=== PATIENT | male | born 1970 | race Caucasian/White ===

== ENCOUNTER 2018-04-26 18:43 | Emergency (ER) | payer MEDICARE ==
[2018-04-26 18:43] VITALS: BMI 23.0
[2018-04-26 18:49] VITALS: BP 142/92; PULSE 68; RESP 18; TEMP 98.4; O2SAT 100
[2018-04-26] MEDS ORDERED: Tdap Vaccine 0.5 ml Vial (10-64 yrs) IM ONE ×2 (19:10→19:13)
--- NOTE | 2018-04-26 20:03 | ED PDOC ---
HPI: Skin/Bite Injury Time Seen by Provider: 04/26/18 18:46 Chief Complaint (Nursing): Abnormal Skin Integrity Chief Complaint (Provider): Laceration History Per: Patient History/Exam Limitations: no limitations Onset/Duration Of Symptoms: Mins (PT) Current Symptoms Are (Timing): Still Present Location Of Injury: Right: Leg Quality Of Symptoms: Painful Additional Complaint(s): 47 year old male presents to ED with complaints of injury to the right lower extremity sustained [employer]. Patient states he was taking out the garbage when he was cut by a piece of glass. Notes pain to the area. Patient is unsure of when he received his last tetanus booster. PCP: None Past Medical History Reviewed: Historical Data, Nursing Documentation, Vital Signs Vital Signs: Last Vital Signs Temp 98.4 F 04/26/18 18:47 Pulse 68 04/26/18 18:47 Resp 18 04/26/18 18:47 BP 142/92 H 04/26/18 18:47 Pulse Ox 100 04/26/18 20:07 - Medical History PMH: Anxiety, Asthma, CVA, Depression, Diabetes, Deep Vein Thrombosis, HTN, Hypercholesterolemia, Pulmonary Embolism (from previous history), Sleep Apnea, TIA - Surgical History Surgical History: CABG, Cholecystectomy, Coronary Stent (2008) - Family History Family History: States: Unknown Family Hx - Living Arrangements Living Arrangements: With Family - Immunization History Hx Tetanus Toxoid Vaccination: Yes Hx Influenza Vaccination: Yes Hx Pneumococcal Vaccination: Yes - Home Medications Home Medications: Ambulatory Orders Medication Instructions Recorded Warfarin [Coumadin] 10 mg PO DAILY 07/19/15 Mupirocin 1 appl TP BID #22 g 10/08/15 - Allergies Allergies/Adverse Reactions: Allergies Allergy/AdvReac Type Severity Reaction Status Date / Time Penicillins Allergy RASH Verified 04/26/18 18:46 Review of Systems ROS Statement: Except As Marked, All Systems Reviewed And Found Negative Musculoskeletal: Positive for: Leg Pain (laceration and pain to right lower extremity) Physical Exam - Reviewed Nursing Documentation Reviewed: Yes Vital Signs Reviewed: Yes - Physical Exam Appears: Positive for: Non-toxic, No Acute Distress Skin: Positive for: Normal Color, Warm, Dry Respiratory: Negative for: Respiratory Distress Extremity: Positive for: Normal ROM, Other (RIGHT CALF: 2 parallel, superficial lacerations each 6cm in length. No active bleeding.). Negative for: Deformity Neurologic/Psych: Positive for: Alert, Oriented. Negative for: Motor/Sensory Deficits - ECG O2 Sat by Pulse Oximetry: 100 (RA) Pulse Ox Interpretation: Normal Medical Decision Making Medical Decision Makin Initial impression: laceration Initial plan: * Tetanus 0.5mL IM * Wound repair See procedure note Scribe Attestation: Documented by Mckenzie Hernandez, acting as a scribe for Jacklyn Goel PA-C Provider Scribe Attestation: All medical record entries made by the Scribe were at my direction and personally dictated by me. I have reviewed the chart and agree that the record accurately reflects my personal performance of the history, physical exam, medical decision making, and the department course for this patient. I have also personally directed, reviewed, and agree with the discharge instructions and disposition. Disposition - Clinical Impression Clinical Impression: Tetanus toxoid vaccination administered at current visit, Leg laceration - Patient ED Disposition Is Patient to be Admitted: No - Disposition Disposition: Routine/Home Disposition Time: 20:12 Condition: STABLE Instructions: Laceration Repair With Glue (DC) Forms: [employer] ([place] Citizen) Procedures - Time-Out Type of Procedure: Wound Repair Site of Procedure: Right lower extremity Correct Patient (with visual ID + MR# on ID Band): Yes Correct Procedure: Yes Correct Site Marked: Yes X-Ray Marked: NA Medication Reconciliation / Bloodwork / Allergies Checked: Yes PA/Tech: Jacklyn Goel - Laceration/Wound Repair Right lower extremity Wound Length (cm): 6 (x2) Wound's Depth, Shape: superficial Wound Explored: clean Irrigated w/ Saline (ccs): 250 Betadine Prep?: No Wound Repaired With: Steri-strips, Skin adhesive Wound Complexity: Simple Sterile Dressing Applied?: Yes Progress: Patient tolerated procedure well.
== END 2018-04-26 20:20 | disposition home or self-care (01) ==
LOC: H.ER 18:43
DX: S81.811A Laceration without foreign body, right lower leg, initial encounter (principal); W25.XXXA Contact with sharp glass, initial encounter; Y92.89 Other specified places as the place of occurrence of the external cause; E11.9 Type 2 diabetes mellitus without complications; Z79.01 Long term (current) use of anticoagulants; Z86.711 Personal history of pulmonary embolism; Z88.0 Allergy status to penicillin; Z95.1 Presence of aortocoronary bypass graft

== ENCOUNTER 2018-05-14 20:04 | Inpatient (IN) | payer MEDICARE ==
[2018-05-14] MEDS ORDERED: Naloxone 0.4 mg/ml Inj (Adult) ONE (20:06)
[2018-05-14 20:10] VITALS: BMI 10.8
[2018-05-14] MEDS ORDERED: Sodium Chloride 0.9% 1,000 ML IV STA ×2 (20:13→20:49)
[2018-05-14] MEDS ORDERED: Succinylcholine 200 mg/10 ml Inj IV ONE ×2 (20:27→21:25)
[2018-05-14] MEDS ORDERED: Etomidate 20 mg/10ml Inj IV ONE ×2 (20:27→21:23)
[2018-05-14 20:42] LABS: ACETAMINOPHEN < 10.0 ug/ml (10.0-30.0); SALICYLATE < 1.0 mg/dl
[2018-05-14 20:44] LABS: ALB/GLOB RATIO 1.5 (1.0-2.1); ALBUMIN 3.9 g/dL (3.5-5.0); ALT/SGPT 26 U/L (21-72); AST/SGOT 30 U/L (17-59); BASO % 0.2 % (0.0-2.0); BLOOD UREA NITROGEN 16 mg/dl (9-20); CALCIUM 8.5 mg/dL (8.4-10.2); EOS % 0.6 % (0.0-4.0); GFR NON-AFRICAN AMERICAN > 60; HEMOGLOBIN 10.9 g/dL (12.0-18.0); LYMPH % 45.4 % (20.0-40.0); MEAN CELL VOLUME 78.6 fl (80.0-94.0); MEAN CORPUSCULAR HEMOGLOBIN 24.4 pg (27.0-31.0); MEAN PLATELET VOLUME 10.7 fl (7.2-11.7); MONO # 0.4 K/uL (0.0-0.8); MONO % 6.6 % (0.0-10.0); NEUT # 3.2 K/uL (1.8-7.0); NEUT % 47.2 % (50.0-75.0); RBC 4.47 Mil/uL (4.40-5.90); RED CELL DISTRIBUTION WIDTH 16.7 % (11.5-14.5); WHITE BLOOD COUNT 6.7 K/uL (4.8-10.8)
[2018-05-14] MEDS ORDERED: Clindamycin 150 mg/mL Inj IV STA (20:53)
[2018-05-14 21:00] LABS: INR 1.1 (0.9-1.2); PARTIAL THROMBOPLASTIN TIME 22.8 Seconds (25.6-37.1); PROTHROMBIN TIME 12.4 Seconds (9.8-13.1)
[2018-05-14] MEDS ORDERED: Clindamycin 600mg/50ml NS 600 MG/50 ML BAG IVPB SCH (21:00)
--- NOTE | 2018-05-14 21:02 | ED PDOC ---
HPI: Psych/Substance Abuse Time Seen by Provider: 05/14/18 20:12 Chief Complaint (Nursing): Altered Mental Status Chief Complaint (Provider): substance abuse History Per: EMS History/Exam Limitations: clinical condition Onset/Duration Of Symptoms: Hrs (today) Current Symptoms Are (Timing): Still Present Involuntary Hold By: None Additional Complaint(s): Joe Shah is a 47 year old male, with a past medical history of depression, who was brought to the emergency department via EMS after patient reported he was suicidal and intended to OD on all his pills. History per EMS, who noted he had multiple empty bottles of Trazodone, Ambien, Seroquel and Clonidine. Limited history due to patients clinical condition. PMD: None provided. Past Medical History Reviewed: Historical Data, Nursing Documentation, Vital Signs Vital Signs: Last Vital Signs Temp Pulse 125 H 05/14/18 20:08 Resp 16 05/14/18 20:08 BP Pulse Ox 80 L 05/14/18 20:08 - Medical History PMH: Anxiety, Asthma, CVA, Depression, Diabetes, Deep Vein Thrombosis, HTN, Hypercholesterolemia, Pulmonary Embolism (from previous history), Sleep Apnea, TIA - Surgical History Surgical History: CABG, Cholecystectomy, Coronary Stent (2008) - Family History Family History: States: Unknown Family Hx - Immunization History Hx Tetanus Toxoid Vaccination: Yes Hx Influenza Vaccination: Yes Hx Pneumococcal Vaccination: Yes - Home Medications Home Medications: Ambulatory Orders Medication Instructions Recorded Warfarin [Coumadin] 10 mg PO DAILY 07/19/15 Mupirocin 1 appl TP BID #22 g 10/08/15 - Allergies Allergies/Adverse Reactions: Allergies Allergy/AdvReac Type Severity Reaction Status Date / Time Penicillins Allergy RASH Verified 05/14/18 20:08 Review of Systems Review Of Systems: ROS cannot be obtained secondary to pt's inabilty to answer questions. Physical Exam - Reviewed Nursing Documentation Reviewed: Yes Vital Signs Reviewed: Yes - Physical Exam Head Exam: Positive for: ATRAUMATIC, NORMAL INSPECTION, NORMOCEPHALIC Skin: Positive for: Normal Color Eye Exam: Positive for: PERRL (4mm b/l and reactive pupils) Cardiovascular/Chest: Positive for: Tachycardia Respiratory: Positive for: Other (o2 sat high 80s, low 90s w/ active ambu bagging) Extremity: Negative for: Deformity, Swelling Neurologic/Psych: Negative for: Alert (doesn't withdraw from pain) - Laboratory Results Result Diagrams: 05/15/18 05:30 05/15/18 05:30 - ECG O2 Sat by Pulse Oximetry: 80 (RA) Pulse Ox Interpretation: Abnormal - Critical Care Total Time (In Min): 30 Documented Critical Care: Time excludes all time spent performint seperately billable procedures Medical Decision Making Medical Decision Making: Time: 20:12 Initial Impression: respiratory failure in setting of known overdose Initial Plan: --Type and screen --ABG --Head w/o contrast [CT] --EKG --Acetaminophen --Alcohol serum --CMP --Drug screen, urine --Lact Acid, Plasma --Magnesium --Phosphorus --Salicylate --Troponin I --Urine dipstick --Poison Control --CBC w/ differential --PTT --PT --Chest portable [RAD] --Cleocin 600 mg IV --Sodium Chloride 1,000 ml IV 1,000 mls/jr --1:1 Observation 20:45 -Provider attempted to intubate patient for airway maintenance but remained unsuccessful, Anesthesiologist Dr Ho subsequently intubated patient. Ventilator settings ordered by provider Labs reviewed show no clinically sig abnormalities with exception of respiratory acidosis as indicated on ABG; RR and FIO2 adjusted Case d/w Dr Uriarte for medicine receptionist clerk admission and Dr Dunne (hospitalist covering ICU) ----- Scribe Attestation: Documented by John Garibay, acting as a scribe for Radames Ramirez MD. Provider Scribe Attestation: All medical record entries made by the Scribe were at my direction and personally dictated by me. I have reviewed the chart and agree that the record accurately reflects my personal performance of the history, physical exam, medical decision making, and the department course for this patient. I have also personally directed, reviewed, and agree with the discharge instructions and disposition. Disposition - Clinical Impression Clinical Impression: Overdose - Disposition Disposition Time: 22:00 Condition: CRITICAL
[2018-05-14 21:36] LABS: ABG ALLEN TEST YES; ARTERIAL BLOOD GAS HCO3 23.4 mmol/L (21-28); ARTERIAL BLOOD GAS O2 SAT 100.2 % (95-98); ARTERIAL BLOOD GAS PCO2 62 mm/Hg (35-45); ARTERIAL BLOOD GAS PH 7.24 (7.35-7.45); ARTERIAL BLOOD GAS PO2 274 mm/Hg (80-100); ARTERIAL BLOOD GAS TCO2 28.5 mmol/L (22-28)
--- NOTE | 2018-05-14 21:58 | CP.PCM.CON ---
History of Present Illness - History of Present Illness History of Present Illness: Attending: Dr Kalani WISED: Unknown Reason for Consult: Critical Care Management Chief Complaint: Altered Mental Status The patient was seen and examined in the ED HPI: The hx was obtained from discussion with the ED Physician and after review of the medical records. He is a 47 years old male with hx of Depression , DM, Asthma and Sleep apnea, who was brought to the ED via EMS after he reported being suicidal and intended to OD on his Pills, then found to be unresponsive at home. He had about him empty bottles of Seroquel, Ambien, Trazodone and Clonidine. He was unresponsive in the Ed and because of his Pulmonary hx he was electively intubated for airway protection in the ED. PMH: Anxiety and Depression; Asthma, DM II; DVT and PE; HTN, HLD; Sleep Apnea, TIA; panic attacks PSH: CABG, Cholecystectomy, Coronary Stent (2008); IVC Filter 2008; Gastric Bipass 2013 SH: Former Smoker; No illegal drug use; No Alcohol; FH: States: Unknown Family Hx Allergies: PCN Medication: Reviewed Review of Systems - Review of Systems Systems not reviewed;Unavailable: Intubated Review of Systems: Review of system is limited because the patient is Sedated from his overdose and he is intubated. Past Patient History - Infectious Disease Hx of Infectious Diseases: None - Past Medical History & Family History Past Medical History?: Yes - Past Social History Smoking Status: Former Smoker Chewing Tobacco Use: No Cigar Use: No Alcohol: None Drugs: Denies - CARDIAC Hx Hypercholesterolemia: Yes Hx Hypertension: Yes - PULMONARY Hx Asthma: Yes Hx Pulmonary Embolism: Yes (from previous history) Hx Sleep Apnea: Yes - NEUROLOGICAL Hx Transient Ischemic Attacks (TIA): Yes - HEENT Hx HEENT Problems: No - ENDOCRINE/METABOLIC Hx Endocrine Disorders: Yes Hx Diabetes Mellitus Type 1: Yes (prior to gastric bypass) - HEMATOLOGICAL/ONCOLOGICAL Hx Blood Disorders: No - INTEGUMENTARY Hx Dermatological Problems: No - MUSCULOSKELETAL/RHEUMATOLOGICAL Hx Falls: No - GASTROINTESTINAL Hx Gastrointestinal Disorders: Yes Hx Nausea: Yes Hx Vomiting: Yes - GENITOURINARY/GYNECOLOGICAL Hx Genitourinary Disorders: No - PSYCHIATRIC Hx Anxiety: Yes Hx Depression: Yes Hx Panic Symptoms: Yes - SURGICAL HISTORY Hx Cholecystectomy: Yes Hx Coronary Artery Bypass Graft: Yes Hx Coronary Stent: Yes (2008) Other/Comment: Gastric Bipass. IVC filter - ANESTHESIA Hx Anesthesia: Yes Hx Anesthesia Reactions: No Hx Malignant Hyperthermia: No Meds Allergies/Adverse Reactions: Allergies Allergy/AdvReac Type Severity Reaction Status Date / Time Penicillins Allergy RASH Verified 05/14/18 20:08 - Medications Medications: Current Medications Clindamycin Phosphate (Cleocin In Normal Saline) 600 mg in 50 mls @ 100 mls/hr IVPB ONCE DANNY Physical Exam - Constitutional Additional comments: Intubated/ - Head Exam Head Exam: ATRAUMATIC, NORMAL INSPECTION, NORMOCEPHALIC - Eye Exam Eye Exam: Normal appearance Pupil Exam: PERRL - ENT Exam ENT Exam: Mucous Membranes Moist, Normal Exam, Normal External Ear Exam - Neck Exam Neck exam: Positive for: Normal Inspection. Negative for: Lymphadenopathy - Respiratory Exam Respiratory Exam: Clear to Auscultation Bilateral. absent: Rales, Rhonchi, Wheezes - Cardiovascular Exam Cardiovascular Exam: REGULAR RHYTHM, RRR, +S1, +S2 - GI/Abdominal Exam GI & Abdominal Exam: Normal Bowel Sounds, Soft. absent: Mass, Organomegaly - Rectal Exam Rectal Exam: Deferred - Extremities Exam Extremities exam: Positive for: normal inspection. Negative for: joint swelling , pedal edema - Back Exam Back exam: NORMAL INSPECTION - Neurological Exam Additional comments: Sedated, Intubated, no facial droop, generalized Decrease in tone, DTR conserved - Psychiatric Exam Additional comments: Intubated on mechanical ventilator - Skin Skin Exam: Dry, Intact, Normal Color, Warm Results - Vital Signs Recent Vital Signs: Last Vital Signs Temp 98.7 F 05/14/18 21:53 Pulse 106 H 05/14/18 21:53 Resp 20 05/14/18 21:53 BP 116/58 L 05/14/18 21:53 Pulse Ox 98 05/14/18 21:53 - Labs Result Diagrams: 05/14/18 20:25 05/14/18 20:25 Labs: Laboratory Results - last 24 hr 05/14/18 05/14/18 05/14/18 20:25 20:25 20:25 WBC 6.7 RBC 4.47 Hgb 10.9 L Hct 35.1 MCV 78.6 L MCH 24.4 L MCHC 31.0 L RDW 16.7 H Plt Count 240 MPV 10.7 Neut % (Auto) 47.2 L Lymph % (Auto) 45.4 H Imperial % (Auto) 6.6 Eos % (Auto) 0.6 Baso % (Auto) 0.2 Neut # (Auto) 3.2 Lymph # (Auto) 3.0 Imperial # (Auto) 0.4 Eos # (Auto) 0.0 Baso # (Auto) 0.0 PT INR APTT pCO2 pO2 HCO3 ABG pH ABG Total CO2 ABG O2 Saturation ABG Base Excess Eagle Test ABG Potassium A-a O2 Difference Glucose Lactate Vent Mode Mechanical Rate FiO2 Tidal Volume Sodium 140 Potassium 3.7 Chloride 102 Carbon Dioxide 25 Anion Gap 17 BUN 16 Creatinine 1.0 Est GFR ( Amer) > 60 Est GFR (Non-Af Amer) > 60 Random Glucose 259 H Lactic Acid Calcium 8.5 Phosphorus 5.5 H Magnesium 2.0 Total Bilirubin 1.4 H AST 30 ALT 26 Alkaline Phosphatase 50 Troponin I < 0.0120 Total Protein 6.5 Albumin 3.9 Globulin 2.6 Albumin/Globulin Ratio 1.5 Arterial Blood Potassium Salicylates < 1.0 Acetaminophen < 10.0 L Alcohol, Quantitative < 10 Blood Type Antibody Screen BBK History Checked 05/14/18 05/14/18 05/14/18 20:25 20:25 20:25 WBC RBC Hgb Hct MCV MCH MCHC RDW Plt Count MPV Neut % (Auto) Lymph % (Auto) Imperial % (Auto) Eos % (Auto) Baso % (Auto) Neut # (Auto) Lymph # (Auto) Imperial # (Auto) Eos # (Auto) Baso # (Auto) PT 12.4 INR 1.1 APTT 22.8 L pCO2 pO2 HCO3 ABG pH ABG Total CO2 ABG O2 Saturation ABG Base Excess Eagle Test ABG Potassium A-a O2 Difference Glucose Lactate Vent Mode Mechanical Rate FiO2 Tidal Volume Sodium Potassium Chloride Carbon Dioxide Anion Gap BUN Creatinine Est GFR ( Amer) Est GFR (Non-Af Amer) Random Glucose Lactic Acid 3.3 H Calcium Phosphorus Magnesium Total Bilirubin AST ALT Alkaline Phosphatase Troponin I Total Protein Albumin Globulin Albumin/Globulin Ratio Arterial Blood Potassium Salicylates Acetaminophen Alcohol, Quantitative Blood Type A POSITIVE Antibody Screen Negative BBK History Checked Patient has bt 05/14/18 21:31 WBC RBC Hgb Hct MCV MCH MCHC RDW Plt Count MPV Neut % (Auto) Lymph % (Auto) Imperial % (Auto) Eos % (Auto) Baso % (Auto) Neut # (Auto) Lymph # (Auto) Imperial # (Auto) Eos # (Auto) Baso # (Auto) PT INR APTT pCO2 62 H pO2 274 H HCO3 23.4 ABG pH 7.24 L ABG Total CO2 28.5 H ABG O2 Saturation 100.2 H ABG Base Excess -2.1 L Eagle Test Yes ABG Potassium 3.9 A-a O2 Difference 362.0 Glucose 240 H Lactate 1.7 Vent Mode A/c Mechanical Rate 16 FiO2 100.0 Tidal Volume 700 Sodium 138.0 Potassium Chloride 107.0 Carbon Dioxide Anion Gap BUN Creatinine Est GFR ( Amer) Est GFR (Non-Af Amer) Random Glucose Lactic Acid Calcium Phosphorus Magnesium Total Bilirubin AST ALT Alkaline Phosphatase Troponin I Total Protein Albumin Globulin Albumin/Globulin Ratio Arterial Blood Potassium 3.9 Salicylates Acetaminophen Alcohol, Quantitative Blood Type Antibody Screen BBK History Checked - Imaging and Cardiology Chest x-ray Status: Image reviewed by me Additional comment: Left basal infiltrate ET at [place] Assessment & Plan - Assessment and Plan (Free Text) Assessment: #. Overdose on medications #. Depression #. Hypercapnic Respiratory Failure #. Aspiration Pneumonia #. DM II with Hyperglycemia Plan: 47 years old male with hx of Depression, DM, Asthma and Sleep apnea, who was brought to the ED via EMS after he was found to be unresponsive at home. He had about him empty bottles of Seroquel, Ambien, Trazodone and Clonidine. He was unresponsive in the Ed and was electively intubated for airway protection. #. Altered mental Status, Overdose on the medications, Seroquel, Ambien, Clonidine, Trazodone - Admit to ICU - Cardiac monitoring - seizure Precaution - Neuro checks - IV Fluids #. Depression - Psychiatric Consult #. Hypercapnic Respiratory Failure -Mechanical ventilation with settings AC 20; TV 500; FiO2 of 70% - Follow ABG #. Aspiration Pneumonia - Consult Dr Wheeler Pulmonary - Patient on Mechanical ventilator to protect Airway - Clindamycin #. DM II with Hyperglycemia - Regular Insulin sliding scale according to accucheck - HbA1c #. Stress ulcer Prophylaxis with Pantoprazole #. DVT Prophylaxis with SCD #. Code Status: Full - Date & Time Date: 05/14/18 Time: 21:58
[2018-05-14 22:00] LABS: URINE BACTERIA RARE (<OCC); URINE BILIRUBIN NEGATIVE (NEGATIVE); URINE BLOOD NEGATIVE (NEGATIVE); URINE CLARITY SLIGHTY-CLOUDY (Clear); URINE COLOR YELLOW (YELLOW); URINE GLUCOSE (UA) NEG (Normal); URINE LEUKOCYTE ESTERASE NEG Leu/uL (Negative); URINE PROTEIN 30 mg/dL (NEGATIVE)
[2018-05-14 22:03] LABS: BENZODIAZEPINES, UR NEGATIVE (NEGATIVE)
[2018-05-14 22:20] LABS: BARBITURATES, UR NEGATIVE (NEGATIVE); OPIATES, UR NEGATIVE (NEGATIVE); PHENCYCLIDINE, UR NEGATIVE (NEGATIVE)
--- NOTE | 2018-05-14 22:33 | PCM.ANES ---
Anesthesia Emergent Intubation - Diagnosis Working Diagnosis:: Drug Overdose - Consult Reason for Consult:: Respiratory failure - Intubation Attempts Previous Number of Intubation Attempts:: 3 (3 unsucessful attepts, aspiration noted by ER physician) By:: ER physicain - Pre-Intubation Vital Signs Blood Pressure: 59/29 Heart Rate: 114 Respiratory Rate: 12 (Mask ventilated by RT) O2 Sat: 75 FIO2: 100 Oxygen Delivery Method: Ambu-Bag Level Of Consciousness: Comatose/Unresponsive - Airway Management Oropharyngeal Area Suctioned: Yes PreOxygenation: 100 (ventilated by mask upon arrival) - Method of Intubation Intubation Method: Oral ETT ETT Size: 7.5 Lipline@: 23 Easy: Yes (Vomitus seen between cords and within trachea) Atramatic: Yes - Intubation Devices Reva Blade Size Used: 3 Kiran Forcepts Used: No Monument Scope Used: No Fiber Optic Scope: No - Placement Confirmation Breath Sounds Present & Equal Bilaterally: Yes Gurgling Sounds Not Audible at Epigastrum: Yes Positive EtCO2: Yes Portable CXR: Yes (Ordered by ER) Recommendations: Ventilator, Chest X Ray, ABG - Post-Intubation Vital Signs Blood Pressure: 84/42 Heart Rate: 119 Respiratory Rate: 12 O2 Sat: 94 FIO2: 100
[2018-05-14] MEDS: Sodium Chloride 0.9% 1,000 ML IV SCH (23:23)
[2018-05-15 05:25] LABS: ABG ALLEN TEST YES; ARTERIAL BLOOD GAS HCO3 24.5 mmol/L (21-28); ARTERIAL BLOOD GAS HEMOGLOBIN 10.4 g/dL (11.7-17.4); ARTERIAL BLOOD GAS O2 CAPACITY 14.6 mL/dL (16-24); ARTERIAL BLOOD GAS PCO2 43 mm/Hg (35-45); ARTERIAL BLOOD GAS PH 7.37 (7.35-7.45); ARTERIAL BLOOD GAS PO2 86 mm/Hg (80-100); ARTERIAL BLOOD GAS TCO2 26.2 mmol/L (22-28)
[2018-05-15] MEDS: Insulin Regular 100 units/ml SC SCH ×4 (05:30→22:00)
[2018-05-15] MEDS: Sodium Chloride 0.9% 1,000 ML IV SCH ×2 (06:25→19:00)
[2018-05-15 06:36] LABS: BASO % 0.1 % (0.0-2.0); HEMOGLOBIN 10.6 g/dL (12.0-18.0); LYMPH # 0.3 K/uL (1.0-4.3); LYMPH % 3.4 % (20.0-40.0); MEAN CELL VOLUME 76.1 fl (80.0-94.0); MEAN CORPUSCULAR HEMOGLOBIN 24.6 pg (27.0-31.0); MEAN CORPUSCULAR HGB CONC 32.3 g/dL (33.0-37.0); MEAN PLATELET VOLUME 9.1 fl (7.2-11.7); MONO # 0.3 K/uL (0.0-0.8); MONO % 3.5 % (0.0-10.0); PLATELET COUNT 190 K/uL (130-400); RBC 4.33 Mil/uL (4.40-5.90); RED CELL DISTRIBUTION WIDTH 16.7 % (11.5-14.5); WHITE BLOOD COUNT 9.7 K/uL (4.8-10.8)
[2018-05-15 06:43] LABS: ALB/GLOB RATIO 1.3 (1.0-2.1); ALBUMIN 3.4 g/dL (3.5-5.0); ALT/SGPT 29 U/L (21-72); AST/SGOT 47 U/L (17-59); BLOOD UREA NITROGEN 17 mg/dl (9-20); CALCIUM 7.9 mg/dL (8.4-10.2); GFR NON-AFRICAN AMERICAN > 60
[2018-05-15 06:50] LABS: IRON 80 ug/dL (49-181)
[2018-05-15 06:59] LABS: % IRON SATURATION 19 % (20-55); TOTAL IRON BINDING CAPACITY 429 ug/dL (250-450)
--- NOTE | 2018-05-15 08:16 | CP.CCUPN ---
CCU Subjective - Physician Review Events Since Last Encounter (Free Text): Patient on ventilator on PRVC TV 500, RR 20, FIO2 70%, no pressors, no response to verbal stimuli, events reviewed CCU Objective - Vital Signs / Intake & Output Vital Signs (Last 4 hours): Vital Signs Temp Pulse Resp BP Pulse Ox 05/15/18 08:00 101.5 F H 125 H 29 H 135/75 99 05/15/18 06:57 80 L 05/15/18 06:00 121 H 30 H 139/79 95 Intake and Output (Last 8hrs): Intake & Output 05/14/18 05/15/18 05/15/18 22:59 06:59 14:59 Intake Total 1050 Output Total 800 Balance 250 Weight 75 lb 191 lb Intake: IV 1050 Output: Urine 800 Urethral (Sy) 800 - Physical Exam Head: Positive for: Atraumatic, Normocephalic Pupils: Positive for: PERRL Conjunctiva: Positive for: Normal Mouth: Positive for: Moist Mucous Membranes Nose (External): Positive for: Atraumatic Neck: Positive for: Normal Range of Motion Respiratory/Chest: Positive for: Clear to Auscultation Cardiovascular: Positive for: Regular Rate and Rhythm, Normal S1, S2 Abdomen: Positive for: Normal Bowel Sounds Upper Extremity: Positive for: Normal Inspection Lower Extremity: Positive for: Normal Inspection Neurological: Positive for: Other (on ventilator, no response to verbal stimuli) - Medications Active Medications: Active Medications Generic Name Dose Route Start Last Admin Trade Name Freq PRN Reason Stop Dose Admin Enoxaparin Sodium 40 mg 05/15/18 09:00 Lovenox SC DAILY DANNY Protocol Clindamycin Phosphate 600 mg in 50 mls @ 100 mls/hr 05/14/18 21:00 Cleocin In Normal Saline IVPB ONCE DANNY Clindamycin Phosphate 600 mg/ 54 mls @ 54 mls/hr 05/15/18 09:00 Sodium Chloride IVPB Q8 DANNY Protocol Sodium Chloride 1,000 mls @ 150 mls/hr 05/14/18 22:45 05/15/18 06:25 Sodium Chloride 0.9% IV 05/15/18 12:04 150 mls/hr .[id number] DANNY Administration Insulin Human Regular 0 units 05/15/18 04:00 05/15/18 05:30 Humulin R SC Not Given Q6 DANNY Protocol Pantoprazole Sodium 40 mg 05/15/18 09:00 Protonix Inj IVP DAILY DANNY - Patient Studies Lab Studies: Lab Studies 05/15/18 05/15/18 05/15/18 Range/Units 05:55 05:30 05:30 WBC (4.8-10.8) K/uL RBC (4.40-5.90) Mil/uL Hgb (12.0-18.0) g/dL Hct (35.0-51.0) % MCV (80.0-94.0) fl MCH (27.0-31.0) pg MCHC (33.0-37.0) g/dL RDW (11.5-14.5) % Plt Count (130-400) K/uL MPV (7.2-11.7) fl Neut % (Auto) (50.0-75.0) % Lymph % (Auto) (20.0-40.0) % Robeson % (Auto) (0.0-10.0) % Eos % (Auto) (0.0-4.0) % Baso % (Auto) (0.0-2.0) % Neut # (Auto) (1.8-7.0) K/uL Lymph # (Auto) (1.0-4.3) K/uL Robeson # (Auto) (0.0-0.8) K/uL Eos # (Auto) (0.0-0.7) K/uL Baso # (Auto) (0.0-0.2) K/uL PT (9.8-13.1) Seconds INR (0.9-1.2) APTT (25.6-37.1) Seconds pCO2 (35-45) mm/Hg pO2 (80-100) mm/Hg HCO3 (21-28) mmol/L ABG pH (7.35-7.45) ABG Total CO2 (22-28) mmol/L ABG O2 Saturation (95-98) % ABG O2 Content (15-23) ML/dL ABG Base Excess (-2.0-3.0) mmol/L ABG Hemoglobin (11.7-17.4) g/dL ABG Carboxyhemoglobin (0.5-1.5) % POC ABG HHb (Measured) (0.0-5.0) % ABG Methemoglobin (0.0-3.0) % ABG O2 Capacity (16-24) mL/dL Eagle Test ABG Potassium (3.6-5.2) mmol/L A-a O2 Difference mm/Hg Hgb O2 Saturation (95.0-98.0) % Glucose (75-110) mg/dL Lactate (0.7-2.1) mmol/L Vent Mode Mechanical Rate FiO2 % Tidal Volume Sodium 141 (132-148) mmol/l Potassium 4.4 (3.6-5.0) MMOL/L Chloride 105 (98-107) mmol/L Carbon Dioxide 26 (22-30) mmol/L Anion Gap 14 (10-20) BUN 17 (9-20) mg/dl Creatinine 0.9 (0.8-1.5) mg/dl Est GFR ( Amer) > 60 Est GFR (Non-Af Amer) > 60 POC Glucose (mg/dL) 166 H (65-110) mg/dL Random Glucose 157 H (75-110) mg/dL Lactic Acid (0.7-2.1) MMOL/L Calcium 7.9 L (8.4-10.2) mg/dL Phosphorus (2.5-4.5) mg/dl Magnesium (1.6-2.3) MG/DL Iron 80 (49-181) ug/dL TIBC 429 (250-450) ug/dL % Saturation 19 L (20-55) % Total Bilirubin 2.4 H (0.2-1.3) mg/dl AST 47 (17-59) U/L ALT 29 (21-72) U/L Alkaline Phosphatase 51 (38-126) U/L Troponin I (0.00-0.120) ng/mL Total Protein 5.9 L (6.3-8.2) G/DL Albumin 3.4 L (3.5-5.0) g/dL Globulin 2.6 (2.2-3.9) gm/dL Albumin/Globulin Ratio 1.3 (1.0-2.1) Arterial Blood Potassium (3.6-5.2) mmol/L Urine Color (YELLOW) Urine Clarity (Clear) Urine pH (5.0-8.0) Ur Specific [place] (1.003-1.030) Urine Protein (NEGATIVE) mg/dL Urine Glucose (UA) (Normal) mg/dL Urine Ketones (NEGATIVE) mg/dL Urine Blood (NEGATIVE) Urine Nitrate (NEGATIVE) Urine Bilirubin (NEGATIVE) Urine Urobilinogen (0.2-1.0) mg/dL Ur Leukocyte Esterase (Negative) Akbar/uL Urine RBC (Auto) (0-3) /hpf Urine Microscopic WBC (0-5) /hpf Urine Bacteria (<OCC) Salicylates mg/dl Urine Opiates Screen (NEGATIVE) Urine Methadone Screen (NEGATIVE) Acetaminophen (10.0-30.0) ug/ml Ur Barbiturates Screen (NEGATIVE) Ur Phencyclidine Scrn (NEGATIVE) Ur Amphetamines Screen (NEGATIVE) U Benzodiazepines Scrn (NEGATIVE) U Oth Cocaine Metabols (NEGATIVE) U Cannabinoids Screen (NEGATIVE) Alcohol, Quantitative (0-10) mg/dl Blood Type Antibody Screen BBK History Checked 05/15/18 05/15/18 05/14/18 Range/Units 05:30 05:20 21:42 WBC 9.7 (4.8-10.8) K/uL RBC 4.33 L (4.40-5.90) Mil/uL Hgb 10.6 L (12.0-18.0) g/dL Hct 33.0 L (35.0-51.0) % MCV 76.1 L D (80.0-94.0) fl MCH 24.6 L (27.0-31.0) pg MCHC 32.3 L (33.0-37.0) g/dL RDW 16.7 H (11.5-14.5) % Plt Count 190 (130-400) K/uL MPV 9.1 (7.2-11.7) fl Neut % (Auto) 93.0 H (50.0-75.0) % Lymph % (Auto) 3.4 L (20.0-40.0) % Robeson % (Auto) 3.5 (0.0-10.0) % Eos % (Auto) 0.0 (0.0-4.0) % Baso % (Auto) 0.1 (0.0-2.0) % Neut # (Auto) 9.0 H (1.8-7.0) K/uL Lymph # (Auto) 0.3 L (1.0-4.3) K/uL Robeson # (Auto) 0.3 (0.0-0.8) K/uL Eos # (Auto) 0.0 (0.0-0.7) K/uL Baso # (Auto) 0.0 (0.0-0.2) K/uL PT (9.8-13.1) Seconds INR (0.9-1.2) APTT (25.6-37.1) Seconds pCO2 43 (35-45) mm/Hg pO2 86 (80-100) mm/Hg HCO3 24.5 (21-28) mmol/L ABG pH 7.37 (7.35-7.45) ABG Total CO2 26.2 (22-28) mmol/L ABG O2 Saturation 96.0 (95-98) % ABG O2 Content 14.0 L (15-23) ML/dL ABG Base Excess -0.5 (-2.0-3.0) mmol/L ABG Hemoglobin 10.4 L (11.7-17.4) g/dL ABG Carboxyhemoglobin 0 L (0.5-1.5) % POC ABG HHb (Measured) 4.0 (0.0-5.0) % ABG Methemoglobin 0.6 (0.0-3.0) % ABG O2 Capacity 14.6 L (16-24) mL/dL Eagle Test Yes ABG Potassium (3.6-5.2) mmol/L A-a O2 Difference 359.0 mm/Hg Hgb O2 Saturation 95.3 (95.0-98.0) % Glucose (75-110) mg/dL Lactate (0.7-2.1) mmol/L Vent Mode A/c Mechanical Rate 20 FiO2 70.0 % Tidal Volume 500 Sodium (132-148) mmol/l Potassium (3.6-5.0) MMOL/L Chloride (98-107) mmol/L Carbon Dioxide (22-30) mmol/L Anion Gap (10-20) BUN (9-20) mg/dl Creatinine (0.8-1.5) mg/dl Est GFR ( Amer) Est GFR (Non-Af Amer) POC Glucose (mg/dL) (65-110) mg/dL Random Glucose (75-110) mg/dL Lactic Acid (0.7-2.1) MMOL/L Calcium (8.4-10.2) mg/dL Phosphorus (2.5-4.5) mg/dl Magnesium (1.6-2.3) MG/DL Iron (49-181) ug/dL TIBC (250-450) ug/dL % Saturation (20-55) % Total Bilirubin (0.2-1.3) mg/dl AST (17-59) U/L ALT (21-72) U/L Alkaline Phosphatase (38-126) U/L Troponin I (0.00-0.120) ng/mL Total Protein (6.3-8.2) G/DL Albumin (3.5-5.0) g/dL Globulin (2.2-3.9) gm/dL Albumin/Globulin Ratio (1.0-2.1) Arterial Blood Potassium (3.6-5.2) mmol/L Urine Color Yellow (YELLOW) Urine Clarity Slighty-cloudy (Clear) Urine pH 5.0 (5.0-8.0) Ur Specific [place] 1.028 (1.003-1.030) Urine Protein 30 (NEGATIVE) mg/dL Urine Glucose (UA) Neg (Normal) mg/dL Urine Ketones Negative (NEGATIVE) mg/dL Urine Blood Negative (NEGATIVE) Urine Nitrate Negative (NEGATIVE) Urine Bilirubin Negative (NEGATIVE) Urine Urobilinogen 2.0 (0.2-1.0) mg/dL Ur Leukocyte Esterase Neg (Negative) Akbar/uL Urine RBC (Auto) 3 (0-3) /hpf Urine Microscopic WBC 1 (0-5) /hpf Urine Bacteria Rare (<OCC) Salicylates mg/dl Urine Opiates Screen (NEGATIVE) Urine Methadone Screen (NEGATIVE) Acetaminophen (10.0-30.0) ug/ml Ur Barbiturates Screen (NEGATIVE) Ur Phencyclidine Scrn (NEGATIVE) Ur Amphetamines Screen (NEGATIVE) U Benzodiazepines Scrn (NEGATIVE) U Oth Cocaine Metabols (NEGATIVE) U Cannabinoids Screen (NEGATIVE) Alcohol, Quantitative (0-10) mg/dl Blood Type Antibody Screen BBK History Checked 05/14/18 05/14/18 05/14/18 Range/Units 21:42 21:31 20:25 WBC (4.8-10.8) K/uL RBC (4.40-5.90) Mil/uL Hgb (12.0-18.0) g/dL Hct (35.0-51.0) % MCV (80.0-94.0) fl MCH (27.0-31.0) pg MCHC (33.0-37.0) g/dL RDW (11.5-14.5) % Plt Count (130-400) K/uL MPV (7.2-11.7) fl Neut % (Auto) (50.0-75.0) % Lymph % (Auto) (20.0-40.0) % Robeson % (Auto) (0.0-10.0) % Eos % (Auto) (0.0-4.0) % Baso % (Auto) (0.0-2.0) % Neut # (Auto) (1.8-7.0) K/uL Lymph # (Auto) (1.0-4.3) K/uL Robeson # (Auto) (0.0-0.8) K/uL Eos # (Auto) (0.0-0.7) K/uL Baso # (Auto) (0.0-0.2) K/uL PT (9.8-13.1) Seconds INR (0.9-1.2) APTT (25.6-37.1) Seconds pCO2 62 H (35-45) mm/Hg pO2 274 H (80-100) mm/Hg HCO3 23.4 (21-28) mmol/L ABG pH 7.24 L (7.35-7.45) ABG Total CO2 28.5 H (22-28) mmol/L ABG O2 Saturation 100.2 H (95-98) % ABG O2 Content (15-23) ML/dL ABG Base Excess -2.1 L (-2.0-3.0) mmol/L ABG Hemoglobin (11.7-17.4) g/dL ABG Carboxyhemoglobin (0.5-1.5) % POC ABG HHb (Measured) (0.0-5.0) % ABG Methemoglobin (0.0-3.0) % ABG O2 Capacity (16-24) mL/dL Eagle Test Yes ABG Potassium 3.9 (3.6-5.2) mmol/L A-a O2 Difference 362.0 mm/Hg Hgb O2 Saturation (95.0-98.0) % Glucose 240 H (75-110) mg/dL Lactate 1.7 (0.7-2.1) mmol/L Vent Mode A/c Mechanical Rate 16 FiO2 100.0 % Tidal Volume 700 Sodium 138.0 (132-148) mmol/l Potassium (3.6-5.0) MMOL/L Chloride 107.0 (98-107) mmol/L Carbon Dioxide (22-30) mmol/L Anion Gap (10-20) BUN (9-20) mg/dl Creatinine (0.8-1.5) mg/dl Est GFR ( Amer) Est GFR (Non-Af Amer) POC Glucose (mg/dL) (65-110) mg/dL Random Glucose (75-110) mg/dL Lactic Acid (0.7-2.1) MMOL/L Calcium (8.4-10.2) mg/dL Phosphorus (2.5-4.5) mg/dl Magnesium (1.6-2.3) MG/DL Iron (49-181) ug/dL TIBC (250-450) ug/dL % Saturation (20-55) % Total Bilirubin (0.2-1.3) mg/dl AST (17-59) U/L ALT (21-72) U/L Alkaline Phosphatase (38-126) U/L Troponin I (0.00-0.120) ng/mL Total Protein (6.3-8.2) G/DL Albumin (3.5-5.0) g/dL Globulin (2.2-3.9) gm/dL Albumin/Globulin Ratio (1.0-2.1) Arterial Blood Potassium 3.9 (3.6-5.2) mmol/L Urine Color (YELLOW) Urine Clarity (Clear) Urine pH (5.0-8.0) Ur Specific [place] (1.003-1.030) Urine Protein (NEGATIVE) mg/dL Urine Glucose (UA) (Normal) mg/dL Urine Ketones (NEGATIVE) mg/dL Urine Blood (NEGATIVE) Urine Nitrate (NEGATIVE) Urine Bilirubin (NEGATIVE) Urine Urobilinogen (0.2-1.0) mg/dL Ur Leukocyte Esterase (Negative) Akbar/uL Urine RBC (Auto) (0-3) /hpf Urine Microscopic WBC (0-5) /hpf Urine Bacteria (<OCC) Salicylates mg/dl Urine Opiates Screen Negative (NEGATIVE) Urine Methadone Screen Negative (NEGATIVE) Acetaminophen (10.0-30.0) ug/ml Ur Barbiturates Screen Negative (NEGATIVE) Ur Phencyclidine Scrn Negative (NEGATIVE) Ur Amphetamines Screen Negative (NEGATIVE) U Benzodiazepines Scrn Negative (NEGATIVE) U Oth Cocaine Metabols Negative (NEGATIVE) U Cannabinoids Screen Negative (NEGATIVE) Alcohol, Quantitative (0-10) mg/dl Blood Type A POSITIVE Antibody Screen Negative BBK History Checked Patient has bt 05/14/18 05/14/18 05/14/18 Range/Units 20:25 20:25 20:25 WBC 6.7 (4.8-10.8) K/uL RBC 4.47 (4.40-5.90) Mil/uL Hgb 10.9 L (12.0-18.0) g/dL Hct 35.1 (35.0-51.0) % MCV 78.6 L (80.0-94.0) fl MCH 24.4 L (27.0-31.0) pg MCHC 31.0 L (33.0-37.0) g/dL RDW 16.7 H (11.5-14.5) % Plt Count 240 (130-400) K/uL MPV 10.7 (7.2-11.7) fl Neut % (Auto) 47.2 L (50.0-75.0) % Lymph % (Auto) 45.4 H (20.0-40.0) % Robeson % (Auto) 6.6 (0.0-10.0) % Eos % (Auto) 0.6 (0.0-4.0) % Baso % (Auto) 0.2 (0.0-2.0) % Neut # (Auto) 3.2 (1.8-7.0) K/uL Lymph # (Auto) 3.0 (1.0-4.3) K/uL Robeson # (Auto) 0.4 (0.0-0.8) K/uL Eos # (Auto) 0.0 (0.0-0.7) K/uL Baso # (Auto) 0.0 (0.0-0.2) K/uL PT 12.4 (9.8-13.1) Seconds INR 1.1 (0.9-1.2) APTT 22.8 L (25.6-37.1) Seconds pCO2 (35-45) mm/Hg pO2 (80-100) mm/Hg HCO3 (21-28) mmol/L ABG pH (7.35-7.45) ABG Total CO2 (22-28) mmol/L ABG O2 Saturation (95-98) % ABG O2 Content (15-23) ML/dL ABG Base Excess (-2.0-3.0) mmol/L ABG Hemoglobin (11.7-17.4) g/dL ABG Carboxyhemoglobin (0.5-1.5) % POC ABG HHb (Measured) (0.0-5.0) % ABG Methemoglobin (0.0-3.0) % ABG O2 Capacity (16-24) mL/dL Eagle Test ABG Potassium (3.6-5.2) mmol/L A-a O2 Difference mm/Hg Hgb O2 Saturation (95.0-98.0) % Glucose (75-110) mg/dL Lactate (0.7-2.1) mmol/L Vent Mode Mechanical Rate FiO2 % Tidal Volume Sodium (132-148) mmol/l Potassium (3.6-5.0) MMOL/L Chloride (98-107) mmol/L Carbon Dioxide (22-30) mmol/L Anion Gap (10-20) BUN (9-20) mg/dl Creatinine (0.8-1.5) mg/dl Est GFR ( Amer) Est GFR (Non-Af Amer) POC Glucose (mg/dL) (65-110) mg/dL Random Glucose (75-110) mg/dL Lactic Acid 3.3 H (0.7-2.1) MMOL/L Calcium (8.4-10.2) mg/dL Phosphorus (2.5-4.5) mg/dl Magnesium (1.6-2.3) MG/DL Iron (49-181) ug/dL TIBC (250-450) ug/dL % Saturation (20-55) % Total Bilirubin (0.2-1.3) mg/dl AST (17-59) U/L ALT (21-72) U/L Alkaline Phosphatase (38-126) U/L Troponin I (0.00-0.120) ng/mL Total Protein (6.3-8.2) G/DL Albumin (3.5-5.0) g/dL Globulin (2.2-3.9) gm/dL Albumin/Globulin Ratio (1.0-2.1) Arterial Blood Potassium (3.6-5.2) mmol/L Urine Color (YELLOW) Urine Clarity (Clear) Urine pH (5.0-8.0) Ur Specific [place] (1.003-1.030) Urine Protein (NEGATIVE) mg/dL Urine Glucose (UA) (Normal) mg/dL Urine Ketones (NEGATIVE) mg/dL Urine Blood (NEGATIVE) Urine Nitrate (NEGATIVE) Urine Bilirubin (NEGATIVE) Urine Urobilinogen (0.2-1.0) mg/dL Ur Leukocyte Esterase (Negative) Akbar/uL Urine RBC (Auto) (0-3) /hpf Urine Microscopic WBC (0-5) /hpf Urine Bacteria (<OCC) Salicylates mg/dl Urine Opiates Screen (NEGATIVE) Urine Methadone Screen (NEGATIVE) Acetaminophen (10.0-30.0) ug/ml Ur Barbiturates Screen (NEGATIVE) Ur Phencyclidine Scrn (NEGATIVE) Ur Amphetamines Screen (NEGATIVE) U Benzodiazepines Scrn (NEGATIVE) U Oth Cocaine Metabols (NEGATIVE) U Cannabinoids Screen (NEGATIVE) Alcohol, Quantitative (0-10) mg/dl Blood Type Antibody Screen BBK History Checked 05/14/18 05/14/18 Range/Units 20:25 20:25 WBC (4.8-10.8) K/uL RBC (4.40-5.90) Mil/uL Hgb (12.0-18.0) g/dL Hct (35.0-51.0) % MCV (80.0-94.0) fl MCH (27.0-31.0) pg MCHC (33.0-37.0) g/dL RDW (11.5-14.5) % Plt Count (130-400) K/uL MPV (7.2-11.7) fl Neut % (Auto) (50.0-75.0) % Lymph % (Auto) (20.0-40.0) % Robeson % (Auto) (0.0-10.0) % Eos % (Auto) (0.0-4.0) % Baso % (Auto) (0.0-2.0) % Neut # (Auto) (1.8-7.0) K/uL Lymph # (Auto) (1.0-4.3) K/uL [place] # (Auto) (0.0-0.8) K/uL Eos # (Auto) (0.0-0.7) K/uL Baso # (Auto) (0.0-0.2) K/uL PT (9.8-13.1) Seconds INR (0.9-1.2) APTT (25.6-37.1) Seconds pCO2 (35-45) mm/Hg pO2 (80-100) mm/Hg HCO3 (21-28) mmol/L ABG pH (7.35-7.45) ABG Total CO2 (22-28) mmol/L ABG O2 Saturation (95-98) % ABG O2 Content (15-23) ML/dL ABG Base Excess (-2.0-3.0) mmol/L ABG Hemoglobin (11.7-17.4) g/dL ABG Carboxyhemoglobin (0.5-1.5) % POC ABG HHb (Measured) (0.0-5.0) % ABG Methemoglobin (0.0-3.0) % ABG O2 Capacity (16-24) mL/dL Eagle Test ABG Potassium (3.6-5.2) mmol/L A-a O2 Difference mm/Hg Hgb O2 Saturation (95.0-98.0) % Glucose (75-110) mg/dL Lactate (0.7-2.1) mmol/L Vent Mode Mechanical Rate FiO2 % Tidal Volume Sodium 140 (132-148) mmol/l Potassium 3.7 (3.6-5.0) MMOL/L Chloride 102 (98-107) mmol/L Carbon Dioxide 25 (22-30) mmol/L Anion Gap 17 (10-20) BUN 16 (9-20) mg/dl Creatinine 1.0 (0.8-1.5) mg/dl Est GFR ( Amer) > 60 Est GFR (Non-Af Amer) > 60 POC Glucose (mg/dL) (65-110) mg/dL Random Glucose 259 H (75-110) mg/dL Lactic Acid (0.7-2.1) MMOL/L Calcium 8.5 (8.4-10.2) mg/dL Phosphorus 5.5 H (2.5-4.5) mg/dl Magnesium 2.0 (1.6-2.3) MG/DL Iron (49-181) ug/dL TIBC (250-450) ug/dL % Saturation (20-55) % Total Bilirubin 1.4 H (0.2-1.3) mg/dl AST 30 (17-59) U/L ALT 26 (21-72) U/L Alkaline Phosphatase 50 (38-126) U/L Troponin I < 0.0120 (0.00-0.120) ng/mL Total Protein 6.5 (6.3-8.2) G/DL Albumin 3.9 (3.5-5.0) g/dL Globulin 2.6 (2.2-3.9) gm/dL Albumin/Globulin Ratio 1.5 (1.0-2.1) Arterial Blood Potassium (3.6-5.2) mmol/L Urine Color (YELLOW) Urine Clarity (Clear) Urine pH (5.0-8.0) Ur Specific [place] (1.003-1.030) Urine Protein (NEGATIVE) mg/dL Urine Glucose (UA) (Normal) mg/dL Urine Ketones (NEGATIVE) mg/dL Urine Blood (NEGATIVE) Urine Nitrate (NEGATIVE) Urine Bilirubin (NEGATIVE) Urine Urobilinogen (0.2-1.0) mg/dL Ur Leukocyte Esterase (Negative) Akbar/uL Urine RBC (Auto) (0-3) /hpf Urine Microscopic WBC (0-5) /hpf Urine Bacteria (<OCC) Salicylates < 1.0 mg/dl Urine Opiates Screen (NEGATIVE) Urine Methadone Screen (NEGATIVE) Acetaminophen < 10.0 L (10.0-30.0) ug/ml Ur Barbiturates Screen (NEGATIVE) Ur Phencyclidine Scrn (NEGATIVE) Ur Amphetamines Screen (NEGATIVE) U Benzodiazepines Scrn (NEGATIVE) U Oth Cocaine Metabols (NEGATIVE) U Cannabinoids Screen (NEGATIVE) Alcohol, Quantitative < 10 (0-10) mg/dl Blood Type Antibody Screen BBK History Checked Laboratory Results - last 24 hr 05/14/18 05/14/18 05/14/18 20:25 20:25 20:25 WBC 6.7 RBC 4.47 Hgb 10.9 L Hct 35.1 MCV 78.6 L MCH 24.4 L MCHC 31.0 L RDW 16.7 H Plt Count 240 MPV 10.7 Neut % (Auto) 47.2 L Lymph % (Auto) 45.4 H Robeson % (Auto) 6.6 Eos % (Auto) 0.6 Baso % (Auto) 0.2 Neut # (Auto) 3.2 Lymph # (Auto) 3.0 Robeson # (Auto) 0.4 Eos # (Auto) 0.0 Baso # (Auto) 0.0 PT INR APTT pCO2 pO2 HCO3 ABG pH ABG Total CO2 ABG O2 Saturation ABG O2 Content ABG Base Excess ABG Hemoglobin ABG Carboxyhemoglobin POC ABG HHb (Measured) ABG Methemoglobin ABG O2 Capacity Eagle Test ABG Potassium A-a O2 Difference Hgb O2 Saturation Glucose Lactate Vent Mode Mechanical Rate FiO2 Tidal Volume Sodium 140 Potassium 3.7 Chloride 102 Carbon Dioxide 25 Anion Gap 17 BUN 16 Creatinine 1.0 Est GFR ( Amer) > 60 Est GFR (Non-Af Amer) > 60 POC Glucose (mg/dL) Random Glucose 259 H Lactic Acid Calcium 8.5 Phosphorus 5.5 H Magnesium 2.0 Iron TIBC % Saturation Total Bilirubin 1.4 H AST 30 ALT 26 Alkaline Phosphatase 50 Troponin I < 0.0120 Total Protein 6.5 Albumin 3.9 Globulin 2.6 Albumin/Globulin Ratio 1.5 Arterial Blood Potassium Urine Color Urine Clarity Urine pH Ur Specific [place] Urine Protein Urine Glucose (UA) Urine Ketones Urine Blood Urine Nitrate Urine Bilirubin Urine Urobilinogen Ur Leukocyte Esterase Urine RBC (Auto) Urine Microscopic WBC Urine Bacteria Salicylates < 1.0 Urine Opiates Screen Urine Methadone Screen Acetaminophen < 10.0 L Ur Barbiturates Screen Ur Phencyclidine Scrn Ur Amphetamines Screen U Benzodiazepines Scrn U Oth Cocaine Metabols U Cannabinoids Screen Alcohol, Quantitative < 10 Blood Type Antibody Screen BBK History Checked 05/14/18 05/14/18 05/14/18 20:25 20:25 20:25 WBC RBC Hgb Hct MCV MCH MCHC RDW Plt Count MPV Neut % (Auto) Lymph % (Auto) [place] % (Auto) Eos % (Auto) Baso % (Auto) Neut # (Auto) Lymph # (Auto) [place] # (Auto) Eos # (Auto) Baso # (Auto) PT 12.4 INR 1.1 APTT 22.8 L pCO2 pO2 HCO3 ABG pH ABG Total CO2 ABG O2 Saturation ABG O2 Content ABG Base Excess ABG Hemoglobin ABG Carboxyhemoglobin POC ABG HHb (Measured) ABG Methemoglobin ABG O2 Capacity [place] Test ABG Potassium A-a O2 Difference Hgb O2 Saturation Glucose Lactate Vent Mode Mechanical Rate FiO2 Tidal Volume Sodium Potassium Chloride Carbon Dioxide Anion Gap BUN Creatinine Est GFR ( Amer) Est GFR (Non-Af Amer) POC Glucose (mg/dL) Random Glucose Lactic Acid 3.3 H Calcium Phosphorus Magnesium Iron TIBC % Saturation Total Bilirubin AST ALT Alkaline Phosphatase Troponin I Total Protein Albumin Globulin Albumin/Globulin Ratio Arterial Blood Potassium Urine Color Urine Clarity Urine pH Ur Specific [place] Urine Protein Urine Glucose (UA) Urine Ketones Urine Blood Urine Nitrate Urine Bilirubin Urine Urobilinogen Ur Leukocyte Esterase Urine RBC (Auto) Urine Microscopic WBC Urine Bacteria Salicylates Urine Opiates Screen Urine Methadone Screen Acetaminophen Ur Barbiturates Screen Ur Phencyclidine Scrn Ur Amphetamines Screen U Benzodiazepines Scrn U Oth Cocaine Metabols U Cannabinoids Screen Alcohol, Quantitative Blood Type A POSITIVE Antibody Screen Negative BBK History Checked Patient has bt 05/14/18 05/14/18 05/14/18 21:31 21:42 21:42 WBC RBC Hgb Hct MCV MCH MCHC RDW Plt Count MPV Neut % (Auto) Lymph % (Auto) [place] % (Auto) Eos % (Auto) Baso % (Auto) Neut # (Auto) Lymph # (Auto) [place] # (Auto) Eos # (Auto) Baso # (Auto) PT INR APTT pCO2 62 H pO2 274 H HCO3 23.4 ABG pH 7.24 L ABG Total CO2 28.5 H ABG O2 Saturation 100.2 H ABG O2 Content ABG Base Excess -2.1 L ABG Hemoglobin ABG Carboxyhemoglobin POC ABG HHb (Measured) ABG Methemoglobin ABG O2 Capacity [place] Test Yes ABG Potassium 3.9 A-a O2 Difference 362.0 Hgb O2 Saturation Glucose 240 H Lactate 1.7 Vent Mode A/c Mechanical Rate 16 FiO2 100.0 Tidal Volume 700 Sodium 138.0 Potassium Chloride 107.0 Carbon Dioxide Anion Gap BUN Creatinine Est GFR ( Amer) Est GFR (Non-Af Amer) POC Glucose (mg/dL) Random Glucose Lactic Acid Calcium Phosphorus Magnesium Iron TIBC % Saturation Total Bilirubin AST ALT Alkaline Phosphatase Troponin I Total Protein Albumin Globulin Albumin/Globulin Ratio Arterial Blood Potassium 3.9 Urine Color Yellow Urine Clarity Slighty-cloudy Urine pH 5.0 Ur Specific [place] 1.028 Urine Protein 30 Urine Glucose (UA) Neg Urine Ketones Negative Urine Blood Negative Urine Nitrate Negative Urine Bilirubin Negative Urine Urobilinogen 2.0 Ur Leukocyte Esterase Neg Urine RBC (Auto) 3 Urine Microscopic WBC 1 Urine Bacteria Rare Salicylates Urine Opiates Screen Negative Urine Methadone Screen Negative Acetaminophen Ur Barbiturates Screen Negative Ur Phencyclidine Scrn Negative Ur Amphetamines Screen Negative U Benzodiazepines Scrn Negative U Oth Cocaine Metabols Negative U Cannabinoids Screen Negative Alcohol, Quantitative Blood Type Antibody Screen BBK History Checked 05/15/18 05/15/18 05/15/18 05:20 05:30 05:30 WBC 9.7 RBC 4.33 L Hgb 10.6 L Hct 33.0 L MCV 76.1 L D MCH 24.6 L MCHC 32.3 L RDW 16.7 H Plt Count 190 MPV 9.1 Neut % (Auto) 93.0 H Lymph % (Auto) 3.4 L [place] % (Auto) 3.5 Eos % (Auto) 0.0 Baso % (Auto) 0.1 Neut # (Auto) 9.0 H Lymph # (Auto) 0.3 L [place] # (Auto) 0.3 Eos # (Auto) 0.0 Baso # (Auto) 0.0 PT INR APTT pCO2 43 pO2 86 HCO3 24.5 ABG pH 7.37 ABG Total CO2 26.2 ABG O2 Saturation 96.0 ABG O2 Content 14.0 L ABG Base Excess -0.5 ABG Hemoglobin 10.4 L ABG Carboxyhemoglobin 0 L POC ABG HHb (Measured) 4.0 ABG Methemoglobin 0.6 ABG O2 Capacity 14.6 L [place] Test Yes ABG Potassium A-a O2 Difference 359.0 Hgb O2 Saturation 95.3 Glucose Lactate Vent Mode A/c Mechanical Rate 20 FiO2 70.0 Tidal Volume 500 Sodium 141 Potassium 4.4 Chloride 105 Carbon Dioxide 26 Anion Gap 14 BUN 17 Creatinine 0.9 Est GFR ( Amer) > 60 Est GFR (Non-Af Amer) > 60 POC Glucose (mg/dL) Random Glucose 157 H Lactic Acid Calcium 7.9 L Phosphorus Magnesium Iron TIBC % Saturation Total Bilirubin 2.4 H AST 47 ALT 29 Alkaline Phosphatase 51 Troponin I Total Protein 5.9 L Albumin 3.4 L Globulin 2.6 Albumin/Globulin Ratio 1.3 Arterial Blood Potassium Urine Color Urine Clarity Urine pH Ur Specific [place] Urine Protein Urine Glucose (UA) Urine Ketones Urine Blood Urine Nitrate Urine Bilirubin Urine Urobilinogen Ur Leukocyte Esterase Urine RBC (Auto) Urine Microscopic WBC Urine Bacteria Salicylates Urine Opiates Screen Urine Methadone Screen Acetaminophen Ur Barbiturates Screen Ur Phencyclidine Scrn Ur Amphetamines Screen U Benzodiazepines Scrn U Oth Cocaine Metabols U Cannabinoids Screen Alcohol, Quantitative Blood Type Antibody Screen BBK History Checked 05/15/18 05/15/18 05:30 05:55 WBC RBC Hgb Hct MCV MCH MCHC RDW Plt Count MPV Neut % (Auto) Lymph % (Auto) [place] % (Auto) Eos % (Auto) Baso % (Auto) Neut # (Auto) Lymph # (Auto) [place] # (Auto) Eos # (Auto) Baso # (Auto) PT INR APTT pCO2 pO2 HCO3 ABG pH ABG Total CO2 ABG O2 Saturation ABG O2 Content ABG Base Excess ABG Hemoglobin ABG Carboxyhemoglobin POC ABG HHb (Measured) ABG Methemoglobin ABG O2 Capacity [place] Test ABG Potassium A-a O2 Difference Hgb O2 Saturation Glucose Lactate Vent Mode Mechanical Rate FiO2 Tidal Volume Sodium Potassium Chloride Carbon Dioxide Anion Gap BUN Creatinine Est GFR ( Amer) Est GFR (Non-Af Amer) POC Glucose (mg/dL) 166 H Random Glucose Lactic Acid Calcium Phosphorus Magnesium Iron 80 TIBC 429 % Saturation 19 L Total Bilirubin AST ALT Alkaline Phosphatase Troponin I Total Protein Albumin Globulin Albumin/Globulin Ratio Arterial Blood Potassium Urine Color Urine Clarity Urine pH Ur Specific [place] Urine Protein Urine Glucose (UA) Urine Ketones Urine Blood Urine Nitrate Urine Bilirubin Urine Urobilinogen Ur Leukocyte Esterase Urine RBC (Auto) Urine Microscopic WBC Urine Bacteria Salicylates Urine Opiates Screen Urine Methadone Screen Acetaminophen Ur Barbiturates Screen Ur Phencyclidine Scrn Ur Amphetamines Screen U Benzodiazepines Scrn U Oth Cocaine Metabols U Cannabinoids Screen Alcohol, Quantitative Blood Type Antibody Screen BBK History Checked EKG/Cardiology Studies: Cardiology / EKG Studies 05/14/18 20:10 ELECTROCARDIOGRAM Stat Comment: Mode Of Transportation: Reason For Exam: ams Fingerstick Blood Sugar Results: 166 Critical Care Progress Note - Nutrition Nutrition: Nutrition Category Date Time Status NPO Diet [DIET] Diets 05/14/18 Dinner Active Assessment/Plan - Assessment and Plan (Free Text) Assessment: A/P Respiratory failure, drug overdose, DM, h/o asthma, h/o depression, ?aspiration - Ventilatory support - Pulmonary toilets - Weaning as tolerated - Continue meds - Psychiatry follow up Critical care 35 min
[2018-05-15] MEDS: Enoxaparin 40 mg Syringe SC SCH (08:21)
--- NOTE | 2018-05-15 08:24 | CP.PCM.CON ---
History of Present Illness - History of Present Illness History of Present Illness: Psychiatry consult Patient unable to participate in psychiatric evaluation due to acute intubation and sedation. Please call for evaluation when patient is alert and oriented. Past Patient History - Infectious Disease Hx of Infectious Diseases: None - Past Medical History & Family History Past Medical History?: Yes - Past Social History Smoking Status: Former Smoker Chewing Tobacco Use: No Cigar Use: No Alcohol: None Drugs: Denies - CARDIAC Hx Hypercholesterolemia: Yes Hx Hypertension: Yes - PULMONARY Hx Asthma: Yes Hx Pulmonary Embolism: Yes (from previous history) Hx Sleep Apnea: Yes - NEUROLOGICAL Hx Transient Ischemic Attacks (TIA): Yes - HEENT Hx HEENT Problems: No - ENDOCRINE/METABOLIC Hx Endocrine Disorders: Yes Hx Diabetes Mellitus Type 1: Yes (prior to gastric bypass) - HEMATOLOGICAL/ONCOLOGICAL Hx Blood Disorders: No - INTEGUMENTARY Hx Dermatological Problems: No - MUSCULOSKELETAL/RHEUMATOLOGICAL Hx Falls: No - GASTROINTESTINAL Hx Gastrointestinal Disorders: Yes Hx Nausea: Yes Hx Vomiting: Yes - GENITOURINARY/GYNECOLOGICAL Hx Genitourinary Disorders: No - PSYCHIATRIC Hx Anxiety: Yes Hx Depression: Yes - SURGICAL HISTORY Hx Cholecystectomy: Yes Hx Coronary Artery Bypass Graft: Yes Hx Coronary Stent: Yes (2008) - ANESTHESIA Hx Anesthesia: Yes Hx Anesthesia Reactions: No Hx Malignant Hyperthermia: No Meds Allergies/Adverse Reactions: Allergies Allergy/AdvReac Type Severity Reaction Status Date / Time Penicillins Allergy RASH Verified 05/14/18 20:08 - Medications Medications: Current Medications Enoxaparin Sodium (Lovenox) 40 mg SC DAILY DANNY PRN Reason: Protocol Last Admin: 05/15/18 08:21 Dose: 40 mg Clindamycin Phosphate (Cleocin In Normal Saline) 600 mg in 50 mls @ 100 mls/hr IVPB ONCE [facility] Clindamycin Phosphate 600 mg/ (Sodium Chloride) 54 mls @ 54 mls/hr IVPB Q8 DANNY PRN Reason: Protocol Last Admin: 05/15/18 08:22 Dose: 54 mls/hr Sodium Chloride (Sodium Chloride 0.9%) 1,000 mls @ 150 mls/hr IV .Q6H40M [facility] Stop: 05/15/18 12:04 Last Admin: 05/15/18 06:25 Dose: 150 mls/hr Insulin Human Regular (Humulin R) 0 units SC Q6 DANNY PRN Reason: Protocol Last Admin: 05/15/18 05:30 Dose: Not Given Pantoprazole Sodium (Protonix Inj) 40 mg IVP DAILY DANNY Last Admin: 05/15/18 08:20 Dose: 40 mg Results - Vital Signs Recent Vital Signs: Last Vital Signs Temp 101.5 F H 05/15/18 08:00 Pulse 125 H 05/15/18 08:00 Resp 29 H 05/15/18 08:00 BP 135/75 05/15/18 08:00 Pulse Ox 99 05/15/18 08:00 - Labs Result Diagrams: 05/15/18 05:30 05/15/18 05:30 Labs: Laboratory Results - last 24 hr 05/14/18 05/14/18 05/14/18 20:25 20:25 20:25 WBC 6.7 RBC 4.47 Hgb 10.9 L Hct 35.1 MCV 78.6 L MCH 24.4 L MCHC 31.0 L RDW 16.7 H Plt Count 240 MPV 10.7 Neut % (Auto) 47.2 L Lymph % (Auto) 45.4 H Blair % (Auto) 6.6 Eos % (Auto) 0.6 Baso % (Auto) 0.2 Neut # (Auto) 3.2 Lymph # (Auto) 3.0 Blair # (Auto) 0.4 Eos # (Auto) 0.0 Baso # (Auto) 0.0 PT INR APTT pCO2 pO2 HCO3 ABG pH ABG Total CO2 ABG O2 Saturation ABG O2 Content ABG Base Excess ABG Hemoglobin ABG Carboxyhemoglobin POC ABG HHb (Measured) ABG Methemoglobin ABG O2 Capacity [place] Test ABG Potassium A-a O2 Difference Hgb O2 Saturation Glucose Lactate Vent Mode Mechanical Rate FiO2 Tidal Volume Sodium 140 Potassium 3.7 Chloride 102 Carbon Dioxide 25 Anion Gap 17 BUN 16 Creatinine 1.0 Est GFR ( Amer) > 60 Est GFR (Non-Af Amer) > 60 POC Glucose (mg/dL) Random Glucose 259 H Lactic Acid Calcium 8.5 Phosphorus 5.5 H Magnesium 2.0 Iron TIBC % Saturation Total Bilirubin 1.4 H AST 30 ALT 26 Alkaline Phosphatase 50 Troponin I < 0.0120 Total Protein 6.5 Albumin 3.9 Globulin 2.6 Albumin/Globulin Ratio 1.5 Arterial Blood Potassium Urine Color Urine Clarity Urine pH Ur Specific [place] Urine Protein Urine Glucose (UA) Urine Ketones Urine Blood Urine Nitrate Urine Bilirubin Urine Urobilinogen Ur Leukocyte Esterase Urine RBC (Auto) Urine Microscopic WBC Urine Bacteria Salicylates < 1.0 Urine Opiates Screen Urine Methadone Screen Acetaminophen < 10.0 L Ur Barbiturates Screen Ur Phencyclidine Scrn Ur Amphetamines Screen U Benzodiazepines Scrn U Oth Cocaine Metabols U Cannabinoids Screen Alcohol, Quantitative < 10 Blood Type Antibody Screen BBK History Checked 05/14/18 05/14/18 05/14/18 20:25 20:25 20:25 WBC RBC Hgb Hct MCV MCH MCHC RDW Plt Count MPV Neut % (Auto) Lymph % (Auto) Blair % (Auto) Eos % (Auto) Baso % (Auto) Neut # (Auto) Lymph # (Auto) Blair # (Auto) Eos # (Auto) Baso # (Auto) PT 12.4 INR 1.1 APTT 22.8 L pCO2 pO2 HCO3 ABG pH ABG Total CO2 ABG O2 Saturation ABG O2 Content ABG Base Excess ABG Hemoglobin ABG Carboxyhemoglobin POC ABG HHb (Measured) ABG Methemoglobin ABG O2 Capacity [place] Test ABG Potassium A-a O2 Difference Hgb O2 Saturation Glucose Lactate Vent Mode Mechanical Rate FiO2 Tidal Volume Sodium Potassium Chloride Carbon Dioxide Anion Gap BUN Creatinine Est GFR ( Amer) Est GFR (Non-Af Amer) POC Glucose (mg/dL) Random Glucose Lactic Acid 3.3 H Calcium Phosphorus Magnesium Iron TIBC % Saturation Total Bilirubin AST ALT Alkaline Phosphatase Troponin I Total Protein Albumin Globulin Albumin/Globulin Ratio Arterial Blood Potassium Urine Color Urine Clarity Urine pH Ur Specific [place] Urine Protein Urine Glucose (UA) Urine Ketones Urine Blood Urine Nitrate Urine Bilirubin Urine Urobilinogen Ur Leukocyte Esterase Urine RBC (Auto) Urine Microscopic WBC Urine Bacteria Salicylates Urine Opiates Screen Urine Methadone Screen Acetaminophen Ur Barbiturates Screen Ur Phencyclidine Scrn Ur Amphetamines Screen U Benzodiazepines Scrn U Oth Cocaine Metabols U Cannabinoids Screen Alcohol, Quantitative Blood Type A POSITIVE Antibody Screen Negative BBK History Checked Patient has bt 05/14/18 05/14/18 05/14/18 21:31 21:42 21:42 WBC RBC Hgb Hct MCV MCH MCHC RDW Plt Count MPV Neut % (Auto) Lymph % (Auto) [place] % (Auto) Eos % (Auto) Baso % (Auto) Neut # (Auto) Lymph # (Auto) [place] # (Auto) Eos # (Auto) Baso # (Auto) PT INR APTT pCO2 62 H pO2 274 H HCO3 23.4 ABG pH 7.24 L ABG Total CO2 28.5 H ABG O2 Saturation 100.2 H ABG O2 Content ABG Base Excess -2.1 L ABG Hemoglobin ABG Carboxyhemoglobin POC ABG HHb (Measured) ABG Methemoglobin ABG O2 Capacity [place] Test Yes ABG Potassium 3.9 A-a O2 Difference 362.0 Hgb O2 Saturation Glucose 240 H Lactate 1.7 Vent Mode A/c Mechanical Rate 16 FiO2 100.0 Tidal Volume 700 Sodium 138.0 Potassium Chloride 107.0 Carbon Dioxide Anion Gap BUN Creatinine Est GFR ( Amer) Est GFR (Non-Af Amer) POC Glucose (mg/dL) Random Glucose Lactic Acid Calcium Phosphorus Magnesium Iron TIBC % Saturation Total Bilirubin AST ALT Alkaline Phosphatase Troponin I Total Protein Albumin Globulin Albumin/Globulin Ratio Arterial Blood Potassium 3.9 Urine Color Yellow Urine Clarity Slighty-cloudy Urine pH 5.0 Ur Specific [place] 1.028 Urine Protein 30 Urine Glucose (UA) Neg Urine Ketones Negative Urine Blood Negative Urine Nitrate Negative Urine Bilirubin Negative Urine Urobilinogen 2.0 Ur Leukocyte Esterase Neg Urine RBC (Auto) 3 Urine Microscopic WBC 1 Urine Bacteria Rare Salicylates Urine Opiates Screen Negative Urine Methadone Screen Negative Acetaminophen Ur Barbiturates Screen Negative Ur Phencyclidine Scrn Negative Ur Amphetamines Screen Negative U Benzodiazepines Scrn Negative U Oth Cocaine Metabols Negative U Cannabinoids Screen Negative Alcohol, Quantitative Blood Type Antibody Screen BBK History Checked 05/15/18 05/15/18 05/15/18 05:20 05:30 05:30 WBC 9.7 RBC 4.33 L Hgb 10.6 L Hct 33.0 L MCV 76.1 L D MCH 24.6 L MCHC 32.3 L RDW 16.7 H Plt Count 190 MPV 9.1 Neut % (Auto) 93.0 H Lymph % (Auto) 3.4 L [place] % (Auto) 3.5 Eos % (Auto) 0.0 Baso % (Auto) 0.1 Neut # (Auto) 9.0 H Lymph # (Auto) 0.3 L [place] # (Auto) 0.3 Eos # (Auto) 0.0 Baso # (Auto) 0.0 PT INR APTT pCO2 43 pO2 86 HCO3 24.5 ABG pH 7.37 ABG Total CO2 26.2 ABG O2 Saturation 96.0 ABG O2 Content 14.0 L ABG Base Excess -0.5 ABG Hemoglobin 10.4 L ABG Carboxyhemoglobin 0 L POC ABG HHb (Measured) 4.0 ABG Methemoglobin 0.6 ABG O2 Capacity 14.6 L [place] Test Yes ABG Potassium A-a O2 Difference 359.0 Hgb O2 Saturation 95.3 Glucose Lactate Vent Mode A/c Mechanical Rate 20 FiO2 70.0 Tidal Volume 500 Sodium 141 Potassium 4.4 Chloride 105 Carbon Dioxide 26 Anion Gap 14 BUN 17 Creatinine 0.9 Est GFR ( Amer) > 60 Est GFR (Non-Af Amer) > 60 POC Glucose (mg/dL) Random Glucose 157 H Lactic Acid Calcium 7.9 L Phosphorus Magnesium Iron TIBC % Saturation Total Bilirubin 2.4 H AST 47 ALT 29 Alkaline Phosphatase 51 Troponin I Total Protein 5.9 L Albumin 3.4 L Globulin 2.6 Albumin/Globulin Ratio 1.3 Arterial Blood Potassium Urine Color Urine Clarity Urine pH Ur Specific [place] Urine Protein Urine Glucose (UA) Urine Ketones Urine Blood Urine Nitrate Urine Bilirubin Urine Urobilinogen Ur Leukocyte Esterase Urine RBC (Auto) Urine Microscopic WBC Urine Bacteria Salicylates Urine Opiates Screen Urine Methadone Screen Acetaminophen Ur Barbiturates Screen Ur Phencyclidine Scrn Ur Amphetamines Screen U Benzodiazepines Scrn U Oth Cocaine Metabols U Cannabinoids Screen Alcohol, Quantitative Blood Type Antibody Screen BBK History Checked 05/15/18 05/15/18 05:30 05:55 WBC RBC Hgb Hct MCV MCH MCHC RDW Plt Count MPV Neut % (Auto) Lymph % (Auto) [place] % (Auto) Eos % (Auto) Baso % (Auto) Neut # (Auto) Lymph # (Auto) [place] # (Auto) Eos # (Auto) Baso # (Auto) PT INR APTT pCO2 pO2 HCO3 ABG pH ABG Total CO2 ABG O2 Saturation ABG O2 Content ABG Base Excess ABG Hemoglobin ABG Carboxyhemoglobin POC ABG HHb (Measured) ABG Methemoglobin ABG O2 Capacity [place] Test ABG Potassium A-a O2 Difference Hgb O2 Saturation Glucose Lactate Vent Mode Mechanical Rate FiO2 Tidal Volume Sodium Potassium Chloride Carbon Dioxide Anion Gap BUN Creatinine Est GFR ( Amer) Est GFR (Non-Af Amer) POC Glucose (mg/dL) 166 H Random Glucose Lactic Acid Calcium Phosphorus Magnesium Iron 80 TIBC 429 % Saturation 19 L Total Bilirubin AST ALT Alkaline Phosphatase Troponin I Total Protein Albumin Globulin Albumin/Globulin Ratio Arterial Blood Potassium Urine Color Urine Clarity Urine pH Ur Specific [place] Urine Protein Urine Glucose (UA) Urine Ketones Urine Blood Urine Nitrate Urine Bilirubin Urine Urobilinogen Ur Leukocyte Esterase Urine RBC (Auto) Urine Microscopic WBC Urine Bacteria Salicylates Urine Opiates Screen Urine Methadone Screen Acetaminophen Ur Barbiturates Screen Ur Phencyclidine Scrn Ur Amphetamines Screen U Benzodiazepines Scrn U Oth Cocaine Metabols U Cannabinoids Screen Alcohol, Quantitative Blood Type Antibody Screen BBK History Checked
--- NOTE | 2018-05-15 09:17 | CT ---
Date of service: 05/14/2018 PROCEDURE: CT HEAD WITHOUT CONTRAST. HISTORY: ams COMPARISON: None available. TECHNIQUE: Axial computed tomography images were obtained through the head/brain without intravenous contrast. Radiation dose: Total exam DLP = 1237.86 MGy-cm. This CT exam was performed using one or more of the following dose reduction techniques: Automated exposure control, adjustment of the mA and/or kV according to patient size, and/or use of iterative reconstruction technique. FINDINGS: HEMORRHAGE: No intracranial hemorrhage. BRAIN: No mass effect or edema. No atrophy or chronic microvascular ischemic changes. VENTRICLES: Unremarkable. No hydrocephalus. CALVARIUM: Unremarkable. PARANASAL SINUSES: Small amount of fluid seen within the sphenoid sinus. There is also of fluid in the posterior nasopharynx. MASTOID AIR CELLS: There is opacification of 1 or 2 left inferior mastoid air cells. . OTHER FINDINGS: Tiny radiopaque density seen within the right supraorbital/ frontal scalp IMPRESSION: No acute intracranial hemorrhage.
[2018-05-15 09:22] LABS: ANISOCYTOSIS SLIGHT; BANDS 5 % (0-2); LYMPHOCYTE 5 % (20-50); MICROCYTOSIS SLIGHT; MONOCYTE 3 % (0-10); NEUTROPHIL 87 % (42-75); PLATELET ESTIMATE NORMAL (NORMAL); POIKILOCYTOSIS SLIGHT; TOTAL CELLS COUNTED 100
[2018-05-15 09:23] LABS: HYPOCHROMIC SLIGHT; LARGE PLATELETS PRESENT; OVALOCYTES MODERATE
--- NOTE | 2018-05-15 09:27 | RAD ---
Date of service: 05/14/2018 HISTORY: ams COMPARISON: No prior study available for comparison. FINDINGS: In situ ETT, the tip of which lies approximately 5.5 cm above lexus. LUNGS: Elevation right hemidiaphragm with vague patchy opacity in the right base possibly representing atelectasis and/or infiltrate PLEURA: No significant pleural effusion identified, no pneumothorax apparent. CARDIOVASCULAR: Normal. OSSEOUS STRUCTURES: No significant abnormalities. VISUALIZED UPPER ABDOMEN: Normal. OTHER FINDINGS: None. IMPRESSION: Elevation right hemidiaphragm with vague patchy opacity in the right base possibly representing atelectasis and/or infiltrate
--- NOTE | 2018-05-15 09:50 | RAD ---
Date of service: 05/15/2018 PROCEDURE: CHEST RADIOGRAPH, 1 VIEW HISTORY: intubated COMPARISON: Comparison chest 05/14/2018. FINDINGS: In situ ETT, tip of which lies approximately 9.1 cm above lexus. LUNGS: Interval slight improvement of previously noted patchy atelectasis and/or infiltrate right lung base PLEURA: No pneumothorax or pleural fluid seen. CARDIOVASCULAR: Normal. OSSEOUS STRUCTURES: No significant abnormalities. VISUALIZED UPPER ABDOMEN: Normal. OTHER FINDINGS: None. IMPRESSION: ETT as above Interval slight improvement of previously noted patchy atelectasis and/or infiltrate right lung base
[2018-05-15] MEDS ORDERED: Propofol 10 mg/ml 1,000 MG/100 ML VIAL ONE (11:29)
--- NOTE | 2018-05-15 14:08 | CP.PCM.PN ---
Objective - Vital Signs/Intake and Output Vital Signs (last 24 hours): Temp Pulse Resp BP Pulse Ox 100.9 F H 114 H 27 H 152/80 H 95 05/15/18 12:00 05/15/18 12:00 05/15/18 12:00 05/15/18 12:00 05/15/18 12:00 Intake and Output: 05/15/18 05/15/18 06:59 18:59 Intake Total 1050 55 Output Total 800 Balance 250 55 - Medications Medications: Current Medications Enoxaparin Sodium (Lovenox) 40 mg SC DAILY DANNY PRN Reason: Protocol Last Admin: 05/15/18 08:21 Dose: 40 mg Clindamycin Phosphate (Cleocin In Normal Saline) 600 mg in 50 mls @ 100 mls/hr IVPB ONCE DANNY Clindamycin Phosphate 600 mg/ (Sodium Chloride) 54 mls @ 54 mls/hr IVPB Q8 DANNY PRN Reason: Protocol Last Admin: 05/15/18 08:22 Dose: 54 mls/hr Propofol (Diprivan) 1,000 mg in 100 mls @ 2.599 mls/hr IV .Q24H DANNY; 5 MCG/KG/ MIN PRN Reason: Protocol Stop: 05/16/18 13:17 Levofloxacin/Dextrose (Levaquin 750mg) 750 mg in 150 mls @ 100 mls/hr IVPB DAILY DANNY PRN Reason: Protocol Vancomycin HCl 1 gm/ Sodium (Chloride) 250 mls @ 166.667 mls/hr IVPB Q12 DANNY PRN Reason: Protocol Insulin Human Regular (Humulin R) 0 units SC Q6 DANNY PRN Reason: Protocol Last Admin: 05/15/18 11:56 Dose: Not Given Pantoprazole Sodium (Protonix Inj) 40 mg IVP DAILY [facility] Last Admin: 05/15/18 08:20 Dose: 40 mg - Labs Labs: 05/15/18 05:30 05/15/18 05:30 PT 12.4 Seconds (9.8-13.1) 05/14/18 20:25 INR 1.1 (0.9-1.2) 05/14/18 20:25 APTT 22.8 Seconds (25.6-37.1) L 05/14/18 20:25
[2018-05-15] MEDS: Propofol 10 mg/ml 1,000 MG/100 ML VIAL IV SCH ×2 (14:33→20:44)
[2018-05-15] MEDS: levoFLOXacin 750 mg in D5W 750 MG/150 ML BAG IVPB SCH (15:14)
--- NOTE | 2018-05-15 16:01 | CP.PCM.HP ---
History of Present Illness - History of Present Illness History of Present Illness: CC: AMS History of Present Illness: Hx was obtained from daughter and review of the medical records. A 47 years old male with hx of Depression, DMII, VTE, Asthma and Sleep apnea who was brought to the ED via EMS after he reported being suicidal and intended to OD on his Pills, then found to be unresponsive at home. He had empty bottles of Seroquel, Ambien, Trazodone and Clonidine around the patient. He was unresponsive in the Ed and ABG showed Acute Respiratory Acidosis, and Intubated. Present on Admission - Present on Admission Any Indicators Present on Admission: No Review of Systems - Review of Systems All systems: reviewed and no additional remarkable complaints except Past Patient History - Infectious Disease Hx of Infectious Diseases: None - Past Medical History & Family History Past Medical History?: Yes - Past Social History Smoking Status: Former Smoker Chewing Tobacco Use: No Cigar Use: No Alcohol: Social Drugs: Denies - CARDIAC Hx Hypercholesterolemia: Yes Hx Hypertension: Yes - PULMONARY Hx Asthma: Yes Hx Pulmonary Embolism: Yes (from previous history) Hx Sleep Apnea: Yes - NEUROLOGICAL Hx Transient Ischemic Attacks (TIA): Yes - HEENT Hx HEENT Problems: No - ENDOCRINE/METABOLIC Hx Endocrine Disorders: Yes Hx Diabetes Mellitus Type 1: Yes (prior to gastric bypass) - HEMATOLOGICAL/ONCOLOGICAL Hx Blood Disorders: No - INTEGUMENTARY Hx Dermatological Problems: No - MUSCULOSKELETAL/RHEUMATOLOGICAL Hx Falls: No - GASTROINTESTINAL Hx Gastrointestinal Disorders: Yes Hx Nausea: Yes Hx Vomiting: Yes - GENITOURINARY/GYNECOLOGICAL Hx Genitourinary Disorders: No - PSYCHIATRIC Hx Anxiety: Yes Hx Depression: Yes - SURGICAL HISTORY Hx Cholecystectomy: Yes Hx Coronary Artery Bypass Graft: Yes Hx Coronary Stent: Yes (2008) - ANESTHESIA Hx Anesthesia: Yes Hx Anesthesia Reactions: No Hx Malignant Hyperthermia: No Meds Allergies/Adverse Reactions: Allergies Allergy/AdvReac Type Severity Reaction Status Date / Time Penicillins Allergy RASH Verified 05/14/18 20:08 Physical Exam - Constitutional Appears: Toxic, In Acute Distress Additional comments: Intubated and sedated - Head Exam Head Exam: ATRAUMATIC, NORMAL INSPECTION, NORMOCEPHALIC - Eye Exam Eye Exam: Normal appearance, PERRL Pupil Exam: PERRL - ENT Exam ENT Exam: Mucous Membranes Moist, Normal Exam - Neck Exam Neck exam: Positive for: Normal Inspection - Respiratory Exam Respiratory Exam: Accessory Muscle Use, Decreased Breath Sounds, Rales - Cardiovascular Exam Cardiovascular Exam: Tachycardia, REGULAR RHYTHM, +S1, +S2 - GI/Abdominal Exam GI & Abdominal Exam: Normal Bowel Sounds, Soft. absent: Tenderness - Extremities Exam Extremities exam: Positive for: normal capillary refill, normal inspection - Neurological Exam Neurological exam: Altered, Reflexes Normal - Psychiatric Exam Psychiatric exam: Depressed, Flat Affect Additional comments: Suicide attempt - Skin Skin Exam: Dry, Intact, Normal Color, Warm Results - Vital Signs Recent Vital Signs: Last Vital Signs Temp 100.9 F H 05/15/18 12:00 Pulse 114 H 05/15/18 15:00 Resp 28 H 05/15/18 15:00 BP 143/86 05/15/18 15:00 Pulse Ox 92 L 05/15/18 15:00 - Labs Result Diagrams: 05/17/18 04:20 05/17/18 04:20 Labs: Laboratory Results - last 24 hr 05/14/18 05/14/18 05/14/18 20:25 20:25 20:25 WBC 6.7 RBC 4.47 Hgb 10.9 L Hct 35.1 MCV 78.6 L MCH 24.4 L MCHC 31.0 L RDW 16.7 H Plt Count 240 MPV 10.7 Neut % (Auto) 47.2 L Lymph % (Auto) 45.4 H [place] % (Auto) 6.6 Eos % (Auto) 0.6 Baso % (Auto) 0.2 Neut # (Auto) 3.2 Lymph # (Auto) 3.0 [place] # (Auto) 0.4 Eos # (Auto) 0.0 Baso # (Auto) 0.0 Neutrophils % (Manual) Band Neutrophils % Lymphocytes % (Manual) Monocytes % (Manual) Platelet Estimate Large Platelets Hypochromasia (manual) Poikilocytosis (manual Anisocytosis (manual) Microcytosis (manual) Ovalocytes PT INR APTT pCO2 pO2 HCO3 ABG pH ABG Total CO2 ABG O2 Saturation ABG O2 Content ABG Base Excess ABG Hemoglobin ABG Carboxyhemoglobin POC ABG HHb (Measured) ABG Methemoglobin ABG O2 Capacity [place] Test ABG Potassium A-a O2 Difference Hgb O2 Saturation Glucose Lactate Vent Mode Mechanical Rate FiO2 Tidal Volume Sodium 140 Potassium 3.7 Chloride 102 Carbon Dioxide 25 Anion Gap 17 BUN 16 Creatinine 1.0 Est GFR ( Amer) > 60 Est GFR (Non-Af Amer) > 60 POC Glucose (mg/dL) Random Glucose 259 H Lactic Acid Calcium 8.5 Phosphorus 5.5 H Magnesium 2.0 Iron TIBC % Saturation Total Bilirubin 1.4 H AST 30 ALT 26 Alkaline Phosphatase 50 Troponin I < 0.0120 Total Protein 6.5 Albumin 3.9 Globulin 2.6 Albumin/Globulin Ratio 1.5 Arterial Blood Potassium Urine Color Urine Clarity Urine pH Ur Specific [place] Urine Protein Urine Glucose (UA) Urine Ketones Urine Blood Urine Nitrate Urine Bilirubin Urine Urobilinogen Ur Leukocyte Esterase Urine RBC (Auto) Urine Microscopic WBC Urine Bacteria Salicylates < 1.0 Urine Opiates Screen Urine Methadone Screen Acetaminophen < 10.0 L Ur Barbiturates Screen Ur Phencyclidine Scrn Ur Amphetamines Screen U Benzodiazepines Scrn U Oth Cocaine Metabols U Cannabinoids Screen Alcohol, Quantitative < 10 Blood Type Antibody Screen BBK History Checked 05/14/18 05/14/18 05/14/18 20:25 20:25 20:25 WBC RBC Hgb Hct MCV MCH MCHC RDW Plt Count MPV Neut % (Auto) Lymph % (Auto) [place] % (Auto) Eos % (Auto) Baso % (Auto) Neut # (Auto) Lymph # (Auto) [place] # (Auto) Eos # (Auto) Baso # (Auto) Neutrophils % (Manual) Band Neutrophils % Lymphocytes % (Manual) Monocytes % (Manual) Platelet Estimate Large Platelets Hypochromasia (manual) Poikilocytosis (manual Anisocytosis (manual) Microcytosis (manual) Ovalocytes PT 12.4 INR 1.1 APTT 22.8 L pCO2 pO2 HCO3 ABG pH ABG Total CO2 ABG O2 Saturation ABG O2 Content ABG Base Excess ABG Hemoglobin ABG Carboxyhemoglobin POC ABG HHb (Measured) ABG Methemoglobin ABG O2 Capacity [place] Test ABG Potassium A-a O2 Difference Hgb O2 Saturation Glucose Lactate Vent Mode Mechanical Rate FiO2 Tidal Volume Sodium Potassium Chloride Carbon Dioxide Anion Gap BUN Creatinine Est GFR ( Amer) Est GFR (Non-Af Amer) POC Glucose (mg/dL) Random Glucose Lactic Acid 3.3 H Calcium Phosphorus Magnesium Iron TIBC % Saturation Total Bilirubin AST ALT Alkaline Phosphatase Troponin I Total Protein Albumin Globulin Albumin/Globulin Ratio Arterial Blood Potassium Urine Color Urine Clarity Urine pH Ur Specific [place] Urine Protein Urine Glucose (UA) Urine Ketones Urine Blood Urine Nitrate Urine Bilirubin Urine Urobilinogen Ur Leukocyte Esterase Urine RBC (Auto) Urine Microscopic WBC Urine Bacteria Salicylates Urine Opiates Screen Urine Methadone Screen Acetaminophen Ur Barbiturates Screen Ur Phencyclidine Scrn Ur Amphetamines Screen U Benzodiazepines Scrn U Oth Cocaine Metabols U Cannabinoids Screen Alcohol, Quantitative Blood Type A POSITIVE Antibody Screen Negative BBK History Checked Patient has bt 05/14/18 05/14/18 05/14/18 21:31 21:42 21:42 WBC RBC Hgb Hct MCV MCH MCHC RDW Plt Count MPV Neut % (Auto) Lymph % (Auto) [place] % (Auto) Eos % (Auto) Baso % (Auto) Neut # (Auto) Lymph # (Auto) [place] # (Auto) Eos # (Auto) Baso # (Auto) Neutrophils % (Manual) Band Neutrophils % Lymphocytes % (Manual) Monocytes % (Manual) Platelet Estimate Large Platelets Hypochromasia (manual) Poikilocytosis (manual Anisocytosis (manual) Microcytosis (manual) Ovalocytes PT INR APTT pCO2 62 H pO2 274 H HCO3 23.4 ABG pH 7.24 L ABG Total CO2 28.5 H ABG O2 Saturation 100.2 H ABG O2 Content ABG Base Excess -2.1 L ABG Hemoglobin ABG Carboxyhemoglobin POC ABG HHb (Measured) ABG Methemoglobin ABG O2 Capacity [place] Test Yes ABG Potassium 3.9 A-a O2 Difference 362.0 Hgb O2 Saturation Glucose 240 H Lactate 1.7 Vent Mode A/c Mechanical Rate 16 FiO2 100.0 Tidal Volume 700 Sodium 138.0 Potassium Chloride 107.0 Carbon Dioxide Anion Gap BUN Creatinine Est GFR ( Amer) Est GFR (Non-Af Amer) POC Glucose (mg/dL) Random Glucose Lactic Acid Calcium Phosphorus Magnesium Iron TIBC % Saturation Total Bilirubin AST ALT Alkaline Phosphatase Troponin I Total Protein Albumin Globulin Albumin/Globulin Ratio Arterial Blood Potassium 3.9 Urine Color Yellow Urine Clarity Slighty-cloudy Urine pH 5.0 Ur Specific [place] 1.028 Urine Protein 30 Urine Glucose (UA) Neg Urine Ketones Negative Urine Blood Negative Urine Nitrate Negative Urine Bilirubin Negative Urine Urobilinogen 2.0 Ur Leukocyte Esterase Neg Urine RBC (Auto) 3 Urine Microscopic WBC 1 Urine Bacteria Rare Salicylates Urine Opiates Screen Negative Urine Methadone Screen Negative Acetaminophen Ur Barbiturates Screen Negative Ur Phencyclidine Scrn Negative Ur Amphetamines Screen Negative U Benzodiazepines Scrn Negative U Oth Cocaine Metabols Negative U Cannabinoids Screen Negative Alcohol, Quantitative Blood Type Antibody Screen BBK History Checked 05/15/18 05/15/18 05/15/18 05:20 05:30 05:30 WBC 9.7 RBC 4.33 L Hgb 10.6 L Hct 33.0 L MCV 76.1 L D MCH 24.6 L MCHC 32.3 L RDW 16.7 H Plt Count 190 MPV 9.1 Neut % (Auto) 93.0 H Lymph % (Auto) 3.4 L [place] % (Auto) 3.5 Eos % (Auto) 0.0 Baso % (Auto) 0.1 Neut # (Auto) 9.0 H Lymph # (Auto) 0.3 L [place] # (Auto) 0.3 Eos # (Auto) 0.0 Baso # (Auto) 0.0 Neutrophils % (Manual) 87 H Band Neutrophils % 5 H Lymphocytes % (Manual) 5 L Monocytes % (Manual) 3 Platelet Estimate Normal Large Platelets Present Hypochromasia (manual) Slight Poikilocytosis (manual Slight Anisocytosis (manual) Slight Microcytosis (manual) Slight Ovalocytes Moderate PT INR APTT pCO2 43 pO2 86 HCO3 24.5 ABG pH 7.37 ABG Total CO2 26.2 ABG O2 Saturation 96.0 ABG O2 Content 14.0 L ABG Base Excess -0.5 ABG Hemoglobin 10.4 L ABG Carboxyhemoglobin 0 L POC ABG HHb (Measured) 4.0 ABG Methemoglobin 0.6 ABG O2 Capacity 14.6 L [place] Test Yes ABG Potassium A-a O2 Difference 359.0 Hgb O2 Saturation 95.3 Glucose Lactate Vent Mode A/c Mechanical Rate 20 FiO2 70.0 Tidal Volume 500 Sodium 141 Potassium 4.4 Chloride 105 Carbon Dioxide 26 Anion Gap 14 BUN 17 Creatinine 0.9 Est GFR ( Amer) > 60 Est GFR (Non-Af Amer) > 60 POC Glucose (mg/dL) Random Glucose 157 H Lactic Acid Calcium 7.9 L Phosphorus Magnesium Iron TIBC % Saturation Total Bilirubin 2.4 H AST 47 ALT 29 Alkaline Phosphatase 51 Troponin I Total Protein 5.9 L Albumin 3.4 L Globulin 2.6 Albumin/Globulin Ratio 1.3 Arterial Blood Potassium Urine Color Urine Clarity Urine pH Ur Specific [place] Urine Protein Urine Glucose (UA) Urine Ketones Urine Blood Urine Nitrate Urine Bilirubin Urine Urobilinogen Ur Leukocyte Esterase Urine RBC (Auto) Urine Microscopic WBC Urine Bacteria Salicylates Urine Opiates Screen Urine Methadone Screen Acetaminophen Ur Barbiturates Screen Ur Phencyclidine Scrn Ur Amphetamines Screen U Benzodiazepines Scrn U Oth Cocaine Metabols U Cannabinoids Screen Alcohol, Quantitative Blood Type Antibody Screen BBK History Checked 05/15/18 05/15/18 05/15/18 05:30 05:55 11:36 WBC RBC Hgb Hct MCV MCH MCHC RDW Plt Count MPV Neut % (Auto) Lymph % (Auto) [place] % (Auto) Eos % (Auto) Baso % (Auto) Neut # (Auto) Lymph # (Auto) [place] # (Auto) Eos # (Auto) Baso # (Auto) Neutrophils % (Manual) Band Neutrophils % Lymphocytes % (Manual) Monocytes % (Manual) Platelet Estimate Large Platelets Hypochromasia (manual) Poikilocytosis (manual Anisocytosis (manual) Microcytosis (manual) Ovalocytes PT INR APTT pCO2 pO2 HCO3 ABG pH ABG Total CO2 ABG O2 Saturation ABG O2 Content ABG Base Excess ABG Hemoglobin ABG Carboxyhemoglobin POC ABG HHb (Measured) ABG Methemoglobin ABG O2 Capacity [place] Test ABG Potassium A-a O2 Difference Hgb O2 Saturation Glucose Lactate Vent Mode Mechanical Rate FiO2 Tidal Volume Sodium Potassium Chloride Carbon Dioxide Anion Gap BUN Creatinine Est GFR ( Amer) Est GFR (Non-Af Amer) POC Glucose (mg/dL) 166 H 166 H Random Glucose Lactic Acid Calcium Phosphorus Magnesium Iron 80 TIBC 429 % Saturation 19 L Total Bilirubin AST ALT Alkaline Phosphatase Troponin I Total Protein Albumin Globulin Albumin/Globulin Ratio Arterial Blood Potassium Urine Color Urine Clarity Urine pH Ur Specific [place] Urine Protein Urine Glucose (UA) Urine Ketones Urine Blood Urine Nitrate Urine Bilirubin Urine Urobilinogen Ur Leukocyte Esterase Urine RBC (Auto) Urine Microscopic WBC Urine Bacteria Salicylates Urine Opiates Screen Urine Methadone Screen Acetaminophen Ur Barbiturates Screen Ur Phencyclidine Scrn Ur Amphetamines Screen U Benzodiazepines Scrn U Oth Cocaine Metabols U Cannabinoids Screen Alcohol, Quantitative Blood Type Antibody Screen BBK History Checked - EKG Data EKG shows normal: Sinus rhythm Rate: Tachycardia (121/min) - EKG Data EKG comments: ST Depression in Inferolateral Leads wth Possible Ischemia - Imaging and Cardiology Chest x-ray Status: Report reviewed by me Additional comment: HISTORY: ams COMPARISON: No prior study available for comparison. FINDINGS: In situ ETT, the tip of which lies approximately 5.5 cm above lexus. LUNGS: Elevation right hemidiaphragm with vague patchy opacity in the right base possibly representing atelectasis and/or infiltrate PLEURA: No significant pleural effusion identified, no pneumothorax apparent. CARDIOVASCULAR: Normal. OSSEOUS STRUCTURES: No significant abnormalities. VISUALIZED UPPER ABDOMEN: Normal. OTHER FINDINGS: None. IMPRESSION: Elevation right hemidiaphragm with vague patchy opacity in the right base possibly representing atelectasis and/or infiltrate CT scan - head Status: Report reviewed by me Additional comment: CT HEAD WITHOUT CONTRAST. HISTORY: ams COMPARISON: None available. TECHNIQUE: Axial computed tomography images were obtained through the head/brain without intravenous contrast. Radiation dose: Total exam DLP = 1237.86 MGy-cm. This CT exam was performed using one or more of the following dose reduction techniques: Automated exposure control, adjustment of the mA and/or kV according to patient size, and/or use of iterative reconstruction technique. FINDINGS: HEMORRHAGE: No intracranial hemorrhage. BRAIN: No mass effect or edema. No atrophy or chronic microvascular ischemic changes. VENTRICLES: Unremarkable. No hydrocephalus. CALVARIUM: Unremarkable. PARANASAL SINUSES: Small amount of fluid seen within the sphenoid sinus. There is also of fluid in the posterior nasopharynx. MASTOID AIR CELLS: There is opacification of 1 or 2 left inferior mastoid air cells. . OTHER FINDINGS: Tiny radiopaque density seen within the right supraorbital/ frontal scalp IMPRESSION: No acute intracranial hemorrhage. Assessment & Plan (1) Acute respiratory failure with hypercapnia Assessment and Plan: S/P Intubation Respiratory Acidosis Aspiration Pneumonia NPO MV FIO2 70% IVF IV ABX ID, and Pulmonary Consult Sedated CXR daily ABG DAily Morning Labs Status: Acute (2) Altered mental status Assessment and Plan: Multiple Drug Overdose Poison Control onboard Supportive Care Status: Acute (3) Suicide attempt by drug ingestion Assessment and Plan: Major Depression Supportive Care Psych Consult Status: Acute Priority: High (4) DVT prophylaxis Assessment and Plan: Lovenox 40mg SQ Daily Status: Inactive Priority: High
[2018-05-16] MEDS: Acetaminophen 650mg/20.3ml solution UD PO PRN ×2 (00:10→17:20)
[2018-05-16] MEDS: Propofol 10 mg/ml 1,000 MG/100 ML VIAL IV SCH ×4 (04:19→22:00)
[2018-05-16] MEDS: Sodium Chloride 0.9% 1,000 ML IV SCH ×2 (04:21→16:29)
[2018-05-16] MEDS: Insulin Regular 100 units/ml SC SCH ×4 (04:24→22:00)
[2018-05-16 06:04] LABS: BASO # 0.1 K/uL (0.0-0.2); HEMOGLOBIN 10.9 g/dL (12.0-18.0); LYMPH # 0.4 K/uL (1.0-4.3); LYMPH % 2.4 % (20.0-40.0); MEAN CELL VOLUME 75.4 fl (80.0-94.0); MEAN CORPUSCULAR HEMOGLOBIN 24.4 pg (27.0-31.0); MEAN CORPUSCULAR HGB CONC 32.4 g/dL (33.0-37.0); MEAN PLATELET VOLUME 9.6 fl (7.2-11.7); MONO # 0.6 K/uL (0.0-0.8); MONO % 4.2 % (0.0-10.0); NEUT # 13.6 K/uL (1.8-7.0); NEUT % 92.4 % (50.0-75.0); NRBC % 0.1 % (0.0-0.0); PLATELET COUNT 209 K/uL (130-400); RBC 4.46 Mil/uL (4.40-5.90); RED CELL DISTRIBUTION WIDTH 16.2 % (11.5-14.5); WHITE BLOOD COUNT 14.7 K/uL (4.8-10.8)
[2018-05-16 06:14] LABS: ALB/GLOB RATIO 1.2 (1.0-2.1); ALBUMIN 3.4 g/dL (3.5-5.0); ALT/SGPT 26 U/L (21-72); AST/SGOT 38 U/L (17-59); BLOOD UREA NITROGEN 16 mg/dl (9-20); CALCIUM 8.6 mg/dL (8.4-10.2); GFR NON-AFRICAN AMERICAN > 60
[2018-05-16 06:27] LABS: ABG ALLEN TEST YES; ARTERIAL BLOOD GAS HCO3 25.7 mmol/L (21-28); ARTERIAL BLOOD GAS O2 CAPACITY 15.3 mL/dL (16-24); ARTERIAL BLOOD GAS O2 CONTENT 14.3 ML/dL (15-23); ARTERIAL BLOOD GAS O2 SAT 93.4 % (95-98); ARTERIAL BLOOD GAS PCO2 58 mm/Hg (35-45); ARTERIAL BLOOD GAS PO2 69 mm/Hg (80-100); ARTERIAL BLOOD GAS TCO2 30.3 mmol/L (22-28)
--- NOTE | 2018-05-16 07:32 | CP.CCUPN ---
CCU Subjective - Physician Review Events Since Last Encounter (Free Text): Patient on ventilator on PRVC TV 500, RR 20, FIO2 80%, no pressors, no response to verbal stimuli, events reviewed CCU Objective - Vital Signs / Intake & Output Vital Signs (Last 4 hours): Vital Signs Temp Pulse Resp BP Pulse Ox 05/16/18 06:00 122 H 25 H 157/78 H 94 L 05/16/18 05:00 119 H 30 H 157/84 H 94 L 05/16/18 04:00 99.5 F 120 H 27 H 162/79 H 94 L Intake and Output (Last 8hrs): Intake & Output 05/15/18 05/16/18 05/16/18 22:59 06:59 14:59 Intake Total 1510 1422 Output Total 650 600 Balance 860 822 Intake: IV 1310 1102 Intake, Piggyback 200 300 Oral 20 Output: Urine 650 600 Urethral (Sy) 650 600 Other: # Bowel Movements 0 - Physical Exam Head: Positive for: Atraumatic, Normocephalic Pupils: Positive for: PERRL Conjunctiva: Positive for: Normal Mouth: Positive for: Moist Mucous Membranes Nose (External): Positive for: Atraumatic Neck: Positive for: Normal Range of Motion Respiratory/Chest: Positive for: Clear to Auscultation Cardiovascular: Positive for: Regular Rate and Rhythm, Normal S1, S2 Abdomen: Positive for: Normal Bowel Sounds Upper Extremity: Positive for: Normal Inspection Lower Extremity: Positive for: Normal Inspection Neurological: Positive for: Other (on ventilator, no response to verbal stimuli) - Medications Active Medications: Active Medications Generic Name Dose Route Start Last Admin Trade Name Xander PRN Reason Stop Dose Admin Acetaminophen 650 mg 05/15/18 23:39 05/16/18 00:10 Tylenol 650mg/20.3ml Solution Ud PO 650 mg Q6 PRN Administration Temperature Enoxaparin Sodium 40 mg 05/15/18 09:00 05/15/18 08:21 Lovenox SC 40 mg DAILY DANNY Administration Protocol Clindamycin Phosphate 600 mg in 50 mls @ 100 mls/hr 05/14/18 21:00 Cleocin In Normal Saline IVPB ONCE DANNY Clindamycin Phosphate 600 mg/ 54 mls @ 54 mls/hr 05/15/18 09:00 05/16/18 00: 16 Sodium Chloride IVPB 54 mls/hr Q8 DANNY Administration Protocol Propofol 1,000 mg in 100 mls @ 2.599 mls/hr 05/15/18 13:30 05/16/18 05:00 Diprivan IV 05/16/18 13:17 20 mcg/kg/min .Q24H DANNY 10.396 mls/hr Protocol Titration 5 MCG/KG/MIN Levofloxacin/Dextrose 750 mg in 150 mls @ 100 mls/hr 05/15/18 13:45 05/15/18 15:14 Levaquin 750mg IVPB 100 mls/hr DAILY DANNY Administration Protocol Vancomycin HCl 1 gm/ Sodium 250 mls @ 166.667 mls/hr 05/15/18 21:00 05/15/18 20:51 Chloride IVPB 166.667 mls/hr Q12 DANNY Administration Protocol Sodium Chloride 1,000 mls @ 100 mls/hr 05/15/18 18:15 05/16/18 04:21 Sodium Chloride 0.9% IV 05/16/18 18:13 100 mls/hr .Q10H DANNY Administration Insulin Human Regular 0 units 05/15/18 04:00 05/16/18 04:24 Humulin R SC Not Given Q6 DANNY Protocol Pantoprazole Sodium 40 mg 05/15/18 09:00 05/15/18 08:20 Protonix Inj IVP 40 mg DAILY DANNY Administration - Patient Studies Lab Studies: Lab Studies 05/16/18 05/16/18 05/16/18 Range/Units 05:51 05:30 05:30 WBC 14.7 H D (4.8-10.8) K/uL RBC 4.46 (4.40-5.90) Mil/uL Hgb 10.9 L (12.0-18.0) g/dL Hct 33.7 L (35.0-51.0) % MCV 75.4 L (80.0-94.0) fl MCH 24.4 L (27.0-31.0) pg MCHC 32.4 L (33.0-37.0) g/dL RDW 16.2 H (11.5-14.5) % Plt Count 209 (130-400) K/uL MPV 9.6 (7.2-11.7) fl Neut % (Auto) 92.4 H (50.0-75.0) % Lymph % (Auto) 2.4 L (20.0-40.0) % [place] % (Auto) 4.2 (0.0-10.0) % Eos % (Auto) 0.0 (0.0-4.0) % Baso % (Auto) 1.0 (0.0-2.0) % Neut # (Auto) 13.6 H (1.8-7.0) K/uL Lymph # (Auto) 0.4 L (1.0-4.3) K/uL [place] # (Auto) 0.6 (0.0-0.8) K/uL Eos # (Auto) 0.0 (0.0-0.7) K/uL Baso # (Auto) 0.1 (0.0-0.2) K/uL Neutrophils % (Manual) (42-75) % Band Neutrophils % (0-2) % Lymphocytes % (Manual) (20-50) % Monocytes % (Manual) (0-10) % Platelet Estimate (NORMAL) Large Platelets Hypochromasia (manual) Poikilocytosis (manual Anisocytosis (manual) Microcytosis (manual) Ovalocytes pCO2 58 H (35-45) mm/Hg pO2 69 L (80-100) mm/Hg HCO3 25.7 (21-28) mmol/L ABG pH 7.30 L (7.35-7.45) ABG Total CO2 30.3 H (22-28) mmol/L ABG O2 Saturation 93.4 L (95-98) % ABG O2 Content 14.3 L (15-23) ML/dL ABG Base Excess 1.1 (-2.0-3.0) mmol/L ABG Hemoglobin 11.0 L (11.7-17.4) g/dL ABG Carboxyhemoglobin 0.2 L (0.5-1.5) % POC ABG HHb (Measured) 6.5 H (0.0-5.0) % ABG Methemoglobin 1.0 (0.0-3.0) % ABG O2 Capacity 15.3 L (16-24) mL/dL [place] Test Yes A-a O2 Difference 358.0 mm/Hg Hgb O2 Saturation 92.3 L (95.0-98.0) % Vent Mode A/c Mechanical Rate 20 FiO2 70.0 % Tidal Volume 500 Sodium 144 (132-148) mmol/l Potassium 4.1 (3.6-5.0) MMOL/L Chloride 108 H (98-107) mmol/L Carbon Dioxide 27 (22-30) mmol/L Anion Gap 13 (10-20) BUN 16 (9-20) mg/dl Creatinine 0.9 (0.8-1.5) mg/dl Est GFR ( Amer) > 60 Est GFR (Non-Af Amer) > 60 POC Glucose (mg/dL) (65-110) mg/dL Random Glucose 134 H (75-110) mg/dL Calcium 8.6 (8.4-10.2) mg/dL Total Bilirubin 1.9 H (0.2-1.3) mg/dl AST 38 (17-59) U/L ALT 26 (21-72) U/L Alkaline Phosphatase 51 (38-126) U/L Total Protein 6.4 (6.3-8.2) G/DL Albumin 3.4 L (3.5-5.0) g/dL Globulin 2.9 (2.2-3.9) gm/dL Albumin/Globulin Ratio 1.2 (1.0-2.1) Procalcitonin (0.19-0.49) NG/ML 05/16/18 05/15/18 05/15/18 Range/Units 04:24 21:31 16:50 WBC (4.8-10.8) K/uL RBC (4.40-5.90) Mil/uL Hgb (12.0-18.0) g/dL Hct (35.0-51.0) % MCV (80.0-94.0) fl MCH (27.0-31.0) pg MCHC (33.0-37.0) g/dL RDW (11.5-14.5) % Plt Count (130-400) K/uL MPV (7.2-11.7) fl Neut % (Auto) (50.0-75.0) % Lymph % (Auto) (20.0-40.0) % [place] % (Auto) (0.0-10.0) % Eos % (Auto) (0.0-4.0) % Baso % (Auto) (0.0-2.0) % Neut # (Auto) (1.8-7.0) K/uL Lymph # (Auto) (1.0-4.3) K/uL [place] # (Auto) (0.0-0.8) K/uL Eos # (Auto) (0.0-0.7) K/uL Baso # (Auto) (0.0-0.2) K/uL Neutrophils % (Manual) (42-75) % Band Neutrophils % (0-2) % Lymphocytes % (Manual) (20-50) % Monocytes % (Manual) (0-10) % Platelet Estimate (NORMAL) Large Platelets Hypochromasia (manual) Poikilocytosis (manual Anisocytosis (manual) Microcytosis (manual) Ovalocytes pCO2 (35-45) mm/Hg pO2 (80-100) mm/Hg HCO3 (21-28) mmol/L ABG pH (7.35-7.45) ABG Total CO2 (22-28) mmol/L ABG O2 Saturation (95-98) % ABG O2 Content (15-23) ML/dL ABG Base Excess (-2.0-3.0) mmol/L ABG Hemoglobin (11.7-17.4) g/dL ABG Carboxyhemoglobin (0.5-1.5) % POC ABG HHb (Measured) (0.0-5.0) % ABG Methemoglobin (0.0-3.0) % ABG O2 Capacity (16-24) mL/dL [place] Test A-a O2 Difference mm/Hg Hgb O2 Saturation (95.0-98.0) % Vent Mode Mechanical Rate FiO2 % Tidal Volume Sodium (132-148) mmol/l Potassium (3.6-5.0) MMOL/L Chloride (98-107) mmol/L Carbon Dioxide (22-30) mmol/L Anion Gap (10-20) BUN (9-20) mg/dl Creatinine (0.8-1.5) mg/dl Est GFR ( Amer) Est GFR (Non-Af Amer) POC Glucose (mg/dL) 129 H 110 143 H (65-110) mg/dL Random Glucose (75-110) mg/dL Calcium (8.4-10.2) mg/dL Total Bilirubin (0.2-1.3) mg/dl AST (17-59) U/L ALT (21-72) U/L Alkaline Phosphatase (38-126) U/L Total Protein (6.3-8.2) G/DL Albumin (3.5-5.0) g/dL Globulin (2.2-3.9) gm/dL Albumin/Globulin Ratio (1.0-2.1) Procalcitonin (0.19-0.49) NG/ML 05/15/18 05/15/18 05/15/18 Range/Units 11:36 05:30 05:30 WBC (4.8-10.8) K/uL RBC (4.40-5.90) Mil/uL Hgb (12.0-18.0) g/dL Hct (35.0-51.0) % MCV (80.0-94.0) fl MCH (27.0-31.0) pg MCHC (33.0-37.0) g/dL RDW (11.5-14.5) % Plt Count (130-400) K/uL MPV (7.2-11.7) fl Neut % (Auto) (50.0-75.0) % Lymph % (Auto) (20.0-40.0) % [place] % (Auto) (0.0-10.0) % Eos % (Auto) (0.0-4.0) % Baso % (Auto) (0.0-2.0) % Neut # (Auto) (1.8-7.0) K/uL Lymph # (Auto) (1.0-4.3) K/uL [place] # (Auto) (0.0-0.8) K/uL Eos # (Auto) (0.0-0.7) K/uL Baso # (Auto) (0.0-0.2) K/uL Neutrophils % (Manual) 87 H (42-75) % Band Neutrophils % 5 H (0-2) % Lymphocytes % (Manual) 5 L (20-50) % Monocytes % (Manual) 3 (0-10) % Platelet Estimate Normal (NORMAL) Large Platelets Present Hypochromasia (manual) Slight Poikilocytosis (manual Slight Anisocytosis (manual) Slight Microcytosis (manual) Slight Ovalocytes Moderate pCO2 (35-45) mm/Hg pO2 (80-100) mm/Hg HCO3 (21-28) mmol/L ABG pH (7.35-7.45) ABG Total CO2 (22-28) mmol/L ABG O2 Saturation (95-98) % ABG O2 Content (15-23) ML/dL ABG Base Excess (-2.0-3.0) mmol/L ABG Hemoglobin (11.7-17.4) g/dL ABG Carboxyhemoglobin (0.5-1.5) % POC ABG HHb (Measured) (0.0-5.0) % ABG Methemoglobin (0.0-3.0) % ABG O2 Capacity (16-24) mL/dL [place] Test A-a O2 Difference mm/Hg Hgb O2 Saturation (95.0-98.0) % Vent Mode Mechanical Rate FiO2 % Tidal Volume Sodium (132-148) mmol/l Potassium (3.6-5.0) MMOL/L Chloride (98-107) mmol/L Carbon Dioxide (22-30) mmol/L Anion Gap (10-20) BUN (9-20) mg/dl Creatinine (0.8-1.5) mg/dl Est GFR ( Amer) Est GFR (Non-Af Amer) POC Glucose (mg/dL) 166 H (65-110) mg/dL Random Glucose (75-110) mg/dL Calcium (8.4-10.2) mg/dL Total Bilirubin (0.2-1.3) mg/dl AST (17-59) U/L ALT (21-72) U/L Alkaline Phosphatase (38-126) U/L Total Protein (6.3-8.2) G/DL Albumin (3.5-5.0) g/dL Globulin (2.2-3.9) gm/dL Albumin/Globulin Ratio (1.0-2.1) Procalcitonin 0.39 (0.19-0.49) NG/ML Laboratory Results - last 24 hr 05/15/18 05/15/18 05/15/18 05:30 05:30 11:36 WBC RBC Hgb Hct MCV MCH MCHC RDW Plt Count MPV Neut % (Auto) Lymph % (Auto) [place] % (Auto) Eos % (Auto) Baso % (Auto) Neut # (Auto) Lymph # (Auto) [place] # (Auto) Eos # (Auto) Baso # (Auto) Neutrophils % (Manual) 87 H Band Neutrophils % 5 H Lymphocytes % (Manual) 5 L Monocytes % (Manual) 3 Platelet Estimate Normal Large Platelets Present Hypochromasia (manual) Slight Poikilocytosis (manual Slight Anisocytosis (manual) Slight Microcytosis (manual) Slight Ovalocytes Moderate pCO2 pO2 HCO3 ABG pH ABG Total CO2 ABG O2 Saturation ABG O2 Content ABG Base Excess ABG Hemoglobin ABG Carboxyhemoglobin POC ABG HHb (Measured) ABG Methemoglobin ABG O2 Capacity [place] Test A-a O2 Difference Hgb O2 Saturation Vent Mode Mechanical Rate FiO2 Tidal Volume Sodium Potassium Chloride Carbon Dioxide Anion Gap BUN Creatinine Est GFR ( Amer) Est GFR (Non-Af Amer) POC Glucose (mg/dL) 166 H Random Glucose Calcium Total Bilirubin AST ALT Alkaline Phosphatase Total Protein Albumin Globulin Albumin/Globulin Ratio Procalcitonin 0.39 05/15/18 05/15/18 05/16/18 16:50 21:31 04:24 WBC RBC Hgb Hct MCV MCH MCHC RDW Plt Count MPV Neut % (Auto) Lymph % (Auto) [place] % (Auto) Eos % (Auto) Baso % (Auto) Neut # (Auto) Lymph # (Auto) [place] # (Auto) Eos # (Auto) Baso # (Auto) Neutrophils % (Manual) Band Neutrophils % Lymphocytes % (Manual) Monocytes % (Manual) Platelet Estimate Large Platelets Hypochromasia (manual) Poikilocytosis (manual Anisocytosis (manual) Microcytosis (manual) Ovalocytes pCO2 pO2 HCO3 ABG pH ABG Total CO2 ABG O2 Saturation ABG O2 Content ABG Base Excess ABG Hemoglobin ABG Carboxyhemoglobin POC ABG HHb (Measured) ABG Methemoglobin ABG O2 Capacity [place] Test A-a O2 Difference Hgb O2 Saturation Vent Mode Mechanical Rate FiO2 Tidal Volume Sodium Potassium Chloride Carbon Dioxide Anion Gap BUN Creatinine Est GFR ( Amer) Est GFR (Non-Af Amer) POC Glucose (mg/dL) 143 H 110 129 H Random Glucose Calcium Total Bilirubin AST ALT Alkaline Phosphatase Total Protein Albumin Globulin Albumin/Globulin Ratio Procalcitonin 05/16/18 05/16/18 05/16/18 05:30 05:30 05:51 WBC 14.7 H D RBC 4.46 Hgb 10.9 L Hct 33.7 L MCV 75.4 L MCH 24.4 L MCHC 32.4 L RDW 16.2 H Plt Count 209 MPV 9.6 Neut % (Auto) 92.4 H Lymph % (Auto) 2.4 L [place] % (Auto) 4.2 Eos % (Auto) 0.0 Baso % (Auto) 1.0 Neut # (Auto) 13.6 H Lymph # (Auto) 0.4 L [place] # (Auto) 0.6 Eos # (Auto) 0.0 Baso # (Auto) 0.1 Neutrophils % (Manual) Band Neutrophils % Lymphocytes % (Manual) Monocytes % (Manual) Platelet Estimate Large Platelets Hypochromasia (manual) Poikilocytosis (manual Anisocytosis (manual) Microcytosis (manual) Ovalocytes pCO2 58 H pO2 69 L HCO3 25.7 ABG pH 7.30 L ABG Total CO2 30.3 H ABG O2 Saturation 93.4 L ABG O2 Content 14.3 L ABG Base Excess 1.1 ABG Hemoglobin 11.0 L ABG Carboxyhemoglobin 0.2 L POC ABG HHb (Measured) 6.5 H ABG Methemoglobin 1.0 ABG O2 Capacity 15.3 L [place] Test Yes A-a O2 Difference 358.0 Hgb O2 Saturation 92.3 L Vent Mode A/c Mechanical Rate 20 FiO2 70.0 Tidal Volume 500 Sodium 144 Potassium 4.1 Chloride 108 H Carbon Dioxide 27 Anion Gap 13 BUN 16 Creatinine 0.9 Est GFR ( Amer) > 60 Est GFR (Non-Af Amer) > 60 POC Glucose (mg/dL) Random Glucose 134 H Calcium 8.6 Total Bilirubin 1.9 H AST 38 ALT 26 Alkaline Phosphatase 51 Total Protein 6.4 Albumin 3.4 L Globulin 2.9 Albumin/Globulin Ratio 1.2 Procalcitonin Fingerstick Blood Sugar Results: 129 Critical Care Progress Note - Nutrition Nutrition: Nutrition Category Date Time Status NPO Diet [DIET] Diets 05/14/18 Dinner Active Assessment/Plan - Assessment and Plan (Free Text) Assessment: A/P Respiratory failure, drug overdose, DM, h/o asthma, h/o depression, ?aspiration - Ventilatory support - Pulmonary toilets - Weaning as tolerated - Continue meds - Psychiatry follow up Critical care 35 min
[2018-05-16 08:02] LABS: BANDS 4 % (0-2); LYMPHOCYTE 1 % (20-50); MONOCYTE 1 % (0-10); NEUTROPHIL 94 % (42-75); TOTAL CELLS COUNTED 100
[2018-05-16 08:03] LABS: ANISOCYTOSIS SLIGHT; POIKILOCYTOSIS SLIGHT
[2018-05-16 08:04] LABS: HYPOCHROMIC SLIGHT; TEARDROP CELLS SLIGHT; TOXIC GRANULATION PRESENT
[2018-05-16 08:05] LABS: OVALOCYTES MODERATE; PLATELET ESTIMATE NORMAL (NORMAL)
[2018-05-16] MEDS: Enoxaparin 40 mg Syringe SC SCH (08:09)
[2018-05-16] MEDS: levoFLOXacin 750 mg in D5W 750 MG/150 ML BAG IVPB SCH (09:07)
--- NOTE | 2018-05-16 10:36 | CP.PCM.CON ---
History of Present Illness - History of Present Illness History of Present Illness: Consult on 05/15/18. 47 years old male, CC suicidal DO, respiratory failure. Patient was suicidal and intended to OD on all his pills, EMS noted that he has multiple empty bottles of Trazodone, Ambien, Seroquel, Clonidine In the ER patient was unresponsive and He was intubated for airway protection, initial attempt of intubation in the ER failed, Anesthesiologist was called and patient was intubated in the ER Past medical history: Depression, asthma, CVA, Diabetes( prior to Gastric by- pass ) , DVT, HTN, HCL, P/E, Sleep Apnea, TIA Past surgical history, CABG, Cholecystectomy, coronary stent 2008 , laparoscopic lysis of peritoneal adhesions and laparoscopic gastroenterostomy( Gastric Bypass) 2015, Review of Systems - Review of Systems Systems not reviewed;Unavailable: Acuity of Condition Past Patient History - Infectious Disease Hx of Infectious Diseases: None - Past Medical History & Family History Past Medical History?: Yes - Past Social History Smoking Status: Former Smoker Chewing Tobacco Use: No Cigar Use: No Alcohol: None Drugs: Denies - CARDIAC Hx Hypercholesterolemia: Yes Hx Hypertension: Yes - PULMONARY Hx Asthma: Yes Hx Pulmonary Embolism: Yes (from previous history) Hx Sleep Apnea: Yes - NEUROLOGICAL Hx Transient Ischemic Attacks (TIA): Yes - HEENT Hx HEENT Problems: No - ENDOCRINE/METABOLIC Hx Endocrine Disorders: Yes Hx Diabetes Mellitus Type 1: Yes (prior to gastric bypass) - HEMATOLOGICAL/ONCOLOGICAL Hx Blood Disorders: No - INTEGUMENTARY Hx Dermatological Problems: No - MUSCULOSKELETAL/RHEUMATOLOGICAL Hx Falls: No - GASTROINTESTINAL Hx Gastrointestinal Disorders: Yes Hx Nausea: Yes Hx Vomiting: Yes - GENITOURINARY/GYNECOLOGICAL Hx Genitourinary Disorders: No - PSYCHIATRIC Hx Anxiety: Yes Hx Depression: Yes - SURGICAL HISTORY Hx Cholecystectomy: Yes Hx Coronary Artery Bypass Graft: Yes Hx Coronary Stent: Yes (2008) - ANESTHESIA Hx Anesthesia: Yes Hx Anesthesia Reactions: No Hx Malignant Hyperthermia: No Meds Allergies/Adverse Reactions: Allergies Allergy/AdvReac Type Severity Reaction Status Date / Time Penicillins Allergy RASH Verified 05/14/18 20:08 - Medications Medications: Current Medications Acetaminophen (Tylenol 650mg/20.3ml Solution Ud) 650 mg PO Q6 PRN PRN Reason: Temperature Last Admin: 05/16/18 00:10 Dose: 650 mg Enoxaparin Sodium (Lovenox) 40 mg SC DAILY [facility] PRN Reason: Protocol Last Admin: 05/16/18 08:09 Dose: 40 mg Clindamycin Phosphate (Cleocin In Normal Saline) 600 mg in 50 mls @ 100 mls/hr IVPB ONCE DANNY Clindamycin Phosphate 600 mg/ (Sodium Chloride) 54 mls @ 54 mls/hr IVPB Q8 DANNY PRN Reason: Protocol Last Admin: 05/16/18 08:10 Dose: 54 mls/hr Propofol (Diprivan) 1,000 mg in 100 mls @ 2.599 mls/hr IV .Q24H DANNY; 5 MCG/KG/ MIN PRN Reason: Protocol Stop: 05/16/18 13:17 Last Titration: 05/16/18 05:00 Dose: 20 mcg/kg/min, 10.396 mls/hr Levofloxacin/Dextrose (Levaquin 750mg) 750 mg in 150 mls @ 100 mls/hr IVPB DAILY DANNY PRN Reason: Protocol Last Admin: 05/16/18 09:07 Dose: 100 mls/hr Vancomycin HCl 1 gm/ Sodium (Chloride) 250 mls @ 166.667 mls/hr IVPB Q12 DANNY PRN Reason: Protocol Last Admin: 05/15/18 20:51 Dose: 166.667 mls/hr Sodium Chloride (Sodium Chloride 0.9%) 1,000 mls @ 100 mls/hr IV .Q10H DANNY Stop: 05/16/18 18:13 Last Admin: 05/16/18 04:21 Dose: 100 mls/hr Insulin Human Regular (Humulin R) 0 units SC Q6 DANNY PRN Reason: Protocol Last Admin: 05/16/18 04:24 Dose: Not Given Pantoprazole Sodium (Protonix Inj) 40 mg IVP DAILY [facility] Last Admin: 05/16/18 08:08 Dose: 40 mg Physical Exam - Head Exam Head Exam: NORMAL INSPECTION - Eye Exam Eye Exam: PERRL - ENT Exam Additional comments: intubated - Neck Exam Neck exam: Positive for: Normal Inspection - Respiratory Exam Respiratory Exam: Clear to Auscultation Bilateral - Cardiovascular Exam Cardiovascular Exam: REGULAR RHYTHM - Extremities Exam Extremities exam: Positive for: normal inspection - Neurological Exam Additional comments: intubated, sedated, no response to tactil stimuli - Skin Skin Exam: Warm Results - Vital Signs Recent Vital Signs: Last Vital Signs Temp 99.9 F H 05/16/18 08:00 Pulse 119 H 05/16/18 10:00 Resp 26 H 05/16/18 10:00 BP 149/85 05/16/18 10:00 Pulse Ox 98 05/16/18 10:00 - Labs Result Diagrams: 05/24/18 05:26 05/24/18 05:26 Labs: Laboratory Results - last 24 hr 05/15/18 05/15/18 05/15/18 05:30 11:36 16:50 WBC RBC Hgb Hct MCV MCH MCHC RDW Plt Count MPV Neut % (Auto) Lymph % (Auto) [place] % (Auto) Eos % (Auto) Baso % (Auto) Neut # (Auto) Lymph # (Auto) [place] # (Auto) Eos # (Auto) Baso # (Auto) Neutrophils % (Manual) Band Neutrophils % Lymphocytes % (Manual) Monocytes % (Manual) Toxic Granulation Platelet Estimate Hypochromasia (manual) Poikilocytosis (manual Anisocytosis (manual) Tear Drop Cells Ovalocytes pCO2 pO2 HCO3 ABG pH ABG Total CO2 ABG O2 Saturation ABG O2 Content ABG Base Excess ABG Hemoglobin ABG Carboxyhemoglobin POC ABG HHb (Measured) ABG Methemoglobin ABG O2 Capacity [place] Test A-a O2 Difference Hgb O2 Saturation Vent Mode Mechanical Rate FiO2 Tidal Volume Sodium Potassium Chloride Carbon Dioxide Anion Gap BUN Creatinine Est GFR ( Amer) Est GFR (Non-Af Amer) POC Glucose (mg/dL) 166 H 143 H Random Glucose Calcium Total Bilirubin AST ALT Alkaline Phosphatase Total Protein Albumin Globulin Albumin/Globulin Ratio Procalcitonin 0.39 05/15/18 05/16/18 05/16/18 21:31 04:24 05:30 WBC 14.7 H D RBC 4.46 Hgb 10.9 L Hct 33.7 L MCV 75.4 L MCH 24.4 L MCHC 32.4 L RDW 16.2 H Plt Count 209 MPV 9.6 Neut % (Auto) 92.4 H Lymph % (Auto) 2.4 L [place] % (Auto) 4.2 Eos % (Auto) 0.0 Baso % (Auto) 1.0 Neut # (Auto) 13.6 H Lymph # (Auto) 0.4 L [place] # (Auto) 0.6 Eos # (Auto) 0.0 Baso # (Auto) 0.1 Neutrophils % (Manual) 94 H Band Neutrophils % 4 H Lymphocytes % (Manual) 1 L Monocytes % (Manual) 1 Toxic Granulation Present Platelet Estimate Normal Hypochromasia (manual) Slight Poikilocytosis (manual Slight Anisocytosis (manual) Slight Tear Drop Cells Slight Ovalocytes Moderate pCO2 pO2 HCO3 ABG pH ABG Total CO2 ABG O2 Saturation ABG O2 Content ABG Base Excess ABG Hemoglobin ABG Carboxyhemoglobin POC ABG HHb (Measured) ABG Methemoglobin ABG O2 Capacity [place] Test A-a O2 Difference Hgb O2 Saturation Vent Mode Mechanical Rate FiO2 Tidal Volume Sodium Potassium Chloride Carbon Dioxide Anion Gap BUN Creatinine Est GFR ( Amer) Est GFR (Non-Af Amer) POC Glucose (mg/dL) 110 129 H Random Glucose Calcium Total Bilirubin AST ALT Alkaline Phosphatase Total Protein Albumin Globulin Albumin/Globulin Ratio Procalcitonin 05/16/18 05/16/18 05/16/18 05:30 05:51 10:10 WBC RBC Hgb Hct MCV MCH MCHC RDW Plt Count MPV Neut % (Auto) Lymph % (Auto) [place] % (Auto) Eos % (Auto) Baso % (Auto) Neut # (Auto) Lymph # (Auto) [place] # (Auto) Eos # (Auto) Baso # (Auto) Neutrophils % (Manual) Band Neutrophils % Lymphocytes % (Manual) Monocytes % (Manual) Toxic Granulation Platelet Estimate Hypochromasia (manual) Poikilocytosis (manual Anisocytosis (manual) Tear Drop Cells Ovalocytes pCO2 58 H pO2 69 L HCO3 25.7 ABG pH 7.30 L ABG Total CO2 30.3 H ABG O2 Saturation 93.4 L ABG O2 Content 14.3 L ABG Base Excess 1.1 ABG Hemoglobin 11.0 L ABG Carboxyhemoglobin 0.2 L POC ABG HHb (Measured) 6.5 H ABG Methemoglobin 1.0 ABG O2 Capacity 15.3 L [place] Test Yes A-a O2 Difference 358.0 Hgb O2 Saturation 92.3 L Vent Mode A/c Mechanical Rate 20 FiO2 70.0 Tidal Volume 500 Sodium 144 Potassium 4.1 Chloride 108 H Carbon Dioxide 27 Anion Gap 13 BUN 16 Creatinine 0.9 Est GFR ( Amer) > 60 Est GFR (Non-Af Amer) > 60 POC Glucose (mg/dL) 130 H Random Glucose 134 H Calcium 8.6 Total Bilirubin 1.9 H AST 38 ALT 26 Alkaline Phosphatase 51 Total Protein 6.4 Albumin 3.4 L Globulin 2.9 Albumin/Globulin Ratio 1.2 Procalcitonin Assessment & Plan (1) Overdose Status: Acute (2) Respiratory failure Status: Acute (3) Aspiration pneumonia Status: Acute (4) Hx of deep venous thrombosis Status: Chronic (5) Hx pulmonary embolism Status: Acute (6) History of obstructive sleep apnea Status: Acute (7) Diabetes Status: Chronic - Assessment and Plan (Free Text) Plan: Patient on Ventilator, Propofol, treated with Clindamycin IV for aspiration , Lovenox, add Levaquin IV, Vanco IV, attempt of weaning, follow-up CXR and trach asp CS Critical Care time: 45 min. - Date & Time Date: 05/15/18 Time: 15:00
--- NOTE | 2018-05-16 13:25 | RAD ---
Date of service: 05/16/2018 HISTORY: protocol COMPARISON: No prior. FINDINGS: ETT tip lies approximately 6.8 cm above lexus distal aspect of the NGT and tip poorly seen due to underpenetration. The distal aspect of the NGT can be traced to the at least the lower mediastinum and possibly extending to the right at the level of the EG junction. . Repeat radiographs on of the chest centered at the ra diaphragmatic level could be performed to exactly located tip of the NGT. LUNGS: Interval development of dense opacification right lung base with obscuration of the right hemidiaphragm. Findings likely represent a combination of atelectasis and effusion increased from prior study PLEURA: As above. No pneumothorax apparent. CARDIOVASCULAR: Normal. OSSEOUS STRUCTURES: No significant abnormalities. VISUALIZED UPPER ABDOMEN: Normal. OTHER FINDINGS: None. IMPRESSION: ETT tip lies approximately 6.8 cm above lexus distal aspect of the NGT and tip poorly seen due to underpenetration. The distal aspect of the NGT can be traced to the at least the lower mediastinum and possibly extending to the right at the level of the EG junction. . Repeat radiographs on of the chest centered at the ar diaphragmatic level could be performed to exactly located tip of the NGT. Interval development of dense opacification right lung base with obscuration of the right hemidiaphragm. Findings likely represent a combination of atelectasis and effusion increased from prior study
--- NOTE | 2018-05-16 14:52 | CP.PCM.PN ---
Subjective - Date & Time of Evaluation Date of Evaluation: 05/16/18 Time of Evaluation: 14:25 - Subjective Subjective: Seen and examined at the bed side. Continue to be intubated and sedated. Aspiration PNA worsened and FIO2 increased to 80%. Objective - Vital Signs/Intake and Output Vital Signs (last 24 hours): Temp Pulse Resp BP Pulse Ox 100 F H 130 H 30 H 145/81 100 05/16/18 12:00 05/16/18 14:00 05/16/18 14:00 05/16/18 14:00 05/16/18 14:00 Intake and Output: 05/16/18 05/16/18 06:59 18:59 Intake Total 1529 462 Output Total 600 Balance 929 462 - Medications Medications: Current Medications Acetaminophen (Tylenol 650mg/20.3ml Solution Ud) 650 mg PO Q6 PRN PRN Reason: Temperature Last Admin: 05/16/18 00:10 Dose: 650 mg Enoxaparin Sodium (Lovenox) 40 mg SC DAILY DANNY PRN Reason: Protocol Last Admin: 05/16/18 08:09 Dose: 40 mg Clindamycin Phosphate (Cleocin In Normal Saline) 600 mg in 50 mls @ 100 mls/hr IVPB ONCE DANNY Clindamycin Phosphate 600 mg/ (Sodium Chloride) 54 mls @ 54 mls/hr IVPB Q8 DANNY PRN Reason: Protocol Last Admin: 05/16/18 08:10 Dose: 54 mls/hr Levofloxacin/Dextrose (Levaquin 750mg) 750 mg in 150 mls @ 100 mls/hr IVPB DAILY DANNY PRN Reason: Protocol Last Admin: 05/16/18 09:07 Dose: 100 mls/hr Vancomycin HCl 1 gm/ Sodium (Chloride) 250 mls @ 166.667 mls/hr IVPB Q12 DANNY PRN Reason: Protocol Last Admin: 05/16/18 10:45 Dose: 166.667 mls/hr Sodium Chloride (Sodium Chloride 0.9%) 1,000 mls @ 100 mls/hr IV .Q10H DANNY Stop: 05/16/18 18:13 Last Admin: 05/16/18 04:21 Dose: 100 mls/hr Propofol (Diprivan) 1,000 mg in 100 mls @ 2.599 mls/hr IV .Q24H DANNY; 5 MCG/KG/ MIN PRN Reason: Protocol Stop: 05/17/18 14:26 Insulin Human Regular (Humulin R) 0 units SC Q6 DANYN PRN Reason: Protocol Last Admin: 05/16/18 10:44 Dose: Not Given Pantoprazole Sodium (Protonix Inj) 40 mg IVP DAILY [facility] Last Admin: 05/16/18 08:08 Dose: 40 mg - Labs Labs: 05/16/18 05:30 05/16/18 05:30 PT 12.4 Seconds (9.8-13.1) 05/14/18 20:25 INR 1.1 (0.9-1.2) 05/14/18 20:25 APTT 22.8 Seconds (25.6-37.1) L 05/14/18 20:25 - Constitutional Appears: In Acute Distress - Head Exam Head Exam: ATRAUMATIC, NORMAL INSPECTION, NORMOCEPHALIC - Eye Exam Eye Exam: PERRL Pupil Exam: PERRL - ENT Exam ENT Exam: Mucous Membranes Moist, Normal Exam - Neck Exam Neck Exam: Full ROM, Normal Inspection. absent: Lymphadenopathy - Respiratory Exam Respiratory Exam: Accessory Muscle Use, Decreased Breath Sounds, Rales, NORMAL BREATHING PATTERN - Cardiovascular Exam Cardiovascular Exam: Tachycardia, REGULAR RHYTHM, +S1, +S2. absent: Murmur - GI/Abdominal Exam GI & Abdominal Exam: Soft, Normal Bowel Sounds - Exam Bimanual exam: NORMAL BIMANUAL EXAM - Extremities Exam Extremities Exam: Full ROM, Normal Capillary Refill, Normal Inspection. absent : Joint Swelling, Pedal Edema - Back Exam Back Exam: NORMAL INSPECTION - Neurological Exam Neurological Exam: Reflexes Normal - Psychiatric Exam Psychiatric exam: Normal Affect, Normal Mood - Skin Skin Exam: Dry, Intact, Normal Color, Warm Assessment and Plan (1) Acute respiratory failure with hypercapnia Assessment & Plan: S/P Intubation Respiratory Acidosis Aspiration Pneumonia NPO MV FIO2 70% IVF IV ABX ID, and Pulmonary Consult Sedated CXR daily ABG DAily Morning Labs Status: Acute (2) Altered mental status Assessment and Plan: Multiple Drug Overdose Poison Control onboard Supportive Care Status: Acute (3) Suicide attempt by drug ingestion Assessment and Plan: Major Depression Supportive Care Psych Consult Status: Acute Priority: High (4) DVT prophylaxis Assessment and Plan: Lovenox 40mg SQ Daily Status: Inactive Priority: High Status: Acute
[2018-05-16] MEDS ORDERED: Levalbuterol 1.25 MG/3 ML Inhal Soln UD INH ONE (21:11)
--- NOTE | 2018-05-16 22:04 | PCM.ANES ---
Anesthesia Emergent Intubation - Diagnosis Working Diagnosis:: respiratory failure - Consult Reason for Consult:: leaking ETT - Intubation Attempts Previous Number of Intubation Attempts:: 0 - Pre-Intubation Vital Signs Blood Pressure: 149/65 Heart Rate: 140 Respiratory Rate: 33 O2 Sat: 94 FIO2: 80 Oxygen Delivery Method: Mechanical Ventilator Level Of Consciousness: Sedated Intubation Meds Given: Propofol - Airway Management Oropharyngeal Area Suctioned: Yes Inhalation: No Rapid Sequence: No Cricoid Pressure: Yes Possible Aspiration: No - Method of Intubation Intubation Method: Oral ETT ETT Size: 8 Lipline@: 23 Easy: Yes (anterior) Atramatic: Yes - Intubation Devices Vieyra Blade Size Used: 4 Kiran Forcepts Used: No [place] Scope Used: No Fiber Optic Scope: No - Placement Confirmation Breath Sounds Present & Equal Bilaterally: Yes Gurgling Sounds Not Audible at Epigastrum: Yes Positive EtCO2: Yes Recommendations: Ventilator, Chest X Ray, ABG - Post-Intubation Vital Signs Blood Pressure: 144/80 Heart Rate: 125 Respiratory Rate: 33 O2 Sat: 99 FIO2: 80
[2018-05-16] MEDS ORDERED: Propofol 10 mg/ml Inj (20 ML) IV ONE (22:35)
[2018-05-17 05:17] LABS: ABG ALLEN TEST YES; ARTERIAL BLOOD GAS HEMOGLOBIN 10.3 g/dL (11.7-17.4); ARTERIAL BLOOD GAS O2 CAPACITY 14.5 mL/dL (16-24); ARTERIAL BLOOD GAS O2 SAT 96.6 % (95-98); ARTERIAL BLOOD GAS PCO2 50 mm/Hg (35-45); ARTERIAL BLOOD GAS PO2 104 mm/Hg (80-100); ARTERIAL BLOOD GAS TCO2 32.5 mmol/L (22-28)
[2018-05-17] MEDS ORDERED: Propofol 10 mg/ml 1,000 MG/100 ML VIAL IV SCH (05:45)
[2018-05-17] MEDS: Insulin Regular 100 units/ml SC SCH ×2 (06:00→12:27)
[2018-05-17 06:29] LABS: BASO % 0.1 % (0.0-2.0); HEMOGLOBIN 10.2 g/dL (12.0-18.0); LYMPH # 0.4 K/uL (1.0-4.3); LYMPH % 4.6 % (20.0-40.0); MEAN CELL VOLUME 75.8 fl (80.0-94.0); MEAN CORPUSCULAR HEMOGLOBIN 25.2 pg (27.0-31.0); MEAN CORPUSCULAR HGB CONC 33.2 g/dL (33.0-37.0); MEAN PLATELET VOLUME 9.9 fl (7.2-11.7); MONO # 0.4 K/uL (0.0-0.8); NEUT # 8.2 K/uL (1.8-7.0); NEUT % 91.3 % (50.0-75.0); PLATELET COUNT 195 K/uL (130-400); RBC 4.07 Mil/uL (4.40-5.90); RED CELL DISTRIBUTION WIDTH 16.8 % (11.5-14.5)
[2018-05-17 06:58] LABS: ALB/GLOB RATIO 1.1 (1.0-2.1); ALBUMIN 3.2 g/dL (3.5-5.0); ALT/SGPT 39 U/L (21-72); AST/SGOT 45 U/L (17-59); BLOOD UREA NITROGEN 22 mg/dl (9-20); CALCIUM 8.9 mg/dL (8.4-10.2); GFR NON-AFRICAN AMERICAN > 60
[2018-05-17] MEDS: Enoxaparin 40 mg Syringe SC SCH (08:14)
[2018-05-17] MEDS: levoFLOXacin 750 mg in D5W 750 MG/150 ML BAG IVPB SCH (08:15)
--- NOTE | 2018-05-17 08:20 | RAD ---
Date of service: 05/17/2018 HISTORY: intubation COMPARISON: 05/16/2018. FINDINGS: The endotracheal tube terminates 5.5 cm proximal to the lexus. The nasogastric tube terminates in the stomach. LUNGS: There is a persistent opacity in the right lower lobe. The left lung is clear. PLEURA: No significant pleural effusion identified, no pneumothorax apparent. CARDIOVASCULAR: The cardiomediastinal silhouette is stable. OSSEOUS STRUCTURES: Within normal limits for the patient's age. VISUALIZED UPPER ABDOMEN: Normal. OTHER FINDINGS: None. IMPRESSION: No significant interval change in right lower lobe airspace disease. Stable position of support tubes.
--- NOTE | 2018-05-17 08:21 | RAD ---
Date of service: 05/16/2018 HISTORY: Post intubation re intubation COMPARISON: 05/16/2018 FINDINGS: Endotracheal tube is high in position and terminates at the level of the clavicles. The nasogastric tube terminates in the stomach. LUNGS: There is no change in low lung volume on the right and right lower lobe airspace disease. The left lung is well inflated and clear. PLEURA: Small right pleural effusion, no pneumothorax apparent. CARDIOVASCULAR: Normal. OSSEOUS STRUCTURES: No significant abnormalities. VISUALIZED UPPER ABDOMEN: Normal. OTHER FINDINGS: There is chronic elevation of the right hemidiaphragm. IMPRESSION: No change in right lower lobe airspace disease and right pleural effusion. Endotracheal tube is high in position and terminates at the level of the lexus. Further advancement is recommended.
--- NOTE | 2018-05-17 08:22 | RAD ---
Date of service: 05/16/2018 HISTORY: tube adjustment COMPARISON: 05/16/2018. FINDINGS: Endotracheal tube terminates 6.5 cm proximal to the lexus. The nasogastric tube terminates in the stomach. LUNGS: There is interval worsening atelectasis/ pneumonia in the right lower lobe. The left lung is clear. PLEURA: Question of small right pleural effusion, no pneumothorax apparent. CARDIOVASCULAR: Normal. OSSEOUS STRUCTURES: No significant abnormalities. VISUALIZED UPPER ABDOMEN: Normal. OTHER FINDINGS: None. IMPRESSION: Worsening right lower lobe atelectasis/ pneumonia and suspect small right pleural effusion. Endotracheal tube terminates 6.5 cm proximal to the lexus.
--- NOTE | 2018-05-17 08:52 | CP.PCM.PN ---
Subjective - Date & Time of Evaluation Date of Evaluation: 05/16/18 Time of Evaluation: 10:20 - Subjective Subjective: NOTE FOR 05-16-16 F/U Respiratory failure Intubated , sedated, thick pulmonary secretions aspirated by nurses Objective - Vital Signs/Intake and Output Vital Signs (last 24 hours): Temp Pulse Resp BP Pulse Ox 99.4 F 104 H 28 H 138/85 99 05/17/18 08:00 05/17/18 08:00 05/17/18 08:00 05/17/18 08:00 05/17/18 08:00 Intake and Output: 05/17/18 05/17/18 06:59 18:59 Intake Total 759 Output Total 650 Balance 109 - Medications Medications: Current Medications Acetaminophen (Tylenol 650mg/20.3ml Solution Ud) 650 mg PO Q4 PRN PRN Reason: Temperature Enoxaparin Sodium (Lovenox) 40 mg SC DAILY DANNY PRN Reason: Protocol Last Admin: 05/17/18 08:14 Dose: 40 mg Clindamycin Phosphate (Cleocin In Normal Saline) 600 mg in 50 mls @ 100 mls/hr IVPB ONCE DANNY Clindamycin Phosphate 600 mg/ (Sodium Chloride) 54 mls @ 54 mls/hr IVPB Q8 DANNY PRN Reason: Protocol Last Admin: 05/17/18 08:14 Dose: 54 mls/hr Levofloxacin/Dextrose (Levaquin 750mg) 750 mg in 150 mls @ 100 mls/hr IVPB DAILY DANNY PRN Reason: Protocol Last Admin: 05/17/18 08:15 Dose: 100 mls/hr Vancomycin HCl 1 gm/ Sodium (Chloride) 250 mls @ 166.667 mls/hr IVPB Q12 DANNY PRN Reason: Protocol Last Admin: 05/17/18 08:16 Dose: 166.667 mls/hr Propofol (Diprivan) 1,000 mg in 100 mls @ 2.599 mls/hr IV .Q24H DANNY; 5 MCG/KG/ MIN PRN Reason: Protocol Stop: 05/17/18 14:26 Last Titration: 05/17/18 05:45 Dose: Infused Propofol (Diprivan) 1,000 mg in 100 mls @ 25.991 mls/hr IV .Q3H51M DANNY; 50 MCG/ KG/MIN PRN Reason: Protocol Stop: 05/18/18 05:31 Last Admin: 05/17/18 05:45 Dose: 50 mcg/kg/min, 25.991 mls/hr Insulin Human Regular (Humulin R) 0 units SC Q6 DANNY PRN Reason: Protocol Last Admin: 05/17/18 06:00 Dose: Not Given Pantoprazole Sodium (Protonix Inj) 40 mg IVP DAILY [facility] Last Admin: 05/17/18 08:14 Dose: 40 mg - Labs Labs: 05/17/18 04:20 05/17/18 04:20 PT 12.4 Seconds (9.8-13.1) 05/14/18 20:25 INR 1.1 (0.9-1.2) 05/14/18 20:25 APTT 22.8 Seconds (25.6-37.1) L 05/14/18 20:25 - Constitutional Appears: No Acute Distress - Head Exam Head Exam: NORMAL INSPECTION - Eye Exam Eye Exam: PERRL - ENT Exam Additional comments: intubated - Neck Exam Neck Exam: Normal Inspection - Respiratory Exam Respiratory Exam: Decreased Breath Sounds (at bases), Rhonchi (at bases) - Cardiovascular Exam Cardiovascular Exam: REGULAR RHYTHM - GI/Abdominal Exam GI & Abdominal Exam: Soft, Normal Bowel Sounds - Extremities Exam Extremities Exam: Normal Inspection - Back Exam Back Exam: NORMAL INSPECTION - Neurological Exam Additional comments: intubated , sedated , n response to tactil stimuli - Skin Skin Exam: Warm Assessment and Plan (1) Overdose Status: Acute (2) Respiratory failure Status: Acute (3) Aspiration pneumonia Status: Acute (4) Hx of deep venous thrombosis Status: Chronic (5) Hx pulmonary embolism Status: Acute (6) History of obstructive sleep apnea Assessment & Plan: continue ventilatoey support, Levaquin , Clinda, Vanco, f/u Trach Asp C-S Status: Acute (7) Diabetes Status: Chronic - Assessment and Plan (Free Text) Plan: continue ventilatory support , Clinda, Levaquin, Vanco , f/u Trach Asp C-S Critical Care Time: 30 min.
[2018-05-17] MEDS ORDERED: Pneumococcal 23-Valent Vaccine IM ONE ×2 (10:07→22:15)
--- NOTE | 2018-05-17 10:25 | CARD ---
APPROVED REPORT Date of service: 05/15/2018 EKG Measurement Heart [id number] <Conclusion> Sinus tachycardia Septal infarct, age undetermined Abnormal ECG
[2018-05-17 11:15] LABS: BANDS 5 % (0-2); LYMPHOCYTE 4 % (20-50); MONOCYTE 2 % (0-10); NEUTROPHIL 89 % (42-75); PLATELET ESTIMATE NORMAL (NORMAL); TOTAL CELLS COUNTED 100
[2018-05-17 11:16] LABS: ANISOCYTOSIS SLIGHT; HYPOCHROMIC SLIGHT; OVALOCYTES SLIGHT; SCHISTOCYTES SLIGHT; TEARDROP CELLS SLIGHT
[2018-05-17 11:17] LABS: LARGE PLATELETS PRESENT
[2018-05-17] MEDS ORDERED: Dexmedetomidine Hydrochloride 400 MCG in Sodium Chloride 0.9% 96 ML IV ONE ×3 (12:47→15:21)
[2018-05-17] MEDS: Midazolam 2 MG/2 ML VIAL IV PRN (13:00)
--- NOTE | 2018-05-17 13:06 | CARD ---
APPROVED REPORT Date of service: 05/14/2018 EKG Measurement Heart [id number] ME 128P-2 [id number] <Conclusion> Sinus tachycardia ST depression in inferolateral leads suggestive of ischemia Abnormal ECG
[2018-05-17] MEDS ORDERED: methylPREDNISolone 80 MG in Sodium Chloride 0.9% 50 ML IVPB ONE (13:42)
[2018-05-17] MEDS: Albuterol-Ipratrop 3 mg / 0.5 (3 ml) UD INH SCH ×3 (13:57→19:25)
[2018-05-17] MEDS ORDERED: Midazolam 2 MG/2 ML VIAL ONE (13:59)
[2018-05-17] MEDS ORDERED: MethylPREDNISolone 40 mg Vial IVP ONE (14:00)
[2018-05-17] MEDS ORDERED: Midazolam 2 MG/2 ML VIAL IV ONE (14:04)
--- NOTE | 2018-05-17 14:22 | CP.CCUPN ---
CCU Subjective - Physician Review Events Since Last Encounter (Free Text): 05/17/18 14:26 stopping sedation, becomes severely agitated. CCU Objective - Vital Signs / Intake & Output Vital Signs (Last 4 hours): Vital Signs Temp Pulse Resp BP Pulse Ox 05/17/18 12:00 99.9 F H 101 H 25 H 139/93 H 100 05/17/18 11:00 102 H 21 137/91 H 100 Intake and Output (Last 8hrs): Intake & Output 05/16/18 05/17/18 05/17/18 22:59 06:59 14:59 Intake Total 1433 326 400 Output Total 700 650 Balance 733 -324 400 Intake: IV 1100 304 0 Intake, Piggyback 333 22 400 Output: Urine 700 650 Urethral (Deutsch) 700 650 Other: # Bowel Movements 0 - Physical Exam Physical Exam Limitations: Positive for: Altered Mental Status Head: Positive for: Atraumatic, Normocephalic Pupils: Positive for: PERRL Conjunctiva: Positive for: Normal Mouth: Positive for: Moist Mucous Membranes Nose (External): Positive for: Atraumatic Neck: Positive for: Normal Range of Motion Respiratory/Chest: Positive for: Clear to Auscultation Cardiovascular: Positive for: Regular Rate and Rhythm, Normal S1, S2 Abdomen: Positive for: Normal Bowel Sounds Upper Extremity: Positive for: Normal Inspection Lower Extremity: Positive for: Normal Inspection Neurological: Positive for: Other (on ventilator, no response to verbal stimuli) - Medications Active Medications: Active Medications Generic Name Dose Route Start Last Admin Trade Name Freq PRN Reason Stop Dose Admin Acetaminophen 650 mg 05/16/18 20:17 Tylenol 650mg/20.3ml Solution Ud PO Q4 PRN Temperature Albuterol/Ipratropium 3 ml 05/17/18 13:45 05/17/18 13:57 Duoneb 3 Mg/0.5 Mg (3 Ml) Ud INH 3 ml RQ4 DANNY Administration Enoxaparin Sodium 40 mg 05/15/18 09:00 05/17/18 08:14 Lovenox SC 40 mg DAILY DANNY Administration Protocol Clindamycin Phosphate 600 mg in 50 mls @ 100 mls/hr 05/14/18 21:00 Cleocin In Normal Saline IVPB ONCE DANNY Levofloxacin/Dextrose 750 mg in 150 mls @ 100 mls/hr 05/15/18 13:45 05/17/18 08:15 Levaquin 750mg IVPB 100 mls/hr DAILY DANNY Administration Protocol Vancomycin HCl 1 gm/ Sodium 250 mls @ 166.667 mls/hr 05/15/18 21:00 05/17/18 08:16 Chloride IVPB 166.667 mls/hr Q12 DANNY Administration Protocol Propofol 1,000 mg in 100 mls @ 2.599 mls/hr 05/16/18 14:30 05/17/18 05:45 Diprivan IV 05/17/18 14:26 Infused .Q24H DANNY Titration Protocol 5 MCG/KG/MIN Propofol 1,000 mg in 100 mls @ 25.991 mls/hr 05/17/18 05:45 05/17/18 11:45 Diprivan IV 05/18/18 05:31 0 mcg/kg/min .Q3H51M DANNY 0 mls/hr Protocol Titration 50 MCG/KG/MIN Clindamycin Phosphate 600 mg in 50 mls @ 50 mls/hr 05/17/18 17:00 Cleocin In Normal Saline IVPB Q8 DANNY Protocol Midazolam HCl 50 mg/ Sodium 100 mls @ 4 mls/hr 05/17/18 14:06 Chloride IV 05/18/18 14:05 .Q24H ONE Protocol 2 MG/HR Insulin Human Regular 0 units 05/15/18 04:00 05/17/18 12:27 Humulin R SC Not Given Q6 DANNY Protocol Methylprednisolone 40 mg 05/17/18 14:00 Solu-Medrol IVP Q6H DANNY Midazolam HCl 2 mg 05/17/18 12:50 05/17/18 13:00 Versed Inj IV 2 mg Q6H PRN Administration Agitation Midazolam HCl 4 mg 05/17/18 14:04 Versed Inj IV 05/17/18 14:05 ONCE ONE Pantoprazole Sodium 40 mg 05/15/18 09:00 05/17/18 08:14 Protonix Inj IVP 40 mg DAILY DANNY Administration - Patient Studies Lab Studies: Microbiology Studies 05/14/18 10:00 MRSA Culture (Admit) - Final Naris MRSA NOT DETECTED Lab Studies 05/17/18 05/17/18 05/17/18 Range/Units 11:37 06:16 05:12 WBC (4.8-10.8) K/uL RBC (4.40-5.90) Mil/uL Hgb (12.0-18.0) g/dL Hct (35.0-51.0) % MCV (80.0-94.0) fl MCH (27.0-31.0) pg MCHC (33.0-37.0) g/dL RDW (11.5-14.5) % Plt Count (130-400) K/uL MPV (7.2-11.7) fl Neut % (Auto) (50.0-75.0) % Lymph % (Auto) (20.0-40.0) % [place] % (Auto) (0.0-10.0) % Eos % (Auto) (0.0-4.0) % Baso % (Auto) (0.0-2.0) % Neut # (Auto) (1.8-7.0) K/uL Lymph # (Auto) (1.0-4.3) K/uL [place] # (Auto) (0.0-0.8) K/uL Eos # (Auto) (0.0-0.7) K/uL Baso # (Auto) (0.0-0.2) K/uL Neutrophils % (Manual) (42-75) % Band Neutrophils % (0-2) % Lymphocytes % (Manual) (20-50) % Monocytes % (Manual) (0-10) % Platelet Estimate (NORMAL) Large Platelets Hypochromasia (manual) Anisocytosis (manual) Tear Drop Cells Ovalocytes Schistocytes pCO2 50 H (35-45) mm/Hg pO2 104 H (80-100) mm/Hg HCO3 29.0 H (21-28) mmol/L ABG pH 7.40 (7.35-7.45) ABG Total CO2 32.5 H (22-28) mmol/L ABG O2 Saturation 96.6 (95-98) % ABG O2 Content 14.0 L (15-23) ML/dL ABG Base Excess 5.3 H (-2.0-3.0) mmol/L ABG Hemoglobin 10.3 L (11.7-17.4) g/dL ABG Carboxyhemoglobin 0 L (0.5-1.5) % POC ABG HHb (Measured) 3.4 (0.0-5.0) % ABG Methemoglobin 1.2 (0.0-3.0) % ABG O2 Capacity 14.5 L (16-24) mL/dL Eagle Test Yes A-a O2 Difference 404.0 mm/Hg Hgb O2 Saturation 95.4 (95.0-98.0) % Vent Mode A/c Mechanical Rate 20 FiO2 80.0 % Tidal Volume 500 Sodium (132-148) mmol/l Potassium (3.6-5.0) MMOL/L Chloride (98-107) mmol/L Carbon Dioxide (22-30) mmol/L Anion Gap (10-20) BUN (9-20) mg/dl Creatinine (0.8-1.5) mg/dl Est GFR ( Amer) Est GFR (Non-Af Amer) POC Glucose (mg/dL) 96 113 H (65-110) mg/dL Random Glucose (75-110) mg/dL Calcium (8.4-10.2) mg/dL Total Bilirubin (0.2-1.3) mg/dl AST (17-59) U/L ALT (21-72) U/L Alkaline Phosphatase (38-126) U/L Total Protein (6.3-8.2) G/DL Albumin (3.5-5.0) g/dL Globulin (2.2-3.9) gm/dL Albumin/Globulin Ratio (1.0-2.1) 05/17/18 05/17/18 05/16/18 Range/Units 04:20 04:20 22:51 WBC 9.0 (4.8-10.8) K/uL RBC 4.07 L (4.40-5.90) Mil/uL Hgb 10.2 L (12.0-18.0) g/dL Hct 30.8 L (35.0-51.0) % MCV 75.8 L (80.0-94.0) fl MCH 25.2 L (27.0-31.0) pg MCHC 33.2 (33.0-37.0) g/dL RDW 16.8 H (11.5-14.5) % Plt Count 195 (130-400) K/uL MPV 9.9 (7.2-11.7) fl Neut % (Auto) 91.3 H (50.0-75.0) % Lymph % (Auto) 4.6 L (20.0-40.0) % [place] % (Auto) 4.0 (0.0-10.0) % Eos % (Auto) 0.0 (0.0-4.0) % Baso % (Auto) 0.1 (0.0-2.0) % Neut # (Auto) 8.2 H (1.8-7.0) K/uL Lymph # (Auto) 0.4 L (1.0-4.3) K/uL [place] # (Auto) 0.4 (0.0-0.8) K/uL Eos # (Auto) 0.0 (0.0-0.7) K/uL Baso # (Auto) 0.0 (0.0-0.2) K/uL Neutrophils % (Manual) 89 H (42-75) % Band Neutrophils % 5 H (0-2) % Lymphocytes % (Manual) 4 L (20-50) % Monocytes % (Manual) 2 (0-10) % Platelet Estimate Normal (NORMAL) Large Platelets Present Hypochromasia (manual) Slight Anisocytosis (manual) Slight Tear Drop Cells Slight Ovalocytes Slight Schistocytes Slight pCO2 (35-45) mm/Hg pO2 (80-100) mm/Hg HCO3 (21-28) mmol/L ABG pH (7.35-7.45) ABG Total CO2 (22-28) mmol/L ABG O2 Saturation (95-98) % ABG O2 Content (15-23) ML/dL ABG Base Excess (-2.0-3.0) mmol/L ABG Hemoglobin (11.7-17.4) g/dL ABG Carboxyhemoglobin (0.5-1.5) % POC ABG HHb (Measured) (0.0-5.0) % ABG Methemoglobin (0.0-3.0) % ABG O2 Capacity (16-24) mL/dL Eagle Test A-a O2 Difference mm/Hg Hgb O2 Saturation (95.0-98.0) % Vent Mode Mechanical Rate FiO2 % Tidal Volume Sodium 147 (132-148) mmol/l Potassium 4.2 (3.6-5.0) MMOL/L Chloride 110 H (98-107) mmol/L Carbon Dioxide 28 (22-30) mmol/L Anion Gap 13 (10-20) BUN 22 H (9-20) mg/dl Creatinine 1.0 (0.8-1.5) mg/dl Est GFR ( Amer) > 60 Est GFR (Non-Af Amer) > 60 POC Glucose (mg/dL) 172 H (65-110) mg/dL Random Glucose 119 H (75-110) mg/dL Calcium 8.9 (8.4-10.2) mg/dL Total Bilirubin 1.4 H (0.2-1.3) mg/dl AST 45 (17-59) U/L ALT 39 (21-72) U/L Alkaline Phosphatase 51 (38-126) U/L Total Protein 5.9 L (6.3-8.2) G/DL Albumin 3.2 L (3.5-5.0) g/dL Globulin 2.8 (2.2-3.9) gm/dL Albumin/Globulin Ratio 1.1 (1.0-2.1) // Range/Units 16:24 WBC (4.8-10.8) K/uL RBC (4.40-5.90) Mil/uL Hgb (12.0-18.0) g/dL Hct (35.0-51.0) % MCV (80.0-94.0) fl MCH (27.0-31.0) pg MCHC (33.0-37.0) g/dL RDW (11.5-14.5) % Plt Count (130-400) K/uL MPV (7.2-11.7) fl Neut % (Auto) (50.0-75.0) % Lymph % (Auto) (20.0-40.0) % [place] % (Auto) (0.0-10.0) % Eos % (Auto) (0.0-4.0) % Baso % (Auto) (0.0-2.0) % Neut # (Auto) (1.8-7.0) K/uL Lymph # (Auto) (1.0-4.3) K/uL [place] # (Auto) (0.0-0.8) K/uL Eos # (Auto) (0.0-0.7) K/uL Baso # (Auto) (0.0-0.2) K/uL Neutrophils % (Manual) (42-75) % Band Neutrophils % (0-2) % Lymphocytes % (Manual) (20-50) % Monocytes % (Manual) (0-10) % Platelet Estimate (NORMAL) Large Platelets Hypochromasia (manual) Anisocytosis (manual) Tear Drop Cells Ovalocytes Schistocytes pCO2 (35-45) mm/Hg pO2 (80-100) mm/Hg HCO3 (21-28) mmol/L ABG pH (7.35-7.45) ABG Total CO2 (22-28) mmol/L ABG O2 Saturation (95-98) % ABG O2 Content (15-23) ML/dL ABG Base Excess (-2.0-3.0) mmol/L ABG Hemoglobin (11.7-17.4) g/dL ABG Carboxyhemoglobin (0.5-1.5) % POC ABG HHb (Measured) (0.0-5.0) % ABG Methemoglobin (0.0-3.0) % ABG O2 Capacity (16-24) mL/dL Eagle Test A-a O2 Difference mm/Hg Hgb O2 Saturation (95.0-98.0) % Vent Mode Mechanical Rate FiO2 % Tidal Volume Sodium (132-148) mmol/l Potassium (3.6-5.0) MMOL/L Chloride (98-107) mmol/L Carbon Dioxide (22-30) mmol/L Anion Gap (10-20) BUN (9-20) mg/dl Creatinine (0.8-1.5) mg/dl Est GFR ( Amer) Est GFR (Non-Af Amer) POC Glucose (mg/dL) 133 H (65-110) mg/dL Random Glucose (75-110) mg/dL Calcium (8.4-10.2) mg/dL Total Bilirubin (0.2-1.3) mg/dl AST (17-59) U/L ALT (21-72) U/L Alkaline Phosphatase (38-126) U/L Total Protein (6.3-8.2) G/DL Albumin (3.5-5.0) g/dL Globulin (2.2-3.9) gm/dL Albumin/Globulin Ratio (1.0-2.1) Laboratory Results - last 24 hr 05/16/18 05/16/18 05/17/18 16:24 22:51 04:20 WBC 9.0 RBC 4.07 L Hgb 10.2 L Hct 30.8 L MCV 75.8 L MCH 25.2 L MCHC 33.2 RDW 16.8 H Plt Count 195 MPV 9.9 Neut % (Auto) 91.3 H Lymph % (Auto) 4.6 L [place] % (Auto) 4.0 Eos % (Auto) 0.0 Baso % (Auto) 0.1 Neut # (Auto) 8.2 H Lymph # (Auto) 0.4 L [place] # (Auto) 0.4 Eos # (Auto) 0.0 Baso # (Auto) 0.0 Neutrophils % (Manual) 89 H Band Neutrophils % 5 H Lymphocytes % (Manual) 4 L Monocytes % (Manual) 2 Platelet Estimate Normal Large Platelets Present Hypochromasia (manual) Slight Anisocytosis (manual) Slight Tear Drop Cells Slight Ovalocytes Slight Schistocytes Slight pCO2 pO2 HCO3 ABG pH ABG Total CO2 ABG O2 Saturation ABG O2 Content ABG Base Excess ABG Hemoglobin ABG Carboxyhemoglobin POC ABG HHb (Measured) ABG Methemoglobin ABG O2 Capacity [place] Test A-a O2 Difference Hgb O2 Saturation Vent Mode Mechanical Rate FiO2 Tidal Volume Sodium Potassium Chloride Carbon Dioxide Anion Gap BUN Creatinine Est GFR ( Amer) Est GFR (Non-Af Amer) POC Glucose (mg/dL) 133 H 172 H Random Glucose Calcium Total Bilirubin AST ALT Alkaline Phosphatase Total Protein Albumin Globulin Albumin/Globulin Ratio 05/17/18 05/17/18 05/17/18 04:20 05:12 06:16 WBC RBC Hgb Hct MCV MCH MCHC RDW Plt Count MPV Neut % (Auto) Lymph % (Auto) [place] % (Auto) Eos % (Auto) Baso % (Auto) Neut # (Auto) Lymph # (Auto) [place] # (Auto) Eos # (Auto) Baso # (Auto) Neutrophils % (Manual) Band Neutrophils % Lymphocytes % (Manual) Monocytes % (Manual) Platelet Estimate Large Platelets Hypochromasia (manual) Anisocytosis (manual) Tear Drop Cells Ovalocytes Schistocytes pCO2 50 H pO2 104 H HCO3 29.0 H ABG pH 7.40 ABG Total CO2 32.5 H ABG O2 Saturation 96.6 ABG O2 Content 14.0 L ABG Base Excess 5.3 H ABG Hemoglobin 10.3 L ABG Carboxyhemoglobin 0 L POC ABG HHb (Measured) 3.4 ABG Methemoglobin 1.2 ABG O2 Capacity 14.5 L Eagle Test Yes A-a O2 Difference 404.0 Hgb O2 Saturation 95.4 Vent Mode A/c Mechanical Rate 20 FiO2 80.0 Tidal Volume 500 Sodium 147 Potassium 4.2 Chloride 110 H Carbon Dioxide 28 Anion Gap 13 BUN 22 H Creatinine 1.0 Est GFR ( Amer) > 60 Est GFR (Non-Af Amer) > 60 POC Glucose (mg/dL) 113 H Random Glucose 119 H Calcium 8.9 Total Bilirubin 1.4 H AST 45 ALT 39 Alkaline Phosphatase 51 Total Protein 5.9 L Albumin 3.2 L Globulin 2.8 Albumin/Globulin Ratio 1.1 05/17/18 11:37 WBC RBC Hgb Hct MCV MCH MCHC RDW Plt Count MPV Neut % (Auto) Lymph % (Auto) [place] % (Auto) Eos % (Auto) Baso % (Auto) Neut # (Auto) Lymph # (Auto) [place] # (Auto) Eos # (Auto) Baso # (Auto) Neutrophils % (Manual) Band Neutrophils % Lymphocytes % (Manual) Monocytes % (Manual) Platelet Estimate Large Platelets Hypochromasia (manual) Anisocytosis (manual) Tear Drop Cells Ovalocytes Schistocytes pCO2 pO2 HCO3 ABG pH ABG Total CO2 ABG O2 Saturation ABG O2 Content ABG Base Excess ABG Hemoglobin ABG Carboxyhemoglobin POC ABG HHb (Measured) ABG Methemoglobin ABG O2 Capacity [place] Test A-a O2 Difference Hgb O2 Saturation Vent Mode Mechanical Rate FiO2 Tidal Volume Sodium Potassium Chloride Carbon Dioxide Anion Gap BUN Creatinine Est GFR ( Amer) Est GFR (Non-Af Amer) POC Glucose (mg/dL) 96 Random Glucose Calcium Total Bilirubin AST ALT Alkaline Phosphatase Total Protein Albumin Globulin Albumin/Globulin Ratio Fingerstick Blood Sugar Results: 96 Review of Systems - Review of Systems Systems not reviewed;Unavailable: Intubated Critical Care Progress Note - Ventilator Checklist Head of Bed 30 Degrees: Yes Daily Sedation Vacation: Yes Daily Assessment of Readiness to Wean: Yes Daily Spontaneous Breathing Trial: Yes PUD Prophalyxis: Yes DVT Prophylaxis: Yes - Nutrition Nutrition: Nutrition Category Date Time Status NPO Diet [DIET] Diets 05/14/18 Dinner Active Assessment/Plan (1) Aspiration pneumonia Assessment and plan: 47yo M. PMHx Depression, Anxiety, DM type 2, HTN, HLD, TIA, Asthma, JODY, CABG, CAD with stent (2008), DVT and PE s/p IVC Filter (2008), Gastric Bypass (2013), cholecystectomy. p/w suicide attempt via overdose of Seroquel/Ambien/Trazodone/ Clonidine. Neuro: stopped propofol, but became severely agitated. Precedex maxed out, barely working. High dose Versed pushes, barely working. Started versed drip, will try to titrate off quickly. Pulm: acute respiratory failure with hypoxia, titrating FiO2 down. pneumonia improved. Duonebs q4h. CV: hemodynamically stable Hem: no acute issues Renal: urine output wnl Endo: DM type 2, short acting insulin sliding scale for coverage GI: started tube feeds, Glucerna@20, goal TBD. ID: suspected aspiration pneumonia, appears to be resolving. Patient received 3 days of Clindamycin, Levaquin, and Vancomycin. If leucocytosis and CXR stable, can consider stopping all abx tomorrow. DVT proph - lovenox GI proph - protonix deutsch for strict I/O's during acute illness Code status - full code Critical Care Time spent 35 minutes Multi-disciplinary rounds were performed with house staff, nursing, speech therapy, respiratory therapy, pharmacy and nutrition with integrated input from the primary team/attending and other consulting services. The documented time is cumulative and includes review of patient data/exams/labs/chart review and examination of the patient on rounds and throughout the day; time is exclusive of any procedures or teaching time. Current Visit: Yes Status: Acute
--- NOTE | 2018-05-17 15:35 | CP.PCM.PN ---
Subjective - Date & Time of Evaluation Date of Evaluation: 05/17/18 Time of Evaluation: 10:20 - Subjective Subjective: F/U Respiratory failure. Patient agitated, intubated, on Precedex and Versed drip high dosis Objective - Vital Signs/Intake and Output Vital Signs (last 24 hours): Temp Pulse Resp BP Pulse Ox 99.9 F H 101 H 25 H 139/93 H 100 05/17/18 12:00 05/17/18 12:00 05/17/18 12:00 05/17/18 12:00 05/17/18 12:00 Intake and Output: 05/17/18 05/17/18 06:59 18:59 Intake Total 759 400 Output Total 650 Balance 109 400 - Medications Medications: Current Medications Acetaminophen (Tylenol 650mg/20.3ml Solution Ud) 650 mg PO Q4 PRN PRN Reason: Temperature Albuterol/Ipratropium (Duoneb 3 Mg/0.5 Mg (3 Ml) Ud) 3 ml INH RQ4 DANNY Last Admin: 05/17/18 15:18 Dose: 3 ml Enoxaparin Sodium (Lovenox) 40 mg SC DAILY DANNY PRN Reason: Protocol Last Admin: 05/17/18 08:14 Dose: 40 mg Clindamycin Phosphate (Cleocin In Normal Saline) 600 mg in 50 mls @ 100 mls/hr IVPB ONCE DANNY Levofloxacin/Dextrose (Levaquin 750mg) 750 mg in 150 mls @ 100 mls/hr IVPB DAILY DANNY PRN Reason: Protocol Last Admin: 05/17/18 08:15 Dose: 100 mls/hr Vancomycin HCl 1 gm/ Sodium (Chloride) 250 mls @ 166.667 mls/hr IVPB Q12 DANNY PRN Reason: Protocol Last Admin: 05/17/18 08:16 Dose: 166.667 mls/hr Propofol (Diprivan) 1,000 mg in 100 mls @ 25.991 mls/hr IV .Q3H51M DANNY; 50 MCG/ KG/MIN PRN Reason: Protocol Stop: 05/18/18 05:31 Last Titration: 05/17/18 11:45 Dose: 0 mcg/kg/min, 0 mls/hr Clindamycin Phosphate (Cleocin In Normal Saline) 600 mg in 50 mls @ 50 mls/hr IVPB Q8 DANNY PRN Reason: Protocol Midazolam HCl 50 mg/ Sodium (Chloride) 100 mls @ 4 mls/hr IV .Q24H ONE; 2 MG/HR PRN Reason: Protocol Stop: 05/18/18 14:05 Last Admin: 05/17/18 14:40 Dose: 4 mls/hr Insulin Human Lispro (Humalog) 0 units SC Q6H DANNY PRN Reason: Protocol Methylprednisolone (Solu-Medrol) 40 mg IVP Q6H [facility] Midazolam HCl (Versed Inj) 2 mg IV Q6H PRN PRN Reason: Agitation Last Admin: 05/17/18 13:00 Dose: 2 mg Pantoprazole Sodium (Protonix Inj) 40 mg IVP DAILY [facility] Last Admin: 05/17/18 08:14 Dose: 40 mg - Labs Labs: 05/17/18 04:20 05/17/18 04:20 PT 12.4 Seconds (9.8-13.1) 05/14/18 20:25 INR 1.1 (0.9-1.2) 05/14/18 20:25 APTT 22.8 Seconds (25.6-37.1) L 05/14/18 20:25 - Constitutional Appears: No Acute Distress - Head Exam Head Exam: NORMAL INSPECTION - Eye Exam Eye Exam: PERRL - ENT Exam Additional comments: Intubated. - Neck Exam Neck Exam: Normal Inspection - Respiratory Exam Respiratory Exam: Decreased Breath Sounds (at bases) - Cardiovascular Exam Cardiovascular Exam: REGULAR RHYTHM - GI/Abdominal Exam GI & Abdominal Exam: Soft, Normal Bowel Sounds - Extremities Exam Extremities Exam: Normal Inspection - Back Exam Back Exam: NORMAL INSPECTION - Neurological Exam Additional comments: Intubated, sedated, minimal response to tactil stimuli - Psychiatric Exam Psychiatric exam: Agitated - Skin Skin Exam: Warm Assessment and Plan (1) Overdose Status: Acute (2) Respiratory failure Status: Acute (3) Aspiration pneumonia Status: Acute (4) Hx of deep venous thrombosis Status: Chronic (5) Hx pulmonary embolism Status: Acute (6) History of obstructive sleep apnea Status: Acute (7) Diabetes Status: Chronic (8) Asthma exacerbation Status: Acute - Assessment and Plan (Free Text) Plan: SoluMedrol, DuoNeb, continue Levaquin, SoluMedrol, Vanco, Midazolam Critical Care Time: 35 min.
[2018-05-17] MEDS ORDERED: Sodium Chloride 3% for Inhalation 4 ML VIAL.NEB IH PRN (15:48)
[2018-05-17] MEDS ORDERED: methylPREDNISolone 40 MG in Sodium Chloride 0.9% 50 ML IVPB SCH (16:00)
[2018-05-17] MEDS: Clindamycin 600mg/50ml NS 600 MG/50 ML BAG IVPB SCH (16:39)
[2018-05-17] MEDS: MethylPREDNISolone 40 mg Vial IVP SCH ×2 (16:40→21:26)
[2018-05-17] MEDS: Acetaminophen 650mg/20.3ml solution UD PO PRN ×2 (17:00→23:06)
[2018-05-17] MEDS: Insulin Lispro (humaLOG) 100 Units/ml Inj SC SCH ×2 (17:03→21:37)
[2018-05-17] MEDS: Dexmedetomidine Hydrochloride 400 MCG in Sodium Chloride 0.9% 96 ML IV SCH (20:54)
--- NOTE | 2018-05-17 22:42 | CP.PCM.PN ---
Subjective - Date & Time of Evaluation Date of Evaluation: 05/17/18 Time of Evaluation: 11:00 - Subjective Subjective: Seen and examined at the bed side. FIO2 continue to be 80% on MV. Patient agitated and fighting the vent. Objective - Vital Signs/Intake and Output Vital Signs (last 24 hours): Temp Pulse Resp BP Pulse Ox 102.5 F H 84 30 H 165/98 H 99 05/17/18 17:00 05/17/18 19:00 05/17/18 19:00 05/17/18 19:00 05/17/18 19:00 Intake and Output: 05/17/18 05/18/18 18:59 06:59 Intake Total 1240 Output Total 950 Balance 290 - Medications Medications: Current Medications Acetaminophen (Tylenol 650mg/20.3ml Solution Ud) 650 mg PO Q4 PRN PRN Reason: Temperature Last Admin: 05/17/18 17:00 Dose: 650 mg Albuterol/Ipratropium (Duoneb 3 Mg/0.5 Mg (3 Ml) Ud) 3 ml INH RQ4 DANNY Last Admin: 05/17/18 19:25 Dose: 3 ml Enoxaparin Sodium (Lovenox) 40 mg SC DAILY DANNY PRN Reason: Protocol Last Admin: 05/17/18 08:14 Dose: 40 mg Levofloxacin/Dextrose (Levaquin 750mg) 750 mg in 150 mls @ 100 mls/hr IVPB DAILY DANNY PRN Reason: Protocol Last Admin: 05/17/18 08:15 Dose: 100 mls/hr Vancomycin HCl 1 gm/ Sodium (Chloride) 250 mls @ 166.667 mls/hr IVPB Q12 DANNY PRN Reason: Protocol Last Admin: 05/17/18 21:26 Dose: 166.667 mls/hr Propofol (Diprivan) 1,000 mg in 100 mls @ 25.991 mls/hr IV .Q3H51M DANNY; 50 MCG/ KG/MIN PRN Reason: Protocol Stop: 05/18/18 05:31 Last Titration: 05/17/18 11:45 Dose: 0 mcg/kg/min, 0 mls/hr Clindamycin Phosphate (Cleocin In Normal Saline) 600 mg in 50 mls @ 50 mls/hr IVPB Q8 DANNY PRN Reason: Protocol Last Admin: 05/17/18 16:39 Dose: 50 mls/hr Midazolam HCl 50 mg/ Sodium (Chloride) 100 mls @ 4 mls/hr IV .Q24H ONE; 2 MG/HR PRN Reason: Protocol Stop: 05/18/18 14:05 Last Admin: 05/17/18 14:40 Dose: 4 mls/hr Dexmedetomidine HCl 400 mcg/ (Sodium Chloride) 100 mls @ 30.32 mls/hr IV .Q3H18M DANNY; 1.4 MCG/KG/HR PRN Reason: Protocol Last Admin: 05/17/18 20:54 Dose: 1.4 mcg/kg/hr, 30.32 mls/hr Insulin Human Lispro (Humalog) 0 units SC Q6H DANNY PRN Reason: Protocol Last Admin: 05/17/18 21:37 Dose: Not Given Methylprednisolone (Solu-Medrol) 40 mg IVP Q6H DANNY Last Admin: 05/17/18 21:26 Dose: 40 mg Midazolam HCl (Versed Inj) 2 mg IV Q6H PRN PRN Reason: Agitation Last Admin: 05/17/18 13:00 Dose: 2 mg Pantoprazole Sodium (Protonix Inj) 40 mg IVP DAILY [facility] Last Admin: 05/17/18 08:14 Dose: 40 mg - Labs Labs: 05/17/18 04:20 05/17/18 04:20 PT 12.4 Seconds (9.8-13.1) 05/14/18 20:25 INR 1.1 (0.9-1.2) 05/14/18 20:25 APTT 22.8 Seconds (25.6-37.1) L 05/14/18 20:25 Assessment and Plan (1) Acute respiratory failure with hypercapnia Assessment & Plan: S/P Intubation Respiratory Acidosis Aspiration Pneumonia NPO MV FIO2 80% IVF IV ABX ID, and Pulmonary Consulted Sedated CXR daily ABG Daily Morning Labs Status: Acute (2) Altered mental status Assessment and Plan: Multiple Drug Overdose Poison Control onboard Supportive Care Status: Acute (3) Suicide attempt by drug ingestion Assessment and Plan: Major Depression Supportive Care Psych Consult Status: Acute Priority: High (4) DVT prophylaxis Assessment and Plan: Lovenox 40mg SQ Daily Status: Inactive Priority: High Status: Acute
[2018-05-18] MEDS: Albuterol-Ipratrop 3 mg / 0.5 (3 ml) UD INH SCH ×6 (00:14→19:08)
[2018-05-18] MEDS: Dexmedetomidine Hydrochloride 400 MCG in Sodium Chloride 0.9% 96 ML IV SCH ×4 (00:24→22:07)
[2018-05-18] MEDS: Midazolam 5 MG/ML 50 MG in Sodium Chloride 0.9% 90 ML IV ONE ×4 (00:47→22:08)
[2018-05-18] MEDS: MethylPREDNISolone 40 mg Vial IVP SCH ×4 (01:30→20:22)
[2018-05-18] MEDS: Clindamycin 600mg/50ml NS 600 MG/50 ML BAG IVPB SCH ×3 (01:30→17:17)
[2018-05-18] MEDS: Insulin Lispro (humaLOG) 100 Units/ml Inj SC SCH ×3 (04:30→17:18)
[2018-05-18 05:03] LABS: ABG ALLEN TEST YES; ARTERIAL BLOOD GAS HCO3 29.8 mmol/L (21-28); ARTERIAL BLOOD GAS HEMOGLOBIN 10.7 g/dL (11.7-17.4); ARTERIAL BLOOD GAS O2 CAPACITY 15.1 mL/dL (16-24); ARTERIAL BLOOD GAS O2 CONTENT 14.7 ML/dL (15-23); ARTERIAL BLOOD GAS O2 SAT 97.1 % (95-98); ARTERIAL BLOOD GAS PCO2 52 mm/Hg (35-45); ARTERIAL BLOOD GAS PO2 96 mm/Hg (80-100); ARTERIAL BLOOD GAS TCO2 33.8 mmol/L (22-28)
[2018-05-18 06:13] LABS: BASO % 0.7 % (0.0-2.0); HEMOGLOBIN 10.9 g/dL (12.0-18.0); LYMPH # 0.5 K/uL (1.0-4.3); LYMPH % 7.4 % (20.0-40.0); MEAN CELL VOLUME 76.5 fl (80.0-94.0); MEAN CORPUSCULAR HEMOGLOBIN 24.3 pg (27.0-31.0); MEAN CORPUSCULAR HGB CONC 31.7 g/dL (33.0-37.0); MEAN PLATELET VOLUME 9.8 fl (7.2-11.7); MONO # 0.2 K/uL (0.0-0.8); MONO % 2.7 % (0.0-10.0); NEUT # 5.7 K/uL (1.8-7.0); NEUT % 89.2 % (50.0-75.0); RBC 4.48 Mil/uL (4.40-5.90); WHITE BLOOD COUNT 6.4 K/uL (4.8-10.8)
[2018-05-18 06:39] LABS: ALB/GLOB RATIO 1.1 (1.0-2.1); ALBUMIN 3.3 g/dL (3.5-5.0); ALT/SGPT 57 U/L (21-72); AST/SGOT 47 U/L (17-59); BLOOD UREA NITROGEN 27 mg/dl (9-20); CALCIUM 9.1 mg/dL (8.4-10.2); GFR NON-AFRICAN AMERICAN > 60
[2018-05-18] MEDS: Acetaminophen 650mg/20.3ml solution UD PO PRN ×3 (08:54→17:19)
[2018-05-18] MEDS: Enoxaparin 40 mg Syringe SC SCH (09:56)
[2018-05-18] MEDS: levoFLOXacin 750 mg in D5W 750 MG/150 ML BAG IVPB SCH (09:58)
--- NOTE | 2018-05-18 11:35 | RAD ---
Date of service: 05/18/2018 HISTORY: intubation COMPARISON: May 17, 2018. FINDINGS: LUNGS: Modest interval improvement in perihilar infiltrates. PLEURA: No significant pleural effusion identified, no pneumothorax apparent. CARDIOVASCULAR: No radiographic findings to suggest acute or significant cardiovascular disease. OSSEOUS STRUCTURES: No significant abnormalities. VISUALIZED UPPER ABDOMEN: Normal. OTHER FINDINGS: Stable position of endotracheal tube and nasogastric tube. IMPRESSION: Improving pulmonary infiltrates. Stable position of support apparatus.
--- NOTE | 2018-05-18 13:21 | RAD ---
Date of service: 05/18/2018 PROCEDURE: CHEST RADIOGRAPH, 1 VIEW HISTORY: ETT repositioned COMPARISON: 05/18/2018 at 4:44 a.m. FINDINGS: LUNGS: Right infrahilar opacity diminished compared to earlier examination. No other abnormal opacity appreciated elsewhere. Please note that the examination is limited due to failure to include the left costophrenic angle. PLEURA: No pneumothorax or pleural fluid seen. CARDIOVASCULAR: Normal heart size. The ET tube positioned approximately 6 cm above the tracheal lexus. NG tube does not appear to traverse the left hemidiaphragm. This should be repositioned or replaced. OSSEOUS STRUCTURES: No significant abnormalities. VISUALIZED UPPER ABDOMEN: Normal. OTHER FINDINGS: None. IMPRESSION: NG tube does not traverse the left hemidiaphragm. ET tube appropriately positioned. Decrease right infrahilar opacity.
[2018-05-18] MEDS ORDERED: Sodium Chloride 0.45% 1,000 ML IV SCH (13:45)
--- NOTE | 2018-05-18 15:03 | CP.PCM.PN ---
Subjective - Date & Time of Evaluation Date of Evaluation: 05/18/18 Time of Evaluation: 10:30 - Subjective Subjective: F/U Respiratory Failure Pt agitated early, on Precedex and Versed high doses. Objective - Vital Signs/Intake and Output Vital Signs (last 24 hours): Temp Pulse Resp BP Pulse Ox 102.9 F H 99 H 38 H 161/97 H 100 05/18/18 12:29 05/18/18 12:00 05/18/18 12:00 05/18/18 12:00 05/18/18 12:00 Intake and Output: 05/18/18 05/18/18 06:59 18:59 Intake Total 300 550 Output Total 700 Balance -400 550 - Medications Medications: Current Medications Acetaminophen (Tylenol 650mg/20.3ml Solution Ud) 650 mg PO Q4 PRN PRN Reason: Temperature Last Admin: 05/18/18 12:29 Dose: 650 mg Albuterol/Ipratropium (Duoneb 3 Mg/0.5 Mg (3 Ml) Ud) 3 ml INH RQ4 DANNY Last Admin: 05/18/18 12:05 Dose: 3 ml Levofloxacin/Dextrose (Levaquin 750mg) 750 mg in 150 mls @ 100 mls/hr IVPB DAILY DANNY PRN Reason: Protocol Last Admin: 05/18/18 09:58 Dose: 100 mls/hr Vancomycin HCl 1 gm/ Sodium (Chloride) 250 mls @ 166.667 mls/hr IVPB Q12 DANNY PRN Reason: Protocol Last Admin: 05/18/18 09:58 Dose: 166.667 mls/hr Clindamycin Phosphate (Cleocin In Normal Saline) 600 mg in 50 mls @ 50 mls/hr IVPB Q8 DANNY PRN Reason: Protocol Last Admin: 05/18/18 09:57 Dose: 50 mls/hr Dexmedetomidine HCl 400 mcg/ (Sodium Chloride) 100 mls @ 30.32 mls/hr IV .Q3H18M DANNY; 1.4 MCG/KG/HR PRN Reason: Protocol Last Titration: 05/18/18 08:59 Dose: 1.4 mcg/kg/hr, 30.32 mls/hr Midazolam HCl 50 mg/ Sodium (Chloride) 100 mls @ 4 mls/hr IV .Q24H ONE; 2 MG/HR PRN Reason: Protocol Stop: 05/19/18 00:49 Last Titration: 05/18/18 11:00 Dose: 10 mg/hr, 20 mls/hr Sodium Chloride (Sodium Chloride 0.45%) 1,000 mls @ 40 mls/hr IV .Q24H [facility] Stop: 05/19/18 13:43 Insulin Human Lispro (Humalog) 0 units SC Q6H DANNY PRN Reason: Protocol Last Admin: 05/18/18 12:39 Dose: 3 units Methylprednisolone (Solu-Medrol) 40 mg IVP Q6H [facility] Last Admin: 05/18/18 09:57 Dose: 40 mg Midazolam HCl (Versed Inj) 2 mg IV Q6H PRN PRN Reason: Agitation Last Admin: 05/17/18 13:00 Dose: 2 mg Pantoprazole Sodium (Protonix Inj) 40 mg IVP DAILY [facility] Last Admin: 05/18/18 09:56 Dose: 40 mg - Labs Labs: 05/18/18 04:20 05/18/18 04:20 PT 12.4 Seconds (9.8-13.1) 05/14/18 20:25 INR 1.1 (0.9-1.2) 05/14/18 20:25 APTT 22.8 Seconds (25.6-37.1) L 05/14/18 20:25 - Constitutional Appears: No Acute Distress - Head Exam Head Exam: NORMAL INSPECTION - Eye Exam Eye Exam: PERRL - ENT Exam Additional comments: Intubated - Neck Exam Neck Exam: Normal Inspection - Respiratory Exam Respiratory Exam: Decreased Breath Sounds (at bases), Rhonchi (at bases) - Cardiovascular Exam Cardiovascular Exam: REGULAR RHYTHM - GI/Abdominal Exam GI & Abdominal Exam: Soft, Normal Bowel Sounds - Extremities Exam Extremities Exam: Normal Inspection - Back Exam Back Exam: NORMAL INSPECTION - Neurological Exam Additional comments: Intubated. No response to verbal stimuli - Skin Skin Exam: Warm Assessment and Plan (1) Overdose Status: Acute (2) Respiratory failure Status: Acute (3) Aspiration pneumonia Status: Acute (4) Hx of deep venous thrombosis Status: Chronic (5) Hx pulmonary embolism Status: Acute (6) History of obstructive sleep apnea Status: Acute (7) Diabetes Status: Chronic (8) Asthma exacerbation Status: Acute - Assessment and Plan (Free Text) Plan: Continue Ventilatory support, continue Vanco, Levaquin, Solu-Medrol. Rustam. Critical Care Time: 32 min.
--- NOTE | 2018-05-18 16:48 | CP.PCM.PN ---
Subjective - Date & Time of Evaluation Date of Evaluation: 05/18/18 Time of Evaluation: 09:00 - Subjective Subjective: Seen and examined at the bed side. Continue ti be intubated and sedated. FIO2 80 %. No fever or chills. Objective - Vital Signs/Intake and Output Vital Signs (last 24 hours): Temp Pulse Resp BP Pulse Ox 103.1 F H 114 H 22 156/81 H 99 05/18/18 16:00 05/18/18 16:00 05/18/18 16:00 05/18/18 16:00 05/18/18 16:00 Intake and Output: 05/18/18 05/18/18 06:59 18:59 Intake Total 300 750 Output Total 700 Balance -400 750 - Medications Medications: Current Medications Acetaminophen (Tylenol 650mg/20.3ml Solution Ud) 650 mg PO Q4 PRN PRN Reason: Temperature Last Admin: 05/18/18 12:29 Dose: 650 mg Albuterol/Ipratropium (Duoneb 3 Mg/0.5 Mg (3 Ml) Ud) 3 ml INH RQ4 DANNY Last Admin: 05/18/18 15:22 Dose: 3 ml Levofloxacin/Dextrose (Levaquin 750mg) 750 mg in 150 mls @ 100 mls/hr IVPB DAILY DANNY PRN Reason: Protocol Last Admin: 05/18/18 09:58 Dose: 100 mls/hr Vancomycin HCl 1 gm/ Sodium (Chloride) 250 mls @ 166.667 mls/hr IVPB Q12 DANNY PRN Reason: Protocol Last Admin: 05/18/18 09:58 Dose: 166.667 mls/hr Clindamycin Phosphate (Cleocin In Normal Saline) 600 mg in 50 mls @ 50 mls/hr IVPB Q8 DANNY PRN Reason: Protocol Last Admin: 05/18/18 09:57 Dose: 50 mls/hr Dexmedetomidine HCl 400 mcg/ (Sodium Chloride) 100 mls @ 30.32 mls/hr IV .Q3H18M DANNY; 1.4 MCG/KG/HR PRN Reason: Protocol Last Admin: 05/18/18 15:20 Dose: 1.4 mcg/kg/hr, 30.32 mls/hr Midazolam HCl 50 mg/ Sodium (Chloride) 100 mls @ 4 mls/hr IV .Q24H ONE; 2 MG/HR PRN Reason: Protocol Stop: 05/19/18 00:49 Last Admin: 05/18/18 16:31 Dose: 10 mg/hr, 20 mls/hr Sodium Chloride (Sodium Chloride 0.45%) 1,000 mls @ 40 mls/hr IV .Q24H [facility] Stop: 05/19/18 13:43 Last Admin: 05/18/18 13:50 Dose: 40 mls/hr Insulin Human Lispro (Humalog) 0 units SC Q6H DANNY PRN Reason: Protocol Last Admin: 05/18/18 12:39 Dose: 3 units Methylprednisolone (Solu-Medrol) 40 mg IVP Q6H [facility] Last Admin: 05/18/18 15:25 Dose: 40 mg Midazolam HCl (Versed Inj) 2 mg IV Q6H PRN PRN Reason: Agitation Last Admin: 05/17/18 13:00 Dose: 2 mg Pantoprazole Sodium (Protonix Inj) 40 mg IVP DAILY [facility] Last Admin: 05/18/18 09:56 Dose: 40 mg - Labs Labs: 05/18/18 04:20 05/18/18 04:20 PT 12.4 Seconds (9.8-13.1) 05/14/18 20:25 INR 1.1 (0.9-1.2) 05/14/18 20:25 APTT 22.8 Seconds (25.6-37.1) L 05/14/18 20:25 - Constitutional Appears: Other (Intubated and Sedated) - Head Exam Head Exam: ATRAUMATIC, NORMAL INSPECTION, NORMOCEPHALIC - Eye Exam Eye Exam: PERRL Additional comments: ET tube placed. - ENT Exam ENT Exam: Mucous Membranes Moist, Normal Exam - Neck Exam Neck Exam: Full ROM, Normal Inspection. absent: Lymphadenopathy - Respiratory Exam Respiratory Exam: Clear to Ausculation Bilateral, NORMAL BREATHING PATTERN - Cardiovascular Exam Cardiovascular Exam: REGULAR RHYTHM, +S1, +S2. absent: Murmur - GI/Abdominal Exam GI & Abdominal Exam: Soft, Normal Bowel Sounds. absent: Tenderness - Exam Speculum exam: NORMAL SPECULUM EXAM Bimanual exam: NORMAL BIMANUAL EXAM - Extremities Exam Extremities Exam: Full ROM, Normal Capillary Refill, Normal Inspection. absent : Joint Swelling, Pedal Edema - Psychiatric Exam Psychiatric exam: Normal Affect, Normal Mood - Skin Skin Exam: Dry, Intact, Normal Color, Warm Assessment and Plan (1) Acute respiratory failure with hypercapnia Assessment & Plan: S/P Intubation Respiratory Acidosis Aspiration Pneumonia NPO MV FIO2 60% IVF IV ABX ID, and Pulmonary Consult Sedated CXR daily ABG DAily Morning Labs Status: Acute (2) Altered mental status Assessment and Plan: Multiple Drug Overdose Poison Control onboard Supportive Care Status: Acute (3) Suicide attempt by drug ingestion Assessment and Plan: Major Depression Supportive Care Psych Consult Status: Acute Priority: High (4) Microcytic Anemia (5) DVT prophylaxis Assessment and Plan: Lovenox 40mg SQ Daily Status: Inactive Priority: High Status: Acute
[2018-05-19] MEDS: Albuterol-Ipratrop 3 mg / 0.5 (3 ml) UD INH SCH ×7 (00:10→23:25)
[2018-05-19] MEDS: Insulin Lispro (humaLOG) 100 Units/ml Inj SC SCH ×4 (00:55→17:23)
[2018-05-19] MEDS: Clindamycin 600mg/50ml NS 600 MG/50 ML BAG IVPB SCH ×3 (00:56→16:37)
[2018-05-19] MEDS: MethylPREDNISolone 40 mg Vial IVP SCH ×3 (01:03→14:01)
[2018-05-19] MEDS: Dexmedetomidine Hydrochloride 400 MCG in Sodium Chloride 0.9% 96 ML IV SCH ×7 (02:13→22:34)
[2018-05-19 03:49] LABS: ABG ALLEN TEST YES; ARTERIAL BLOOD GAS HCO3 30.3 mmol/L (21-28); ARTERIAL BLOOD GAS HEMOGLOBIN 10.6 g/dL (11.7-17.4); ARTERIAL BLOOD GAS O2 CAPACITY 14.8 mL/dL (16-24); ARTERIAL BLOOD GAS O2 CONTENT 14.3 ML/dL (15-23); ARTERIAL BLOOD GAS O2 SAT 96.3 % (95-98); ARTERIAL BLOOD GAS PCO2 43 mm/Hg (35-45); ARTERIAL BLOOD GAS PH 7.47 (7.35-7.45); ARTERIAL BLOOD GAS PO2 85 mm/Hg (80-100); ARTERIAL BLOOD GAS TCO2 32.6 mmol/L (22-28)
--- NOTE | 2018-05-19 05:33 | PN ---
DATE: 05/18/2018 CRITICAL CARE PROGRESS NOTE LOCATION: The patient in ICU bed 432. TIME SPENT: 45 minutes. SUBJECTIVE: The patient is seen and evaluated at the bedside. Past medical, surgical, social and family history reviewed. No allergies noted. A 47-year-old male with history significant for diabetes mellitus type 2, depression, asthma and sleep apnea, admitted in hypercapnic hypoxic respiratory failure, status post overdose on Seroquel, Ambien, triamcinolone and clonidine. The patient was found unresponsive in the ED and intubated. Overnight remains intubated on mechanical ventilation, AC rate 15, tidal volume of 500, FiO2 of 60%, saturation 98%, peak airway pressure 30, mean airway pressure 16, end-tidal CO2 of 31, exhaled tidal volume of 560, minute ventilation 12.6 L, sedated on Precedex and Versed drip. Remains agitated, at times requires extra dose of Ativan. PHYSICAL EXAMINATION: VITAL SIGNS: Temperature 102.9, heart rate 99, respiratory rate 32, blood pressure 161/97. HEAD, EYE, EAR, NOSE AND THROAT: Pupils 2 to 3 mm, bilateral reactive to light, midline. Trachea central. Endotracheal tube in place. No secretion noted. HEART: Rhythm regular. S1 and S2 normal. No audible murmur. ABDOMEN: Bowel sounds are present and soft. NG tube in place. Position confirmed by the presence of air by pushing the NG tube with syringe. EXTREMITIES: No clubbing, cyanosis. No stigmata of IV drug abuse. NEUROLOGIC: Sedated on Precedex and Versed drip. CURRENT MEDICATIONS: Clindamycin 600 mg IV every 8 hours, levofloxacin 750 mg IV daily, vancomycin 1 gm IV every 12 hours, Protonix 40 IV daily, midazolam drip, Solu-Medrol 40 mg IV every 6 hours, insulin lispro based on Accu -Chek. LABORATORY DATA: WBC 6.4, hemoglobin 10.9, hematocrit 34.3, platelet count of 226, neutrophils 89.2, lymphocytes 7.4, monocytes 2.7. PT 12.4, INR 1.1, PTT 22.8. ABG; pH 7.40, pCO2 of 52, pO2 of 96, oxygen saturation 97.1 on AC 15, 500, 60%, PEEP of 7. SMA-7: Sodium 151, potassium 4.5, chloride 112, CO2 of 30, blood urea nitrogen 27, creatinine 1, random glucose 119 and calcium 9.1, total bilirubin 1.1. AST 47, ALT 57, albumin 3.3. Urine analysis negative. Toxicology screen negative. Microbiology, nasal smear MRSA negative. Chest x-ray; endotracheal tube in place, confirmed with radiologist. Modest interval improvement in perihilar infiltrate, more on the right than the left. IMPRESSION AND PLAN: 1. Neurologic: Status post multiple drug overdose, admitted with hypercapnic hypoxic respiratory failure. Appreciate followup by poison control and psychiatric consult. Monitor for respiratory depression. Currently remains intubated, sedated on Versed drip and Precedex. 2. Pulmonary: Hypercapnic hypoxic respiratory failure. Continue ventilatory support until the patient is more arousable and can maintain airway. 3. Cardiac: Tachycardia and hypertension at times. Adjust Versed and Precedex as needed for comfort ventilatory support. 4. Infectious Disease: Febrile. Chest x-ray shows possible aspiration pneumonia, on vancomycin, levofloxacin and clindamycin. Blood cultures, no growth reported so far. 5. Renal: No acute issues noted except hypernatremia. We will add half normal saline at 40 mL per hour. 6. Endocrine: Maintain her blood sugar less than 180. History for diabetes mellitus type 2, on Accu-Chek with regular insulin coverage. Continue deep vein thrombosis and gastrointestinal prophylaxis. Keep her head off bed 30 degrees up. Sy catheter for adequate intake and output measurement. Serge Levin MD MTDD
[2018-05-19 05:49] LABS: HEMOGLOBIN 10.6 g/dL (12.0-18.0); MEAN CELL VOLUME 76.3 fl (80.0-94.0); MEAN CORPUSCULAR HEMOGLOBIN 24.3 pg (27.0-31.0); MEAN CORPUSCULAR HGB CONC 31.8 g/dL (33.0-37.0); RBC 4.38 Mil/uL (4.40-5.90); RED CELL DISTRIBUTION WIDTH 17.3 % (11.5-14.5); WHITE BLOOD COUNT 7.2 K/uL (4.8-10.8)
[2018-05-19] MEDS: Midazolam 2 MG/2 ML VIAL IV PRN (05:53)
[2018-05-19 05:58] LABS: BLOOD UREA NITROGEN 32 mg/dl (9-20); CALCIUM 8.7 mg/dL (8.4-10.2); GFR NON-AFRICAN AMERICAN > 60
[2018-05-19] MEDS ORDERED: Midazolam 50 MG in Sodium Chloride 0.9% 50 ML IV ONE (06:14)
[2018-05-19] MEDS: levoFLOXacin 750 mg in D5W 750 MG/150 ML BAG IVPB SCH (08:40)
[2018-05-19] MEDS ORDERED: Fentanyl Citrate 2,500 MCG in Dextrose 5% In Water 200 ML IV SCH (10:30)
--- NOTE | 2018-05-19 12:06 | RAD ---
Date of service: 05/19/2018 HISTORY: ETT placement COMPARISON: May 18, 2018. FINDINGS: LUNGS: No active pulmonary disease. PLEURA: No significant pleural effusion identified, no pneumothorax apparent. CARDIOVASCULAR: No radiographic findings to suggest acute or significant cardiovascular disease. OSSEOUS STRUCTURES: No significant abnormalities. VISUALIZED UPPER ABDOMEN: Normal. OTHER FINDINGS: Stable position of endotracheal tube and nasogastric tube IMPRESSION: . No significant interval change compared to the prior examination(s).
[2018-05-19] MEDS ORDERED: Chlorhexidine Gluconate 1 APPL/PKT TP ONE (12:09)
--- NOTE | 2018-05-19 13:12 | PCM.PROC ---
Procedures Attestation:: I certify that I have explained the specified Operation(s) or Procedure(s), risks, benefits and reasonable alternatives to the Patient and/or other person responsible. The opportunity was given to ask questions and all questions answered - Extubation Clinical Parameters: Hemodynamically Stable, Intact Cough/Gag Reflex, Spontaneous Respirations, Acceptable Vent Settings (FIO2<50%, PEEP<8, PaO2>75, pH>7.25) Weaning Criteria Met: Yes General Weaning Approaches: Pressure Support Ventilation (PSV) Weaning Patient Condition: Patient has been successfully extubated and assessed Oxygen Therapy: O2 via Venti Mask (50%) Patient Tolerated Procedure: Well Additional Comments: Agitation noted post extubation as well, Precedex infusion maintained for anxiolysis ( no respiratory depressant effects). Since patient was not keeping VM on face, additional Oxygen delivered via nasal cannula for now. He is too agitated to tolerate BiPAP mask.
--- NOTE | 2018-05-19 13:50 | CP.CCUPN ---
<Gerson Jara - Last Filed: 05/19/18 17:26> CCU Subjective - Physician Review Subjective (Free Text): 05/19/18 13:46 ICU Progress Note 47 y/o M evaluated and examined by bedside. Pt is non-reponsive, became agitated after extubation. Pt still spiking on fevers. CCU Objective - Vital Signs / Intake & Output Vital Signs (Last 4 hours): Vital Signs Temp Pulse Resp BP Pulse Ox 05/19/18 12:49 100.2 F H 87 33 H 151/85 H 92 L 05/19/18 12:00 102 F H 103 H 46 H 138/94 H 90 L 05/19/18 11:00 121 H 38 H 142/89 98 05/19/18 10:00 116 H 28 H 140/90 100 Intake and Output (Last 8hrs): Intake & Output 05/18/18 05/19/18 05/19/18 22:59 06:59 14:59 Intake Total 2690 730 1125 Output Total 1000 1100 Balance 1690 -370 1125 Weight 89.811 kg Intake: IV 1100 600 280 Intake, Piggyback 250 500 Tube Feeding 1040 130 130 Free Water Flush 300 215 Output: Urine 1000 1100 Urethral (Sy) 1000 1100 Other: # Bowel Movements 0 - Physical Exam Physical Exam Limitations: Positive for: Altered Mental Status Head: Positive for: Atraumatic, Normocephalic Pupils: Positive for: PERRL Conjunctiva: Positive for: Normal Mouth: Positive for: Moist Mucous Membranes Nose (External): Positive for: Atraumatic Neck: Positive for: Normal Range of Motion Respiratory/Chest: Positive for: Clear to Auscultation Cardiovascular: Positive for: Regular Rate and Rhythm, Normal S1, S2 Abdomen: Positive for: Normal Bowel Sounds Upper Extremity: Positive for: Normal Inspection Lower Extremity: Positive for: Normal Inspection Neurological: Positive for: Other (no response to verbal stimuli) - Medications Active Medications: Active Medications Generic Name Dose Route Start Last Admin Trade Name Freq PRN Reason Stop Dose Admin Acetaminophen 650 mg 05/16/18 20:17 05/18/18 17:19 Tylenol 650mg/20.3ml Solution Ud PO 650 mg Q4 PRN Administration Temperature Albuterol/Ipratropium 3 ml 05/17/18 13:45 05/19/18 11:39 Duoneb 3 Mg/0.5 Mg (3 Ml) Ud INH 3 ml RQ4 DANNY Administration Haloperidol Lactate 5 mg 05/19/18 11:36 05/19/18 11:57 Haldol IVP 5 mg Q6 PRN Administration Agitation Levofloxacin/Dextrose 750 mg in 150 mls @ 100 mls/hr 05/15/18 13:45 05/19/18 08:40 Levaquin 750mg IVPB 100 mls/hr DAILY DANNY Administration Protocol Vancomycin HCl 1 gm/ Sodium 250 mls @ 166.667 mls/hr 05/15/18 21:00 05/19/18 09:20 Chloride IVPB 166.667 mls/hr Q12 DANNY Administration Protocol Clindamycin Phosphate 600 mg in 50 mls @ 50 mls/hr 05/17/18 17:00 05/19/18 08 :02 Cleocin In Normal Saline IVPB 50 mls/hr Q8 DANNY Administration Protocol Dexmedetomidine HCl 400 mcg/ 100 mls @ 30.32 mls/hr 05/17/18 20:39 05/19/18 13:23 Sodium Chloride IV 1.4 mcg/kg/hr .Q3H18M DANNY 30.32 mls/hr Protocol Administration 1.4 MCG/KG/HR Fentanyl Citrate 2,500 mcg/ 250 mls @ 17.96 mls/hr 05/19/18 10:30 05/19/18 10 :45 Dextrose IV 2 mcg/kg/hr .[id number] DANNY 17.96 mls/hr Protocol Administration 2 MCG/KG/HR Insulin Human Lispro 0 units 05/18/18 18:00 05/19/18 12:04 Humalog SC 2 units 0000,0600,1200,1800 DANNY Administration Protocol Methylprednisolone 40 mg 05/17/18 14:00 05/19/18 07:51 Solu-Medrol IVP 40 mg Q6H DANNY Administration Midazolam HCl 2 mg 05/17/18 12:50 05/19/18 05:53 Versed Inj IV 2 mg Q6H PRN Administration Agitation Morphine Sulfate 4 mg 05/19/18 10:16 Morphine IVP Q4 PRN Agitation Pantoprazole Sodium 40 mg 05/15/18 09:00 05/19/18 08:03 Protonix Inj IVP 40 mg DAILY DANNY Administration - Patient Studies Lab Studies: Microbiology Studies 05/17/18 16:59 Urine Culture - Final Urine,Sy No Growth (<1,000 CFU/ML) 05/17/18 16:08 Blood Culture - Preliminary Blood-Venous NO GROWTH AFTER 24 HOURS 05/17/18 15:58 Blood Culture - Preliminary Blood-Venous NO GROWTH AFTER 24 HOURS Lab Studies 05/19/18 05/19/18 05/19/18 Range/Units 05:00 05:00 03:41 WBC 7.2 (4.8-10.8) K/uL RBC 4.38 L (4.40-5.90) Mil/uL Hgb 10.6 L (12.0-18.0) g/dL Hct 33.4 L (35.0-51.0) % MCV 76.3 L (80.0-94.0) fl MCH 24.3 L (27.0-31.0) pg MCHC 31.8 L (33.0-37.0) g/dL RDW 17.3 H (11.5-14.5) % Plt Count 189 (130-400) K/uL pCO2 43 (35-45) mm/Hg pO2 85 (80-100) mm/Hg HCO3 30.3 H (21-28) mmol/L ABG pH 7.47 H (7.35-7.45) ABG Total CO2 32.6 H (22-28) mmol/L ABG O2 Saturation 96.3 (95-98) % ABG O2 Content 14.3 L (15-23) ML/dL ABG Base Excess 6.9 H (-2.0-3.0) mmol/L ABG Hemoglobin 10.6 L (11.7-17.4) g/dL ABG Carboxyhemoglobin 0 L (0.5-1.5) % POC ABG HHb (Measured) 3.7 (0.0-5.0) % ABG Methemoglobin 0.8 (0.0-3.0) % ABG O2 Capacity 14.8 L (16-24) mL/dL Eagle Test Yes A-a O2 Difference 289.0 mm/Hg Hgb O2 Saturation 95.5 (95.0-98.0) % Vent Mode Prvc ac Mechanical Rate 15 FiO2 60.0 % Tidal Volume 550 PEEP 5 Sodium 152 H (132-148) mmol/l Potassium 3.9 (3.6-5.0) MMOL/L Chloride 113 H (98-107) mmol/L Carbon Dioxide 30 (22-30) mmol/L Anion Gap 13 (10-20) BUN 32 H (9-20) mg/dl Creatinine 0.9 (0.8-1.5) mg/dl Est GFR ( Amer) > 60 Est GFR (Non-Af Amer) > 60 POC Glucose (mg/dL) (65-110) mg/dL Random Glucose 289 H (75-110) mg/dL Lactic Acid (0.7-2.1) MMOL/L Calcium 8.7 (8.4-10.2) mg/dL Total Creatine Kinase (55-170) U/L Procalcitonin (0.19-0.49) NG/ML 05/18/18 05/18/18 05/18/18 Range/Units 16:49 16:49 16:49 WBC (4.8-10.8) K/uL RBC (4.40-5.90) Mil/uL Hgb (12.0-18.0) g/dL Hct (35.0-51.0) % MCV (80.0-94.0) fl MCH (27.0-31.0) pg MCHC (33.0-37.0) g/dL RDW (11.5-14.5) % Plt Count (130-400) K/uL pCO2 (35-45) mm/Hg pO2 (80-100) mm/Hg HCO3 (21-28) mmol/L ABG pH (7.35-7.45) ABG Total CO2 (22-28) mmol/L ABG O2 Saturation (95-98) % ABG O2 Content (15-23) ML/dL ABG Base Excess (-2.0-3.0) mmol/L ABG Hemoglobin (11.7-17.4) g/dL ABG Carboxyhemoglobin (0.5-1.5) % POC ABG HHb (Measured) (0.0-5.0) % ABG Methemoglobin (0.0-3.0) % ABG O2 Capacity (16-24) mL/dL Eagle Test A-a O2 Difference mm/Hg Hgb O2 Saturation (95.0-98.0) % Vent Mode Mechanical Rate FiO2 % Tidal Volume PEEP Sodium (132-148) mmol/l Potassium (3.6-5.0) MMOL/L Chloride (98-107) mmol/L Carbon Dioxide (22-30) mmol/L Anion Gap (10-20) BUN (9-20) mg/dl Creatinine (0.8-1.5) mg/dl Est GFR ( Amer) Est GFR (Non-Af Amer) POC Glucose (mg/dL) (65-110) mg/dL Random Glucose (75-110) mg/dL Lactic Acid 1.2 (0.7-2.1) MMOL/L Calcium (8.4-10.2) mg/dL Total Creatine Kinase 308 H (55-170) U/L Procalcitonin 0.71 H (0.19-0.49) NG/ML 05/18/18 Range/Units 16:46 WBC (4.8-10.8) K/uL RBC (4.40-5.90) Mil/uL Hgb (12.0-18.0) g/dL Hct (35.0-51.0) % MCV (80.0-94.0) fl MCH (27.0-31.0) pg MCHC (33.0-37.0) g/dL RDW (11.5-14.5) % Plt Count (130-400) K/uL pCO2 (35-45) mm/Hg pO2 (80-100) mm/Hg HCO3 (21-28) mmol/L ABG pH (7.35-7.45) ABG Total CO2 (22-28) mmol/L ABG O2 Saturation (95-98) % ABG O2 Content (15-23) ML/dL ABG Base Excess (-2.0-3.0) mmol/L ABG Hemoglobin (11.7-17.4) g/dL ABG Carboxyhemoglobin (0.5-1.5) % POC ABG HHb (Measured) (0.0-5.0) % ABG Methemoglobin (0.0-3.0) % ABG O2 Capacity (16-24) mL/dL Eagle Test A-a O2 Difference mm/Hg Hgb O2 Saturation (95.0-98.0) % Vent Mode Mechanical Rate FiO2 % Tidal Volume PEEP Sodium (132-148) mmol/l Potassium (3.6-5.0) MMOL/L Chloride (98-107) mmol/L Carbon Dioxide (22-30) mmol/L Anion Gap (10-20) BUN (9-20) mg/dl Creatinine (0.8-1.5) mg/dl Est GFR ( Amer) Est GFR (Non-Af Amer) POC Glucose (mg/dL) 189 H (65-110) mg/dL Random Glucose (75-110) mg/dL Lactic Acid (0.7-2.1) MMOL/L Calcium (8.4-10.2) mg/dL Total Creatine Kinase (55-170) U/L Procalcitonin (0.19-0.49) NG/ML Laboratory Results - last 24 hr 05/18/18 05/18/18 05/18/18 16:46 16:49 16:49 WBC RBC Hgb Hct MCV MCH MCHC RDW Plt Count pCO2 pO2 HCO3 ABG pH ABG Total CO2 ABG O2 Saturation ABG O2 Content ABG Base Excess ABG Hemoglobin ABG Carboxyhemoglobin POC ABG HHb (Measured) ABG Methemoglobin ABG O2 Capacity Eagle Test A-a O2 Difference Hgb O2 Saturation Vent Mode Mechanical Rate FiO2 Tidal Volume PEEP Sodium Potassium Chloride Carbon Dioxide Anion Gap BUN Creatinine Est GFR ( Amer) Est GFR (Non-Af Amer) POC Glucose (mg/dL) 189 H Random Glucose Lactic Acid Calcium Total Creatine Kinase 308 H Procalcitonin 0.71 H 05/18/18 05/19/18 05/19/18 16:49 03:41 05:00 WBC 7.2 RBC 4.38 L Hgb 10.6 L Hct 33.4 L MCV 76.3 L MCH 24.3 L MCHC 31.8 L RDW 17.3 H Plt Count 189 pCO2 43 pO2 85 HCO3 30.3 H ABG pH 7.47 H ABG Total CO2 32.6 H ABG O2 Saturation 96.3 ABG O2 Content 14.3 L ABG Base Excess 6.9 H ABG Hemoglobin 10.6 L ABG Carboxyhemoglobin 0 L POC ABG HHb (Measured) 3.7 ABG Methemoglobin 0.8 ABG O2 Capacity 14.8 L Eagle Test Yes A-a O2 Difference 289.0 Hgb O2 Saturation 95.5 Vent Mode Prvc ac Mechanical Rate 15 FiO2 60.0 Tidal Volume 550 PEEP 5 Sodium Potassium Chloride Carbon Dioxide Anion Gap BUN Creatinine Est GFR ( Amer) Est GFR (Non-Af Amer) POC Glucose (mg/dL) Random Glucose Lactic Acid 1.2 Calcium Total Creatine Kinase Procalcitonin 05/19/18 05:00 WBC RBC Hgb Hct MCV MCH MCHC RDW Plt Count pCO2 pO2 HCO3 ABG pH ABG Total CO2 ABG O2 Saturation ABG O2 Content ABG Base Excess ABG Hemoglobin ABG Carboxyhemoglobin POC ABG HHb (Measured) ABG Methemoglobin ABG O2 Capacity Eagle Test A-a O2 Difference Hgb O2 Saturation Vent Mode Mechanical Rate FiO2 Tidal Volume PEEP Sodium 152 H Potassium 3.9 Chloride 113 H Carbon Dioxide 30 Anion Gap 13 BUN 32 H Creatinine 0.9 Est GFR ( Amer) > 60 Est GFR (Non-Af Amer) > 60 POC Glucose (mg/dL) Random Glucose 289 H Lactic Acid Calcium 8.7 Total Creatine Kinase Procalcitonin Fingerstick Blood Sugar Results: 179 Review of Systems - Review of Systems Systems not reviewed;Unavailable: Altered Mental Status Assessment/Plan - Assessment and Plan (Free Text) Assessment: 47 y/o M with a PMHx Depression, Anxiety, DM type 2, HTN, HLD, TIA, Asthma, JODY , CABG, CAD with stent (2008), DVT and PE s/p IVC Filter (2008), Gastric Bypass (2013), admitted due to suicidal attempt via overdose of Seroquel/Ambien/ Trazodone/Clonidine. Plan: >Neuroleptic Malignant Syndrome/Hyperthermia -Pt still spiking in fevers. Trazodone and Seroquel as possible causative agents. -Control temperature by Cool blanket device and fan. -Will order CK and LDH -Neurology consult, Dr Gonzales. -As discussed with Dr Gonzales, possible drug fever. Will discontinue Antibiotics. -Will try to avoid NMS aggravation by controlling Haldol use. >Agitated State/Altered Mental Status -Non-responsive and does NOT follow commands. Agitated and difficult to arouse if awake. -IV morphine started for pain control as possible cause. No improvement. -Haldol 10mg in total were administered for agitation control. -Haldol 5mg Q6H -On Fentanyl and Precedex >Fever -Neuroleptic Malignant Syndrome vs Infection vs Medication adverse effect -Pt still spiking in high temperatures, Tmax 102 F today. -Procalcitonin unremarkable. WBC normal today. -Blood Cx preliminary negative. UCx w/ no growth. -F/u cultures final results. -On acetaminophen. >Acute Respiratory Failure vs Aspiration Pneumonia -Due to medication overdose. Hx of JODY -Pt extubated, tolerated well, became agitated, saturating in high 80's with O2 flow by nasal canula. -Trial of discontinuing Levofloxacin, Vancomycin and Clindamycin due to possiblility of drug fever. >Hypernatremia/Hyperchloremia -Due to IV fluid overload -IV D5W-0.225NS at 125ml/hr >DVT Prophylaxis -SCD's - Date & Time Date: 05/19/18 Time: 13:00 <Joaquin Jose - Last Filed: 05/19/18 18:14> CCU Subjective - Physician Review Subjective (Free Text): Attestation: Patient seen and examined at the bedside with Resident Dr. Jerome Jara; and I agree with his outline of plans and management documented below as discussed on AM rounds reflecting my review of all applicable clinical data, and participation in the care of the patient throughout the day in ICU; today, May 19, 2018. Recent events and interim attempts at sedation noted. He continues to be wildly agitated and not following commands. SPO2 acceptable at 98% on fiO2 reduction to 50%. Brief trial on CPAP SP 5/5 tolerated fairly well despite agitation even on triple medications include max Precedex, Versed drip at 10 mg/hr and Fentanyl drip at 2 mcg/kg/hr. Decision made to extubate patient given possibility that ETT may be the major stressor at this point in time. He has been on MV support over the last 6 days since admission for suicidal ingestion of psycho-active meds including Trazadone, Ambien, Seroquel and Clonidine. Given his fever spikes to max of 103.1F yesterday, and recent Delirium, possible Serotonin syndrome or Malignant Neuroleptic Syndrome may be evident. He does not display any muscle rigidity and continuously tries to sit up in bed , moving his head to-and-fro and swinging all extremities. He is on the hypertensive side, but does not show any autonomic dysfx. When all sedatives where placed on hold for the usual sedation holiday, his activity and agitation level was essentially unchanged and he did not respond to any verbal commands, nor blink eyes to confrontation. CPK levels were slightly elevated yesterday, none obtained today, but will obtain a level now. Will maintain cooling, and IVF hydration to prevent any further major increases in CPK levels. Will discontinue IV steroids, hypoxemia can be due to NMS. No elevated peak airway pressures nor any bronchospasm observed when he was on MV support nor post extubation. Given the events fitting more NMS than Serotonin Syndrome, will maintain supportive care. He is already extubated and best SPo2 observed so far is 94% with stable HR and BP. He does not follow any verbal commands yet, and Haldol 5mg x2 IV given to achieve more control over his psychomotor agitation. Will hold on Dantrolene for now unless he displays any rigidity. Will obtain Neurology consultation for further assistance. Discussed with PMD.
[2018-05-19] MEDS: Dextrose 5%/0.2% NS 500 ML IV SCH ×2 (14:51→20:00)
--- NOTE | 2018-05-19 16:12 | CP.PCM.CON ---
History of Present Illness - History of Present Illness History of Present Illness: Neurology Consultation Note: Mr. Shah is a 47-year-old man with a past medical history of of Depression, DM, Asthma and Sleep apnea, who was brought to the ED via EMS after he reported being suicidal and intended to OD on his Pills, then found to be unresponsive at home. He had about him empty bottles of Seroquel, Ambien, Trazodone and Clonidine. He required intubation for airway protection and was transferred to the ICU. He has had several episodes of fever, autonomic instability, continues to have altered mental status despite extubation, and was diagnosed with neuroleptic malignant syndrome. Neurology was consulted to assist with the management and care. Review of Systems - Review of Systems All systems: reviewed and no additional remarkable complaints except Past Patient History - Infectious Disease Hx of Infectious Diseases: None - Past Medical History & Family History Past Medical History?: Yes - Past Social History Smoking Status: Former Smoker Chewing Tobacco Use: No Cigar Use: No Alcohol: Social Drugs: Denies - CARDIAC Hx Hypercholesterolemia: Yes Hx Hypertension: Yes - PULMONARY Hx Asthma: Yes Hx Pulmonary Embolism: Yes (from previous history) Hx Sleep Apnea: Yes - NEUROLOGICAL Hx Transient Ischemic Attacks (TIA): Yes - HEENT Hx HEENT Problems: No - ENDOCRINE/METABOLIC Hx Endocrine Disorders: Yes Hx Diabetes Mellitus Type 1: Yes (prior to gastric bypass) - HEMATOLOGICAL/ONCOLOGICAL Hx Blood Disorders: No - INTEGUMENTARY Hx Dermatological Problems: No - MUSCULOSKELETAL/RHEUMATOLOGICAL Hx Falls: No - GASTROINTESTINAL Hx Gastrointestinal Disorders: Yes Hx Nausea: Yes Hx Vomiting: Yes - GENITOURINARY/GYNECOLOGICAL Hx Genitourinary Disorders: No - PSYCHIATRIC Hx Anxiety: Yes Hx Depression: Yes - SURGICAL HISTORY Hx Cholecystectomy: Yes Hx Coronary Artery Bypass Graft: Yes Hx Coronary Stent: Yes (2008) - ANESTHESIA Hx Anesthesia: Yes Hx Anesthesia Reactions: No Hx Malignant Hyperthermia: No Meds Allergies/Adverse Reactions: Allergies Allergy/AdvReac Type Severity Reaction Status Date / Time Penicillins Allergy RASH Verified 05/14/18 20:08 - Medications Medications: Current Medications Acetaminophen (Tylenol 650mg/20.3ml Solution Ud) 650 mg PO Q4 PRN PRN Reason: Temperature Last Admin: 05/18/18 17:19 Dose: 650 mg Albuterol/Ipratropium (Duoneb 3 Mg/0.5 Mg (3 Ml) Ud) 3 ml INH RQ4 DANNY Last Admin: 05/19/18 15:26 Dose: 3 ml Haloperidol Lactate (Haldol) 5 mg IVP Q6 PRN PRN Reason: Agitation Last Admin: 05/19/18 15:31 Dose: 5 mg Levofloxacin/Dextrose (Levaquin 750mg) 750 mg in 150 mls @ 100 mls/hr IVPB DAILY DANNY PRN Reason: Protocol Last Admin: 05/19/18 08:40 Dose: 100 mls/hr Vancomycin HCl 1 gm/ Sodium (Chloride) 250 mls @ 166.667 mls/hr IVPB Q12 DANNY PRN Reason: Protocol Last Admin: 05/19/18 09:20 Dose: 166.667 mls/hr Clindamycin Phosphate (Cleocin In Normal Saline) 600 mg in 50 mls @ 50 mls/hr IVPB Q8 DANNY PRN Reason: Protocol Last Admin: 05/19/18 08:02 Dose: 50 mls/hr Dexmedetomidine HCl 400 mcg/ (Sodium Chloride) 100 mls @ 30.32 mls/hr IV .Q3H18M DANNY; 1.4 MCG/KG/HR PRN Reason: Protocol Last Admin: 05/19/18 13:23 Dose: 1.4 mcg/kg/hr, 30.32 mls/hr Dextrose/Sodium Chloride (Dextrose 5%/0.2% Ns 500 Ml) 500 mls @ 125 mls/hr IV .Q4H [facility] Stop: 05/20/18 14:37 Last Admin: 05/19/18 14:51 Dose: 125 mls/hr Insulin Human Lispro (Humalog) 0 units SC 0000,0600,1200,1800 DANNY PRN Reason: Protocol Last Admin: 05/19/18 12:04 Dose: 2 units Midazolam HCl (Versed Inj) 2 mg IV Q6H PRN PRN Reason: Agitation Last Admin: 05/19/18 05:53 Dose: 2 mg Morphine Sulfate (Morphine) 4 mg IVP Q4 PRN PRN Reason: Agitation Last Admin: 05/19/18 14:56 Dose: 4 mg Pantoprazole Sodium (Protonix Inj) 40 mg IVP DAILY [facility] Last Admin: 05/19/18 08:03 Dose: 40 mg Physical Exam - Constitutional Appears: Toxic, Agitated, Confused - Neurological Exam Neurological exam: Altered, CN II-XII Intact Additional comments: Moves all extremities, does not follow commands, reflexes are normal, plantar responses are downgoing. Limbs move freely without rigidity or bradykinesia. Results - Vital Signs Recent Vital Signs: Last Vital Signs Temp 99.5 F 05/19/18 14:00 Pulse 70 05/19/18 15:00 Resp 22 05/19/18 15:00 BP 177/101 H 05/19/18 15:00 Pulse Ox 95 05/19/18 15:00 - Labs Result Diagrams: 05/19/18 05:00 05/19/18 05:00 Labs: Laboratory Results - last 24 hr 05/18/18 05/18/18 05/18/18 16:46 16:49 16:49 WBC RBC Hgb Hct MCV MCH MCHC RDW Plt Count pCO2 pO2 HCO3 ABG pH ABG Total CO2 ABG O2 Saturation ABG O2 Content ABG Base Excess ABG Hemoglobin ABG Carboxyhemoglobin POC ABG HHb (Measured) ABG Methemoglobin ABG O2 Capacity Eagle Test A-a O2 Difference Hgb O2 Saturation Vent Mode Mechanical Rate FiO2 Tidal Volume PEEP Sodium Potassium Chloride Carbon Dioxide Anion Gap BUN Creatinine Est GFR ( Amer) Est GFR (Non-Af Amer) POC Glucose (mg/dL) 189 H Random Glucose Lactic Acid Calcium Total Creatine Kinase 308 H Procalcitonin 0.71 H 05/18/18 05/19/18 05/19/18 16:49 03:41 05:00 WBC 7.2 RBC 4.38 L Hgb 10.6 L Hct 33.4 L MCV 76.3 L MCH 24.3 L MCHC 31.8 L RDW 17.3 H Plt Count 189 pCO2 43 pO2 85 HCO3 30.3 H ABG pH 7.47 H ABG Total CO2 32.6 H ABG O2 Saturation 96.3 ABG O2 Content 14.3 L ABG Base Excess 6.9 H ABG Hemoglobin 10.6 L ABG Carboxyhemoglobin 0 L POC ABG HHb (Measured) 3.7 ABG Methemoglobin 0.8 ABG O2 Capacity 14.8 L Eagle Test Yes A-a O2 Difference 289.0 Hgb O2 Saturation 95.5 Vent Mode Prvc ac Mechanical Rate 15 FiO2 60.0 Tidal Volume 550 PEEP 5 Sodium Potassium Chloride Carbon Dioxide Anion Gap BUN Creatinine Est GFR ( Amer) Est GFR (Non-Af Amer) POC Glucose (mg/dL) Random Glucose Lactic Acid 1.2 Calcium Total Creatine Kinase Procalcitonin 05/19/18 05:00 WBC RBC Hgb Hct MCV MCH MCHC RDW Plt Count pCO2 pO2 HCO3 ABG pH ABG Total CO2 ABG O2 Saturation ABG O2 Content ABG Base Excess ABG Hemoglobin ABG Carboxyhemoglobin POC ABG HHb (Measured) ABG Methemoglobin ABG O2 Capacity Eagle Test A-a O2 Difference Hgb O2 Saturation Vent Mode Mechanical Rate FiO2 Tidal Volume PEEP Sodium 152 H Potassium 3.9 Chloride 113 H Carbon Dioxide 30 Anion Gap 13 BUN 32 H Creatinine 0.9 Est GFR ( Amer) > 60 Est GFR (Non-Af Amer) > 60 POC Glucose (mg/dL) Random Glucose 289 H Lactic Acid Calcium 8.7 Total Creatine Kinase Procalcitonin Assessment & Plan (1) Neuroleptic malignant syndrome Assessment and Plan: Start amantadine 100 mg Q12 hours. Check CK levels. May increase Precedex for agitation. MRI Brain without contrast when stable hemodynamically. Thank you. Status: Acute Priority: High
--- NOTE | 2018-05-19 18:33 | CP.PCM.PN ---
Subjective - Date & Time of Evaluation Date of Evaluation: 05/19/18 Time of Evaluation: 12:30 - Subjective Subjective: F/U Respiratory Failure. Extubated today. Objective - Vital Signs/Intake and Output Vital Signs (last 24 hours): Temp Pulse Resp BP Pulse Ox 100.5 F H 75 38 H 179/104 H 97 05/19/18 16:00 05/19/18 18:00 05/19/18 18:00 05/19/18 18:00 05/19/18 18:00 Intake and Output: 05/19/18 05/19/18 06:59 18:59 Intake Total 1560 1465 Output Total 1100 1600 Balance 460 -135 - Medications Medications: Current Medications Acetaminophen (Tylenol 650mg/20.3ml Solution Ud) 650 mg PO Q4 PRN PRN Reason: Temperature Last Admin: 05/18/18 17:19 Dose: 650 mg Albuterol/Ipratropium (Duoneb 3 Mg/0.5 Mg (3 Ml) Ud) 3 ml INH RQ4 DANNY Last Admin: 05/19/18 15:26 Dose: 3 ml Haloperidol Lactate (Haldol) 5 mg IVP Q6 PRN PRN Reason: Agitation Last Admin: 05/19/18 15:31 Dose: 5 mg Dexmedetomidine HCl 400 mcg/ (Sodium Chloride) 100 mls @ 30.32 mls/hr IV .Q3H18M DANNY; 1.4 MCG/KG/HR PRN Reason: Protocol Last Admin: 05/19/18 17:07 Dose: 2 mcg/kg/hr, 43.31 mls/hr Dextrose/Sodium Chloride (Dextrose 5%/0.2% Ns 500 Ml) 500 mls @ 125 mls/hr IV .Q4H DANNY Stop: 05/20/18 14:37 Last Admin: 05/19/18 14:51 Dose: 125 mls/hr Insulin Human Lispro (Humalog) 0 units SC 0000,0600,1200,1800 DANNY PRN Reason: Protocol Last Admin: 05/19/18 17:23 Dose: 2 units Midazolam HCl (Versed Inj) 2 mg IV Q6H PRN PRN Reason: Agitation Last Admin: 05/19/18 05:53 Dose: 2 mg Morphine Sulfate (Morphine) 4 mg IVP Q4 PRN PRN Reason: Agitation Last Admin: 05/19/18 14:56 Dose: 4 mg Pantoprazole Sodium (Protonix Inj) 40 mg IVP DAILY DANNY Last Admin: 05/19/18 08:03 Dose: 40 mg - Labs Labs: 05/19/18 05:00 05/19/18 05:00 PT 12.4 Seconds (9.8-13.1) 05/14/18 20:25 INR 1.1 (0.9-1.2) 05/14/18 20:25 APTT 22.8 Seconds (25.6-37.1) L 05/14/18 20:25 - Constitutional Appears: No Acute Distress - Head Exam Head Exam: NORMAL INSPECTION - Eye Exam Eye Exam: PERRL - ENT Exam Additional comments: Extubated, on Venti-Mask - Neck Exam Neck Exam: Normal Inspection - Respiratory Exam Respiratory Exam: Decreased Breath Sounds (at bases) - Cardiovascular Exam Cardiovascular Exam: REGULAR RHYTHM - GI/Abdominal Exam GI & Abdominal Exam: Soft, Normal Bowel Sounds - Extremities Exam Extremities Exam: Normal Inspection - Back Exam Back Exam: NORMAL INSPECTION - Neurological Exam Additional comments: no response to verbal stimuli. - Skin Skin Exam: Warm Assessment and Plan (1) Overdose Status: Acute (2) Respiratory failure Status: Acute (3) Aspiration pneumonia Status: Acute (4) Hx of deep venous thrombosis Status: Chronic (5) Hx pulmonary embolism Status: Acute (6) History of obstructive sleep apnea Status: Acute (7) Diabetes Status: Chronic (8) Asthma exacerbation Status: Acute - Assessment and Plan (Free Text) Plan: Plans to extubate, SoluMedrol , Clinda, Levaquin , Vanco , on Precedex, Versed drip Critical Care Time: 30 min.
[2018-05-20] MEDS: Dexmedetomidine Hydrochloride 400 MCG in Sodium Chloride 0.9% 96 ML IV SCH ×4 (00:59→08:13)
[2018-05-20] MEDS: Dextrose 5%/0.2% NS 500 ML IV SCH ×3 (01:00→09:03)
[2018-05-20] MEDS: Insulin Lispro (humaLOG) 100 Units/ml Inj SC SCH ×5 (01:00→23:18)
[2018-05-20] MEDS: Albuterol-Ipratrop 3 mg / 0.5 (3 ml) UD INH SCH ×5 (05:00→19:21)
[2018-05-20 05:38] LABS: BASO % 0.2 % (0.0-2.0); HEMOGLOBIN 10.9 g/dL (12.0-18.0); LYMPH # 0.8 K/uL (1.0-4.3); LYMPH % 7.3 % (20.0-40.0); MEAN CELL VOLUME 75.8 fl (80.0-94.0); MEAN CORPUSCULAR HEMOGLOBIN 24.1 pg (27.0-31.0); MEAN CORPUSCULAR HGB CONC 31.8 g/dL (33.0-37.0); MEAN PLATELET VOLUME 9.5 fl (7.2-11.7); MONO % 8.8 % (0.0-10.0); NEUT # 9.6 K/uL (1.8-7.0); NEUT % 83.7 % (50.0-75.0); NRBC % 0.1 % (0.0-0.0); PLATELET COUNT 191 K/uL (130-400); RBC 4.52 Mil/uL (4.40-5.90); RED CELL DISTRIBUTION WIDTH 16.6 % (11.5-14.5); WHITE BLOOD COUNT 11.5 K/uL (4.8-10.8)
[2018-05-20 06:05] LABS: ALB/GLOB RATIO 1.2 (1.0-2.1); ALBUMIN 3.2 g/dL (3.5-5.0); ALT/SGPT 56 U/L (21-72); AST/SGOT 52 U/L (17-59); BLOOD UREA NITROGEN 21 mg/dl (9-20); CALCIUM 8.5 mg/dL (8.4-10.2); GFR NON-AFRICAN AMERICAN > 60
[2018-05-20 10:02] LABS: BANDS 2 % (0-2); LYMPHOCYTE 9 % (20-50); MONOCYTE 9 % (0-10); NEUTROPHIL 79 % (42-75); REACTIVE LYMPHOCYTES 1 % (0-0); TOTAL CELLS COUNTED 100
[2018-05-20 10:03] LABS: ANISOCYTOSIS SLIGHT; PLATELET ESTIMATE NORMAL (NORMAL)
[2018-05-20 10:04] LABS: HYPOCHROMIC SLIGHT; OVALOCYTES SLIGHT; TOXIC GRANULATION PRESENT
--- NOTE | 2018-05-20 10:10 | CP.PCM.PN ---
Subjective - Date & Time of Evaluation Date of Evaluation: 05/20/18 Time of Evaluation: 10:08 - Subjective Subjective: Mr. Yarbrough seen and examined at the bedside in ICU. He is awake, alert, able to state his name, place, but not time and other person. He is able to recognize his significant other. He is on nasal cannula with nasal trumpet for oxygen supplement. He denies any headache, states of mild blurry vision. He is able to follow simple commands. He remains on bilateral wrist restraints and on 1:1 for patient safety. There was no untoward events overnight. Objective - Vital Signs/Intake and Output Vital Signs (last 24 hours): Temp Pulse Resp BP Pulse Ox 97.5 F L 57 L 31 H 146/97 H 94 L 05/20/18 08:00 05/20/18 09:00 05/20/18 09:00 05/20/18 09:00 05/20/18 09:00 Intake and Output: 05/20/18 05/20/18 06:59 18:59 Intake Total 1875 30 Output Total 3300 Balance -1425 30 - Medications Medications: Current Medications Acetaminophen (Tylenol 650mg/20.3ml Solution Ud) 650 mg PO Q4 PRN PRN Reason: Temperature Last Admin: 05/18/18 17:19 Dose: 650 mg Albuterol/Ipratropium (Duoneb 3 Mg/0.5 Mg (3 Ml) Ud) 3 ml INH RQ4 DANNY Last Admin: 05/20/18 07:27 Dose: 3 ml Amantadine HCl (Amantadine 100 Mg Cap) 100 mg PO BID DANNY Last Admin: 05/20/18 09:04 Dose: 100 mg Dexmedetomidine HCl 400 mcg/ (Sodium Chloride) 100 mls @ 30.32 mls/hr IV .Q3H18M DANNY; 1.4 MCG/KG/HR PRN Reason: Protocol Last Titration: 05/20/18 09:08 Dose: 1 mcg/kg/hr, 21.65 mls/hr Dextrose/Sodium Chloride (Dextrose 5%/0.2% Ns 500 Ml) 500 mls @ 125 mls/hr IV .Q4H DANNY Stop: 05/20/18 14:37 Last Admin: 05/20/18 09:03 Dose: 125 mls/hr Insulin Human Lispro (Humalog) 0 units SC 0000,0600,1200,1800 DANNY PRN Reason: Protocol Last Admin: 05/20/18 06:25 Dose: 3 units Midazolam HCl (Versed Inj) 2 mg IV Q6H PRN PRN Reason: Agitation Last Admin: 05/19/18 05:53 Dose: 2 mg Morphine Sulfate (Morphine) 4 mg IVP Q4 PRN PRN Reason: Agitation Last Admin: 05/20/18 02:00 Dose: 4 mg Pantoprazole Sodium (Protonix Inj) 40 mg IVP DAILY [facility] Last Admin: 05/20/18 08:12 Dose: 40 mg - Labs Labs: 05/20/18 04:40 05/20/18 04:40 PT 12.4 Seconds (9.8-13.1) 05/14/18 20:25 INR 1.1 (0.9-1.2) 05/14/18 20:25 APTT 22.8 Seconds (25.6-37.1) L 05/14/18 20:25 - Constitutional Appears: No Acute Distress - Head Exam Head Exam: NORMAL INSPECTION - Neurological Exam Neurological Exam: Alert, Awake Neuro motor strength exam: Left Upper Extremity: 4, Right Upper Extremity: 4, Left Lower Extremity: 4, Right Lower Extremity: 4 Additional comments: awake, alert with periods of confusion. He is able to follow simple commands, sensation is intact. Assessment and Plan (1) Neuroleptic malignant syndrome Assessment & Plan: Case discussed with Dr. Gonzales, continue all current medical regimen. Recommend MRI of the brain without contrast, normothermia, blood pressure control, and treat any electrolyte abnormalities. Status: Acute
--- NOTE | 2018-05-20 11:03 | CP.CCUPN ---
<Gerson Jara - Last Filed: 05/21/18 07:46> CCU Subjective - Physician Review Subjective (Free Text): 05/20/18 07:27 ICU Progress Note 47 y/o M evaluated and examined by bedside. Pt was able to verbalized only short monosyllable answers, unable to speak in complete sentences. Last fever episode yesterday around 4 pm, 100.5 F. Pt currently understands and follows simple commands. Overnight, pt was agitated and restless, needed a dose of Haldol, Morphine and Ativan. 05/20/18 16:20 Pt became unresponsive, bradycardic, tachycardic and hypotensive. Pt had a code blue, was intubated, a central IV line was placed on R internal jugular vein and an arterial line on R femoral artery. CCU Objective - Vital Signs / Intake & Output Vital Signs (Last 4 hours): Vital Signs Temp Pulse Resp BP Pulse Ox 05/20/18 10:00 93 H 29 H 151/87 H 96 05/20/18 09:00 57 L 31 H 146/97 H 94 L 05/20/18 08:00 97.5 F L 66 20 156/93 H 95 05/20/18 07:00 57 L 20 157/97 H 99 Intake and Output (Last 8hrs): Intake & Output 05/19/18 05/20/18 05/20/18 22:59 06:59 14:59 Intake Total 500 1675 400 Output Total 1600 3300 Balance -1100 -1625 400 Weight 90.718 kg Intake: IV 450 1675 280 Intake, Piggyback 50 Oral 120 Output: Urine 1600 3300 Urethral (Sy) 1600 3300 - Physical Exam Head: Positive for: Atraumatic, Normocephalic Pupils: Positive for: PERRL Conjunctiva: Positive for: Normal Mouth: Positive for: Moist Mucous Membranes Nose (External): Positive for: Atraumatic Neck: Positive for: Normal Range of Motion Respiratory/Chest: Positive for: Clear to Auscultation Cardiovascular: Positive for: Regular Rate and Rhythm, Normal S1, S2 Abdomen: Positive for: Normal Bowel Sounds Upper Extremity: Positive for: Normal Inspection Lower Extremity: Positive for: Normal Inspection Neurological: Positive for: Other (no response to verbal stimuli) - Medications Active Medications: Active Medications Generic Name Dose Route Start Last Admin Trade Name Freq PRN Reason Stop Dose Admin Acetaminophen 650 mg 05/16/18 20:17 05/18/18 17:19 Tylenol 650mg/20.3ml Solution Ud PO 650 mg Q4 PRN Administration Temperature Albuterol/Ipratropium 3 ml 05/17/18 13:45 05/20/18 07:27 Duoneb 3 Mg/0.5 Mg (3 Ml) Ud INH 3 ml RQ4 DANNY Administration Amantadine HCl 100 mg 05/20/18 09:00 05/20/18 09:04 Amantadine 100 Mg Cap PO 100 mg BID DANNY Administration Dexmedetomidine HCl 400 mcg/ 100 mls @ 30.32 mls/hr 05/17/18 20:39 05/20/18 10:42 Sodium Chloride IV 0.5 mcg/kg/hr .Q3H18M DANNY 10.82 mls/hr Protocol Titration 1.4 MCG/KG/HR Dextrose/Sodium Chloride 500 mls @ 125 mls/hr 05/19/18 14:45 05/20/18 09:03 Dextrose 5%/0.2% Ns 500 Ml IV 05/20/18 14:37 125 mls/hr .Q4H DANNY Administration Insulin Human Lispro 0 units 05/18/18 18:00 05/20/18 06:25 Humalog SC 3 units 0000,0600,1200,1800 DANNY Administration Protocol Midazolam HCl 2 mg 05/17/18 12:50 05/19/18 05:53 Versed Inj IV 2 mg Q6H PRN Administration Agitation Morphine Sulfate 4 mg 05/19/18 10:16 05/20/18 02:00 Morphine IVP 4 mg Q4 PRN Administration Agitation Pantoprazole Sodium 40 mg 05/15/18 09:00 05/20/18 08:12 Protonix Inj IVP 40 mg DAILY DANNY Administration - Patient Studies Lab Studies: Microbiology Studies 05/18/18 16:49 Blood Culture - Preliminary Blood-Venous NO GROWTH AFTER 24 HOURS 05/17/18 16:08 Blood Culture - Preliminary Blood-Venous NO GROWTH AFTER 48 HOURS 05/17/18 15:58 Blood Culture - Preliminary Blood-Venous NO GROWTH AFTER 48 HOURS 05/19/18 07:58 Gram Stain - Final Trachasp 05/17/18 16:59 Urine Culture - Final Urine,Sy No Growth (<1,000 CFU/ML) Lab Studies 05/20/18 05/20/18 05/19/18 Range/Units 04:40 04:40 05:57 WBC 11.5 H D (4.8-10.8) K/uL RBC 4.52 (4.40-5.90) Mil/uL Hgb 10.9 L (12.0-18.0) g/dL Hct 34.3 L (35.0-51.0) % MCV 75.8 L (80.0-94.0) fl MCH 24.1 L (27.0-31.0) pg MCHC 31.8 L (33.0-37.0) g/dL RDW 16.6 H (11.5-14.5) % Plt Count 191 (130-400) K/uL MPV 9.5 (7.2-11.7) fl Neut % (Auto) 83.7 H (50.0-75.0) % Lymph % (Auto) 7.3 L (20.0-40.0) % Upton % (Auto) 8.8 (0.0-10.0) % Eos % (Auto) 0.0 (0.0-4.0) % Baso % (Auto) 0.2 (0.0-2.0) % Neut # (Auto) 9.6 H (1.8-7.0) K/uL Lymph # (Auto) 0.8 L (1.0-4.3) K/uL Upton # (Auto) 1.0 H (0.0-0.8) K/uL Eos # (Auto) 0.0 (0.0-0.7) K/uL Baso # (Auto) 0.0 (0.0-0.2) K/uL Neutrophils % (Manual) 79 H (42-75) % Band Neutrophils % 2 (0-2) % Lymphocytes % (Manual) 9 L (20-50) % Reactive Lymphs % 1 H (0-0) % Monocytes % (Manual) 9 (0-10) % Toxic Granulation Present Platelet Estimate Normal (NORMAL) Hypochromasia (manual) Slight Anisocytosis (manual) Slight Ovalocytes Slight Sodium 142 (132-148) mmol/l Potassium 3.9 (3.6-5.0) MMOL/L Chloride 102 (98-107) mmol/L Carbon Dioxide 33 H (22-30) mmol/L Anion Gap 11 (10-20) BUN 21 H (9-20) mg/dl Creatinine 0.7 L (0.8-1.5) mg/dl Est GFR ( Amer) > 60 Est GFR (Non-Af Amer) > 60 POC Glucose (mg/dL) 269 H (65-110) mg/dL Random Glucose 200 H (75-110) mg/dL Calcium 8.5 (8.4-10.2) mg/dL Total Bilirubin 0.6 (0.2-1.3) mg/dl AST 52 (17-59) U/L ALT 56 (21-72) U/L Alkaline Phosphatase 43 (38-126) U/L Lactate Dehydrogenase 897 H (313-618) U/L Total Creatine Kinase 1163 H (55-170) U/L Total Protein 5.9 L (6.3-8.2) G/DL Albumin 3.2 L (3.5-5.0) g/dL Globulin 2.7 (2.2-3.9) gm/dL Albumin/Globulin Ratio 1.2 (1.0-2.1) // Range/Units 23:28 WBC (4.8-10.8) K/uL RBC (4.40-5.90) Mil/uL Hgb (12.0-18.0) g/dL Hct (35.0-51.0) % MCV (80.0-94.0) fl MCH (27.0-31.0) pg MCHC (33.0-37.0) g/dL RDW (11.5-14.5) % Plt Count (130-400) K/uL MPV (7.2-11.7) fl Neut % (Auto) (50.0-75.0) % Lymph % (Auto) (20.0-40.0) % Upton % (Auto) (0.0-10.0) % Eos % (Auto) (0.0-4.0) % Baso % (Auto) (0.0-2.0) % Neut # (Auto) (1.8-7.0) K/uL Lymph # (Auto) (1.0-4.3) K/uL Upton # (Auto) (0.0-0.8) K/uL Eos # (Auto) (0.0-0.7) K/uL Baso # (Auto) (0.0-0.2) K/uL Neutrophils % (Manual) (42-75) % Band Neutrophils % (0-2) % Lymphocytes % (Manual) (20-50) % Reactive Lymphs % (0-0) % Monocytes % (Manual) (0-10) % Toxic Granulation Platelet Estimate (NORMAL) Hypochromasia (manual) Anisocytosis (manual) Ovalocytes Sodium (132-148) mmol/l Potassium (3.6-5.0) MMOL/L Chloride (98-107) mmol/L Carbon Dioxide (22-30) mmol/L Anion Gap (10-20) BUN (9-20) mg/dl Creatinine (0.8-1.5) mg/dl Est GFR ( Amer) Est GFR (Non-Af Amer) POC Glucose (mg/dL) 222 H (65-110) mg/dL Random Glucose (75-110) mg/dL Calcium (8.4-10.2) mg/dL Total Bilirubin (0.2-1.3) mg/dl AST (17-59) U/L ALT (21-72) U/L Alkaline Phosphatase (38-126) U/L Lactate Dehydrogenase (313-618) U/L Total Creatine Kinase (55-170) U/L Total Protein (6.3-8.2) G/DL Albumin (3.5-5.0) g/dL Globulin (2.2-3.9) gm/dL Albumin/Globulin Ratio (1.0-2.1) Laboratory Results - last 24 hr 05/18/18 05/19/18 05/20/18 23:28 05:57 04:40 WBC 11.5 H D RBC 4.52 Hgb 10.9 L Hct 34.3 L MCV 75.8 L MCH 24.1 L MCHC 31.8 L RDW 16.6 H Plt Count 191 MPV 9.5 Neut % (Auto) 83.7 H Lymph % (Auto) 7.3 L Upton % (Auto) 8.8 Eos % (Auto) 0.0 Baso % (Auto) 0.2 Neut # (Auto) 9.6 H Lymph # (Auto) 0.8 L Upton # (Auto) 1.0 H Eos # (Auto) 0.0 Baso # (Auto) 0.0 Neutrophils % (Manual) 79 H Band Neutrophils % 2 Lymphocytes % (Manual) 9 L Reactive Lymphs % 1 H Monocytes % (Manual) 9 Toxic Granulation Present Platelet Estimate Normal Hypochromasia (manual) Slight Anisocytosis (manual) Slight Ovalocytes Slight Sodium Potassium Chloride Carbon Dioxide Anion Gap BUN Creatinine Est GFR ( Amer) Est GFR (Non-Af Amer) POC Glucose (mg/dL) 222 H 269 H Random Glucose Calcium Total Bilirubin AST ALT Alkaline Phosphatase Lactate Dehydrogenase Total Creatine Kinase Total Protein Albumin Globulin Albumin/Globulin Ratio 05/20/18 04:40 WBC RBC Hgb Hct MCV MCH MCHC RDW Plt Count MPV Neut % (Auto) Lymph % (Auto) Upton % (Auto) Eos % (Auto) Baso % (Auto) Neut # (Auto) Lymph # (Auto) Upton # (Auto) Eos # (Auto) Baso # (Auto) Neutrophils % (Manual) Band Neutrophils % Lymphocytes % (Manual) Reactive Lymphs % Monocytes % (Manual) Toxic Granulation Platelet Estimate Hypochromasia (manual) Anisocytosis (manual) Ovalocytes Sodium 142 Potassium 3.9 Chloride 102 Carbon Dioxide 33 H Anion Gap 11 BUN 21 H Creatinine 0.7 L Est GFR ( Amer) > 60 Est GFR (Non-Af Amer) > 60 POC Glucose (mg/dL) Random Glucose 200 H Calcium 8.5 Total Bilirubin 0.6 AST 52 ALT 56 Alkaline Phosphatase 43 Lactate Dehydrogenase 897 H Total Creatine Kinase 1163 H Total Protein 5.9 L Albumin 3.2 L Globulin 2.7 Albumin/Globulin Ratio 1.2 Fingerstick Blood Sugar Results: 200 Assessment/Plan - Assessment and Plan (Free Text) Assessment: 47 y/o M with a PMHx Depression, Anxiety, DM type 2, HTN, HLD, TIA, Asthma, JODY , CABG, CAD with stent (2008), DVT and PE s/p IVC Filter (2008), Gastric Bypass (2013), admitted due to suicidal attempt via overdose of Seroquel/Ambien/ Trazodone/Clonidine. Plan: >Neuroleptic Malignant Syndrome/Hyperthermia -Trazodone and Seroquel as possible causative agents. -No fever overnight. -Control temperature by Cool blanket device and fan. -CK 1,163-high; LDH 897-high. -Neurology consult, Dr Gonzales. -Antibiotics re-initiated after CXR showed RLL opacification. -On Amantidine. >Acute Respiratory Failure/Atelectasis/Aspiration Pneumonia -Multiple medications overdose. -Intubated again this afternoon. -CXR preliminarily showed RLL opacification. -Will initiate Levofloxacin, Vancomycin and Clindamycin >Altered Mental Status -Pt seemed to be better, became tachycardic, hypotensive and unresponsive. -F/U CBC, CMP, coagulation profile, procalcitonin, prolactin >Hypotension -On Norepinephrine drip -BP monitor. >Fever -Neuroleptic Malignant Syndrome vs Infection vs Medication adverse effect -Afebrile overnight -Procalcitonin unremarkable. WBC normal today. -Blood Cx preliminary negative. UCx w/ no growth. -F/u cultures final results. -On acetaminophen. >Hypernatremia/Hyperchloremia -Resolved. -WNL today. -Due to IV fluid overload >DVT Prophylaxis -SCD's - Date & Time Date: 05/20/18 Time: 16:00 <Joaquin Jose - Last Filed: 05/21/18 07:51> CCU Subjective - Physician Review Subjective (Free Text): Attestation: Patient seen and examined at the bedside with Resident Dr. Jerome aJra; and I agree with his outline of plans and management documented below as discussed on AM rounds reflecting my review of all applicable clinical data, and participation in the care of the patient throughout the day in ICU; today, May 20, 2018. Time spent with this patient did not overlap with any other provider's medical or critical care time. Additionally the code selected for the services rendered in this note includes the time spent: talking to the patients family, associated physicians and reviewing hospital data/results not listed here which extended to a total of 70 minutes. Information today provided by family shows Rxs obtained from [facility] [phone]: review of recent meds include: ---Quetiapine 400mg x2 at [facility] ---Clonazepam 0.5mg BID and 1 mg QHS (but Urine Tox on admission was negative for BZDPs) ---Trazedone 150mg QHS ---Mirtazapine 30 mg QD ---Escitalopram 10 mg QD ---Lamotrigine 200mg QHS ---Sertraline 25mg QAM ---Zolpidem 10mg QHS ---Ranitidine 150mg QHS ---Prazosin 2mg QHS ---Ibuprofen 800mg prn TID Now exhibiting myoclonic activity involving face and neck, will start Clonazepam on scheduled dosing and use Ativan IV prn for breakthrough. Major problems now: 1. Hypercapneic Resp Failure-Acute with Aspiration Pna 2. Multi-substance SSRI/Antipsychotic/Alpha-2 Antag OD in a Suicide Attempt 3. Neuroleptic Malignant Syndrome with fevers, autonomic instability, Seizures/ Myoclonus 4. PSVT with A Fib-RVR 5. Acute Kidney Injury / ATN 2 Hypotension, r/o Rhabdomyolysis
[2018-05-20 13:58] LABS: ABG ALLEN TEST YES; ARTERIAL BLOOD GAS O2 SAT 97.8 % (95-98); ARTERIAL BLOOD GAS PCO2 > 150 mm/Hg (35-45); ARTERIAL BLOOD GAS PH 6.82 (7.35-7.45); ARTERIAL BLOOD GAS PO2 246 mm/Hg (80-100)
--- NOTE | 2018-05-20 14:14 | CP.PCM.PN ---
Subjective - Date & Time of Evaluation Date of Evaluation: 05/20/18 Time of Evaluation: 10:00 - Subjective Subjective: F/U Respiratory Failure. on O2 NC, eyes open, moves head to verbal stimuli,able to talk earlier as per Family at bedside Objective - Vital Signs/Intake and Output Vital Signs (last 24 hours): Temp Pulse Resp BP Pulse Ox 97.5 F L 92 H 36 H 162/96 H 94 L 05/20/18 08:00 05/20/18 11:00 05/20/18 11:00 05/20/18 11:00 05/20/18 11:00 Intake and Output: 05/20/18 05/20/18 06:59 18:59 Intake Total 1875 400 Output Total 3300 Balance -1425 400 - Medications Medications: Current Medications Acetaminophen (Tylenol 650mg/20.3ml Solution Ud) 650 mg PO Q4 PRN PRN Reason: Temperature Last Admin: 05/18/18 17:19 Dose: 650 mg Albuterol/Ipratropium (Duoneb 3 Mg/0.5 Mg (3 Ml) Ud) 3 ml INH RQ4 DANNY Last Admin: 05/20/18 11:18 Dose: 3 ml Amantadine HCl (Amantadine 100 Mg Cap) 100 mg PO BID DANNY Last Admin: 05/20/18 09:04 Dose: 100 mg Dexmedetomidine HCl 400 mcg/ (Sodium Chloride) 100 mls @ 30.32 mls/hr IV .Q3H18M DANNY; 1.4 MCG/KG/HR PRN Reason: Protocol Last Titration: 05/20/18 11:49 Dose: 1 mcg/kg/hr, 21.65 mls/hr Dextrose/Sodium Chloride (Dextrose 5%/0.2% Ns 500 Ml) 500 mls @ 125 mls/hr IV .Q4H DANNY Stop: 05/20/18 14:37 Last Admin: 05/20/18 09:03 Dose: 125 mls/hr Insulin Human Lispro (Humalog) 0 units SC 0000,0600,1200,1800 DANNY PRN Reason: Protocol Last Admin: 05/20/18 11:24 Dose: 2 units Morphine Sulfate (Morphine) 4 mg IVP Q4 PRN PRN Reason: Agitation Last Admin: 05/20/18 11:45 Dose: 4 mg Pantoprazole Sodium (Protonix Inj) 40 mg IVP DAILY DANNY Last Admin: 05/20/18 08:12 Dose: 40 mg - Labs Labs: 05/20/18 04:40 05/20/18 04:40 PT 12.4 Seconds (9.8-13.1) 05/14/18 20:25 INR 1.1 (0.9-1.2) 05/14/18 20:25 APTT 22.8 Seconds (25.6-37.1) L 05/14/18 20:25 - Constitutional Appears: No Acute Distress - Head Exam Head Exam: NORMAL INSPECTION - Eye Exam Eye Exam: PERRL - ENT Exam Additional comments: On Venti-Mask - Neck Exam Neck Exam: Normal Inspection - Respiratory Exam Respiratory Exam: Decreased Breath Sounds (at bases) - Cardiovascular Exam Cardiovascular Exam: REGULAR RHYTHM - GI/Abdominal Exam GI & Abdominal Exam: Soft, Normal Bowel Sounds - Extremities Exam Extremities Exam: Normal Inspection - Back Exam Back Exam: NORMAL INSPECTION - Neurological Exam Neurological Exam: Awake Additional comments: minimal movement all extremities, does not follows commands. - Skin Skin Exam: Warm Assessment and Plan (1) Overdose Status: Acute (2) Respiratory failure Status: Acute (3) Aspiration pneumonia Status: Acute (4) Hx of deep venous thrombosis Status: Chronic (5) Hx pulmonary embolism Status: Acute (6) History of obstructive sleep apnea Status: Acute (7) Diabetes Status: Chronic (8) Asthma exacerbation Status: Acute (9) Neuroleptic malignant syndrome Assessment & Plan: s/p Status: Acute - Assessment and Plan (Free Text) Plan: s/p Neuroleptic malignant syndrome, on Precedex, Versed drip, extubated, continue DuoNeb,Vanco,Levaquin CXR negative Critical Care Time: 33 min.
--- NOTE | 2018-05-20 15:03 | RAD ---
Date of service: 05/20/2018 HISTORY: IJ line COMPARISON: 05/19/2018 FINDINGS: LUNGS: No active pulmonary disease. PLEURA: Small to moderate right pleural effusion. New since prior. No left pleural effusion. Questionable fluid capping right lung apex. No pneumothorax. CARDIOVASCULAR: Normal heart size. New right internal jugular central venous catheter. ET tube and NG tube unchanged. OSSEOUS STRUCTURES: No significant abnormalities. VISUALIZED UPPER ABDOMEN: Normal. OTHER FINDINGS: None. IMPRESSION: New right IJ central venous catheter. New right pleural effusion. No pneumothorax. ETT and NG tube unchanged.
[2018-05-20 15:42] LABS: ABG ALLEN TEST YES; ARTERIAL BLOOD GAS HCO3 25.4 mmol/L (21-28); ARTERIAL BLOOD GAS O2 SAT 89.8 % (95-98); ARTERIAL BLOOD GAS PCO2 71 mm/Hg (35-45); ARTERIAL BLOOD GAS PH 7.24 (7.35-7.45); ARTERIAL BLOOD GAS PO2 62 mm/Hg (80-100); ARTERIAL BLOOD GAS TCO2 32.6 mmol/L (22-28)
[2018-05-20] MEDS ORDERED: Sodium Chloride 3% for Inhalation 4 ML VIAL.NEB IH PRN (15:48)
[2018-05-20] MEDS: Clindamycin 600mg/50ml D5W 600 MG/50 ML VIAL IVPB SCH ×2 (16:07→23:48)
[2018-05-20 16:24] LABS: ALB/GLOB RATIO 1.1 (1.0-2.1); ALBUMIN 2.8 g/dL (3.5-5.0); ALT/SGPT 96 U/L (21-72); AST/SGOT 131 U/L (17-59); BLOOD UREA NITROGEN 23 mg/dl (9-20); CALCIUM 7.3 mg/dL (8.4-10.2); GFR NON-AFRICAN AMERICAN > 60
[2018-05-20 16:25] LABS: INR 1.4 (0.9-1.2); PARTIAL THROMBOPLASTIN TIME 23.2 Seconds (25.6-37.1); PROTHROMBIN TIME 15.8 Seconds (9.8-13.1)
[2018-05-20 16:42] LABS: BASO % 0.2 % (0.0-2.0); HEMOGLOBIN 10.7 g/dL (12.0-18.0); LYMPH # 0.4 K/uL (1.0-4.3); LYMPH % 1.9 % (20.0-40.0); MEAN CORPUSCULAR HEMOGLOBIN 24.1 pg (27.0-31.0); MEAN CORPUSCULAR HGB CONC 31.7 g/dL (33.0-37.0); MEAN PLATELET VOLUME 9.3 fl (7.2-11.7); MONO # 0.7 K/uL (0.0-0.8); MONO % 3.4 % (0.0-10.0); NEUT # 19.3 K/uL (1.8-7.0); NEUT % 94.5 % (50.0-75.0); NRBC % 0.1 % (0.0-0.0); RBC 4.44 Mil/uL (4.40-5.90); RED CELL DISTRIBUTION WIDTH 16.7 % (11.5-14.5); WHITE BLOOD COUNT 20.4 K/uL (4.8-10.8)
--- NOTE | 2018-05-20 17:20 | CP.CCUPN ---
CCU Subjective - Physician Review Subjective (Free Text): Code BLUE Note: Oral INTUBATION: Central Venous Access Line Placement: Arterial Line Placement: Synchronized Cardioversion: Code called for progressive bradycardia and hypoxemia, associated with irregular and shallow breathing pattern. Overall responsiveness dissimilar form AM exam, with eyes open, staring without response to confrontation, pain, nor verbal commands. CPR and ACLS started immediately, high quality chest compressions ensured. Precedex stopped prior to Code. Initial doses of Atropine , Epinephrine given followed by timed interval repeat doses. Rhythm reverted back to a junctional rhythm at 60/min with palpable carotid and femoral pulses. Multiple vasoactive meds were started in addition to Levophed, including Dopamine for its assistive effects on HR and BP. Two fluid challenges with 1000ml Saline given as well. Post resuscitation, remains comatose on vent but eye spontaneously open , yet non-interactive, there is no gaze preference, no any observable external seizure activity. He is breathing 25 on AC 22, TV 550, 100% oxygen. MV rate increased from 12 to 22 after post-code ABG revealed severe hypercarbia. Post intubation CXR revealed lobar collapse of RML and R, ETT tip placement acceptable above lexus and no PTX seen, with satisfactory placement of tip of TLC in distal SVC. HR returned back to 60/min, further acceleration in HR noted and recurrent tachyarrhythmia noted now with onset of SVT and HRs up to 180-190 in an irregularly irregular rhythm appearing as A Fib with RVR. BP unchanged at 62 systolic with barely palpable femoral pulses. An Arterial line was subsequently placed for more accurate BP monitoring via the R femoral artery. After re- confirmation of severe HR acceleration and low BP, decision made to perform sync Cardioversion: 50 J delivered with good response, rhythm changed to sinus tachy at 130/min, and BP increasing to 115 systolic. Events and Post- resuscitation findings relayed and discussed with patients mother, daughter and 2 brothers at the bedside.
--- NOTE | 2018-05-20 17:22 | PCM.PROC ---
Procedures Attestation:: I certify that I have explained the specified Operation(s) or Procedure(s), risks, benefits and reasonable alternatives to the Patient and/or other person responsible. The opportunity was given to ask questions and all questions answered - Arterial Line Right Femoral Aseptic technique was employed throughout the procedure: Hand Hygiene done prior to procedure, Full sterile barriers (mask, hair cover, sterile gown, sterile gloves), Chloraprep Antiseptic: 2 minute prep for Femoral Time Out Performed: Yes Pt. placed on Pulse Ox Monitor: Yes Central Line Prep: Chlorhexidine-Alcohol Combination Ultrasound Used for Placement: No Gauge (Size): 20 gauge (6 inch angiocath) Technique Used: Guide Wire Technique Secured by: Suture Post procedure dressing: Clear vapor permeable, Chlorhexidine disc (Biopatch) Patient Tolerated Procedure: no complications Immediate Complications: none (Procedure performed under emergent conditions in ICU post-Code Blue resuscitation.)
--- NOTE | 2018-05-20 17:24 | PCM.PROC ---
Procedures Attestation:: I certify that I have explained the specified Operation(s) or Procedure(s), risks, benefits and reasonable alternatives to the Patient and/or other person responsible. The opportunity was given to ask questions and all questions answered - Central Line Placement Right Internal Jugular Triple Lumen Catheter Aseptic technique was employed throughout the procedure: Hand Hygiene done prior to procedure, Full sterile barriers (mask, hair cover, sterile gown, sterile gloves), Full body sterile drape, Chloraprep Antiseptic: 2 minute prep for Femoral CVP Time Out Performed: Yes Pt. Placed on Pulse Ox Monitor: Yes Central Line Prep: Chlorhexidine-Alcohol Combination Ultrasound Used for Placement: No Central Line Lumen Inserted: triple Central Line Length: 16 cm Post Procedure: Sutured in Place, Good Blood Return, All Ports Aspirated, Flushed, Capped, Sterile Dressing Applied Secured by: Suture Post procedure dressing: Clear vapor permeable, Chlorhexidine disc (Biopatch) Post Procedure X-Ray: Yes Patient Tolerated Procedure: Well (Procedure performed under emergent conditions in ICU, during Code Blue resuscitation.)
--- NOTE | 2018-05-20 17:26 | PCM.PROC ---
Procedures Attestation:: I certify that I have explained the specified Operation(s) or Procedure(s), risks, benefits and reasonable alternatives to the Patient and/or other person responsible. The opportunity was given to ask questions and all questions answered - Intubation Time Out Performed: Yes Sedative: None Laryngoscope: Paolo (MAC 3) ET Tube Size: 8.0 ET Tube Uncuffed: No ET Tube Secured at Depth: 25 cm ET Tube Secured Locarion: Lips ET Tube Placement Confirmation: Visualized Passing Through Cords, No Breath Sounds Over Epigastrum, Confirmation w/Capnometry Patient Tolerated Procedure: Well Procedure Immediate Complications: None Additional comments: Procedure performed under emergent conditions in ICU, as part of Code Blue resuscitation.
[2018-05-20] MEDS: Lactated Ringer's 1,000 ML IV SCH (19:50)
[2018-05-20 21:11] LABS: PROLACTIN 31.2 ng/mL (3.7-17.9)
[2018-05-20] MEDS ORDERED: Metoprolol 1 mg/ml Inj IVP ONE ×2 (23:36→23:46)
[2018-05-21] MEDS ORDERED: Labetalol 300 MG in Dextrose 5% In Water 240 ML IV ONE ×2 (03:35→12:39)
[2018-05-21] MEDS: Albuterol-Ipratrop 3 mg / 0.5 (3 ml) UD INH SCH ×6 (05:00→19:36)
[2018-05-21 05:26] LABS: ABG ALLEN TEST YES; ARTERIAL BLOOD GAS HCO3 31.2 mmol/L (21-28); ARTERIAL BLOOD GAS O2 SAT 97.5 % (95-98); ARTERIAL BLOOD GAS PCO2 45 mm/Hg (35-45); ARTERIAL BLOOD GAS PH 7.47 (7.35-7.45); ARTERIAL BLOOD GAS PO2 200 mm/Hg (80-100); ARTERIAL BLOOD GAS TCO2 34.2 mmol/L (22-28)
[2018-05-21 05:40] LABS: BASO % 0.1 % (0.0-2.0); HEMOGLOBIN 11.1 g/dL (12.0-18.0); LYMPH # 0.5 K/uL (1.0-4.3); LYMPH % 3.7 % (20.0-40.0); MEAN CELL VOLUME 74.8 fl (80.0-94.0); MEAN CORPUSCULAR HEMOGLOBIN 24.4 pg (27.0-31.0); MEAN CORPUSCULAR HGB CONC 32.6 g/dL (33.0-37.0); MEAN PLATELET VOLUME 9.4 fl (7.2-11.7); MONO # 0.5 K/uL (0.0-0.8); MONO % 3.5 % (0.0-10.0); NEUT # 12.8 K/uL (1.8-7.0); NEUT % 92.7 % (50.0-75.0); NRBC % 0.1 % (0.0-0.0); RBC 4.55 Mil/uL (4.40-5.90); RED CELL DISTRIBUTION WIDTH 16.3 % (11.5-14.5); WHITE BLOOD COUNT 13.8 K/uL (4.8-10.8)
[2018-05-21 05:50] LABS: ALB/GLOB RATIO 1.2 (1.0-2.1); ALBUMIN 3.1 g/dL (3.5-5.0); ALT/SGPT 85 U/L (21-72); AST/SGOT 83 U/L (17-59); BLOOD UREA NITROGEN 35 mg/dl (9-20); CALCIUM 7.8 mg/dL (8.4-10.2); GFR NON-AFRICAN AMERICAN 59
[2018-05-21] MEDS: Insulin Lispro (humaLOG) 100 Units/ml Inj SC SCH ×4 (06:36→23:02)
--- NOTE | 2018-05-21 07:37 | CP.PCM.PN ---
Subjective - Date & Time of Evaluation Date of Evaluation: 05/19/18 Time of Evaluation: 17:00 - Subjective Subjective: seen and examined at the bed side. SS/P extubation today. Not following command , & became agitated after extubation. Pt continue to spike on fevers. Objective - Vital Signs/Intake and Output Vital Signs (last 24 hours): Temp Pulse Resp BP Pulse Ox 100.3 F H 69 22 142/82 100 05/21/18 04:00 05/21/18 06:00 05/21/18 06:00 05/21/18 06:00 05/21/18 06:00 Intake and Output: 05/21/18 05/21/18 06:59 18:59 Intake Total 1420 Output Total 900 Balance 520 - Medications Medications: Current Medications Acetaminophen (Tylenol 650mg/20.3ml Solution Ud) 650 mg PO Q4 PRN PRN Reason: Temperature Last Admin: 05/18/18 17:19 Dose: 650 mg Albuterol/Ipratropium (Duoneb 3 Mg/0.5 Mg (3 Ml) Ud) 3 ml INH RQ4 DANNY Last Admin: 05/21/18 05:00 Dose: 3 ml Amantadine HCl (Amantadine 100 Mg Cap) 100 mg PO BID DANNY Last Admin: 05/20/18 17:00 Dose: 100 mg Clonazepam (Klonopin) 1 mg GT Q4H DANNY Last Admin: 05/21/18 06:36 Dose: 1 mg Clindamycin Phosphate (Cleocin) 600 mg in 50 mls @ 50 mls/hr IVPB Q8H DANNY PRN Reason: Protocol Last Admin: 05/20/18 23:48 Dose: 50 mls/hr Vancomycin HCl 1 gm/ Sodium (Chloride) 250 mls @ 166.667 mls/hr IVPB Q12H DANNY PRN Reason: Protocol Last Admin: 05/21/18 03:47 Dose: 166.667 mls/hr Levofloxacin/Dextrose (Levaquin 750mg) 750 mg in 150 mls @ 100 mls/hr IVPB DAILY DANNY Lactated Ringer's (Lactated Ringer's) 1,000 mls @ 125 mls/hr IV .Q8H DANNY Last Admin: 05/20/18 19:50 Dose: 125 mls/hr Labetalol HCl 300 mg/ Dextrose 300 mls @ 60 mls/hr IV .Q5H ONE; 1 MG/MIN PRN Reason: Protocol Stop: 05/21/18 08:34 Last Admin: 05/21/18 03:59 Dose: 1 mg/min, 60 mls/hr Insulin Human Lispro (Humalog) 0 units SC 0000,0600,1200,1800 DANNY PRN Reason: Protocol Last Admin: 05/21/18 06:36 Dose: Not Given Lorazepam (Ativan) 2 mg IVP Q3H PRN PRN Reason: Agitation Last Admin: 05/21/18 01:36 Dose: 2 mg Morphine Sulfate (Morphine) 4 mg IVP Q4 PRN PRN Reason: Agitation Last Admin: 05/20/18 22:26 Dose: 4 mg - Labs Labs: 05/21/18 05:00 05/21/18 05:00 PT 15.8 Seconds (9.8-13.1) H 05/20/18 16:00 INR 1.4 (0.9-1.2) H 05/20/18 16:00 APTT 23.2 Seconds (25.6-37.1) L 05/20/18 16:00 - Constitutional Appears: Toxic, In Acute Distress, Agitated - Respiratory Exam Respiratory Exam: Clear to Ausculation Bilateral - Cardiovascular Exam Cardiovascular Exam: +S1, +S2 - GI/Abdominal Exam GI & Abdominal Exam: Normal Bowel Sounds - Neurological Exam Neurological Exam: Altered Additional comments: Moves all Extremities - Psychiatric Exam Psychiatric exam: Agitated - Skin Skin Exam: Dry, Intact Assessment and Plan (1) Acute respiratory failure with hypercapnia Assessment & Plan: S/P Extubation Respiratory Acidosis Aspiration Pneumonia Vs Neuroleptic/Serotonine Syndrome Vs Drug Fever Fever NPO IVF D/c ABX ID, and Pulmonary Consult ABG Daily Morning Labs Status: Acute (2) Altered mental status, Assessment and Plan: Multiple Drug Overdose Neuroleptic Syndrome/Serotonine Syndrome Supportive Care Status: Acute (3) Suicide attempt by drug ingestion Assessment and Plan: Major Depression Supportive Care Psych Consult Status: Acute Priority: High (4) Microcytic Anemia (5) Hypernatremia/Hyperchloremia D5 0.225 @125cc/hr (d) DVT prophylaxis Assessment and Plan: Lovenox 40mg SQ Daily Status: Inactive Priority: High Status: Chronic - Assessment and Plan (Free Text) Assessment: A 47 y/o M with a PMHx Depression, Anxiety, DM type 2, HTN, HLD, TIA, Asthma, JODY, CABG, CAD with stent (2008), DVT and PE s/p IVC Filter (2008), Gastric Bypass (2013), admitted due to suicidal attempt via overdose of Seroquel/Ambien/ Trazodone/Clonidine, and after D/w the Banking Services Officer, the Mental Status not improving and continue to spike fever despite IV antibiotics and Supportive care , and Highly likely Reason Includes Neuroleptic Syndrome or Serotonin Syndrome. Plan: As Detailed above
--- NOTE | 2018-05-21 07:39 | CP.PCM.PN ---
Subjective - Date & Time of Evaluation Date of Evaluation: 05/20/18 Time of Evaluation: 13:00 - Subjective Subjective: Seen and examined at the bed side. Patient had Cardiac arrest after Bradycardia , and successful resuscitated. Post-code work up showed Hypercapnic Respiratory Failure with Severe Respiratory & Metabolic Acidosis. Patient is intubated and GCS 3T. Objective - Vital Signs/Intake and Output Vital Signs (last 24 hours): Temp Pulse Resp BP Pulse Ox 100.3 F H 69 22 142/82 100 05/21/18 04:00 05/21/18 06:00 05/21/18 06:00 05/21/18 06:00 05/21/18 06:00 Intake and Output: 05/21/18 05/21/18 06:59 18:59 Intake Total 1420 Output Total 900 Balance 520 - Medications Medications: Current Medications Acetaminophen (Tylenol 650mg/20.3ml Solution Ud) 650 mg PO Q4 PRN PRN Reason: Temperature Last Admin: 05/18/18 17:19 Dose: 650 mg Albuterol/Ipratropium (Duoneb 3 Mg/0.5 Mg (3 Ml) Ud) 3 ml INH RQ4 DANNY Last Admin: 05/21/18 05:00 Dose: 3 ml Amantadine HCl (Amantadine 100 Mg Cap) 100 mg PO BID DANNY Last Admin: 05/20/18 17:00 Dose: 100 mg Clonazepam (Klonopin) 1 mg GT Q4H DANNY Last Admin: 05/21/18 06:36 Dose: 1 mg Clindamycin Phosphate (Cleocin) 600 mg in 50 mls @ 50 mls/hr IVPB Q8H DANNY PRN Reason: Protocol Last Admin: 05/20/18 23:48 Dose: 50 mls/hr Vancomycin HCl 1 gm/ Sodium (Chloride) 250 mls @ 166.667 mls/hr IVPB Q12H DANNY PRN Reason: Protocol Last Admin: 05/21/18 03:47 Dose: 166.667 mls/hr Levofloxacin/Dextrose (Levaquin 750mg) 750 mg in 150 mls @ 100 mls/hr IVPB DAILY DANNY Lactated Ringer's (Lactated Ringer's) 1,000 mls @ 125 mls/hr IV .Q8H DANNY Last Admin: 05/20/18 19:50 Dose: 125 mls/hr Labetalol HCl 300 mg/ Dextrose 300 mls @ 60 mls/hr IV .Q5H ONE; 1 MG/MIN PRN Reason: Protocol Stop: 05/21/18 08:34 Last Admin: 05/21/18 03:59 Dose: 1 mg/min, 60 mls/hr Insulin Human Lispro (Humalog) 0 units SC 0000,0600,1200,1800 DANNY PRN Reason: Protocol Last Admin: 05/21/18 06:36 Dose: Not Given Lorazepam (Ativan) 2 mg IVP Q3H PRN PRN Reason: Agitation Last Admin: 05/21/18 01:36 Dose: 2 mg Morphine Sulfate (Morphine) 4 mg IVP Q4 PRN PRN Reason: Agitation Last Admin: 05/20/18 22:26 Dose: 4 mg - Labs Labs: 05/21/18 05:00 05/21/18 05:00 PT 15.8 Seconds (9.8-13.1) H 05/20/18 16:00 INR 1.4 (0.9-1.2) H 05/20/18 16:00 APTT 23.2 Seconds (25.6-37.1) L 05/20/18 16:00 Assessment and Plan (1) Acute respiratory failure with hypercapnia Assessment & Plan: S/P Reintubated Mixed Respiratory and Metabolic acidosis with Lactate Level >10 Aspiration Pneumonia Vs Neuroleptic/Serotonine Syndrome Vs Drug Fever Fever IVF ABG Daily Morning Labs Status: Acute (2) Cardiac Arrest Today S/P Successful Resuscitation Assessment and Plan: Multiple Drug Overdose Neuroleptic Syndrome/Serotonine Syndrome Supportive Care Danrolene PRN regidity Status: Acute (3) Suicide attempt by drug ingestion Assessment and Plan: Major Depression Supportive Care Psych onboard Status: Acute Priority: High (4) Microcytic Anemia (5) Hypernatremia/Hyperchloremia D5 0.225 @125cc/hr (d) DVT prophylaxis Assessment and Plan: Lovenox 40mg SQ Daily Status: Inactive Priority: High Status: Chronic
[2018-05-21] MEDS: Clindamycin 600mg/50ml D5W 600 MG/50 ML VIAL IVPB SCH ×3 (08:17→23:04)
[2018-05-21] MEDS: levoFLOXacin 750 mg in D5W 750 MG/150 ML BAG IVPB SCH (08:18)
--- NOTE | 2018-05-21 08:46 | RAD ---
Date of service: 05/21/2018 HISTORY: intubated COMPARISON: 05/20/2018. FINDINGS: Endotracheal tube terminates 3 cm proximal to the lexus. The nasogastric tube terminates in the stomach. The right IJV line terminates in the SVC. LUNGS: There is worsening consolidation in the right lower lobe. PLEURA: Worsening small right pleural effusion, no pneumothorax apparent. CARDIOVASCULAR: Normal. OSSEOUS STRUCTURES: No significant abnormalities. VISUALIZED UPPER ABDOMEN: Normal. OTHER FINDINGS: None. IMPRESSION: Worsening right lower lobe pneumonia and pleural effusion. Follow-up to resolution is advised. No change in support line and tubes.
[2018-05-21] MEDS ORDERED: levoFLOXacin 750 mg in D5W 150 ML BAG IVPB SCH (09:00)
--- NOTE | 2018-05-21 09:11 | CP.PCM.PN ---
Subjective - Date & Time of Evaluation Date of Evaluation: 05/21/18 Time of Evaluation: 09:03 - Subjective Subjective: Mr. Shah was seen and examined at the bedside in the ICU. He is mechanical ventilator on PRVC mode. He does have a corneal reflex, with very minimal very sluggish pupils reactive mydraisis, on upward position, no response to noxious stimuli and gag reflex, GCS-3T.He is currently on labetalol drip for blood pressure control. He had an episode of being unresponsive, Code blue was called had a ROSC, however, he developed SVT which adenosine was administered which did not solve the issue. Cardioverted and converted to sinus. Objective - Vital Signs/Intake and Output Vital Signs (last 24 hours): Temp Pulse Resp BP Pulse Ox 98.6 F 77 23 168/92 H 100 05/21/18 08:00 05/21/18 08:00 05/21/18 08:00 05/21/18 08:00 05/21/18 08:00 Intake and Output: 05/21/18 05/21/18 06:59 18:59 Intake Total 1420 60 Output Total 900 Balance 520 60 - Medications Medications: Current Medications Acetaminophen (Tylenol 650mg/20.3ml Solution Ud) 650 mg PO Q4 PRN PRN Reason: Temperature Last Admin: 05/18/18 17:19 Dose: 650 mg Albuterol/Ipratropium (Duoneb 3 Mg/0.5 Mg (3 Ml) Ud) 3 ml INH RQ4 DANNY Last Admin: 05/21/18 05:00 Dose: 3 ml Amantadine HCl (Amantadine 100 Mg Cap) 100 mg PO BID DANNY Last Admin: 05/21/18 08:18 Dose: 100 mg Clonazepam (Klonopin) 1 mg GT Q4H DANNY Last Admin: 05/21/18 06:36 Dose: 1 mg Clindamycin Phosphate (Cleocin) 600 mg in 50 mls @ 50 mls/hr IVPB Q8H DANNY PRN Reason: Protocol Last Admin: 05/21/18 08:17 Dose: 50 mls/hr Vancomycin HCl 1 gm/ Sodium (Chloride) 250 mls @ 166.667 mls/hr IVPB Q12H DANNY PRN Reason: Protocol Last Admin: 05/21/18 03:47 Dose: 166.667 mls/hr Levofloxacin/Dextrose (Levaquin 750mg) 750 mg in 150 mls @ 100 mls/hr IVPB DAILY DANNY Last Admin: 05/21/18 08:18 Dose: 100 mls/hr Lactated Ringer's (Lactated Ringer's) 1,000 mls @ 125 mls/hr IV .Q8H DANNY Last Admin: 05/20/18 19:50 Dose: 125 mls/hr Insulin Human Lispro (Humalog) 0 units SC 0000,0600,1200,1800 DANNY PRN Reason: Protocol Last Admin: 05/21/18 06:36 Dose: Not Given Lorazepam (Ativan) 2 mg IVP Q3H PRN PRN Reason: Agitation Last Admin: 05/21/18 01:36 Dose: 2 mg Morphine Sulfate (Morphine) 4 mg IVP Q4 PRN PRN Reason: Agitation Last Admin: 05/20/18 22:26 Dose: 4 mg - Labs Labs: 05/21/18 05:00 05/21/18 05:00 PT 15.8 Seconds (9.8-13.1) H 05/20/18 16:00 INR 1.4 (0.9-1.2) H 05/20/18 16:00 APTT 23.2 Seconds (25.6-37.1) L 05/20/18 16:00 - Constitutional Appears: No Acute Distress - Eye Exam Pupil Exam: Mydriatic Additional comments: 5 mm sluggish - Neurological Exam Neuro motor strength exam: Left Upper Extremity: 0, Right Upper Extremity: 0, Left Lower Extremity: 0, Right Lower Extremity: 0 Additional comments: GCS-3T Assessment and Plan (1) Neuroleptic malignant syndrome Assessment & Plan: Case discussed with Dr. Gonzales, continue all current medical regimen including ICU team management for ventilator and blood pressure management. Pending MRI of the brain, Recommend EEG, keep head of the bed elevated at least 30 degrees, treat any electrolyte abnormalities, elevated WBC strat keppra at 500 mg IVPB Q 12. Status: Acute
[2018-05-21] MEDS ORDERED: levETIRAcetam 500 MG in Sodium Chloride 0.9% 100 ML IVPB SCH (09:30)
--- NOTE | 2018-05-21 10:17 | CP.CCUPN ---
<Gerson Jara - Last Filed: 05/21/18 16:30> CCU Subjective - Physician Review Subjective (Free Text): 05/21/18 10:00 ICU Progress Note 47 y/o M evaluated and examined by bedside. Pt is non-verbal, non-responsive to verbal or tactile stimulation. Pt currently on mechanical ventilator, lying on bed and not moving. Pt afebrile orvernight. CCU Objective - Vital Signs / Intake & Output Vital Signs (Last 4 hours): Vital Signs Temp Pulse Resp BP Pulse Ox 05/21/18 08:00 98.6 F 77 23 168/92 H 100 05/21/18 06:00 69 22 142/82 100 Intake and Output (Last 8hrs): Intake & Output 05/20/18 05/21/18 05/21/18 22:59 06:59 14:59 Intake Total 1300 1170 60 Output Total 1350 900 Balance -50 270 60 Weight 87.09 kg Intake: IV 1250 870 60 Intake, Piggyback 50 300 Tube Feeding 0 Output: Urine 1350 900 Urethral (Sy) 1350 900 - Physical Exam Physical Exam Limitations: Positive for: Altered Mental Status Head: Positive for: Atraumatic, Normocephalic Pupils: Positive for: PERRL Conjunctiva: Positive for: Normal Mouth: Positive for: Moist Mucous Membranes Nose (External): Positive for: Atraumatic Respiratory/Chest: Positive for: Clear to Auscultation Cardiovascular: Positive for: Regular Rate and Rhythm, Normal S1, S2 Abdomen: Negative for: Tenderness, Distention Upper Extremity: Positive for: Normal Inspection Lower Extremity: Positive for: Normal Inspection Neurological: Positive for: Other (no response to verbal/tactile stimuli) - Medications Active Medications: Active Medications Generic Name Dose Route Start Last Admin Trade Name Freq PRN Reason Stop Dose Admin Acetaminophen 650 mg 05/16/18 20:17 05/18/18 17:19 Tylenol 650mg/20.3ml Solution Ud PO 650 mg Q4 PRN Administration Temperature Albuterol/Ipratropium 3 ml 05/17/18 13:45 05/21/18 05:00 Duoneb 3 Mg/0.5 Mg (3 Ml) Ud INH 3 ml RQ4 DANNY Administration Amantadine HCl 100 mg 05/21/18 17:00 Amantadine 100 Mg Cap PEG BID DANNY Clonazepam 1 mg 05/20/18 19:15 05/21/18 06:36 Klonopin GT 1 mg Q4H DANNY Administration Clindamycin Phosphate 600 mg in 50 mls @ 50 mls/hr 05/20/18 16:00 05/21/18 08 :17 Cleocin IVPB 50 mls/hr Q8H DANNY Administration Protocol Vancomycin HCl 1 gm/ Sodium 250 mls @ 166.667 mls/hr 05/20/18 16:00 05/21/18 03:47 Chloride IVPB 166.667 mls/hr Q12H [facility] Administration Protocol Levofloxacin/Dextrose 750 mg in 150 mls @ 100 mls/hr 05/21/18 09:00 05/21/18 08:18 Levaquin 750mg IVPB 100 mls/hr DAILY DANNY Administration Lactated Ringer's 1,000 mls @ 125 mls/hr 05/20/18 19:45 05/20/18 19:50 Lactated Ringer's IV 125 mls/hr .Q8H DANNY Administration Levetiracetam 1,000 mg/ Sodium 110 mls @ 210 mls/hr 05/21/18 09:45 Chloride IVPB Q12 [facility] Insulin Human Lispro 0 units 05/18/18 18:00 05/21/18 06:36 Humalog SC Not Given 0000,0600,1200,1800 [facility] Protocol Lorazepam 2 mg 05/20/18 19:07 05/21/18 01:36 Ativan IVP 2 mg Q3H PRN Administration Agitation Morphine Sulfate 4 mg 05/19/18 10:16 05/20/18 22:26 Morphine IVP 4 mg Q4 PRN Administration Agitation - Patient Studies Lab Studies: Microbiology Studies 05/20/18 16:00 Gram Stain - Final Sputum 05/18/18 16:49 Blood Culture - Preliminary Blood-Venous NO GROWTH AFTER 48 HOURS 05/17/18 16:08 Blood Culture - Preliminary Blood-Venous NO GROWTH AFTER 3 DAYS 05/17/18 15:58 Blood Culture - Preliminary Blood-Venous NO GROWTH AFTER 3 DAYS Lab Studies 05/21/18 05/21/18 05/21/18 Range/Units 06:07 05:04 05:00 WBC (4.8-10.8) K/uL RBC (4.40-5.90) Mil/uL Hgb (12.0-18.0) g/dL Hct (35.0-51.0) % MCV (80.0-94.0) fl MCH (27.0-31.0) pg MCHC (33.0-37.0) g/dL RDW (11.5-14.5) % Plt Count (130-400) K/uL MPV (7.2-11.7) fl Neut % (Auto) (50.0-75.0) % Lymph % (Auto) (20.0-40.0) % Sunflower % (Auto) (0.0-10.0) % Eos % (Auto) (0.0-4.0) % Baso % (Auto) (0.0-2.0) % Neut # (Auto) (1.8-7.0) K/uL Lymph # (Auto) (1.0-4.3) K/uL Sunflower # (Auto) (0.0-0.8) K/uL Eos # (Auto) (0.0-0.7) K/uL Baso # (Auto) (0.0-0.2) K/uL Total Counted Neutrophils % (Manual) (42-75) % Band Neutrophils % (0-2) % Lymphocytes % (Manual) (20-50) % Reactive Lymphs % (0-0) % Monocytes % (Manual) (0-10) % Eosinophils % (Manual) Basophils % (Manual) Metamyelocytes % Myelocytes % Promyelocytes % Blast Cells % Plasma Cell % (Manual) Nucleated RBC % Hypersegmented Polys Smudge Cells Toxic Granulation Dohle Bodies Ping Rods Platelet Estimate (NORMAL) Plt Clumps, EDTA Large Platelets Giant Platelets RBC Morphology Polychromasia Hypochromasia (manual) Poikilocytosis (manual Basophilic Stippling Anisocytosis (manual) Microcytosis (manual) Macrocytosis (manual) Spherocytes Sickle Cells Target Cells Tear Drop Cells Ovalocytes Stomatocytes Helmet Cells Villa-Thrall Bodies Shreyas Cells Acanthocytes (Spur) Rouleaux Schistocytes PT (9.8-13.1) Seconds INR (0.9-1.2) APTT (25.6-37.1) Seconds pCO2 45 (35-45) mm/Hg pO2 200 H (80-100) mm/Hg HCO3 31.2 H (21-28) mmol/L ABG pH 7.47 H (7.35-7.45) ABG Total CO2 34.2 H (22-28) mmol/L ABG O2 Saturation 97.5 (95-98) % ABG Base Excess 8.0 H (-2.0-3.0) mmol/L Eagle Test Yes ABG Potassium 4.1 (3.6-5.2) mmol/L A-a O2 Difference 457.0 mm/Hg Sodium 141.0 145 (132-148) mmol/L Chloride 108.0 H 103 (98-107) mmol/L Glucose 161 H (75-110) mg/dL Lactate 1.3 (0.7-2.1) mmol/L Vent Mode A/c Mechanical Rate 22 FiO2 100.0 % Tidal Volume 550 PEEP 5 Crit Value Called To Crit Value Called By Crit Value Read Back Blood Gas Notified Time Potassium 4.4 (3.6-5.0) MMOL/L Carbon Dioxide 33 H (22-30) mmol/L Anion Gap 13 (10-20) BUN 35 H (9-20) mg/dl Creatinine 1.3 (0.8-1.5) mg/dl Est GFR ( Amer) > 60 Est GFR (Non-Af Amer) 59 POC Glucose (mg/dL) 137 H (65-110) mg/dL Random Glucose 154 H (75-110) mg/dL Calcium 7.8 L (8.4-10.2) mg/dL Phosphorus 5.4 H (2.5-4.5) mg/dl Magnesium 1.8 (1.6-2.3) MG/DL Total Bilirubin 0.6 (0.2-1.3) mg/dl AST 83 H D (17-59) U/L ALT 85 H (21-72) U/L Alkaline Phosphatase 54 (38-126) U/L Lactate Dehydrogenase 1413 H (313-618) U/L Total Creatine Kinase 826 H (55-170) U/L Total Protein 5.7 L (6.3-8.2) G/DL Albumin 3.1 L (3.5-5.0) g/dL Globulin 2.7 (2.2-3.9) gm/dL Albumin/Globulin Ratio 1.2 (1.0-2.1) Procalcitonin (0.19-0.49) NG/ML Prolactin (3.7-17.9) ng/mL Arterial Blood Potassium 4.1 (3.6-5.2) mmol/L 05/21/18 05/20/18 05/20/18 Range/Units 05:00 22:57 16:37 WBC 13.8 H (4.8-10.8) K/uL RBC 4.55 (4.40-5.90) Mil/uL Hgb 11.1 L (12.0-18.0) g/dL Hct 34.0 L (35.0-51.0) % MCV 74.8 L (80.0-94.0) fl MCH 24.4 L (27.0-31.0) pg MCHC 32.6 L (33.0-37.0) g/dL RDW 16.3 H (11.5-14.5) % Plt Count 214 (130-400) K/uL MPV 9.4 (7.2-11.7) fl Neut % (Auto) 92.7 H (50.0-75.0) % Lymph % (Auto) 3.7 L (20.0-40.0) % Sunflower % (Auto) 3.5 (0.0-10.0) % Eos % (Auto) 0.0 (0.0-4.0) % Baso % (Auto) 0.1 (0.0-2.0) % Neut # (Auto) 12.8 H (1.8-7.0) K/uL Lymph # (Auto) 0.5 L (1.0-4.3) K/uL Sunflower # (Auto) 0.5 (0.0-0.8) K/uL Eos # (Auto) 0.0 (0.0-0.7) K/uL Baso # (Auto) 0.0 (0.0-0.2) K/uL Total Counted Cancelled Neutrophils % (Manual) Cancelled (42-75) % Band Neutrophils % Cancelled (0-2) % Lymphocytes % (Manual) Cancelled (20-50) % Reactive Lymphs % Cancelled (0-0) % Monocytes % (Manual) Cancelled (0-10) % Eosinophils % (Manual) Cancelled Basophils % (Manual) Cancelled Metamyelocytes % Cancelled Myelocytes % Cancelled Promyelocytes % Cancelled Blast Cells % Cancelled Plasma Cell % (Manual) Cancelled Nucleated RBC % Cancelled Hypersegmented Polys Cancelled Smudge Cells Cancelled Toxic Granulation Cancelled Dohle Bodies Cancelled Ping Rods Cancelled Platelet Estimate Cancelled (NORMAL) Plt Clumps, EDTA Cancelled Large Platelets Cancelled Giant Platelets Cancelled RBC Morphology Cancelled Polychromasia Cancelled Hypochromasia (manual) Cancelled Poikilocytosis (manual Cancelled Basophilic Stippling Cancelled Anisocytosis (manual) Cancelled Microcytosis (manual) Cancelled Macrocytosis (manual) Cancelled Spherocytes Cancelled Sickle Cells Cancelled Target Cells Cancelled Tear Drop Cells Cancelled Ovalocytes Cancelled Stomatocytes Cancelled Helmet Cells Cancelled Villa-Thrall Bodies Cancelled Troy Cells Cancelled Acanthocytes (Spur) Cancelled Rouleaux Cancelled Schistocytes Cancelled PT (9.8-13.1) Seconds INR (0.9-1.2) APTT (25.6-37.1) Seconds pCO2 (35-45) mm/Hg pO2 (80-100) mm/Hg HCO3 (21-28) mmol/L ABG pH (7.35-7.45) ABG Total CO2 (22-28) mmol/L ABG O2 Saturation (95-98) % ABG Base Excess (-2.0-3.0) mmol/L Eagle Test ABG Potassium (3.6-5.2) mmol/L A-a O2 Difference mm/Hg Sodium (132-148) mmol/L Chloride (98-107) mmol/L Glucose (75-110) mg/dL Lactate (0.7-2.1) mmol/L Vent Mode Mechanical Rate FiO2 % Tidal Volume PEEP Crit Value Called To Crit Value Called By Crit Value Read Back Blood Gas Notified Time Potassium (3.6-5.0) MMOL/L Carbon Dioxide (22-30) mmol/L Anion Gap (10-20) BUN (9-20) mg/dl Creatinine (0.8-1.5) mg/dl Est GFR ( Amer) Est GFR (Non-Af Amer) POC Glucose (mg/dL) 138 H 261 H (65-110) mg/dL Random Glucose (75-110) mg/dL Calcium (8.4-10.2) mg/dL Phosphorus (2.5-4.5) mg/dl Magnesium (1.6-2.3) MG/DL Total Bilirubin (0.2-1.3) mg/dl AST (17-59) U/L ALT (21-72) U/L Alkaline Phosphatase (38-126) U/L Lactate Dehydrogenase (313-618) U/L Total Creatine Kinase (55-170) U/L Total Protein (6.3-8.2) G/DL Albumin (3.5-5.0) g/dL Globulin (2.2-3.9) gm/dL Albumin/Globulin Ratio (1.0-2.1) Procalcitonin (0.19-0.49) NG/ML Prolactin (3.7-17.9) ng/mL Arterial Blood Potassium (3.6-5.2) mmol/L 05/20/18 05/20/18 05/20/18 Range/Units 16:00 16:00 16:00 WBC (4.8-10.8) K/uL RBC (4.40-5.90) Mil/uL Hgb (12.0-18.0) g/dL Hct (35.0-51.0) % MCV (80.0-94.0) fl MCH (27.0-31.0) pg MCHC (33.0-37.0) g/dL RDW (11.5-14.5) % Plt Count (130-400) K/uL MPV (7.2-11.7) fl Neut % (Auto) (50.0-75.0) % Lymph % (Auto) (20.0-40.0) % Sunflower % (Auto) (0.0-10.0) % Eos % (Auto) (0.0-4.0) % Baso % (Auto) (0.0-2.0) % Neut # (Auto) (1.8-7.0) K/uL Lymph # (Auto) (1.0-4.3) K/uL Sunflower # (Auto) (0.0-0.8) K/uL Eos # (Auto) (0.0-0.7) K/uL Baso # (Auto) (0.0-0.2) K/uL Total Counted Neutrophils % (Manual) (42-75) % Band Neutrophils % (0-2) % Lymphocytes % (Manual) (20-50) % Reactive Lymphs % (0-0) % Monocytes % (Manual) (0-10) % Eosinophils % (Manual) Basophils % (Manual) Metamyelocytes % Myelocytes % Promyelocytes % Blast Cells % Plasma Cell % (Manual) Nucleated RBC % Hypersegmented Polys Smudge Cells Toxic Granulation Dohle Bodies Ping Rods Platelet Estimate (NORMAL) Plt Clumps, EDTA Large Platelets Giant Platelets RBC Morphology Polychromasia Hypochromasia (manual) Poikilocytosis (manual Basophilic Stippling Anisocytosis (manual) Microcytosis (manual) Macrocytosis (manual) Spherocytes Sickle Cells Target Cells Tear Drop Cells Ovalocytes Stomatocytes Helmet Cells Villa-Thrall Bodies Shreyas Cells Acanthocytes (Spur) Rouleaux Schistocytes PT 15.8 H (9.8-13.1) Seconds INR 1.4 H (0.9-1.2) APTT 23.2 L (25.6-37.1) Seconds pCO2 (35-45) mm/Hg pO2 (80-100) mm/Hg HCO3 (21-28) mmol/L ABG pH (7.35-7.45) ABG Total CO2 (22-28) mmol/L ABG O2 Saturation (95-98) % ABG Base Excess (-2.0-3.0) mmol/L Eagle Test ABG Potassium (3.6-5.2) mmol/L A-a O2 Difference mm/Hg Sodium 141 (132-148) mmol/L Chloride 101 (98-107) mmol/L Glucose (75-110) mg/dL Lactate (0.7-2.1) mmol/L Vent Mode Mechanical Rate FiO2 % Tidal Volume PEEP Crit Value Called To Crit Value Called By Crit Value Read Back Blood Gas Notified Time Potassium 4.9 (3.6-5.0) MMOL/L Carbon Dioxide 27 (22-30) mmol/L Anion Gap 18 (10-20) BUN 23 H (9-20) mg/dl Creatinine 1.1 (0.8-1.5) mg/dl Est GFR ( Amer) > 60 Est GFR (Non-Af Amer) > 60 POC Glucose (mg/dL) (65-110) mg/dL Random Glucose 277 H (75-110) mg/dL Calcium 7.3 L (8.4-10.2) mg/dL Phosphorus (2.5-4.5) mg/dl Magnesium (1.6-2.3) MG/DL Total Bilirubin 0.5 (0.2-1.3) mg/dl AST 131 H D (17-59) U/L ALT 96 H D (21-72) U/L Alkaline Phosphatase 62 (38-126) U/L Lactate Dehydrogenase (313-618) U/L Total Creatine Kinase (55-170) U/L Total Protein 5.3 L (6.3-8.2) G/DL Albumin 2.8 L (3.5-5.0) g/dL Globulin 2.5 (2.2-3.9) gm/dL Albumin/Globulin Ratio 1.1 (1.0-2.1) Procalcitonin 0.35 (0.19-0.49) NG/ML Prolactin 31.2 H (3.7-17.9) ng/mL Arterial Blood Potassium (3.6-5.2) mmol/L 05/20/18 05/20/18 05/20/18 Range/Units 16:00 15:37 13:55 WBC 20.4 H D (4.8-10.8) K/uL RBC 4.44 (4.40-5.90) Mil/uL Hgb 10.7 L (12.0-18.0) g/dL Hct 33.7 L (35.0-51.0) % MCV 76.0 L (80.0-94.0) fl MCH 24.1 L (27.0-31.0) pg MCHC 31.7 L (33.0-37.0) g/dL RDW 16.7 H (11.5-14.5) % Plt Count 214 (130-400) K/uL MPV 9.3 (7.2-11.7) fl Neut % (Auto) 94.5 H (50.0-75.0) % Lymph % (Auto) 1.9 L (20.0-40.0) % Sunflower % (Auto) 3.4 (0.0-10.0) % Eos % (Auto) 0.0 (0.0-4.0) % Baso % (Auto) 0.2 (0.0-2.0) % Neut # (Auto) 19.3 H (1.8-7.0) K/uL Lymph # (Auto) 0.4 L (1.0-4.3) K/uL Sunflower # (Auto) 0.7 (0.0-0.8) K/uL Eos # (Auto) 0.0 (0.0-0.7) K/uL Baso # (Auto) 0.0 (0.0-0.2) K/uL Total Counted Cancelled Neutrophils % (Manual) Cancelled (42-75) % Band Neutrophils % Cancelled (0-2) % Lymphocytes % (Manual) Cancelled (20-50) % Reactive Lymphs % Cancelled (0-0) % Monocytes % (Manual) Cancelled (0-10) % Eosinophils % (Manual) Cancelled Basophils % (Manual) Cancelled Metamyelocytes % Cancelled Myelocytes % Cancelled Promyelocytes % Cancelled Blast Cells % Cancelled Plasma Cell % (Manual) Cancelled Nucleated RBC % Cancelled Hypersegmented Polys Cancelled Smudge Cells Cancelled Toxic Granulation Cancelled Dohle Bodies Cancelled Ping Rods Cancelled Platelet Estimate Cancelled (NORMAL) Plt Clumps, EDTA Cancelled Large Platelets Cancelled Giant Platelets Cancelled RBC Morphology Cancelled Polychromasia Cancelled Hypochromasia (manual) Cancelled Poikilocytosis (manual Cancelled Basophilic Stippling Cancelled Anisocytosis (manual) Cancelled Microcytosis (manual) Cancelled Macrocytosis (manual) Cancelled Spherocytes Cancelled Sickle Cells Cancelled Target Cells Cancelled Tear Drop Cells Cancelled Ovalocytes Cancelled Stomatocytes Cancelled Helmet Cells Cancelled Villa-Thrall Bodies Cancelled Troy Cells Cancelled Acanthocytes (Spur) Cancelled Rouleaux Cancelled Schistocytes Cancelled PT (9.8-13.1) Seconds INR (0.9-1.2) APTT (25.6-37.1) Seconds pCO2 71 H* > 150 H* (35-45) mm/Hg pO2 62 L 246 H (80-100) mm/Hg HCO3 25.4 (21-28) mmol/L ABG pH 7.24 L 6.82 L* (7.35-7.45) ABG Total CO2 32.6 H (22-28) mmol/L ABG O2 Saturation 89.8 L 97.8 (95-98) % ABG Base Excess 1.0 (-2.0-3.0) mmol/L Eagle Test Yes Yes ABG Potassium 4.8 3.0 L (3.6-5.2) mmol/L A-a O2 Difference 562.0 261.0 mm/Hg Sodium 139.0 141.0 (132-148) mmol/L Chloride 103.0 97.0 L (98-107) mmol/L Glucose 309 H 506 H* D (75-110) mg/dL Lactate 3.8 H 10.1 H* (0.7-2.1) mmol/L Vent Mode A/c Mechanical Rate 22 FiO2 100.0 100.0 % Tidal Volume 550 PEEP Crit Value Called To Dr joaquin handy D joaquin handy Crit Value Called By 6075 15 Crit Value Read Back Y Y Blood Gas Notified Time 1541 1356 Potassium (3.6-5.0) MMOL/L Carbon Dioxide (22-30) mmol/L Anion Gap (10-20) BUN (9-20) mg/dl Creatinine (0.8-1.5) mg/dl Est GFR ( Amer) Est GFR (Non-Af Amer) POC Glucose (mg/dL) (65-110) mg/dL Random Glucose (75-110) mg/dL Calcium (8.4-10.2) mg/dL Phosphorus (2.5-4.5) mg/dl Magnesium (1.6-2.3) MG/DL Total Bilirubin (0.2-1.3) mg/dl AST (17-59) U/L ALT (21-72) U/L Alkaline Phosphatase (38-126) U/L Lactate Dehydrogenase (313-618) U/L Total Creatine Kinase (55-170) U/L Total Protein (6.3-8.2) G/DL Albumin (3.5-5.0) g/dL Globulin (2.2-3.9) gm/dL Albumin/Globulin Ratio (1.0-2.1) Procalcitonin (0.19-0.49) NG/ML Prolactin (3.7-17.9) ng/mL Arterial Blood Potassium 4.8 3.0 L (3.6-5.2) mmol/L 05/20/18 05/20/18 05/20/18 Range/Units 11:19 05:59 05:14 WBC (4.8-10.8) K/uL RBC (4.40-5.90) Mil/uL Hgb (12.0-18.0) g/dL Hct (35.0-51.0) % MCV (80.0-94.0) fl MCH (27.0-31.0) pg MCHC (33.0-37.0) g/dL RDW (11.5-14.5) % Plt Count (130-400) K/uL MPV (7.2-11.7) fl Neut % (Auto) (50.0-75.0) % Lymph % (Auto) (20.0-40.0) % Sunflower % (Auto) (0.0-10.0) % Eos % (Auto) (0.0-4.0) % Baso % (Auto) (0.0-2.0) % Neut # (Auto) (1.8-7.0) K/uL Lymph # (Auto) (1.0-4.3) K/uL Sunflower # (Auto) (0.0-0.8) K/uL Eos # (Auto) (0.0-0.7) K/uL Baso # (Auto) (0.0-0.2) K/uL Total Counted Neutrophils % (Manual) (42-75) % Band Neutrophils % (0-2) % Lymphocytes % (Manual) (20-50) % Reactive Lymphs % (0-0) % Monocytes % (Manual) (0-10) % Eosinophils % (Manual) Basophils % (Manual) Metamyelocytes % Myelocytes % Promyelocytes % Blast Cells % Plasma Cell % (Manual) Nucleated RBC % Hypersegmented Polys Smudge Cells Toxic Granulation Dohle Bodies Ping Rods Platelet Estimate (NORMAL) Plt Clumps, EDTA Large Platelets Giant Platelets RBC Morphology Polychromasia Hypochromasia (manual) Poikilocytosis (manual Basophilic Stippling Anisocytosis (manual) Microcytosis (manual) Macrocytosis (manual) Spherocytes Sickle Cells Target Cells Tear Drop Cells Ovalocytes Stomatocytes Helmet Cells Villa-Thrall Bodies Shreyas Cells Acanthocytes (Spur) Rouleaux Schistocytes PT (9.8-13.1) Seconds INR (0.9-1.2) APTT (25.6-37.1) Seconds pCO2 (35-45) mm/Hg pO2 (80-100) mm/Hg HCO3 (21-28) mmol/L ABG pH (7.35-7.45) ABG Total CO2 (22-28) mmol/L ABG O2 Saturation (95-98) % ABG Base Excess (-2.0-3.0) mmol/L Eagle Test ABG Potassium (3.6-5.2) mmol/L A-a O2 Difference mm/Hg Sodium (132-148) mmol/L Chloride (98-107) mmol/L Glucose (75-110) mg/dL Lactate (0.7-2.1) mmol/L Vent Mode Mechanical Rate FiO2 % Tidal Volume PEEP Crit Value Called To Crit Value Called By Crit Value Read Back Blood Gas Notified Time Potassium (3.6-5.0) MMOL/L Carbon Dioxide (22-30) mmol/L Anion Gap (10-20) BUN (9-20) mg/dl Creatinine (0.8-1.5) mg/dl Est GFR ( Amer) Est GFR (Non-Af Amer) POC Glucose (mg/dL) 167 H 203 H 196 H (65-110) mg/dL Random Glucose (75-110) mg/dL Calcium (8.4-10.2) mg/dL Phosphorus (2.5-4.5) mg/dl Magnesium (1.6-2.3) MG/DL Total Bilirubin (0.2-1.3) mg/dl AST (17-59) U/L ALT (21-72) U/L Alkaline Phosphatase (38-126) U/L Lactate Dehydrogenase (313-618) U/L Total Creatine Kinase (55-170) U/L Total Protein (6.3-8.2) G/DL Albumin (3.5-5.0) g/dL Globulin (2.2-3.9) gm/dL Albumin/Globulin Ratio (1.0-2.1) Procalcitonin (0.19-0.49) NG/ML Prolactin (3.7-17.9) ng/mL Arterial Blood Potassium (3.6-5.2) mmol/L 05/20/18 05/20/18 05/19/18 Range/Units 04:40 01:00 17:00 WBC (4.8-10.8) K/uL RBC (4.40-5.90) Mil/uL Hgb (12.0-18.0) g/dL Hct (35.0-51.0) % MCV (80.0-94.0) fl MCH (27.0-31.0) pg MCHC (33.0-37.0) g/dL RDW (11.5-14.5) % Plt Count (130-400) K/uL MPV (7.2-11.7) fl Neut % (Auto) (50.0-75.0) % Lymph % (Auto) (20.0-40.0) % Sunflower % (Auto) (0.0-10.0) % Eos % (Auto) (0.0-4.0) % Baso % (Auto) (0.0-2.0) % Neut # (Auto) (1.8-7.0) K/uL Lymph # (Auto) (1.0-4.3) K/uL Sunflower # (Auto) (0.0-0.8) K/uL Eos # (Auto) (0.0-0.7) K/uL Baso # (Auto) (0.0-0.2) K/uL Total Counted Neutrophils % (Manual) 79 H (42-75) % Band Neutrophils % 2 (0-2) % Lymphocytes % (Manual) 9 L (20-50) % Reactive Lymphs % 1 H (0-0) % Monocytes % (Manual) 9 (0-10) % Eosinophils % (Manual) Basophils % (Manual) Metamyelocytes % Myelocytes % Promyelocytes % Blast Cells % Plasma Cell % (Manual) Nucleated RBC % Hypersegmented Polys Smudge Cells Toxic Granulation Present Dohle Bodies Ping Rods Platelet Estimate Normal (NORMAL) Plt Clumps, EDTA Large Platelets Giant Platelets RBC Morphology Polychromasia Hypochromasia (manual) Slight Poikilocytosis (manual Basophilic Stippling Anisocytosis (manual) Slight Microcytosis (manual) Macrocytosis (manual) Spherocytes Sickle Cells Target Cells Tear Drop Cells Ovalocytes Slight Stomatocytes Helmet Cells Villa-Thrall Bodies Troy Cells Acanthocytes (Spur) Rouleaux Schistocytes PT (9.8-13.1) Seconds INR (0.9-1.2) APTT (25.6-37.1) Seconds pCO2 (35-45) mm/Hg pO2 (80-100) mm/Hg HCO3 (21-28) mmol/L ABG pH (7.35-7.45) ABG Total CO2 (22-28) mmol/L ABG O2 Saturation (95-98) % ABG Base Excess (-2.0-3.0) mmol/L Eagle Test ABG Potassium (3.6-5.2) mmol/L A-a O2 Difference mm/Hg Sodium (132-148) mmol/L Chloride (98-107) mmol/L Glucose (75-110) mg/dL Lactate (0.7-2.1) mmol/L Vent Mode Mechanical Rate FiO2 % Tidal Volume PEEP Crit Value Called To Crit Value Called By Crit Value Read Back Blood Gas Notified Time Potassium (3.6-5.0) MMOL/L Carbon Dioxide (22-30) mmol/L Anion Gap (10-20) BUN (9-20) mg/dl Creatinine (0.8-1.5) mg/dl Est GFR ( Amer) Est GFR (Non-Af Amer) POC Glucose (mg/dL) 209 H 198 H (65-110) mg/dL Random Glucose (75-110) mg/dL Calcium (8.4-10.2) mg/dL Phosphorus (2.5-4.5) mg/dl Magnesium (1.6-2.3) MG/DL Total Bilirubin (0.2-1.3) mg/dl AST (17-59) U/L ALT (21-72) U/L Alkaline Phosphatase (38-126) U/L Lactate Dehydrogenase (313-618) U/L Total Creatine Kinase (55-170) U/L Total Protein (6.3-8.2) G/DL Albumin (3.5-5.0) g/dL Globulin (2.2-3.9) gm/dL Albumin/Globulin Ratio (1.0-2.1) Procalcitonin (0.19-0.49) NG/ML Prolactin (3.7-17.9) ng/mL Arterial Blood Potassium (3.6-5.2) mmol/L 05/19/18 05/19/18 05/18/18 Range/Units 12:02 05:57 23:28 WBC (4.8-10.8) K/uL RBC (4.40-5.90) Mil/uL Hgb (12.0-18.0) g/dL Hct (35.0-51.0) % MCV (80.0-94.0) fl MCH (27.0-31.0) pg MCHC (33.0-37.0) g/dL RDW (11.5-14.5) % Plt Count (130-400) K/uL MPV (7.2-11.7) fl Neut % (Auto) (50.0-75.0) % Lymph % (Auto) (20.0-40.0) % Sunflower % (Auto) (0.0-10.0) % Eos % (Auto) (0.0-4.0) % Baso % (Auto) (0.0-2.0) % Neut # (Auto) (1.8-7.0) K/uL Lymph # (Auto) (1.0-4.3) K/uL Sunflower # (Auto) (0.0-0.8) K/uL Eos # (Auto) (0.0-0.7) K/uL Baso # (Auto) (0.0-0.2) K/uL Total Counted Neutrophils % (Manual) (42-75) % Band Neutrophils % (0-2) % Lymphocytes % (Manual) (20-50) % Reactive Lymphs % (0-0) % Monocytes % (Manual) (0-10) % Eosinophils % (Manual) Basophils % (Manual) Metamyelocytes % Myelocytes % Promyelocytes % Blast Cells % Plasma Cell % (Manual) Nucleated RBC % Hypersegmented Polys Smudge Cells Toxic Granulation Dohle Bodies Ping Rods Platelet Estimate (NORMAL) Plt Clumps, EDTA Large Platelets Giant Platelets RBC Morphology Polychromasia Hypochromasia (manual) Poikilocytosis (manual Basophilic Stippling Anisocytosis (manual) Microcytosis (manual) Macrocytosis (manual) Spherocytes Sickle Cells Target Cells Tear Drop Cells Ovalocytes Stomatocytes Helmet Cells Villa-Thrall Bodies Troy Cells Acanthocytes (Spur) Rouleaux Schistocytes PT (9.8-13.1) Seconds INR (0.9-1.2) APTT (25.6-37.1) Seconds pCO2 (35-45) mm/Hg pO2 (80-100) mm/Hg HCO3 (21-28) mmol/L ABG pH (7.35-7.45) ABG Total CO2 (22-28) mmol/L ABG O2 Saturation (95-98) % ABG Base Excess (-2.0-3.0) mmol/L Eagle Test ABG Potassium (3.6-5.2) mmol/L A-a O2 Difference mm/Hg Sodium (132-148) mmol/L Chloride (98-107) mmol/L Glucose (75-110) mg/dL Lactate (0.7-2.1) mmol/L Vent Mode Mechanical Rate FiO2 % Tidal Volume PEEP Crit Value Called To Crit Value Called By Crit Value Read Back Blood Gas Notified Time Potassium (3.6-5.0) MMOL/L Carbon Dioxide (22-30) mmol/L Anion Gap (10-20) BUN (9-20) mg/dl Creatinine (0.8-1.5) mg/dl Est GFR ( Amer) Est GFR (Non-Af Amer) POC Glucose (mg/dL) 174 H 269 H 222 H (65-110) mg/dL Random Glucose (75-110) mg/dL Calcium (8.4-10.2) mg/dL Phosphorus (2.5-4.5) mg/dl Magnesium (1.6-2.3) MG/DL Total Bilirubin (0.2-1.3) mg/dl AST (17-59) U/L ALT (21-72) U/L Alkaline Phosphatase (38-126) U/L Lactate Dehydrogenase (313-618) U/L Total Creatine Kinase (55-170) U/L Total Protein (6.3-8.2) G/DL Albumin (3.5-5.0) g/dL Globulin (2.2-3.9) gm/dL Albumin/Globulin Ratio (1.0-2.1) Procalcitonin (0.19-0.49) NG/ML Prolactin (3.7-17.9) ng/mL Arterial Blood Potassium (3.6-5.2) mmol/L Laboratory Results - last 24 hr 05/18/18 05/19/18 05/19/18 23:28 05:57 12:02 WBC RBC Hgb Hct MCV MCH MCHC RDW Plt Count MPV Neut % (Auto) Lymph % (Auto) Sunflower % (Auto) Eos % (Auto) Baso % (Auto) Neut # (Auto) Lymph # (Auto) Sunflower # (Auto) Eos # (Auto) Baso # (Auto) Total Counted Neutrophils % (Manual) Band Neutrophils % Lymphocytes % (Manual) Reactive Lymphs % Monocytes % (Manual) Eosinophils % (Manual) Basophils % (Manual) Metamyelocytes % Myelocytes % Promyelocytes % Blast Cells % Plasma Cell % (Manual) Nucleated RBC % Hypersegmented Polys Smudge Cells Toxic Granulation Dohle Bodies Ping Rods Platelet Estimate Plt Clumps, EDTA Large Platelets Giant Platelets RBC Morphology Polychromasia Hypochromasia (manual) Poikilocytosis (manual Basophilic Stippling Anisocytosis (manual) Microcytosis (manual) Macrocytosis (manual) Spherocytes Sickle Cells Target Cells Tear Drop Cells Ovalocytes Stomatocytes Helmet Cells Villa-Thrall Bodies Troy Cells Acanthocytes (Spur) Rouleaux Schistocytes PT INR APTT pCO2 pO2 HCO3 ABG pH ABG Total CO2 ABG O2 Saturation ABG Base Excess Eagle Test ABG Potassium A-a O2 Difference Sodium Chloride Glucose Lactate Vent Mode Mechanical Rate FiO2 Tidal Volume PEEP Crit Value Called To Crit Value Called By Crit Value Read Back Blood Gas Notified Time Potassium Carbon Dioxide Anion Gap BUN Creatinine Est GFR ( Amer) Est GFR (Non-Af Amer) POC Glucose (mg/dL) 222 H 269 H 174 H Random Glucose Calcium Phosphorus Magnesium Total Bilirubin AST ALT Alkaline Phosphatase Lactate Dehydrogenase Total Creatine Kinase Total Protein Albumin Globulin Albumin/Globulin Ratio Procalcitonin Prolactin Arterial Blood Potassium 05/19/18 05/20/1805/20/18 17:00 01:00 04:40 WBC RBC Hgb Hct MCV MCH MCHC RDW Plt Count MPV Neut % (Auto) Lymph % (Auto) Sunflower % (Auto) Eos % (Auto) Baso % (Auto) Neut # (Auto) Lymph # (Auto) Sunflower # (Auto) Eos # (Auto) Baso # (Auto) Total Counted Neutrophils % (Manual) 79 H Band Neutrophils % 2 Lymphocytes % (Manual) 9 L Reactive Lymphs % 1 H Monocytes % (Manual) 9 Eosinophils % (Manual) Basophils % (Manual) Metamyelocytes % Myelocytes % Promyelocytes % Blast Cells % Plasma Cell % (Manual) Nucleated RBC % Hypersegmented Polys Smudge Cells Toxic Granulation Present Dohle Bodies Ping Rods Platelet Estimate Normal Plt Clumps, EDTA Large Platelets Giant Platelets RBC Morphology Polychromasia Hypochromasia (manual) Slight Poikilocytosis (manual Basophilic Stippling Anisocytosis (manual) Slight Microcytosis (manual) Macrocytosis (manual) Spherocytes Sickle Cells Target Cells Tear Drop Cells Ovalocytes Slight Stomatocytes Helmet Cells Villa-Thrall Bodies Shreyas Cells Acanthocytes (Spur) Rouleaux Schistocytes PT INR APTT pCO2 pO2 HCO3 ABG pH ABG Total CO2 ABG O2 Saturation ABG Base Excess Eagle Test ABG Potassium A-a O2 Difference Sodium Chloride Glucose Lactate Vent Mode Mechanical Rate FiO2 Tidal Volume PEEP Crit Value Called To Crit Value Called By Crit Value Read Back Blood Gas Notified Time Potassium Carbon Dioxide Anion Gap BUN Creatinine Est GFR ( Amer) Est GFR (Non-Af Amer) POC Glucose (mg/dL) 198 H 209 H Random Glucose Calcium Phosphorus Magnesium Total Bilirubin AST ALT Alkaline Phosphatase Lactate Dehydrogenase Total Creatine Kinase Total Protein Albumin Globulin Albumin/Globulin Ratio Procalcitonin Prolactin Arterial Blood Potassium 05/20/18 05/20/18 05/20/18 05:14 05:59 11:19 WBC RBC Hgb Hct MCV MCH MCHC RDW Plt Count MPV Neut % (Auto) Lymph % (Auto) Sunflower % (Auto) Eos % (Auto) Baso % (Auto) Neut # (Auto) Lymph # (Auto) Sunflower # (Auto) Eos # (Auto) Baso # (Auto) Total Counted Neutrophils % (Manual) Band Neutrophils % Lymphocytes % (Manual) Reactive Lymphs % Monocytes % (Manual) Eosinophils % (Manual) Basophils % (Manual) Metamyelocytes % Myelocytes % Promyelocytes % Blast Cells % Plasma Cell % (Manual) Nucleated RBC % Hypersegmented Polys Smudge Cells Toxic Granulation Dohle Bodies Ping Rods Platelet Estimate Plt Clumps, EDTA Large Platelets Giant Platelets RBC Morphology Polychromasia Hypochromasia (manual) Poikilocytosis (manual Basophilic Stippling Anisocytosis (manual) Microcytosis (manual) Macrocytosis (manual) Spherocytes Sickle Cells Target Cells Tear Drop Cells Ovalocytes Stomatocytes Helmet Cells Villa-Thrall Bodies Shreyas Cells Acanthocytes (Spur) Rouleaux Schistocytes PT INR APTT pCO2 pO2 HCO3 ABG pH ABG Total CO2 ABG O2 Saturation ABG Base Excess Eagle Test ABG Potassium A-a O2 Difference Sodium Chloride Glucose Lactate Vent Mode Mechanical Rate FiO2 Tidal Volume PEEP Crit Value Called To Crit Value Called By Crit Value Read Back Blood Gas Notified Time Potassium Carbon Dioxide Anion Gap BUN Creatinine Est GFR ( Amer) Est GFR (Non-Af Amer) POC Glucose (mg/dL) 196 H 203 H 167 H Random Glucose Calcium Phosphorus Magnesium Total Bilirubin AST ALT Alkaline Phosphatase Lactate Dehydrogenase Total Creatine Kinase Total Protein Albumin Globulin Albumin/Globulin Ratio Procalcitonin Prolactin Arterial Blood Potassium 05/20/18 05/20/18 05/20/18 13:55 15:37 16:00 WBC 20.4 H D RBC 4.44 Hgb 10.7 L Hct 33.7 L MCV 76.0 L MCH 24.1 L MCHC 31.7 L RDW 16.7 H Plt Count 214 MPV 9.3 Neut % (Auto) 94.5 H Lymph % (Auto) 1.9 L Sunflower % (Auto) 3.4 Eos % (Auto) 0.0 Baso % (Auto) 0.2 Neut # (Auto) 19.3 H Lymph # (Auto) 0.4 L Sunflower # (Auto) 0.7 Eos # (Auto) 0.0 Baso # (Auto) 0.0 Total Counted Cancelled Neutrophils % (Manual) Cancelled Band Neutrophils % Cancelled Lymphocytes % (Manual) Cancelled Reactive Lymphs % Cancelled Monocytes % (Manual) Cancelled Eosinophils % (Manual) Cancelled Basophils % (Manual) Cancelled Metamyelocytes % Cancelled Myelocytes % Cancelled Promyelocytes % Cancelled Blast Cells % Cancelled Plasma Cell % (Manual) Cancelled Nucleated RBC % Cancelled Hypersegmented Polys Cancelled Smudge Cells Cancelled Toxic Granulation Cancelled Dohle Bodies Cancelled Ping Rods Cancelled Platelet Estimate Cancelled Plt Clumps, EDTA Cancelled Large Platelets Cancelled Giant Platelets Cancelled RBC Morphology Cancelled Polychromasia Cancelled Hypochromasia (manual) Cancelled Poikilocytosis (manual Cancelled Basophilic Stippling Cancelled Anisocytosis (manual) Cancelled Microcytosis (manual) Cancelled Macrocytosis (manual) Cancelled Spherocytes Cancelled Sickle Cells Cancelled Target Cells Cancelled Tear Drop Cells Cancelled Ovalocytes Cancelled Stomatocytes Cancelled Helmet Cells Cancelled Villa-Thrall Bodies Cancelled Troy Cells Cancelled Acanthocytes (Spur) Cancelled Rouleaux Cancelled Schistocytes Cancelled PT INR APTT pCO2 > 150 H* 71 H* pO2 246 H 62 L HCO3 25.4 ABG pH 6.82 L* 7.24 L ABG Total CO2 32.6 H ABG O2 Saturation 97.8 89.8 L ABG Base Excess 1.0 Eagle Test Yes Yes ABG Potassium 3.0 L 4.8 A-a O2 Difference 261.0 562.0 Sodium 141.0 139.0 Chloride 97.0 L 103.0 Glucose 506 H* D 309 H Lactate 10.1 H* 3.8 H Vent Mode A/c Mechanical Rate 22 FiO2 100.0 100.0 Tidal Volume 550 PEEP Crit Value Called To Duong handy Crit Value Called By 15 1661 Crit Value Read Back Y Y Blood Gas Notified Time 1354 1549 Potassium Carbon Dioxide Anion Gap BUN Creatinine Est GFR ( Amer) Est GFR (Non-Af Amer) POC Glucose (mg/dL) Random Glucose Calcium Phosphorus Magnesium Total Bilirubin AST ALT Alkaline Phosphatase Lactate Dehydrogenase Total Creatine Kinase Total Protein Albumin Globulin Albumin/Globulin Ratio Procalcitonin Prolactin Arterial Blood Potassium 3.0 L 4.8 05/20/18 05/20/18 05/20/18 16:00 16:00 16:00 WBC RBC Hgb Hct MCV MCH MCHC RDW Plt Count MPV Neut % (Auto) Lymph % (Auto) Sunflower % (Auto) Eos % (Auto) Baso % (Auto) Neut # (Auto) Lymph # (Auto) Sunflower # (Auto) Eos # (Auto) Baso # (Auto) Total Counted Neutrophils % (Manual) Band Neutrophils % Lymphocytes % (Manual) Reactive Lymphs % Monocytes % (Manual) Eosinophils % (Manual) Basophils % (Manual) Metamyelocytes % Myelocytes % Promyelocytes % Blast Cells % Plasma Cell % (Manual) Nucleated RBC % Hypersegmented Polys Smudge Cells Toxic Granulation Dohle Bodies Ping Rods Platelet Estimate Plt Clumps, EDTA Large Platelets Giant Platelets RBC Morphology Polychromasia Hypochromasia (manual) Poikilocytosis (manual Basophilic Stippling Anisocytosis (manual) Microcytosis (manual) Macrocytosis (manual) Spherocytes Sickle Cells Target Cells Tear Drop Cells Ovalocytes Stomatocytes Helmet Cells Villa-Thrall Bodies Troy Cells Acanthocytes (Spur) Rouleaux Schistocytes PT 15.8 H INR 1.4 H APTT 23.2 L pCO2 pO2 HCO3 ABG pH ABG Total CO2 ABG O2 Saturation ABG Base Excess Eagle Test ABG Potassium A-a O2 Difference Sodium 141 Chloride 101 Glucose Lactate Vent Mode Mechanical Rate FiO2 Tidal Volume PEEP Crit Value Called To Crit Value Called By Crit Value Read Back Blood Gas Notified Time Potassium 4.9 Carbon Dioxide 27 Anion Gap 18 BUN 23 H Creatinine 1.1 Est GFR ( Amer) > 60 Est GFR (Non-Af Amer) > 60 POC Glucose (mg/dL) Random Glucose 277 H Calcium 7.3 L Phosphorus Magnesium Total Bilirubin 0.5 AST 131 H D ALT 96 H D Alkaline Phosphatase 62 Lactate Dehydrogenase Total Creatine Kinase Total Protein 5.3 L Albumin 2.8 L Globulin 2.5 Albumin/Globulin Ratio 1.1 Procalcitonin 0.35 Prolactin 31.2 H Arterial Blood Potassium 05/20/18 05/20/18 05/21/18 16:37 22:57 05:00 WBC 13.8 H RBC 4.55 Hgb 11.1 L Hct 34.0 L MCV 74.8 L MCH 24.4 L MCHC 32.6 L RDW 16.3 H Plt Count 214 MPV 9.4 Neut % (Auto) 92.7 H Lymph % (Auto) 3.7 L Sunflower % (Auto) 3.5 Eos % (Auto) 0.0 Baso % (Auto) 0.1 Neut # (Auto) 12.8 H Lymph # (Auto) 0.5 L Sunflower # (Auto) 0.5 Eos # (Auto) 0.0 Baso # (Auto) 0.0 Total Counted Cancelled Neutrophils % (Manual) Cancelled Band Neutrophils % Cancelled Lymphocytes % (Manual) Cancelled Reactive Lymphs % Cancelled Monocytes % (Manual) Cancelled Eosinophils % (Manual) Cancelled Basophils % (Manual) Cancelled Metamyelocytes % Cancelled Myelocytes % Cancelled Promyelocytes % Cancelled Blast Cells % Cancelled Plasma Cell % (Manual) Cancelled Nucleated RBC % Cancelled Hypersegmented Polys Cancelled Smudge Cells Cancelled Toxic Granulation Cancelled Dohle Bodies Cancelled Ping Rods Cancelled Platelet Estimate Cancelled Plt Clumps, EDTA Cancelled Large Platelets Cancelled Giant Platelets Cancelled RBC Morphology Cancelled Polychromasia Cancelled Hypochromasia (manual) Cancelled Poikilocytosis (manual Cancelled Basophilic Stippling Cancelled Anisocytosis (manual) Cancelled Microcytosis (manual) Cancelled Macrocytosis (manual) Cancelled Spherocytes Cancelled Sickle Cells Cancelled Target Cells Cancelled Tear Drop Cells Cancelled Ovalocytes Cancelled Stomatocytes Cancelled Helmet Cells Cancelled Villa-Thrall Bodies Cancelled Shreyas Cells Cancelled Acanthocytes (Spur) Cancelled Rouleaux Cancelled Schistocytes Cancelled PT INR APTT pCO2 pO2 HCO3 ABG pH ABG Total CO2 ABG O2 Saturation ABG Base Excess Eagle Test ABG Potassium A-a O2 Difference Sodium Chloride Glucose Lactate Vent Mode Mechanical Rate FiO2 Tidal Volume PEEP Crit Value Called To Crit Value Called By Crit Value Read Back Blood Gas Notified Time Potassium Carbon Dioxide Anion Gap BUN Creatinine Est GFR ( Amer) Est GFR (Non-Af Amer) POC Glucose (mg/dL) 261 H 138 H Random Glucose Calcium Phosphorus Magnesium Total Bilirubin AST ALT Alkaline Phosphatase Lactate Dehydrogenase Total Creatine Kinase Total Protein Albumin Globulin Albumin/Globulin Ratio Procalcitonin Prolactin Arterial Blood Potassium 05/21/18 05/21/18 05/21/18 05:00 05:04 06:07 WBC RBC Hgb Hct MCV MCH MCHC RDW Plt Count MPV Neut % (Auto) Lymph % (Auto) Sunflower % (Auto) Eos % (Auto) Baso % (Auto) Neut # (Auto) Lymph # (Auto) Sunflower # (Auto) Eos # (Auto) Baso # (Auto) Total Counted Neutrophils % (Manual) Band Neutrophils % Lymphocytes % (Manual) Reactive Lymphs % Monocytes % (Manual) Eosinophils % (Manual) Basophils % (Manual) Metamyelocytes % Myelocytes % Promyelocytes % Blast Cells % Plasma Cell % (Manual) Nucleated RBC % Hypersegmented Polys Smudge Cells Toxic Granulation Dohle Bodies Ping Rods Platelet Estimate Plt Clumps, EDTA Large Platelets Giant Platelets RBC Morphology Polychromasia Hypochromasia (manual) Poikilocytosis (manual Basophilic Stippling Anisocytosis (manual) Microcytosis (manual) Macrocytosis (manual) Spherocytes Sickle Cells Target Cells Tear Drop Cells Ovalocytes Stomatocytes Helmet Cells Villa-Thrall Bodies Troy Cells Acanthocytes (Spur) Rouleaux Schistocytes PT INR APTT pCO2 45 pO2 200 H HCO3 31.2 H ABG pH 7.47 H ABG Total CO2 34.2 H ABG O2 Saturation 97.5 ABG Base Excess 8.0 H Eagle Test Yes ABG Potassium 4.1 A-a O2 Difference 457.0 Sodium 145 141.0 Chloride 103 108.0 H Glucose 161 H Lactate 1.3 Vent Mode A/c Mechanical Rate 22 FiO2 100.0 Tidal Volume 550 PEEP 5 Crit Value Called To Crit Value Called By Crit Value Read Back Blood Gas Notified Time Potassium 4.4 Carbon Dioxide 33 H Anion Gap 13 BUN 35 H Creatinine 1.3 Est GFR ( Amer) > 60 Est GFR (Non-Af Amer) 59 POC Glucose (mg/dL) 137 H Random Glucose 154 H Calcium 7.8 L Phosphorus 5.4 H Magnesium 1.8 Total Bilirubin 0.6 AST 83 H D ALT 85 H Alkaline Phosphatase 54 Lactate Dehydrogenase 1413 H Total Creatine Kinase 826 H Total Protein 5.7 L Albumin 3.1 L Globulin 2.7 Albumin/Globulin Ratio 1.2 Procalcitonin Prolactin Arterial Blood Potassium 4.1 Fingerstick Blood Sugar Results: 200 Review of Systems - Review of Systems Systems not reviewed;Unavailable: Altered Mental Status Assessment/Plan - Assessment and Plan (Free Text) Assessment: 47 y/o M with a PMHx Depression, Anxiety, DM type 2, HTN, HLD, TIA, Asthma, JODY , CABG, CAD with stent (2008), DVT and PE s/p IVC Filter (2008), Gastric Bypass (2013), admitted due to suicidal attempt via overdose of Seroquel/Ambien/ Trazodone/Clonidine. Plan: >Neuroleptic Malignant Syndrome/Hyperthermia -Trazodone and Seroquel as possible causative agents. -No fever overnight. -Continue with temperature control. -Neurology on board, Dr Gonzales -On Amantidine. >Myoclonic activity -Not present today -Will stop Clonazepam to PRN -Prolactin 31.2-high. -Neurology consult, Dr Gonzales. -On Keppra 1000mg Q12H -MRI Brain and EEG >Acute Respiratory Failure/RLL Pneumonia -Multiple medications overdose. -On mechanical ventilator -CXR c/w RLL pneumonia. -On Levofloxacin, Vancomycin and Clindamycin >Hypertension -Stable -Labetalol drip overnight, not available anymore -Nicardipine ordered -BP monitor. >Fever -Neuroleptic Malignant Syndrome vs Infection vs Medication adverse effect -Afebrile overnight -CXR w/ RLL pneumonia. -Blood Cx preliminary w NO growth. UCx w/ no growth. F/u cultures final results. -CXR w/ RLL pneumonia. -On Levofloxacin, Vancomycin and Clindamycin -On acetaminophen. >DVT Prophylaxis -SCD's - Date & Time Date: 05/21/18 Time: 12:30 <Joaquin Handy - Last Filed: 05/21/18 19:32> CCU Subjective - Physician Review Subjective (Free Text): Attestation: Patient seen and examined at the bedside with Resident Dr. Jerome Jara; and I agree with his outline of plans and management documented below as discussed on AM rounds reflecting my review of all applicable clinical data, and participation in the care of the patient throughout the day in ICU; today, May 21, 2018. Time spent with this patient did not overlap with any other provider's medical or critical care time. Additionally the code selected for the services rendered in this note includes the time spent: talking to the patients family, associated physicians and reviewing hospital data/results not listed here which extended to a total of 55 minutes. Today AM, remains sedated after overnight use requiring multiple doses of Ativan, and Morphine due to elevated PAPs, and hypertensive response, unresponsive to anxiolytics, finally placed on Labetalol drip at 1 mg/min rate. Eyes remain constantly open, now with protective eye whittaker. Max temp overnight was 100.3F, HR now 67 sinus, and A- line BP 147/80, fiO2 reduced to 70% after ABG results analyzed, further reduction to 60% and AC rate change from 22 to 14 done , and breathing at 17/min. He does not respond to pain, but pupils are 3 mm and reactive, but no corneal response. There is no response to ETT suctioning. Discussed with Neurology- re: eyes open with upward gaze, ?? Seizure activity , status epilepticus? Consider Keppra. If so, will stop Clonazepam. EEG ordered. National shortage of IV Labetalol, Nicardipine IV infuseion reserved for any hypertensive response with MAPs exceeding 120. Brain MRI results reviewed: shows no acute ischemic event nor any signs of acute pathology, but no signs of any cerebral edema mentioned. Discussed at length with patients 2 daughters today regarding present clinical status, and ongoing supportive care as present symptoms from Neuroleptic malignant syndrome hopefully dissipate. Continuation of Amantadine noted, not on Dantrolene or Bromocryptine. Will avoid use of any other anxiolytics, especially neuroleptics.
[2018-05-21] MEDS: levETIRAcetam 1,000 MG in Sodium Chloride 0.9% 100 ML IVPB SCH ×2 (11:43→19:59)
--- NOTE | 2018-05-21 12:13 | MRI ---
Date of service: 05/21/2018 PROCEDURE: MRI BRAIN WITHOUT CONTRAST HISTORY: change of mental status COMPARISON: Noncontrast head CT from 05/14/2018 TECHNIQUE: Multiplanar, multisequence MR images of the brain were obtained without intravenous contrast enhancement. FINDINGS: HEMORRHAGE: None DWI: No evidence of an acute or early subacute infarction. BRAIN PARENCHYMA: Lopez-white matter differentiation is preserved. There is no mass, mass effect or abnormal extra-axial fluid collection. There is no territorial infarction. There are low-lying cerebellar tonsils. VENTRICLES: There is mild age advanced global parenchymal volume loss and proportionate enlargement of the ventricles and cortical sulci. CRANIUM: There is normal bone marrow signal pattern. ORBITS: Grossly unremarkable. PARANASAL SINUSES/MASTOIDS: There is fluid in the paranasal sinuses and bilateral mastoid effusions, expected in an intubated patient. VASCULAR SYSTEM: There are normal signal voids in the larger intracranial arteries. OTHER FINDINGS: None. IMPRESSION: No acute intracranial abnormality. Mild age advanced global parenchymal volume loss.
[2018-05-21] MEDS: Lactated Ringer's 1,000 ML IV SCH ×2 (13:20→21:32)
[2018-05-21] MEDS: Nicardipine HCl 40 MG/200 ML 40 MG/200 ML SOL IV SCH ×2 (16:36→22:52)
[2018-05-21] MEDS: Acetaminophen 650mg/20.3ml solution UD PO PRN ×2 (16:38→20:03)
--- NOTE | 2018-05-21 17:56 | CP.PCM.PN ---
Subjective - Date & Time of Evaluation Date of Evaluation: 05/21/18 Time of Evaluation: 10:30 - Subjective Subjective: F/U respiratory failure intubated, unresponsive, Objective - Vital Signs/Intake and Output Vital Signs (last 24 hours): Temp Pulse Resp BP Pulse Ox 100.4 F H 99 H 25 H 180/91 H 100 05/21/18 16:38 05/21/18 17:00 05/21/18 17:00 05/21/18 17:00 05/21/18 17:00 Intake and Output: 05/21/18 05/21/18 06:59 18:59 Intake Total 1420 310 Output Total 900 Balance 520 310 - Medications Medications: Current Medications Acetaminophen (Tylenol 650mg/20.3ml Solution Ud) 650 mg PO Q4 PRN PRN Reason: Temperature Last Admin: 05/21/18 16:38 Dose: 650 mg Albuterol/Ipratropium (Duoneb 3 Mg/0.5 Mg (3 Ml) Ud) 3 ml INH RQ4 DANNY Last Admin: 05/21/18 15:29 Dose: 3 ml Amantadine HCl (Amantadine 100 Mg Cap) 100 mg PEG BID DANNY Last Admin: 05/21/18 16:36 Dose: 100 mg Clindamycin Phosphate (Cleocin) 600 mg in 50 mls @ 50 mls/hr IVPB Q8H DANNY PRN Reason: Protocol Last Admin: 05/21/18 16:37 Dose: 50 mls/hr Vancomycin HCl 1 gm/ Sodium (Chloride) 250 mls @ 166.667 mls/hr IVPB Q12H DANNY PRN Reason: Protocol Last Admin: 05/21/18 16:37 Dose: 166.667 mls/hr Levofloxacin/Dextrose (Levaquin 750mg) 750 mg in 150 mls @ 100 mls/hr IVPB DAILY DANNY Last Admin: 05/21/18 08:18 Dose: 100 mls/hr Lactated Ringer's (Lactated Ringer's) 1,000 mls @ 125 mls/hr IV .Q8H DANNY Last Admin: 05/21/18 13:20 Dose: 125 mls/hr Levetiracetam 1,000 mg/ Sodium (Chloride) 110 mls @ 210 mls/hr IVPB Q12 DANNY Last Admin: 05/21/18 11:43 Dose: 210 mls/hr Nicardipine HCl (Cardene 40mg/200ml Premixed) 40 mg in 200 mls @ 25 mls/hr IV .Q8H DANNY; 5 MG/HR PRN Reason: Protocol Last Admin: 05/21/18 16:36 Dose: 5 mg/hr, 25 mls/hr Insulin Human Lispro (Humalog) 0 units SC 0000,0600,1200,1800 DANNY PRN Reason: Protocol Last Admin: 05/21/18 17:40 Dose: 2 units Lorazepam (Ativan) 2 mg IVP Q3H PRN PRN Reason: Agitation Last Admin: 05/21/18 01:36 Dose: 2 mg Morphine Sulfate (Morphine) 4 mg IVP Q4 PRN PRN Reason: Agitation Last Admin: 05/21/18 13:23 Dose: 4 mg - Labs Labs: 05/21/18 05:00 05/21/18 05:00 PT 15.8 Seconds (9.8-13.1) H 05/20/18 16:00 INR 1.4 (0.9-1.2) H 05/20/18 16:00 APTT 23.2 Seconds (25.6-37.1) L 05/20/18 16:00 - Constitutional Appears: Chronically Ill - Head Exam Head Exam: NORMAL INSPECTION - Eye Exam Additional comments: sluggish reaction - ENT Exam Additional comments: intubated - Neck Exam Neck Exam: Normal Inspection - Respiratory Exam Respiratory Exam: Decreased Breath Sounds (at bases) - Cardiovascular Exam Cardiovascular Exam: REGULAR RHYTHM - GI/Abdominal Exam GI & Abdominal Exam: Soft, Normal Bowel Sounds - Extremities Exam Extremities Exam: Normal Inspection - Neurological Exam Additional comments: intubated, unresponsive - Skin Skin Exam: Warm Assessment and Plan (1) Overdose Status: Acute (2) Respiratory failure Status: Acute (3) Aspiration pneumonia Status: Acute (4) Hx of deep venous thrombosis Status: Chronic (5) Hx pulmonary embolism Status: Acute (6) History of obstructive sleep apnea Status: Acute (7) Diabetes Status: Chronic (8) Asthma exacerbation Status: Acute (9) Neuroleptic malignant syndrome Status: Acute - Assessment and Plan (Free Text) Plan: Unresponsive, non sedated, MRI no acute intracraneal abnormality, Fever , WBC up , Neuroleptic malignant syndrome, PNA ,Acute Respiratory Failure, intubated , wbc up, CXR RLL PNA, continue ventilatory support , Joshua, Samir, Susan Phillips, Dante, prognosis poor Critical Care Time: 35 min.
--- NOTE | 2018-05-21 18:37 | CP.PCM.PN ---
Subjective - Date & Time of Evaluation Date of Evaluation: 05/21/18 Time of Evaluation: 18:15 - Subjective Subjective: No Change in mental status as patient is unresponsive. Objective - Vital Signs/Intake and Output Vital Signs (last 24 hours): Temp Pulse Resp BP Pulse Ox 100.4 F H 103 H 31 H 173/92 H 100 05/21/18 16:38 05/21/18 18:00 05/21/18 18:00 05/21/18 18:00 05/21/18 18:00 Intake and Output: 05/21/18 05/21/18 06:59 18:59 Intake Total 1420 2730 Output Total 900 1325 Balance 520 1405 - Medications Medications: Current Medications Acetaminophen (Tylenol 650mg/20.3ml Solution Ud) 650 mg PO Q4 PRN PRN Reason: Temperature Last Admin: 05/21/18 16:38 Dose: 650 mg Albuterol/Ipratropium (Duoneb 3 Mg/0.5 Mg (3 Ml) Ud) 3 ml INH RQ4 DANNY Last Admin: 05/21/18 15:29 Dose: 3 ml Amantadine HCl (Amantadine 100 Mg Cap) 100 mg PEG BID DANNY Last Admin: 05/21/18 16:36 Dose: 100 mg Clindamycin Phosphate (Cleocin) 600 mg in 50 mls @ 50 mls/hr IVPB Q8H DANNY PRN Reason: Protocol Last Admin: 05/21/18 16:37 Dose: 50 mls/hr Vancomycin HCl 1 gm/ Sodium (Chloride) 250 mls @ 166.667 mls/hr IVPB Q12H DANNY PRN Reason: Protocol Last Admin: 05/21/18 16:37 Dose: 166.667 mls/hr Levofloxacin/Dextrose (Levaquin 750mg) 750 mg in 150 mls @ 100 mls/hr IVPB DAILY DANNY Last Admin: 05/21/18 08:18 Dose: 100 mls/hr Lactated Ringer's (Lactated Ringer's) 1,000 mls @ 125 mls/hr IV .Q8H DANNY Last Admin: 05/21/18 13:20 Dose: 125 mls/hr Levetiracetam 1,000 mg/ Sodium (Chloride) 110 mls @ 210 mls/hr IVPB Q12 DANNY Last Admin: 05/21/18 11:43 Dose: 210 mls/hr Nicardipine HCl (Cardene 40mg/200ml Premixed) 40 mg in 200 mls @ 25 mls/hr IV .Q8H DANNY; 5 MG/HR PRN Reason: Protocol Last Titration: 05/21/18 18:05 Dose: 7.5 mg/hr, 37.5 mls/hr Nicardipine HCl (Cardene 40mg/200ml Premixed) 40 mg in 200 mls @ 37.5 mls/hr IV .Q5H20M DANNY; 7.5 MG/HR PRN Reason: Protocol Insulin Human Lispro (Humalog) 0 units SC 0000,0600,1200,1800 DANNY PRN Reason: Protocol Last Admin: 05/21/18 17:40 Dose: 2 units Lorazepam (Ativan) 2 mg IVP Q3H PRN PRN Reason: Agitation Last Admin: 05/21/18 01:36 Dose: 2 mg Morphine Sulfate (Morphine) 4 mg IVP Q4 PRN PRN Reason: Agitation Last Admin: 05/21/18 13:23 Dose: 4 mg - Labs Labs: 05/21/18 05:00 05/21/18 05:00 PT 15.8 Seconds (9.8-13.1) H 05/20/18 16:00 INR 1.4 (0.9-1.2) H 05/20/18 16:00 APTT 23.2 Seconds (25.6-37.1) L 05/20/18 16:00 Assessment and Plan (1) Acute respiratory failure with hypercapnia Assessment & Plan: S/P Reintubated Mixed Respiratory and Metabolic acidosis with Lactate Level >10 Aspiration Pneumonia Vs Neuroleptic/Serotonine Syndrome Vs Drug Fever Fever IVF ABG Daily Morning Labs Status: Acute (2) Cardiac Arrest S/P Successful Resuscitation Assessment and Plan: Multiple Drug Overdose Neuroleptic Syndrome/Serotonine Syndrome Supportive Care Danrolene PRN regidity Status: Acute (3) Suicide attempt by drug ingestion Assessment and Plan: Major Depression Supportive Care Psych onboard Status: Acute Priority: High (4) Microcytic Anemia (5) Hypernatremia/Hyperchloremia D5 0.225 @125cc/hr (d) DVT prophylaxis Assessment and Plan: Lovenox 40mg SQ Daily Status: Chronic
[2018-05-22] MEDS: Acetaminophen 650mg/20.3ml solution UD PO PRN ×3 (02:50→15:17)
[2018-05-22] MEDS: Nicardipine HCl 40 MG/200 ML 40 MG/200 ML SOL IV SCH ×5 (02:51→22:49)
[2018-05-22] MEDS: Albuterol-Ipratrop 3 mg / 0.5 (3 ml) UD INH SCH ×6 (03:51→19:18)
[2018-05-22 04:25] LABS: ABG ALLEN TEST YES; ARTERIAL BLOOD GAS HCO3 32.4 mmol/L (21-28); ARTERIAL BLOOD GAS HEMOGLOBIN 11.3 g/dL (11.7-17.4); ARTERIAL BLOOD GAS O2 CAPACITY 15.6 mL/dL (16-24); ARTERIAL BLOOD GAS O2 CONTENT 13.6 ML/dL (15-23); ARTERIAL BLOOD GAS O2 SAT 87.1 % (95-98); ARTERIAL BLOOD GAS PCO2 51 mm/Hg (35-45); ARTERIAL BLOOD GAS PH 7.45 (7.35-7.45); ARTERIAL BLOOD GAS PO2 50 mm/Hg (80-100)
[2018-05-22 05:30] LABS: MEAN CELL VOLUME 75.7 fl (80.0-94.0); MEAN CORPUSCULAR HEMOGLOBIN 24.2 pg (27.0-31.0); RBC 4.55 Mil/uL (4.40-5.90); RED CELL DISTRIBUTION WIDTH 16.5 % (11.5-14.5); WHITE BLOOD COUNT 18.2 K/uL (4.8-10.8)
[2018-05-22 05:46] LABS: BLOOD UREA NITROGEN 34 mg/dl (9-20); CALCIUM 8.3 mg/dL (8.4-10.2); GFR NON-AFRICAN AMERICAN 59
[2018-05-22] MEDS: Lactated Ringer's 1,000 ML IV SCH ×2 (06:13→15:50)
[2018-05-22] MEDS: Insulin Lispro (humaLOG) 100 Units/ml Inj SC SCH ×3 (06:44→17:21)
[2018-05-22] MEDS: Clindamycin 600mg/50ml D5W 600 MG/50 ML VIAL IVPB SCH ×2 (09:04→15:20)
[2018-05-22] MEDS: levETIRAcetam 1,000 MG in Sodium Chloride 0.9% 100 ML IVPB SCH ×2 (09:05→22:08)
[2018-05-22] MEDS: levoFLOXacin 750 mg in D5W 750 MG/150 ML BAG IVPB SCH (09:06)
--- NOTE | 2018-05-22 11:45 | CP.CCUPN ---
CCU Subjective - Physician Review Events Since Last Encounter (Free Text): 05/22/18 11:43 intubated, betting morphine PRN BP has been well controlled, on cardene GGT 10 mg/h ABGs reviewed, showing O2sat 87% but patient has 100% Ox sat on Fio now 0.80% with 5 PEEP. CCU Objective - Vital Signs / Intake & Output Vital Signs (Last 4 hours): Vital Signs Temp Pulse Resp BP Pulse Ox 05/22/18 11:00 100 F H 109 H 30 H 113/51 L 100 05/22/18 10:00 118 H 30 H 127/69 100 05/22/18 09:00 120 H 30 H 143/69 100 05/22/18 08:00 114 H 28 H 140/69 100 Intake and Output (Last 8hrs): Intake & Output 05/21/18 05/22/18 05/22/18 22:59 06:59 14:59 Intake Total 3665 1530 700 Output Total 2200 1000 Balance 1465 530 700 Weight 203 lb Intake: IV 1950 950 500 Intake, Piggyback 400 300 200 Tube Feeding 715 130 Free Water Flush 600 150 Output: Urine 2200 Urethral (Sy) 2200 Stool 1000 Other: # Bowel Movements 0 - Physical Exam Narrative Physical Exam (Free Text): 05/22/18 11:45 P/E Neck: No jvd Lungs: decreased breath sounds Rt base Heart: No gallop Ext: No edema Heart: No gallop Head: Positive for: Atraumatic, Normocephalic Pupils: Positive for: PERRL Conjunctiva: Positive for: Normal Mouth: Positive for: Moist Mucous Membranes Nose (External): Positive for: Atraumatic Neck: Positive for: Normal Range of Motion Respiratory/Chest: Positive for: Clear to Auscultation Cardiovascular: Positive for: Regular Rate and Rhythm, Normal S1, S2 Abdomen: Negative for: Tenderness, Distention Upper Extremity: Positive for: Normal Inspection Lower Extremity: Positive for: Normal Inspection Neurological: Positive for: Other (no response to verbal/tactile stimuli) - Medications Active Medications: Active Medications Generic Name Dose Route Start Last Admin Trade Name Freq PRN Reason Stop Dose Admin Acetaminophen 650 mg 05/16/18 20:17 05/22/18 08:21 Tylenol 650mg/20.3ml Solution Ud PO 650 mg Q4 PRN Administration Temperature Albuterol/Ipratropium 3 ml 05/17/18 13:45 05/22/18 08:23 Duoneb 3 Mg/0.5 Mg (3 Ml) Ud INH 3 ml RQ4 DANNY Administration Amantadine HCl 100 mg 05/21/18 17:00 05/22/18 09:04 Amantadine 100 Mg Cap PEG 100 mg BID DANNY Administration Clindamycin Phosphate 600 mg in 50 mls @ 50 mls/hr 05/20/18 16:00 05/22/18 09 :04 Cleocin IVPB 50 mls/hr Q8H DANNY Administration Protocol Vancomycin HCl 1 gm/ Sodium 250 mls @ 166.667 mls/hr 05/20/18 16:00 05/22/18 04:08 Chloride IVPB 166.667 mls/hr Q12H DANNY Administration Protocol Levofloxacin/Dextrose 750 mg in 150 mls @ 100 mls/hr 05/21/18 09:00 05/22/18 09:06 Levaquin 750mg IVPB 100 mls/hr DAILY DANNY Administration Lactated Ringer's 1,000 mls @ 125 mls/hr 05/20/18 19:45 05/22/18 06:13 Lactated Ringer's IV 125 mls/hr .Q8H DANNY Administration Levetiracetam 1,000 mg/ Sodium 110 mls @ 210 mls/hr 05/21/18 09:45 05/22/18 09:05 Chloride IVPB 210 mls/hr Q12 DANNY Administration Nicardipine HCl 40 mg in 200 mls @ 25 mls/hr 05/21/18 13:15 05/21/18 22:55 Cardene 40mg/200ml Premixed IV Infused .Q8H DANNY Titration Protocol 5 MG/HR Nicardipine HCl 40 mg in 200 mls @ 37.5 mls/hr 05/21/18 18:30 05/22/18 11:00 Cardene 40mg/200ml Premixed IV 10 mg/hr .Q5H20M DANNY 50 mls/hr Protocol Administration 7.5 MG/HR Insulin Human Lispro 0 units 05/18/18 18:00 05/22/18 11:41 Humalog SC 3 units 0000,0600,1200,1800 DANNY Administration Protocol Lorazepam 2 mg 05/20/18 19:07 05/22/18 08:21 Ativan IVP 2 mg Q3H PRN Administration Agitation Morphine Sulfate 4 mg 05/19/18 10:16 05/22/18 11:37 Morphine IVP 4 mg Q4 PRN Administration Agitation - Patient Studies Lab Studies: Microbiology Studies 05/18/18 16:49 Blood Culture - Preliminary Blood-Venous NO GROWTH AFTER 3 DAYS 05/17/18 16:08 Blood Culture - Preliminary Blood-Venous NO GROWTH AFTER 4 DAYS 05/17/18 15:58 Blood Culture - Preliminary Blood-Venous NO GROWTH AFTER 4 DAYS 05/19/18 07:58 Gram Stain - Final Trachasp Sputum Culture - Final Yeast Species Lab Studies 05/22/18 05/22/18 05/22/18 Range/Units 06:29 04:39 04:39 WBC 18.2 H (4.8-10.8) K/uL RBC 4.55 (4.40-5.90) Mil/uL Hgb 11.0 L (12.0-18.0) g/dL Hct 34.4 L (35.0-51.0) % MCV 75.7 L (80.0-94.0) fl MCH 24.2 L (27.0-31.0) pg MCHC 32.0 L (33.0-37.0) g/dL RDW 16.5 H (11.5-14.5) % Plt Count 202 (130-400) K/uL pCO2 (35-45) mm/Hg pO2 (80-100) mm/Hg HCO3 (21-28) mmol/L ABG pH (7.35-7.45) ABG Total CO2 (22-28) mmol/L ABG O2 Saturation (95-98) % ABG O2 Content (15-23) ML/dL ABG Base Excess (-2.0-3.0) mmol/L ABG Hemoglobin (11.7-17.4) g/dL ABG Carboxyhemoglobin (0.5-1.5) % POC ABG HHb (Measured) (0.0-5.0) % ABG Methemoglobin (0.0-3.0) % ABG O2 Capacity (16-24) mL/dL Eagle Test A-a O2 Difference mm/Hg Hgb O2 Saturation (95.0-98.0) % Vent Mode Mechanical Rate FiO2 % Tidal Volume PEEP Sodium 147 (132-148) mmol/l Potassium 4.4 (3.6-5.0) MMOL/L Chloride 105 (98-107) mmol/L Carbon Dioxide 34 H (22-30) mmol/L Anion Gap 12 (10-20) BUN 34 H (9-20) mg/dl Creatinine 1.3 (0.8-1.5) mg/dl Est GFR ( Amer) > 60 Est GFR (Non-Af Amer) 59 POC Glucose (mg/dL) 197 H (65-110) mg/dL Random Glucose 197 H (75-110) mg/dL Calcium 8.3 L (8.4-10.2) mg/dL 05/22/18 05/21/18 05/21/18 Range/Units 03:46 22:53 16:41 WBC (4.8-10.8) K/uL RBC (4.40-5.90) Mil/uL Hgb (12.0-18.0) g/dL Hct (35.0-51.0) % MCV (80.0-94.0) fl MCH (27.0-31.0) pg MCHC (33.0-37.0) g/dL RDW (11.5-14.5) % Plt Count (130-400) K/uL pCO2 51 H (35-45) mm/Hg pO2 50 L (80-100) mm/Hg HCO3 32.4 H (21-28) mmol/L ABG pH 7.45 (7.35-7.45) ABG Total CO2 37.0 H (22-28) mmol/L ABG O2 Saturation 87.1 L (95-98) % ABG O2 Content 13.6 L (15-23) ML/dL ABG Base Excess 9.9 H (-2.0-3.0) mmol/L ABG Hemoglobin 11.3 L (11.7-17.4) g/dL ABG Carboxyhemoglobin 0.4 L (0.5-1.5) % POC ABG HHb (Measured) 12.7 H (0.0-5.0) % ABG Methemoglobin 1.1 (0.0-3.0) % ABG O2 Capacity 15.6 L (16-24) mL/dL Eagle Test Yes A-a O2 Difference 314.0 mm/Hg Hgb O2 Saturation 85.8 L (95.0-98.0) % Vent Mode Prvc ac Mechanical Rate 14 FiO2 60.0 % Tidal Volume 550 PEEP 5 Sodium (132-148) mmol/l Potassium (3.6-5.0) MMOL/L Chloride (98-107) mmol/L Carbon Dioxide (22-30) mmol/L Anion Gap (10-20) BUN (9-20) mg/dl Creatinine (0.8-1.5) mg/dl Est GFR ( Amer) Est GFR (Non-Af Amer) POC Glucose (mg/dL) 181 H 181 H (65-110) mg/dL Random Glucose (75-110) mg/dL Calcium (8.4-10.2) mg/dL 05/21/18 Range/Units 12:06 WBC (4.8-10.8) K/uL RBC (4.40-5.90) Mil/uL Hgb (12.0-18.0) g/dL Hct (35.0-51.0) % MCV (80.0-94.0) fl MCH (27.0-31.0) pg MCHC (33.0-37.0) g/dL RDW (11.5-14.5) % Plt Count (130-400) K/uL pCO2 (35-45) mm/Hg pO2 (80-100) mm/Hg HCO3 (21-28) mmol/L ABG pH (7.35-7.45) ABG Total CO2 (22-28) mmol/L ABG O2 Saturation (95-98) % ABG O2 Content (15-23) ML/dL ABG Base Excess (-2.0-3.0) mmol/L ABG Hemoglobin (11.7-17.4) g/dL ABG Carboxyhemoglobin (0.5-1.5) % POC ABG HHb (Measured) (0.0-5.0) % ABG Methemoglobin (0.0-3.0) % ABG O2 Capacity (16-24) mL/dL Eagle Test A-a O2 Difference mm/Hg Hgb O2 Saturation (95.0-98.0) % Vent Mode Mechanical Rate FiO2 % Tidal Volume PEEP Sodium (132-148) mmol/l Potassium (3.6-5.0) MMOL/L Chloride (98-107) mmol/L Carbon Dioxide (22-30) mmol/L Anion Gap (10-20) BUN (9-20) mg/dl Creatinine (0.8-1.5) mg/dl Est GFR ( Amer) Est GFR (Non-Af Amer) POC Glucose (mg/dL) 191 H (65-110) mg/dL Random Glucose (75-110) mg/dL Calcium (8.4-10.2) mg/dL Laboratory Results - last 24 hr 05/21/18 05/21/18 05/21/18 12:06 16:41 22:53 WBC RBC Hgb Hct MCV MCH MCHC RDW Plt Count pCO2 pO2 HCO3 ABG pH ABG Total CO2 ABG O2 Saturation ABG O2 Content ABG Base Excess ABG Hemoglobin ABG Carboxyhemoglobin POC ABG HHb (Measured) ABG Methemoglobin ABG O2 Capacity Eagle Test A-a O2 Difference Hgb O2 Saturation Vent Mode Mechanical Rate FiO2 Tidal Volume PEEP Sodium Potassium Chloride Carbon Dioxide Anion Gap BUN Creatinine Est GFR ( Amer) Est GFR (Non-Af Amer) POC Glucose (mg/dL) 191 H 181 H 181 H Random Glucose Calcium 05/22/18 05/22/18 05/22/18 03:46 04:39 04:39 WBC 18.2 H RBC 4.55 Hgb 11.0 L Hct 34.4 L MCV 75.7 L MCH 24.2 L MCHC 32.0 L RDW 16.5 H Plt Count 202 pCO2 51 H pO2 50 L HCO3 32.4 H ABG pH 7.45 ABG Total CO2 37.0 H ABG O2 Saturation 87.1 L ABG O2 Content 13.6 L ABG Base Excess 9.9 H ABG Hemoglobin 11.3 L ABG Carboxyhemoglobin 0.4 L POC ABG HHb (Measured) 12.7 H ABG Methemoglobin 1.1 ABG O2 Capacity 15.6 L Eagle Test Yes A-a O2 Difference 314.0 Hgb O2 Saturation 85.8 L Vent Mode Prvc ac Mechanical Rate 14 FiO2 60.0 Tidal Volume 550 PEEP 5 Sodium 147 Potassium 4.4 Chloride 105 Carbon Dioxide 34 H Anion Gap 12 BUN 34 H Creatinine 1.3 Est GFR ( Amer) > 60 Est GFR (Non-Af Amer) 59 POC Glucose (mg/dL) Random Glucose 197 H Calcium 8.3 L 05/22/18 06:29 WBC RBC Hgb Hct MCV MCH MCHC RDW Plt Count pCO2 pO2 HCO3 ABG pH ABG Total CO2 ABG O2 Saturation ABG O2 Content ABG Base Excess ABG Hemoglobin ABG Carboxyhemoglobin POC ABG HHb (Measured) ABG Methemoglobin ABG O2 Capacity Eagle Test A-a O2 Difference Hgb O2 Saturation Vent Mode Mechanical Rate FiO2 Tidal Volume PEEP Sodium Potassium Chloride Carbon Dioxide Anion Gap BUN Creatinine Est GFR ( Amer) Est GFR (Non-Af Amer) POC Glucose (mg/dL) 197 H Random Glucose Calcium Fingerstick Blood Sugar Results: 204 Assessment/Plan - Assessment and Plan (Free Text) Assessment: Assessment and Plan: >Neuroleptic Malignant Syndrome/Hyperthermia -Trazodone and Seroquel as possible causative agents. -No fever overnight. -Continue with temperature control. -On Amantidine. >Myoclonic activity -Improved -Continue Clonazepam to PRN --Neurology consult, Dr Gonzales. -On Keppra 1000mg Q12H -MRI Brain and EEG >Acute Respiratory Failure/RLL Pneumonia CXR from this am ( 05/22 ) reviewed, worsening rt LLP consolidatio, PNA -Multiple medications overdose. -On mechanical ventilator --On Levofloxacin, Vancomycin and Clindamycin >Hypertension -Well controlled on cardene, 10 mg/h ANDRY has rt femoral art A-line - >Fever -Neuroleptic Malignant Syndrome vs Infection vs Medication adverse effect -Afebrile overnight -Has RLL pneumonia. -Blood Cx preliminary w NO growth. UCx w/ no growth. F/u cultures final results. -CXR w/ RLL pneumonia. -On Levofloxacin, Vancomycin and Clindamycin -On acetaminophen. >DVT Prophylaxis -SCD's
--- NOTE | 2018-05-22 11:50 | RAD ---
Date of service: 05/22/2018 HISTORY: ETT placement COMPARISON: 05/21/2018 FINDINGS: LUNGS: Right basilar opacity persists, unchanged. No left-sided opacity. PLEURA: Probable small right pleural effusion. CARDIOVASCULAR: ET tube position unchanged. Nasogastric tube grossly unchanged. Right IJ central venous catheter again noted. OSSEOUS STRUCTURES: No significant abnormalities. VISUALIZED UPPER ABDOMEN: Normal. OTHER FINDINGS: None. IMPRESSION: No interval change.
--- NOTE | 2018-05-22 14:10 | CP.PCM.PN ---
Subjective - Date & Time of Evaluation Date of Evaluation: 05/22/18 Time of Evaluation: 11:30 - Subjective Subjective: F/U Respiratory Failure' Intubated, unresponsive. Objective - Vital Signs/Intake and Output Vital Signs (last 24 hours): Temp Pulse Resp BP Pulse Ox 100.8 F H 109 H 28 H 120/61 95 05/22/18 12:00 05/22/18 13:00 05/22/18 13:00 05/22/18 13:00 05/22/18 13:00 Intake and Output: 05/22/18 05/22/18 06:59 18:59 Intake Total 2675 1525 Output Total 2300 Balance 375 1525 - Medications Medications: Current Medications Acetaminophen (Tylenol 650mg/20.3ml Solution Ud) 650 mg PO Q4 PRN PRN Reason: Temperature Last Admin: 05/22/18 08:21 Dose: 650 mg Albuterol/Ipratropium (Duoneb 3 Mg/0.5 Mg (3 Ml) Ud) 3 ml INH RQ4 DANNY Last Admin: 05/22/18 11:56 Dose: 3 ml Amantadine HCl (Amantadine 100 Mg Cap) 100 mg PEG BID DANNY Last Admin: 05/22/18 09:04 Dose: 100 mg Clindamycin Phosphate (Cleocin) 600 mg in 50 mls @ 50 mls/hr IVPB Q8H DANNY PRN Reason: Protocol Last Admin: 05/22/18 09:04 Dose: 50 mls/hr Vancomycin HCl 1 gm/ Sodium (Chloride) 250 mls @ 166.667 mls/hr IVPB Q12H DANNY PRN Reason: Protocol Last Admin: 05/22/18 04:08 Dose: 166.667 mls/hr Levofloxacin/Dextrose (Levaquin 750mg) 750 mg in 150 mls @ 100 mls/hr IVPB DAILY DANNY Last Admin: 05/22/18 09:06 Dose: 100 mls/hr Lactated Ringer's (Lactated Ringer's) 1,000 mls @ 125 mls/hr IV .Q8H DANNY Last Admin: 05/22/18 06:13 Dose: 125 mls/hr Levetiracetam 1,000 mg/ Sodium (Chloride) 110 mls @ 210 mls/hr IVPB Q12 DANNY Last Admin: 05/22/18 09:05 Dose: 210 mls/hr Nicardipine HCl (Cardene 40mg/200ml Premixed) 40 mg in 200 mls @ 25 mls/hr IV .Q8H DANNY; 5 MG/HR PRN Reason: Protocol Last Titration: 05/21/18 22:55 Dose: Infused Nicardipine HCl (Cardene 40mg/200ml Premixed) 40 mg in 200 mls @ 37.5 mls/hr IV .Q5H20M DANNY; 7.5 MG/HR PRN Reason: Protocol Last Admin: 05/22/18 11:00 Dose: 10 mg/hr, 50 mls/hr Insulin Human Lispro (Humalog) 0 units SC 0000,0600,1200,1800 DANNY PRN Reason: Protocol Last Admin: 05/22/18 11:41 Dose: 3 units Lorazepam (Ativan) 2 mg IVP Q3H PRN PRN Reason: Agitation Last Admin: 05/22/18 08:21 Dose: 2 mg Morphine Sulfate (Morphine) 4 mg IVP Q4 PRN PRN Reason: Agitation Last Admin: 05/22/18 11:37 Dose: 4 mg - Labs Labs: 05/22/18 04:39 05/22/18 04:39 PT 15.8 Seconds (9.8-13.1) H 05/20/18 16:00 INR 1.4 (0.9-1.2) H 05/20/18 16:00 APTT 23.2 Seconds (25.6-37.1) L 05/20/18 16:00 - Constitutional Appears: Chronically Ill - Head Exam Head Exam: NORMAL INSPECTION - Eye Exam Additional comments: Eyes closed, cover with Saline, soaked gauzes. - ENT Exam Additional comments: Intubated - Neck Exam Neck Exam: Normal Inspection - Respiratory Exam Respiratory Exam: Decreased Breath Sounds (at bases), Rhonchi - Cardiovascular Exam Cardiovascular Exam: REGULAR RHYTHM - GI/Abdominal Exam GI & Abdominal Exam: Soft, Normal Bowel Sounds - Extremities Exam Extremities Exam: Normal Inspection - Neurological Exam Additional comments: Intubated, unresponsive - Skin Skin Exam: Warm Assessment and Plan (1) Overdose Status: Acute (2) Respiratory failure Status: Acute (3) Aspiration pneumonia Status: Acute (4) Hx of deep venous thrombosis Status: Chronic (5) Hx pulmonary embolism Status: Acute (6) History of obstructive sleep apnea Status: Acute (7) Diabetes Status: Chronic (8) Asthma exacerbation Status: Acute (9) Neuroleptic malignant syndrome Status: Acute - Assessment and Plan (Free Text) Plan: Continue ventilatory support. CXR showed no interval changes, TMAx in AM 100.6 , continue Levaquin, Vanco, Clinda, Keppra, Cardene and rest of Tx. Prognosis poor. Critical Care Time: 31 min.
[2018-05-22] MEDS ORDERED: Chlorhexidine Gluconate 1 APPL/PKT TP ONE (23:33)
[2018-05-23] MEDS: Clindamycin 600mg/50ml D5W 600 MG/50 ML VIAL IVPB SCH ×3 (00:04→16:03)
[2018-05-23] MEDS: Acetaminophen 650mg/20.3ml solution UD PO PRN ×3 (00:05→21:11)
[2018-05-23] MEDS: Insulin Lispro (humaLOG) 100 Units/ml Inj SC SCH ×4 (00:27→18:24)
[2018-05-23] MEDS: Lactated Ringer's 1,000 ML IV SCH ×4 (01:39→15:47)
[2018-05-23] MEDS: Nicardipine HCl 40 MG/200 ML 40 MG/200 ML SOL IV SCH ×4 (03:31→16:14)
[2018-05-23] MEDS: Albuterol-Ipratrop 3 mg / 0.5 (3 ml) UD INH SCH ×6 (04:20→19:09)
[2018-05-23 04:43] LABS: ABG ALLEN TEST YES; ARTERIAL BLOOD GAS HCO3 32.3 mmol/L (21-28); ARTERIAL BLOOD GAS HEMOGLOBIN 10.1 g/dL (11.7-17.4); ARTERIAL BLOOD GAS O2 CAPACITY 14.2 mL/dL (16-24); ARTERIAL BLOOD GAS O2 CONTENT 13.7 ML/dL (15-23); ARTERIAL BLOOD GAS O2 SAT 96.4 % (95-98); ARTERIAL BLOOD GAS PCO2 69 mm/Hg (35-45); ARTERIAL BLOOD GAS PH 7.34 (7.35-7.45); ARTERIAL BLOOD GAS PO2 82 mm/Hg (80-100); ARTERIAL BLOOD GAS TCO2 39.3 mmol/L (22-28)
[2018-05-23 05:48] LABS: MEAN CELL VOLUME 78.2 fl (80.0-94.0); MEAN CORPUSCULAR HEMOGLOBIN 23.9 pg (27.0-31.0); MEAN CORPUSCULAR HGB CONC 30.6 g/dL (33.0-37.0); RBC 4.17 Mil/uL (4.40-5.90); RED CELL DISTRIBUTION WIDTH 17.1 % (11.5-14.5); WHITE BLOOD COUNT 17.4 K/uL (4.8-10.8)
[2018-05-23 06:10] LABS: BLOOD UREA NITROGEN 44 mg/dl (9-20); CALCIUM 8.2 mg/dL (8.4-10.2); GFR NON-AFRICAN AMERICAN 50
--- NOTE | 2018-05-23 08:22 | CP.PCM.PN ---
Subjective - Date & Time of Evaluation Date of Evaluation: 05/23/18 Time of Evaluation: : - Subjective Subjective: Mr. Shah was seen and examined at the bedside in the ICU. He is mechanical ventilator on PRVC mode. He does not have a corneal reflex, with very minimal very sluggish pupils reactive mydraisis,5 mm, on upward position, no response to noxious stimuli and gag reflex, GCS-3T.He was afebrile last night which tylenol wasgiven. Atpresent his temp 99.5. He is tachypneic and morphine was given. He remains on vasopressor for blood pressure control. MRI of the brain showed No acute intracranial abnormality.Mild age advanced global parenchymal volume loss.No seizure activity noted. Objective - Vital Signs/Intake and Output Vital Signs (last 24 hours): Temp Pulse Resp BP Pulse Ox 97.1 F L 112 H 20 140/64 100 05/23/18 04:00 05/23/18 04:00 05/23/18 04:00 05/23/18 04:00 05/23/18 04:00 Intake and Output: 05/23/18 05/23/18 06:59 18:59 Intake Total 2970 Balance 2970 - Medications Medications: Current Medications Acetaminophen (Tylenol 650mg/20.3ml Solution Ud) 650 mg PO Q4 PRN PRN Reason: Temperature Last Admin: 05/23/18 00:05 Dose: 650 mg Albuterol/Ipratropium (Duoneb 3 Mg/0.5 Mg (3 Ml) Ud) 3 ml INH RQ4 DANNY Last Admin: 05/23/18 07:10 Dose: Not Given Amantadine HCl (Amantadine 100 Mg Cap) 100 mg PEG BID DANNY Last Admin: 05/22/18 17:10 Dose: 100 mg Clindamycin Phosphate (Cleocin) 600 mg in 50 mls @ 50 mls/hr IVPB Q8H DANNY PRN Reason: Protocol Last Admin: 05/23/18 00:04 Dose: 50 mls/hr Vancomycin HCl 1 gm/ Sodium (Chloride) 250 mls @ 166.667 mls/hr IVPB Q12H DANNY PRN Reason: Protocol Last Admin: 05/23/18 04:20 Dose: 166.667 mls/hr Levofloxacin/Dextrose (Levaquin 750mg) 750 mg in 150 mls @ 100 mls/hr IVPB DAILY DANNY Last Admin: 05/22/18 09:06 Dose: 100 mls/hr Lactated Ringer's (Lactated Ringer's) 1,000 mls @ 125 mls/hr IV .Q8H DANNY Last Admin: 05/23/18 01:39 Dose: 125 mls/hr Levetiracetam 1,000 mg/ Sodium (Chloride) 110 mls @ 210 mls/hr IVPB Q12 DANNY Last Admin: 05/22/18 22:08 Dose: 210 mls/hr Nicardipine HCl (Cardene 40mg/200ml Premixed) 40 mg in 200 mls @ 25 mls/hr IV .Q8H DANNY; 5 MG/HR PRN Reason: Protocol Last Admin: 05/23/18 03:31 Dose: 10 mg/hr, 50 mls/hr Nicardipine HCl (Cardene 40mg/200ml Premixed) 40 mg in 200 mls @ 37.5 mls/hr IV .Q5H20M DANNY; 7.5 MG/HR PRN Reason: Protocol Last Admin: 05/23/18 06:47 Dose: 10 mg/hr, 50 mls/hr Insulin Human Lispro (Humalog) 0 units SC 0000,0600,1200,1800 DANNY PRN Reason: Protocol Last Admin: 05/23/18 07:44 Dose: Not Given Lorazepam (Ativan) 2 mg IVP Q3H PRN PRN Reason: Agitation Last Admin: 05/23/18 03:28 Dose: 2 mg Morphine Sulfate (Morphine) 4 mg IVP Q4 PRN PRN Reason: Agitation Last Admin: 05/23/18 07:38 Dose: 4 mg - Labs Labs: 05/23/18 04:20 05/23/18 04:20 PT 15.8 Seconds (9.8-13.1) H 05/20/18 16:00 INR 1.4 (0.9-1.2) H 05/20/18 16:00 APTT 23.2 Seconds (25.6-37.1) L 05/20/18 16:00 - Constitutional Appears: No Acute Distress - Eye Exam Pupil Exam: Mydriatic Additional comments: 5 mm sluggish - Neurological Exam Neuro motor strength exam: Left Upper Extremity: 0, Right Upper Extremity: 0, Left Lower Extremity: 0, Right Lower Extremity: 0 Additional comments: GCS-3T Assessment and Plan (1) Neuroleptic malignant syndrome Assessment & Plan: Case discussed with Dr. Gonzales, continue all current medical regimen including ICU team management for ventilator and blood pressure management. Pending EEG, keep head of the bed elevated at least 30 degrees, treat any electrolyte abnormalities. Status: Acute
[2018-05-23] MEDS: levETIRAcetam 1,000 MG in Sodium Chloride 0.9% 100 ML IVPB SCH ×2 (09:47→21:12)
--- NOTE | 2018-05-23 10:07 | CP.CCUPN ---
CCU Subjective - Physician Review Events Since Last Encounter (Free Text): 05/23/18 10:04 No imorovement in his condition, unresponsive , on vent, increased resp rate, on cardene infusion to control BP, no corneal reflex and minimal pupillary reflex. ABG reviewed, PO2 is good , slightly higher PCO2, no seizure activity reported in last 24 H, on IV keppra. CCU Objective - Vital Signs / Intake & Output Intake and Output (Last 8hrs): Intake & Output 05/22/18 05/23/18 05/23/18 22:59 06:59 14:59 Intake Total 2220 2490 175 Output Total 1000 1200 Balance 1220 1290 175 Intake: IV 1400 1450 175 Intake, Piggyback 150 350 Oral 130 Tube Feeding 390 390 Free Water Flush 150 300 Output: Urine 1000 1200 Urethral (Sy) 1000 1200 Other: # Bowel Movements 1 - Physical Exam Narrative Physical Exam (Free Text): 05/23/18 10:08 P/E NecK: No JVD Lungs:Rt basal crackles Abdomen: soft ext : emma edema Heart: no gallop Head: Positive for: Atraumatic, Normocephalic Pupils: Positive for: PERRL Conjunctiva: Positive for: Normal Mouth: Positive for: Moist Mucous Membranes Nose (External): Positive for: Atraumatic Neck: Positive for: Normal Range of Motion Respiratory/Chest: Positive for: Clear to Auscultation Cardiovascular: Positive for: Regular Rate and Rhythm, Normal S1, S2 Abdomen: Negative for: Tenderness, Distention Upper Extremity: Positive for: Normal Inspection Lower Extremity: Positive for: Normal Inspection Neurological: Positive for: Other (no response to verbal/tactile stimuli) - Medications Active Medications: Active Medications Generic Name Dose Route Start Last Admin Trade Name Freq PRN Reason Stop Dose Admin Acetaminophen 650 mg 05/16/18 20:17 05/23/18 00:05 Tylenol 650mg/20.3ml Solution Ud PO 650 mg Q4 PRN Administration Temperature Albuterol/Ipratropium 3 ml 05/17/18 13:45 05/23/18 07:10 Duoneb 3 Mg/0.5 Mg (3 Ml) Ud INH Not Given RQ4 DANNY Amantadine HCl 100 mg 05/21/18 17:00 05/23/18 08:19 Amantadine 100 Mg Cap PEG 100 mg BID DANNY Administration Clindamycin Phosphate 600 mg in 50 mls @ 50 mls/hr 05/20/18 16:00 05/23/18 00 :04 Cleocin IVPB 50 mls/hr Q8H DANNY Administration Protocol Vancomycin HCl 1 gm/ Sodium 250 mls @ 166.667 mls/hr 05/20/18 16:00 05/23/18 04:20 Chloride IVPB 166.667 mls/hr Q12H DANNY Administration Protocol Levofloxacin/Dextrose 750 mg in 150 mls @ 100 mls/hr 05/21/18 09:00 05/22/18 09:06 Levaquin 750mg IVPB 100 mls/hr DAILY DANNY Administration Lactated Ringer's 1,000 mls @ 125 mls/hr 05/20/18 19:45 05/23/18 01:39 Lactated Ringer's IV 125 mls/hr .Q8H DANNY Administration Levetiracetam 1,000 mg/ Sodium 110 mls @ 210 mls/hr 05/21/18 09:45 05/23/18 09:47 Chloride IVPB 210 mls/hr Q12 DANNY Administration Nicardipine HCl 40 mg in 200 mls @ 37.5 mls/hr 05/21/18 18:30 05/23/18 09:50 Cardene 40mg/200ml Premixed IV 7.5 mg/hr .Q5H20M DANNY 37.5 mls/hr Protocol Titration 7.5 MG/HR Insulin Human Lispro 0 units 05/18/18 18:00 05/23/18 07:44 Humalog SC Not Given 0000,0600,1200,1800 [facility] Protocol Lorazepam 2 mg 05/20/18 19:07 05/23/18 03:28 Ativan IVP 2 mg Q3H PRN Administration Agitation Morphine Sulfate 4 mg 05/19/18 10:16 05/23/18 07:38 Morphine IVP 4 mg Q4 PRN Administration Agitation - Patient Studies Lab Studies: Microbiology Studies 05/18/18 16:49 Blood Culture - Preliminary Blood-Venous NO GROWTH AFTER 4 DAYS 05/20/18 16:00 Gram Stain - Final Sputum Sputum Culture - Final NORMAL ORAL MAKAYLA 05/17/18 16:08 Blood Culture - Final Blood-Venous NO GROWTH AFTER 5 DAYS Gram Stain - Final TEST NOT PERFORMED 05/17/18 15:58 Blood Culture - Final Blood-Venous NO GROWTH AFTER 5 DAYS Gram Stain - Final TEST NOT PERFORMED Lab Studies 05/23/18 05/23/18 05/23/18 Range/Units 04:35 04:20 04:20 WBC 17.4 H (4.8-10.8) K/uL RBC 4.17 L (4.40-5.90) Mil/uL Hgb 10.0 L (12.0-18.0) g/dL Hct 32.6 L (35.0-51.0) % MCV 78.2 L D (80.0-94.0) fl MCH 23.9 L (27.0-31.0) pg MCHC 30.6 L (33.0-37.0) g/dL RDW 17.1 H (11.5-14.5) % Plt Count 217 (130-400) K/uL pCO2 69 H (35-45) mm/Hg pO2 82 (80-100) mm/Hg HCO3 32.3 H (21-28) mmol/L ABG pH 7.34 L (7.35-7.45) ABG Total CO2 39.3 H (22-28) mmol/L ABG O2 Saturation 96.4 (95-98) % ABG O2 Content 13.7 L (15-23) ML/dL ABG Base Excess 9.5 H (-2.0-3.0) mmol/L ABG Hemoglobin 10.1 L (11.7-17.4) g/dL ABG Carboxyhemoglobin 0.2 L (0.5-1.5) % POC ABG HHb (Measured) 3.6 (0.0-5.0) % ABG Methemoglobin 0.3 (0.0-3.0) % ABG O2 Capacity 14.2 L (16-24) mL/dL Eagle Test Yes A-a O2 Difference 402.0 mm/Hg Hgb O2 Saturation 95.9 (95.0-98.0) % Vent Mode Prvc ac Mechanical Rate 14 FiO2 80.0 % Tidal Volume 550 PEEP 5 Sodium 150 H (132-148) mmol/l Potassium 4.8 (3.6-5.0) MMOL/L Chloride 108 H (98-107) mmol/L Carbon Dioxide 35 H (22-30) mmol/L Anion Gap 12 (10-20) BUN 44 H (9-20) mg/dl Creatinine 1.5 (0.8-1.5) mg/dl Est GFR ( Amer) > 60 Est GFR (Non-Af Amer) 50 Random Glucose 245 H (75-110) mg/dL Calcium 8.2 L (8.4-10.2) mg/dL Laboratory Results - last 24 hr 05/23/18 05/23/18 05/23/18 04:20 04:20 04:35 WBC 17.4 H RBC 4.17 L Hgb 10.0 L Hct 32.6 L MCV 78.2 L D MCH 23.9 L MCHC 30.6 L RDW 17.1 H Plt Count 217 pCO2 69 H pO2 82 HCO3 32.3 H ABG pH 7.34 L ABG Total CO2 39.3 H ABG O2 Saturation 96.4 ABG O2 Content 13.7 L ABG Base Excess 9.5 H ABG Hemoglobin 10.1 L ABG Carboxyhemoglobin 0.2 L POC ABG HHb (Measured) 3.6 ABG Methemoglobin 0.3 ABG O2 Capacity 14.2 L Eagle Test Yes A-a O2 Difference 402.0 Hgb O2 Saturation 95.9 Vent Mode Prvc ac Mechanical Rate 14 FiO2 80.0 Tidal Volume 550 PEEP 5 Sodium 150 H Potassium 4.8 Chloride 108 H Carbon Dioxide 35 H Anion Gap 12 BUN 44 H Creatinine 1.5 Est GFR ( Amer) > 60 Est GFR (Non-Af Amer) 50 Random Glucose 245 H Calcium 8.2 L Fingerstick Blood Sugar Results: 290 Assessment/Plan - Assessment and Plan (Free Text) Assessment: Assessment and Plan: >Neuroleptic Malignant Syndrome/Hyperthermia -Trazodone and Seroquel as possible causative agents. -low grade fever 99 overnight -Continue with temperature control. -On Amantidine. >Myoclonic activity -Improved No seizure activity notes -Continue Clonazepam to PRN --Neurology consult, Dr Gonzales. -On Keppra 1000mg Q12H -MRI Brain and EEG >Acute Respiratory Failure/RLL Pneumonia CXR from this am ( 05/22 ) reviewed, worsening rt LLP consolidatio, PNA -Multiple medications overdose. -On mechanical ventilator --On Levofloxacin, Vancomycin and Clindamycin >Hypertension -Well controlled on cardene, 10 mg/h ANDRY has rt femoral art A-line - >Fever -Neuroleptic Malignant Syndrome vs Infection vs Medication adverse effect -Afebrile overnight -Has RLL pneumonia. -Blood Cx preliminary w NO growth. UCx w/ no growth. F/u cultures final results. -CXR w/ RLL pneumonia. -On Levofloxacin, Vancomycin and Clindamycin -On acetaminophen. Hypernatremia Mild, will change IVF to D5w. >DVT Prophylaxis -SCD's
--- NOTE | 2018-05-23 10:36 | RAD ---
Date of service: 05/23/2018 PROCEDURE: CHEST RADIOGRAPH, 1 VIEW HISTORY: daily ETT placement COMPARISON: 05/22/2018 FINDINGS: LUNGS: Persistent extensive right basilar opacity. Minimal patchy left basilar opacity not evident on prior examination. PLEURA: Small right pleural effusion. No pneumothorax. No left pleural effusion. . CARDIOVASCULAR: NG tube unchanged. Right IJ central venous catheter unchanged. ET tube not visualized. Tip of the ET tube is seen in the mid neck and should be repositioned or replaced. OSSEOUS STRUCTURES: No significant abnormalities. VISUALIZED UPPER ABDOMEN: Normal. OTHER FINDINGS: None. IMPRESSION: Persistent right basilar opacity and small right pleural effusion. New patchy left basilar opacity. Possible developing pneumonia. ET tube malposition. This should be repositioned or replaced. Findings discussed with patient's nurse at 10:30 a.m. on 05/23/2018.
[2018-05-23] MEDS: levoFLOXacin 750 mg in D5W 750 MG/150 ML BAG IVPB SCH (11:48)
--- NOTE | 2018-05-23 11:52 | RAD ---
Date of service: 05/23/2018 HISTORY: ett placement COMPARISON: 05/21/2018 at 5:10 a.m. FINDINGS: LUNGS: Right basilar opacity unchanged. Small right pleural effusion. PLEURA: Small right pleural effusion. Right costophrenic angle not entirely included. No left pleural effusion. No pneumothorax. CARDIOVASCULAR: Normal heart size. ET tube not visualized. Nasogastric tube extends beneath the diaphragm. Right IJ central venous catheter unchanged. OSSEOUS STRUCTURES: No significant abnormalities. VISUALIZED UPPER ABDOMEN: Normal. OTHER FINDINGS: None. IMPRESSION: ET tube not visualized. Findings discussed by telephone with Dr. Rene at 11:43 a.m. on 05/23/2018.
--- NOTE | 2018-05-23 13:07 | RAD ---
Date of service: 05/23/2018 PROCEDURE: CHEST RADIOGRAPH, 1 VIEW HISTORY: et tube position COMPARISON: 05/23/2018 11:08 a.m. FINDINGS: LUNGS: Diffusely increased opacity right lung with wil consolidation at right base. PLEURA: Small right pleural effusion. No pneumothorax. CARDIOVASCULAR: Endotracheal tube terminating above the thoracic inlet, in the distal cervical trachea. This should be advanced. Nasogastric tube unchanged. Right IJ central venous catheter unchanged. OSSEOUS STRUCTURES: No significant abnormalities. VISUALIZED UPPER ABDOMEN: Normal. OTHER FINDINGS: None. IMPRESSION: Endotracheal tube malpositioned in the neck. Repositioning advised.
--- NOTE | 2018-05-23 13:09 | RAD ---
Date of service: 05/23/2018 HISTORY: et tube placement COMPARISON: 05/23/2018 at 12:08 p.m. FINDINGS: LUNGS: Persistent extensive opacity at right base. Diffusely increased opacity right lung relative to left. PLEURA: Small right pleural effusion. CARDIOVASCULAR: ET tube tip just beneath the level of the thoracic inlet, approximately 9.7 cm above the tracheal lexus. This should be advanced by several cm. Nasogastric tube and right IJ central venous catheter unchanged. OSSEOUS STRUCTURES: No significant abnormalities. VISUALIZED UPPER ABDOMEN: Normal. OTHER FINDINGS: None. IMPRESSION: ET tube protrudes just beneath the level of the thoracic inlet and should be advanced several cm beyond its current position.
--- NOTE | 2018-05-23 14:49 | CP.PCM.PN ---
Subjective - Date & Time of Evaluation Date of Evaluation: 05/23/18 Time of Evaluation: 13:00 - Subjective Subjective: F/U Respiratory Failure. intubated, unresponsive Objective - Vital Signs/Intake and Output Vital Signs (last 24 hours): Temp Pulse Resp BP Pulse Ox 98.6 F 104 H 24 140/69 100 05/23/18 13:00 05/23/18 13:00 05/23/18 13:00 05/23/18 13:00 05/23/18 13:00 Intake and Output: 05/23/18 05/23/18 06:59 18:59 Intake Total 3700 650 Output Total 1200 Balance 2500 650 - Medications Medications: Current Medications Acetaminophen (Tylenol 650mg/20.3ml Solution Ud) 650 mg PO Q4 PRN PRN Reason: Temperature Last Admin: 05/23/18 00:05 Dose: 650 mg Albuterol/Ipratropium (Duoneb 3 Mg/0.5 Mg (3 Ml) Ud) 3 ml INH RQ4 [facility] Last Admin: 05/23/18 11:03 Dose: 3 ml Amantadine HCl (Amantadine 100 Mg Cap) 100 mg PEG BID [facility] Last Admin: 05/23/18 08:19 Dose: 100 mg Clindamycin Phosphate (Cleocin) 600 mg in 50 mls @ 50 mls/hr IVPB Q8H DANNY PRN Reason: Protocol Last Admin: 05/23/18 10:24 Dose: 50 mls/hr Vancomycin HCl 1 gm/ Sodium (Chloride) 250 mls @ 166.667 mls/hr IVPB Q12H DANNY PRN Reason: Protocol Last Admin: 05/23/18 04:20 Dose: 166.667 mls/hr Levofloxacin/Dextrose (Levaquin 750mg) 750 mg in 150 mls @ 100 mls/hr IVPB DAILY [facility] Last Admin: 05/23/18 11:48 Dose: 100 mls/hr Lactated Ringer's (Lactated Ringer's) 1,000 mls @ 125 mls/hr IV .Q8H DANNY Last Admin: 05/23/18 12:08 Dose: 125 mls/hr Levetiracetam 1,000 mg/ Sodium (Chloride) 110 mls @ 210 mls/hr IVPB Q12 DANNY Last Admin: 05/23/18 09:47 Dose: 210 mls/hr Nicardipine HCl (Cardene 40mg/200ml Premixed) 40 mg in 200 mls @ 37.5 mls/hr IV .Q5H20M DANNY; 7.5 MG/HR PRN Reason: Protocol Last Admin: 05/23/18 10:55 Dose: 7.5 mg/hr, 37.5 mls/hr Insulin Human Lispro (Humalog) 0 units SC 0000,0600,1200,1800 DANNY PRN Reason: Protocol Last Admin: 05/23/18 12:09 Dose: 3 units Lorazepam (Ativan) 2 mg IVP Q3H PRN PRN Reason: Agitation Last Admin: 05/23/18 10:34 Dose: 2 mg Morphine Sulfate (Morphine) 4 mg IVP Q4 PRN PRN Reason: Agitation Last Admin: 05/23/18 12:10 Dose: 4 mg - Labs Labs: 05/23/18 04:20 05/23/18 04:20 PT 15.8 Seconds (9.8-13.1) H 05/20/18 16:00 INR 1.4 (0.9-1.2) H 05/20/18 16:00 APTT 23.2 Seconds (25.6-37.1) L 05/20/18 16:00 - Constitutional Appears: Chronically Ill - Head Exam Head Exam: NORMAL INSPECTION - Eye Exam Additional comments: no corneal reflex, sluggish reaction to light - ENT Exam Additional comments: Intubated - Neck Exam Neck Exam: Normal Inspection - Respiratory Exam Respiratory Exam: Decreased Breath Sounds (at bases), Rhonchi - Cardiovascular Exam Cardiovascular Exam: REGULAR RHYTHM - GI/Abdominal Exam GI & Abdominal Exam: Soft, Normal Bowel Sounds - Extremities Exam Additional comments: 2+ edema all extremities - Neurological Exam Additional comments: Intubated, unresponsive - Skin Skin Exam: Warm Assessment and Plan (1) Respiratory failure Status: Acute (2) Neuroleptic malignant syndrome Status: Acute (3) HTN (hypertension) Status: Acute (4) Overdose Status: Acute (5) Aspiration pneumonia Status: Acute (6) Hx of deep venous thrombosis Status: Chronic (7) Hx pulmonary embolism Status: Acute (8) History of obstructive sleep apnea Status: Acute (9) Diabetes Status: Chronic (10) Asthma exacerbation Status: Acute - Assessment and Plan (Free Text) Plan: ventilatory support AC PRVC 80%, ,DuoNeb, Clinda, Everette Phillips Tx Asp PNA, Cardene drip Tx HTN, Keppra Tx Seizure, Prognosis poor Critical Care Time: 33 min.
--- NOTE | 2018-05-23 19:35 | CP.PCM.PN ---
Subjective - Date & Time of Evaluation Date of Evaluation: 05/22/18 Time of Evaluation: 23:15 - Subjective Subjective: Seen and examined at the bed side. No improvement. Objective - Vital Signs/Intake and Output Vital Signs (last 24 hours): Temp Pulse Resp BP Pulse Ox 100.8 F H 114 H 15 144/74 100 05/23/18 18:00 05/23/18 18:00 05/23/18 18:00 05/23/18 18:00 05/23/18 18:00 Intake and Output: 05/23/18 05/24/18 18:59 06:59 Intake Total 3780 Output Total 1300 Balance 2480 - Medications Medications: Current Medications Acetaminophen (Tylenol 650mg/20.3ml Solution Ud) 650 mg PO Q4 PRN PRN Reason: Temperature Last Admin: 05/23/18 16:10 Dose: 650 mg Albuterol/Ipratropium (Duoneb 3 Mg/0.5 Mg (3 Ml) Ud) 3 ml INH RQ4 DANNY Last Admin: 05/23/18 19:09 Dose: 3 ml Amantadine HCl (Amantadine 100 Mg Cap) 100 mg PEG BID DANNY Last Admin: 05/23/18 16:03 Dose: 100 mg Clindamycin Phosphate (Cleocin) 600 mg in 50 mls @ 50 mls/hr IVPB Q8H DANNY PRN Reason: Protocol Last Admin: 05/23/18 16:03 Dose: 50 mls/hr Vancomycin HCl 1 gm/ Sodium (Chloride) 250 mls @ 166.667 mls/hr IVPB Q12H DANNY PRN Reason: Protocol Last Admin: 05/23/18 16:05 Dose: 166.667 mls/hr Levofloxacin/Dextrose (Levaquin 750mg) 750 mg in 150 mls @ 100 mls/hr IVPB DAILY DANNY Last Admin: 05/23/18 11:48 Dose: 100 mls/hr Lactated Ringer's (Lactated Ringer's) 1,000 mls @ 125 mls/hr IV .Q8H DANNY Last Admin: 05/23/18 15:47 Dose: 125 mls/hr Levetiracetam 1,000 mg/ Sodium (Chloride) 110 mls @ 210 mls/hr IVPB Q12 DANNY Last Admin: 05/23/18 09:47 Dose: 210 mls/hr Nicardipine HCl (Cardene 40mg/200ml Premixed) 40 mg in 200 mls @ 37.5 mls/hr IV .Q5H20M DANNY; 7.5 MG/HR PRN Reason: Protocol Last Admin: 05/23/18 16:14 Dose: 5 mg/hr, 25 mls/hr Insulin Human Lispro (Humalog) 0 units SC 0000,0600,1200,1800 DANNY PRN Reason: Protocol Last Admin: 05/23/18 18:24 Dose: 2 units Lorazepam (Ativan) 2 mg IVP Q3H PRN PRN Reason: Agitation Last Admin: 05/23/18 10:34 Dose: 2 mg Morphine Sulfate (Morphine) 4 mg IVP Q4 PRN PRN Reason: Agitation Last Admin: 05/23/18 12:10 Dose: 4 mg - Labs Labs: 05/23/18 04:20 05/23/18 04:20 PT 15.8 Seconds (9.8-13.1) H 05/20/18 16:00 INR 1.4 (0.9-1.2) H 05/20/18 16:00 APTT 23.2 Seconds (25.6-37.1) L 05/20/18 16:00 Assessment and Plan (1) Acute respiratory failure with hypercapnia Assessment & Plan: S/P Reintubated Mixed Respiratory and Metabolic acidosis with Lactate Level >10 Aspiration Pneumonia Vs Neuroleptic/Serotonine Syndrome Vs Drug Fever Fever IVF ABG Daily Morning Labs Status: Acute (2) Cardiac Arrest Today S/P Successful Resuscitation Assessment and Plan: Multiple Drug Overdose Neuroleptic Syndrome/Serotonine Syndrome Supportive Care Danrolene PRN regidity Status: Acute (3) Suicide attempt by drug ingestion Assessment and Plan: Major Depression Supportive Care Psych onboard Status: Acute Priority: High (4) Microcytic Anemia (5) Hypernatremia/Hyperchloremia D5 0.225 @125cc/hr (d) DVT prophylaxis Assessment and Plan: Lovenox 40mg SQ Daily Status: Chronic
[2018-05-23] MEDS: Morphine 5 MG/ML SYRINGE IVP PRN (21:58)
[2018-05-24] MEDS: Nicardipine HCl 40 MG/200 ML 40 MG/200 ML SOL IV SCH ×7 (00:12→21:39)
[2018-05-24] MEDS: Clindamycin 600mg/50ml D5W 600 MG/50 ML VIAL IVPB SCH ×3 (00:14→16:03)
[2018-05-24] MEDS: Albuterol-Ipratrop 3 mg / 0.5 (3 ml) UD INH SCH ×7 (00:39→23:28)
[2018-05-24] MEDS: Insulin Lispro (humaLOG) 100 Units/ml Inj SC SCH ×4 (00:40→17:20)
[2018-05-24] MEDS: Lactated Ringer's 1,000 ML IV SCH (02:14)
[2018-05-24 05:05] LABS: ABG ALLEN TEST YES; ARTERIAL BLOOD GAS HCO3 32.7 mmol/L (21-28); ARTERIAL BLOOD GAS HEMOGLOBIN 10.5 g/dL (11.7-17.4); ARTERIAL BLOOD GAS O2 CAPACITY 14.7 mL/dL (16-24); ARTERIAL BLOOD GAS O2 CONTENT 13.7 ML/dL (15-23); ARTERIAL BLOOD GAS O2 SAT 93.4 % (95-98); ARTERIAL BLOOD GAS PCO2 61 mm/Hg (35-45); ARTERIAL BLOOD GAS PH 7.39 (7.35-7.45); ARTERIAL BLOOD GAS PO2 62 mm/Hg (80-100); ARTERIAL BLOOD GAS TCO2 38.8 mmol/L (22-28)
[2018-05-24] MEDS: Morphine 5 MG/ML SYRINGE IVP PRN ×3 (05:11→20:30)
[2018-05-24 05:37] LABS: MEAN CELL VOLUME 77.7 fl (80.0-94.0); MEAN CORPUSCULAR HGB CONC 30.9 g/dL (33.0-37.0); RBC 4.19 Mil/uL (4.40-5.90); RED CELL DISTRIBUTION WIDTH 17.1 % (11.5-14.5)
[2018-05-24 06:10] LABS: ALBUMIN 2.9 g/dL (3.5-5.0); ALT/SGPT 42 U/L (21-72); AST/SGOT 61 U/L (17-59); BLOOD UREA NITROGEN 38 mg/dl (9-20); CALCIUM 8.7 mg/dL (8.4-10.2); GFR NON-AFRICAN AMERICAN > 60
--- NOTE | 2018-05-24 07:57 | RAD ---
Date of service: 05/24/2018 PROCEDURE: CHEST RADIOGRAPH, 1 VIEW HISTORY: pt on vent, daily cxr COMPARISON: Portable chest 05/23/2018, 12:43 p.m.. FINDINGS: LUNGS: Endotracheal tube remains somewhat only deployed terminating approximately 13.9 cm above the lexus. Adjusted leak the endotracheal tube further several cm into the intrathoracic trachea is advised. Normal change in basilar infiltrate at the right with relatively chronic bronchovascular markings identified in the left due to rotation of the patient toward the right. PLEURA: No pneumothorax or pleural fluid seen. CARDIOVASCULAR: Cardiomediastinal silhouette is grossly stable with right internal jugular central venous line unchanged in position. OSSEOUS STRUCTURES: No significant abnormalities. VISUALIZED UPPER ABDOMEN: Nasogastric tube is again seen entering into the abdomen. OTHER FINDINGS: None. IMPRESSION: 1. Normal change in right basilar infiltrate. 2. Endotracheal tube terminates in the upper trachea near its origin in the neck. Advancing the tube into the intrathoracic trachea is advised follow-up by confirmation radiography. Findings discussed with Dr. Levin by telephone with written down read back verification 05/24/2018 7:45 a.m..
--- NOTE | 2018-05-24 08:45 | RAD ---
Date of service: 05/24/2018 PROCEDURE: CHEST RADIOGRAPH, 1 VIEW HISTORY: ETT repositioned, COMPARISON: Chest radiograph 05/24/2018 4:29 a.m.. FINDINGS: LUNGS: Endotracheal tube appears to terminate at the level of clavicles approximately 7.4 cm above the lexus. Infiltrate at the right base persists but may have diminished in the interval. No left-sided infiltrate. PLEURA: No pneumothorax or pleural fluid seen. CARDIOVASCULAR: Cardiac size is stable. No pulmonary vascular derangement. Right internal jugular central venous line unchanged in position. OSSEOUS STRUCTURES: No significant abnormalities. VISUALIZED UPPER ABDOMEN: Nasogastric tube not significantly changed in position. OTHER FINDINGS: None. IMPRESSION: Right basilar infiltrate may have diminished with elevation right hemidiaphragm present. No left-sided infiltrate. Endotracheal tube terminates 7.5 cm above the lexus.
[2018-05-24] MEDS: levETIRAcetam 1,000 MG in Sodium Chloride 0.9% 100 ML IVPB SCH ×2 (09:15→21:42)
--- NOTE | 2018-05-24 09:52 | CP.PCM.PN ---
Subjective - Date & Time of Evaluation Date of Evaluation: 05/24/18 Time of Evaluation: 09:52 - Subjective Subjective: Mr. Shah was seen and examined at the bedside in the ICU. He is mechanical ventilator on PRVC mode. He does have a corneal reflex, with very minimal very sluggish pupils reactive miosis and pupils are located in the midline ,2mm, no response to noxious stimuli and gag reflex, GCS-3T.According to staff, he was able to move his had from side to side and move minimally one of his lower extremities. There is minimal tremors noted on his extremities, but was previously on a cooling blanket. At present his temp is 96.5. He remains on nicardipine for blood pressure control.Last night he had episode of tachycardia and tachypneic which was medicated, at present his heart rate is 105 and respiration of 15. Objective - Vital Signs/Intake and Output Vital Signs (last 24 hours): Temp Pulse Resp BP Pulse Ox 95.0 F L 108 H 17 143/74 100 05/24/18 08:00 05/24/18 09:00 05/24/18 09:00 05/24/18 09:00 05/24/18 09:00 Intake and Output: 05/24/18 05/24/18 06:59 18:59 Intake Total 2545 100 Output Total 2400 Balance 145 100 - Medications Medications: Current Medications Acetaminophen (Tylenol 650mg/20.3ml Solution Ud) 650 mg PO Q4 PRN PRN Reason: Temperature Last Admin: 05/23/18 21:11 Dose: 650 mg Albuterol/Ipratropium (Duoneb 3 Mg/0.5 Mg (3 Ml) Ud) 3 ml INH RQ4 DANNY Last Admin: 05/24/18 08:29 Dose: 3 ml Amantadine HCl (Amantadine 100 Mg Cap) 100 mg PEG BID DANNY Last Admin: 05/24/18 09:13 Dose: 100 mg Clindamycin Phosphate (Cleocin) 600 mg in 50 mls @ 50 mls/hr IVPB Q8H DANNY PRN Reason: Protocol Last Admin: 05/24/18 09:14 Dose: 50 mls/hr Vancomycin HCl 1 gm/ Sodium (Chloride) 250 mls @ 166.667 mls/hr IVPB Q12H DANNY PRN Reason: Protocol Last Admin: 05/24/18 05:20 Dose: 166.667 mls/hr Levofloxacin/Dextrose (Levaquin 750mg) 750 mg in 150 mls @ 100 mls/hr IVPB DAILY DANNY Last Admin: 05/23/18 11:48 Dose: 100 mls/hr Lactated Ringer's (Lactated Ringer's) 1,000 mls @ 125 mls/hr IV .Q8H DANNY Last Admin: 05/24/18 02:14 Dose: 125 mls/hr Levetiracetam 1,000 mg/ Sodium (Chloride) 110 mls @ 210 mls/hr IVPB Q12 DANNY Last Admin: 05/24/18 09:15 Dose: 210 mls/hr Nicardipine HCl (Cardene 40mg/200ml Premixed) 40 mg in 200 mls @ 37.5 mls/hr IV .Q5H20M DANNY; 7.5 MG/HR PRN Reason: Protocol Last Admin: 05/24/18 07:44 Dose: 12.5 mg/hr, 62.5 mls/hr Insulin Human Lispro (Humalog) 0 units SC 0000,0600,1200,1800 DANNY PRN Reason: Protocol Last Admin: 05/24/18 06:33 Dose: 2 units Lorazepam (Ativan) 2 mg IVP Q3H PRN PRN Reason: Agitation Last Admin: 05/23/18 10:34 Dose: 2 mg Morphine Sulfate (Morphine) 4 mg IVP Q4 PRN PRN Reason: Agitation Last Admin: 05/24/18 05:11 Dose: 4 mg - Labs Labs: 05/24/18 05:26 05/24/18 05:26 PT 15.8 Seconds (9.8-13.1) H 05/20/18 16:00 INR 1.4 (0.9-1.2) H 05/20/18 16:00 APTT 23.2 Seconds (25.6-37.1) L 05/20/18 16:00 - Constitutional Appears: No Acute Distress - Head Exam Head Exam: NORMAL INSPECTION - Eye Exam Pupil Exam: Miosis Additional comments: bilateral 2 mm. - Neurological Exam Neuro motor strength exam: Left Upper Extremity: 0, Right Upper Extremity: 0, Left Lower Extremity: 0, Right Lower Extremity: 0 Additional comments: GCS-3T Assessment and Plan (1) Neuroleptic malignant syndrome Assessment & Plan: Continue all current medical regimen including ICU team management for ventilator and blood pressure management. Pending EEG, keep head of the bed elevated at least 30 degrees, treat any electrolyte abnormalities. Status: Acute
[2018-05-24] MEDS: levoFLOXacin 750 mg in D5W 750 MG/150 ML BAG IVPB SCH (10:09)
[2018-05-24] MEDS: Acetaminophen 650mg/20.3ml solution UD PO PRN ×2 (12:56→21:44)
[2018-05-24] MEDS ORDERED: Lactated Ringer's 1,000 ML IV SCH (13:45)
--- NOTE | 2018-05-24 15:46 | CP.PCM.PN ---
Subjective - Date & Time of Evaluation Date of Evaluation: 05/24/18 Time of Evaluation: 10:00 - Subjective Subjective: F/U Respiratory Failure. unresponsive Objective - Vital Signs/Intake and Output Vital Signs (last 24 hours): Temp Pulse Resp BP Pulse Ox 100.1 F H 119 H 29 H 148/75 100 05/24/18 15:00 05/24/18 15:00 05/24/18 15:00 05/24/18 15:00 05/24/18 15:00 Intake and Output: 05/24/18 05/24/18 06:59 18:59 Intake Total 2545 1100 Output Total 2400 Balance 145 1100 - Medications Medications: Current Medications Acetaminophen (Tylenol 650mg/20.3ml Solution Ud) 650 mg PO Q4 PRN PRN Reason: Temperature Last Admin: 05/24/18 12:56 Dose: 650 mg Albuterol/Ipratropium (Duoneb 3 Mg/0.5 Mg (3 Ml) Ud) 3 ml INH RQ4 DANNY Last Admin: 05/24/18 15:31 Dose: 3 ml Amantadine HCl (Amantadine 100 Mg Cap) 100 mg PEG BID DANNY Last Admin: 05/24/18 09:13 Dose: 100 mg Clindamycin Phosphate (Cleocin) 600 mg in 50 mls @ 50 mls/hr IVPB Q8H DANNY PRN Reason: Protocol Last Admin: 05/24/18 09:14 Dose: 50 mls/hr Vancomycin HCl 1 gm/ Sodium (Chloride) 250 mls @ 166.667 mls/hr IVPB Q12H DANNY PRN Reason: Protocol Last Admin: 05/24/18 05:20 Dose: 166.667 mls/hr Levofloxacin/Dextrose (Levaquin 750mg) 750 mg in 150 mls @ 100 mls/hr IVPB DAILY DANNY Last Admin: 05/24/18 10:09 Dose: 100 mls/hr Levetiracetam 1,000 mg/ Sodium (Chloride) 110 mls @ 210 mls/hr IVPB Q12 DANNY Last Admin: 05/24/18 09:15 Dose: 210 mls/hr Nicardipine HCl (Cardene 40mg/200ml Premixed) 40 mg in 200 mls @ 37.5 mls/hr IV .Q5H20M DANNY; 7.5 MG/HR PRN Reason: Protocol Last Admin: 05/24/18 11:12 Dose: 7.5 mg/hr, 37.5 mls/hr Lactated Ringer's (Lactated Ringer's) 1,000 mls @ 100 mls/hr IV .Q10H [facility] Insulin Human Lispro (Humalog) 0 units SC 0000,0600,1200,1800 DANNY PRN Reason: Protocol Last Admin: 05/24/18 12:51 Dose: 3 units Lorazepam (Ativan) 2 mg IVP Q3H PRN PRN Reason: Agitation Last Admin: 05/24/18 14:26 Dose: 2 mg Morphine Sulfate (Morphine) 4 mg IVP Q4 PRN PRN Reason: Agitation Last Admin: 05/24/18 05:11 Dose: 4 mg Pantoprazole Sodium (Protonix Inj) 40 mg IVP DAILY [facility] Last Admin: 05/24/18 14:26 Dose: 40 mg - Labs Labs: 05/24/18 05:26 05/24/18 05:26 PT 15.8 Seconds (9.8-13.1) H 05/20/18 16:00 INR 1.4 (0.9-1.2) H 05/20/18 16:00 APTT 23.2 Seconds (25.6-37.1) L 05/20/18 16:00 - Constitutional Appears: Chronically Ill - Head Exam Head Exam: NORMAL INSPECTION - Eye Exam Additional comments: No corneal reflex, sluggish reaction to light - ENT Exam Additional comments: Intubated - Neck Exam Neck Exam: Normal Inspection - Respiratory Exam Respiratory Exam: Decreased Breath Sounds (at bases), Rhonchi - Cardiovascular Exam Cardiovascular Exam: REGULAR RHYTHM - GI/Abdominal Exam GI & Abdominal Exam: Soft, Normal Bowel Sounds - Extremities Exam Additional comments: 2+ edema all extremities - Neurological Exam Additional comments: Intubated, unresponsive. - Skin Skin Exam: Warm Assessment and Plan (1) Respiratory failure Status: Acute (2) Neuroleptic malignant syndrome Status: Acute (3) HTN (hypertension) Status: Acute (4) Overdose Status: Acute (5) Aspiration pneumonia Status: Acute (6) Hx of deep venous thrombosis Status: Chronic (7) Hx pulmonary embolism Status: Acute (8) History of obstructive sleep apnea Status: Acute (9) Diabetes Status: Chronic (10) Asthma exacerbation Status: Acute - Assessment and Plan (Free Text) Plan: Ventilatory support, AC , FIO2 100&, DuoNeb, Clinda, Levaquin, Vanco Tx Resp Failure, PNA, Cardene drip Tx HTN, Keppra Tx Seizure, , Morphine Tx agitation, Hypernatremia IVF, Insulin Tx DM, CXR RLL PNA, f/u EEG, Prognosis poor Critical care time: 38 min.
--- NOTE | 2018-05-24 19:35 | CP.PCM.PN ---
Subjective - Date & Time of Evaluation Date of Evaluation: 05/24/18 Time of Evaluation: 19:30 - Subjective Subjective: I D NOTE PATTIENT EXAMINED ,CHART REVIEWED FULL CONSULT DICTATED CONTINUE SAME ANTIBIOTIC COVERAG SERIAL CBCs Objective - Vital Signs/Intake and Output Vital Signs (last 24 hours): Temp Pulse Resp BP Pulse Ox 99.7 F H 98 H 16 122/60 100 05/24/18 17:00 05/24/18 18:00 05/24/18 18:00 05/24/18 18:00 05/24/18 18:00 Intake and Output: 05/24/18 05/25/18 18:59 06:59 Intake Total 3291 Output Total 1000 Balance 2291 - Medications Medications: Current Medications Acetaminophen (Tylenol 650mg/20.3ml Solution Ud) 650 mg PO Q4 PRN PRN Reason: Temperature Last Admin: 05/24/18 12:56 Dose: 650 mg Albuterol/Ipratropium (Duoneb 3 Mg/0.5 Mg (3 Ml) Ud) 3 ml INH RQ4 DANNY Last Admin: 05/24/18 19:24 Dose: 3 ml Amantadine HCl (Amantadine 100 Mg Cap) 100 mg PEG BID DANNY Last Admin: 05/24/18 16:11 Dose: 100 mg Clindamycin Phosphate (Cleocin) 600 mg in 50 mls @ 50 mls/hr IVPB Q8H DANNY PRN Reason: Protocol Last Admin: 05/24/18 16:03 Dose: 50 mls/hr Vancomycin HCl 1 gm/ Sodium (Chloride) 250 mls @ 166.667 mls/hr IVPB Q12H DANNY PRN Reason: Protocol Last Admin: 05/24/18 17:07 Dose: 166.667 mls/hr Levofloxacin/Dextrose (Levaquin 750mg) 750 mg in 150 mls @ 100 mls/hr IVPB DAILY DANNY Last Admin: 05/24/18 10:09 Dose: 100 mls/hr Levetiracetam 1,000 mg/ Sodium (Chloride) 110 mls @ 210 mls/hr IVPB Q12 DANNY Last Admin: 05/24/18 09:15 Dose: 210 mls/hr Nicardipine HCl (Cardene 40mg/200ml Premixed) 40 mg in 200 mls @ 37.5 mls/hr IV .Q5H20M DANNY; 7.5 MG/HR PRN Reason: Protocol Last Titration: 05/24/18 18:13 Dose: 5 mg/hr, 25 mls/hr Lactated Ringer's (Lactated Ringer's) 1,000 mls @ 100 mls/hr IV .Q10H DANNY Last Admin: 05/24/18 16:49 Dose: 100 mls/hr Insulin Human Lispro (Humalog) 0 units SC 0000,0600,1200,1800 DANNY PRN Reason: Protocol Last Admin: 05/24/18 17:20 Dose: Not Given Lorazepam (Ativan) 2 mg IVP Q3H PRN PRN Reason: Agitation Last Admin: 05/24/18 14:26 Dose: 2 mg Morphine Sulfate (Morphine) 4 mg IVP Q4 PRN PRN Reason: Agitation Last Admin: 05/24/18 15:57 Dose: 4 mg Pantoprazole Sodium (Protonix Inj) 40 mg IVP DAILY DANNY Last Admin: 05/24/18 14:26 Dose: 40 mg - Labs Labs: 05/24/18 05:26 05/24/18 05:26 PT 15.8 Seconds (9.8-13.1) H 05/20/18 16:00 INR 1.4 (0.9-1.2) H 05/20/18 16:00 APTT 23.2 Seconds (25.6-37.1) L 05/20/18 16:00
--- NOTE | 2018-05-24 23:57 | CP.PCM.PN ---
Subjective - Date & Time of Evaluation Date of Evaluation: 05/23/18 Time of Evaluation: 15:15 - Subjective Subjective: S/P Reintubated Mixed Respiratory and Metabolic acidosis with Lactate Level >10 Aspiration Pneumonia Vs Neuroleptic/Serotonine Syndrome Vs Drug Fever Fever IVF ABG Daily Morning Labs Status: Acute (2) Cardiac Arrest Today S/P Successful Resuscitation Assessment and Plan: Multiple Drug Overdose Neuroleptic Syndrome/Serotonine Syndrome Supportive Care Danrolene PRN regidity Status: Acute (3) Suicide attempt by drug ingestion Assessment and Plan: Major Depression Supportive Care Psych onboard Status: Acute Priority: High (4) Microcytic Anemia (5) Hypernatremia/Hyperchloremia D5 0.225 @125cc/hr (d) DVT prophylaxis Assessment and Plan: Lovenox 40mg SQ Daily Objective - Vital Signs/Intake and Output Vital Signs (last 24 hours): Temp Pulse Resp BP Pulse Ox 98.6 F 107 H 26 H 137/62 100 05/24/18 22:44 05/24/18 22:44 05/24/18 22:44 05/24/18 22:44 05/24/18 22:00 Intake and Output: 05/24/18 05/25/18 18:59 06:59 Intake Total 3291 1029 Output Total 1000 Balance 2291 1029 - Medications Medications: Current Medications Acetaminophen (Tylenol 650mg/20.3ml Solution Ud) 650 mg PO Q4 PRN PRN Reason: Temperature Last Admin: 05/24/18 21:44 Dose: 650 mg Albuterol/Ipratropium (Duoneb 3 Mg/0.5 Mg (3 Ml) Ud) 3 ml INH RQ4 DANNY Last Admin: 05/24/18 23:28 Dose: 3 ml Amantadine HCl (Amantadine 100 Mg Cap) 100 mg PEG BID DANNY Last Admin: 05/24/18 16:11 Dose: 100 mg Clindamycin Phosphate (Cleocin) 600 mg in 50 mls @ 50 mls/hr IVPB Q8H DANNY PRN Reason: Protocol Last Admin: 05/24/18 16:03 Dose: 50 mls/hr Vancomycin HCl 1 gm/ Sodium (Chloride) 250 mls @ 166.667 mls/hr IVPB Q12H DANNY PRN Reason: Protocol Last Admin: 05/24/18 17:07 Dose: 166.667 mls/hr Levofloxacin/Dextrose (Levaquin 750mg) 750 mg in 150 mls @ 100 mls/hr IVPB DAILY DANNY Last Admin: 05/24/18 10:09 Dose: 100 mls/hr Levetiracetam 1,000 mg/ Sodium (Chloride) 110 mls @ 210 mls/hr IVPB Q12 DANNY Last Admin: 05/24/18 21:42 Dose: 210 mls/hr Nicardipine HCl (Cardene 40mg/200ml Premixed) 40 mg in 200 mls @ 37.5 mls/hr IV .Q5H20M DANNY; 7.5 MG/HR PRN Reason: Protocol Last Titration: 05/24/18 23:15 Dose: 15 mg/hr, 75 mls/hr Lactated Ringer's (Lactated Ringer's) 1,000 mls @ 100 mls/hr IV .Q10H DANNY Last Admin: 05/24/18 16:49 Dose: 100 mls/hr Insulin Human Lispro (Humalog) 0 units SC 0000,0600,1200,1800 DANNY PRN Reason: Protocol Last Admin: 05/24/18 17:20 Dose: Not Given Lorazepam (Ativan) 2 mg IVP Q3H PRN PRN Reason: Agitation Last Admin: 05/24/18 14:26 Dose: 2 mg Morphine Sulfate (Morphine) 4 mg IVP Q4 PRN PRN Reason: Agitation Last Admin: 05/24/18 20:30 Dose: 4 mg Pantoprazole Sodium (Protonix Inj) 40 mg IVP DAILY [facility] Last Admin: 05/24/18 14:26 Dose: 40 mg - Labs Labs: 05/24/18 05:26 05/24/18 05:26 PT 15.8 Seconds (9.8-13.1) H 05/20/18 16:00 INR 1.4 (0.9-1.2) H 05/20/18 16:00 APTT 23.2 Seconds (25.6-37.1) L 05/20/18 16:00 Assessment and Plan (1) Acute respiratory failure with hypercapnia Assessment & Plan: S/P Reintubated Respiratory Acidosis Aspiration Pneumonia Vs Neuroleptic/Serotonine Syndrome Vs Drug Fever Fever IVF Sedated ID, and Pulmonary Consult ABG Daily Morning Labs Status: Acute (2) Altered mental status, Assessment and Plan: Multiple Drug Overdose Neuroleptic Syndrome/Serotonine Syndrome Supportive Care Danrolene PRN regidity Status: Acute (3) Suicide attempt by drug ingestion Assessment and Plan: Major Depression Supportive Care Psych onboard Status: Acute Priority: High (4) Microcytic Anemia (5) Hypernatremia/Hyperchloremia D5 0.225 @125cc/hr (d) DVT prophylaxis Assessment and Plan: Lovenox 40mg SQ Daily Status: Chronic
--- NOTE | 2018-05-24 23:57 | CP.PCM.PN ---
Subjective - Date & Time of Evaluation Date of Evaluation: 05/24/18 Time of Evaluation: 13:15 - Subjective Subjective: Seen and examination at the bed side. Continue to be unresponsive. Objective - Vital Signs/Intake and Output Vital Signs (last 24 hours): Temp Pulse Resp BP Pulse Ox 98.6 F 107 H 26 H 137/62 100 05/24/18 22:44 05/24/18 22:44 05/24/18 22:44 05/24/18 22:44 05/24/18 22:00 Intake and Output: 05/24/18 05/25/18 18:59 06:59 Intake Total 3291 1029 Output Total 1000 Balance 2291 1029 - Medications Medications: Current Medications Acetaminophen (Tylenol 650mg/20.3ml Solution Ud) 650 mg PO Q4 PRN PRN Reason: Temperature Last Admin: 05/24/18 21:44 Dose: 650 mg Albuterol/Ipratropium (Duoneb 3 Mg/0.5 Mg (3 Ml) Ud) 3 ml INH RQ4 DNANY Last Admin: 05/24/18 23:28 Dose: 3 ml Amantadine HCl (Amantadine 100 Mg Cap) 100 mg PEG BID DANNY Last Admin: 05/24/18 16:11 Dose: 100 mg Clindamycin Phosphate (Cleocin) 600 mg in 50 mls @ 50 mls/hr IVPB Q8H DANNY PRN Reason: Protocol Last Admin: 05/24/18 16:03 Dose: 50 mls/hr Vancomycin HCl 1 gm/ Sodium (Chloride) 250 mls @ 166.667 mls/hr IVPB Q12H DANNY PRN Reason: Protocol Last Admin: 05/24/18 17:07 Dose: 166.667 mls/hr Levofloxacin/Dextrose (Levaquin 750mg) 750 mg in 150 mls @ 100 mls/hr IVPB DAILY DANNY Last Admin: 05/24/18 10:09 Dose: 100 mls/hr Levetiracetam 1,000 mg/ Sodium (Chloride) 110 mls @ 210 mls/hr IVPB Q12 DANNY Last Admin: 05/24/18 21:42 Dose: 210 mls/hr Nicardipine HCl (Cardene 40mg/200ml Premixed) 40 mg in 200 mls @ 37.5 mls/hr IV .Q5H20M DANNY; 7.5 MG/HR PRN Reason: Protocol Last Titration: 05/24/18 23:15 Dose: 15 mg/hr, 75 mls/hr Lactated Ringer's (Lactated Ringer's) 1,000 mls @ 100 mls/hr IV .Q10H DANNY Last Admin: 05/24/18 16:49 Dose: 100 mls/hr Insulin Human Lispro (Humalog) 0 units SC 0000,0600,1200,1800 DANNY PRN Reason: Protocol Last Admin: 05/24/18 17:20 Dose: Not Given Lorazepam (Ativan) 2 mg IVP Q3H PRN PRN Reason: Agitation Last Admin: 05/24/18 14:26 Dose: 2 mg Morphine Sulfate (Morphine) 4 mg IVP Q4 PRN PRN Reason: Agitation Last Admin: 05/24/18 20:30 Dose: 4 mg Pantoprazole Sodium (Protonix Inj) 40 mg IVP DAILY DANNY Last Admin: 05/24/18 14:26 Dose: 40 mg - Labs Labs: 05/24/18 05:26 05/24/18 05:26 PT 15.8 Seconds (9.8-13.1) H 05/20/18 16:00 INR 1.4 (0.9-1.2) H 05/20/18 16:00 APTT 23.2 Seconds (25.6-37.1) L 05/20/18 16:00 Assessment and Plan (1) Acute respiratory failure with hypercapnia Assessment & Plan: S/P Reintubated Respiratory Acidosis Aspiration Pneumonia Vs Neuroleptic/Serotonine Syndrome Vs Drug Fever Fever IVF Sedated ID, and Pulmonary Consult ABG Daily Morning Labs Status: Acute (2) Altered mental status, Assessment and Plan: Multiple Drug Overdose Neuroleptic Syndrome/Serotonine Syndrome Supportive Care Danrolene PRN regidity Status: Acute (3) Suicide attempt by drug ingestion Assessment and Plan: Major Depression Supportive Care Psych onboard Status: Acute Priority: High (4) Microcytic Anemia (5) Hypernatremia/Hyperchloremia D5 0.225 @125cc/hr (d) DVT prophylaxis Assessment and Plan: Lovenox 40mg SQ Daily Status: Chronic
[2018-05-25] MEDS: Nicardipine HCl 40 MG/200 ML 40 MG/200 ML SOL IV SCH ×3 (00:29→06:51)
[2018-05-25] MEDS: Clindamycin 600mg/50ml D5W 600 MG/50 ML VIAL IVPB SCH ×4 (00:34→23:45)
[2018-05-25] MEDS: Insulin Lispro (humaLOG) 100 Units/ml Inj SC SCH ×4 (00:35→17:08)
--- NOTE | 2018-05-25 02:55 | PN ---
DATE: 05/24/2018 CRITICAL CARE PROGRESS NOTE LOCATION: The patient in ICU, bed 432. TIME SPENT: 35 minutes. The patient is seen and evaluated at the bedside. Past medical, surgical, family, and social history reviewed. SUBJECTIVE: A 47-year-old male in with history significant for diabetes mellitus type 2, depression, asthma, sleep apnea. Admitted with hypercapnic hypoxic respiratory failure, status post overdose on Seroquel, Ambien and trazodone. The patient was subsequently extubated and re-intubated. Status post cardiopulmonary resuscitated after a long resuscitative effort. Remains intubated, on mechanical ventilation. PHYSICAL EXAMINATION: VITAL SIGNS: AC/PRBC rate 16, set tidal volume of 550, FiO2 100%, PEEP of 5, no sedation, observed rate 16, exhale tidal volume 570, minute ventilation 13.9 liters, peak airway pressure of 35, mean airway pressure of 14. Intake 6325, output 3700, positive balance 2625. Weight 203 pounds. HEAD, EYES, EARS, NOSE AND THROAT: Pupils are poorly reactive, 3-4 mm, midline. No corneal reflex. NECK: Supple. Endotracheal tube in place, reposition at 27 cm at lips. CHEST: Bilateral breath sounds. Clear to auscultation anteriorly and laterally. HEART: Rhythm regular. S1, S2 normal intensity. No S3, S4 gallop. No audible murmur. ABDOMEN: Bowel sounds present. Soft. Liver and spleen not palpable. Bladder not distended. NG tube in place. Feeding in progress at 65 mL per hour. EXTREMITIES: No edema. NEURO EXAMINATION: [id number] response to noxious stimuli. Deep tendon reflexes are 2+. Plantar flexor. CURRENT MEDICATIONS: Tylenol 650 mg every 4 hours p.r.n., DuoNeb 3 mL via nebulizer every 4 hours, amantadine 100 mg NG twice daily, clindamycin 600 mg IV every 8 hours, Humalog before meals and at bedtime, Ringer's lactate at 100 mL per hour, Keppra 1000 mg every 12 hours, levofloxacin 750 mg IV daily, Ativan 2 mg IV every 3 hours p.r.n., morphine 4 mg IV every 4 hours p.r.n., nicardipine 40 mg/200 mL at 37.5 mL., Protonix 40 IV daily, vancomycin 1 gm IV every 12 hours. LABORATORY DATA: WBC 15, hemoglobin 10, hematocrit 32.5, platelet count 298. PT 15.8, INR 1.4, PTT 23.2. ABG: The pH of 7.39, pCO2 of 61, pO2 of 62, saturation 93.4 on AC 14, 550 and 80%, PEEP of 5. SMA-7: Sodium 155, potassium 4.7, chloride of 111, CO2 of 36, blood urea nitrogen 38, creatinine 1.2, random glucose 213, calcium 8.7. Total bilirubin 0.4, AST 61, ALT 42, alkaline phosphatase 59, total protein 5.8, albumin 2.9. Urinalysis is negative. Toxicology screen: Salicylate less than 1. Urine opiates are negative. Acetaminophen less than 10. Alcohol level less than 10. Microbiology: Sputum culture positive for yeast. Blood culture, no growth reported. Urine culture, no growth reported. Chest x-ray: Repeated chest x-ray this morning, endotracheal tube 3 cm proximal to the lexus. The nasogastric tube remains be in the stomach. Endotracheal tube, 7.4 cm above the endotracheal tube. Haziness, right lung. IMPRESSION AND PLAN: 1. Neuro: Probable anoxic encephalopathy, status post cardiopulmonary resuscitation, status post drug overdose. Suspected neuroleptic malignant syndrome. Off antipsychotic medications. Seen by Neurology. Recommended EEG done, report pending. MRI showed no acute central nervous system event. 2. Pulmonary: Hypercapnic hypoxic respiratory failure, right lower lobe pneumonia. Not triggering the ventilator. Continue albuterol/Atrovent inhalation every 4 hours. 3. Cardiac: Status post cardiopulmonary resuscitation. Remains normotensive. Telemetry, no arrhythmias noted. 4. Hematology: Leukocytosis, probably secondary to aspiration pneumonia. Anemia of chronic disease. Normal platelet count. 5. Renal: Hypernatremia. IV fluid on Ringer's lactate. Increase free water through nasogastric tube. 6. Gastroenterology: Continue nasogastric feeding. Changed to Glucerna 1.2 at 65 mL/hour. Continue deep venous thrombosis and gastrointestinal prophylaxis. Accu-Chek with regular insulin coverage. 7. Infectious Disease: Suspected aspiration versus community-acquired pneumonia. Continue current antibiotics from ID evaluation for optimizing the coverage. Serge Levin MD
[2018-05-25 05:04] LABS: HEMOGLOBIN 9.9 g/dL (12.0-18.0); MEAN CELL VOLUME 78.2 fl (80.0-94.0); MEAN CORPUSCULAR HEMOGLOBIN 23.6 pg (27.0-31.0); MEAN CORPUSCULAR HGB CONC 30.1 g/dL (33.0-37.0); RBC 4.2 Mil/uL (4.40-5.90); RED CELL DISTRIBUTION WIDTH 17.6 % (11.5-14.5); WHITE BLOOD COUNT 15.3 K/uL (4.8-10.8)
[2018-05-25] MEDS: Morphine 5 MG/ML SYRINGE IVP PRN (05:08)
[2018-05-25] MEDS: Albuterol-Ipratrop 3 mg / 0.5 (3 ml) UD INH SCH ×5 (05:15→19:39)
[2018-05-25 05:25] LABS: ALBUMIN 2.9 g/dL (3.5-5.0); ALT/SGPT 45 U/L (21-72); AST/SGOT 77 U/L (17-59); BLOOD UREA NITROGEN 39 mg/dl (9-20); CALCIUM 8.6 mg/dL (8.4-10.2); GFR NON-AFRICAN AMERICAN > 60
[2018-05-25 05:25] LABS: ABG ALLEN TEST YES; ARTERIAL BLOOD GAS HCO3 32.4 mmol/L (21-28); ARTERIAL BLOOD GAS HEMOGLOBIN 9.7 g/dL (11.7-17.4); ARTERIAL BLOOD GAS O2 CAPACITY 13.7 mL/dL (16-24); ARTERIAL BLOOD GAS O2 CONTENT 13.2 ML/dL (15-23); ARTERIAL BLOOD GAS O2 SAT 96.5 % (95-98); ARTERIAL BLOOD GAS PCO2 82 mm/Hg (35-45); ARTERIAL BLOOD GAS PH 7.28 (7.35-7.45); ARTERIAL BLOOD GAS PO2 86 mm/Hg (80-100)
[2018-05-25] MEDS ORDERED: Nicardipine 20 MG/200 ML 20 MG/200 ML BAG IV ONE (07:30)
[2018-05-25] MEDS: levETIRAcetam 1,000 MG in Sodium Chloride 0.9% 100 ML IVPB SCH ×2 (08:23→21:24)
[2018-05-25] MEDS: levoFLOXacin 750 mg in D5W 750 MG/150 ML BAG IVPB SCH (08:24)
[2018-05-25] MEDS ORDERED: Sod Polystyrene Sulf 15 gm/60 ml Susp PO ONE (09:42)
--- NOTE | 2018-05-25 10:27 | RAD ---
Date of service: 05/25/2018 PROCEDURE: CHEST RADIOGRAPH, 1 VIEW HISTORY: Pt on a vent, daily cxr for ETT placement COMPARISON: Portable chest 05/24/2018 8:10 a.m.. FINDINGS: LUNGS: Endotracheal tube is inappropriately positioned now terminating at the upper trachea approximately 15 cm cephalad to the lexus. Advancing this endotracheal tube some 10 cm into the trachea is advised. Perhaps this endotracheal tube is defective given difficulty maintaining position at the proper level of the trachea. Consider replacement as well. Dense atelectasis infiltrate remains in the right base with elevated right hemidiaphragm possible. Limited left basilar airspace disease identified. Right pleural effusion is not excluded. None is seen the left. No pneumothorax bilaterally. PLEURA: As above. CARDIOVASCULAR: Cardiomediastinal silhouette is stable appearing. Right center venous line unchanged in position. OSSEOUS STRUCTURES: No significant abnormalities. VISUALIZED UPPER ABDOMEN: Nasogastric tube is again identified tube is identified entering the abdomen. OTHER FINDINGS: None. IMPRESSION: No interval change in right basilar airspace disease with developing atelectasis noted at the left base. No right pleural effusion is not excluded as well as elevated right hemidiaphragm. Endotracheal tube terminates in the neck near the origin of the trachea. Advancement antegrade is recommended follow-up by confirmation radiography. Findings discussed with Dr. Levin (who was already aware of the radiographic findings prior to this call) with written down and read back verification 05/25/2018, 10:18 a.m..
--- NOTE | 2018-05-25 10:29 | RAD ---
Date of service: 05/25/2018 PROCEDURE: CHEST RADIOGRAPH, 1 VIEW HISTORY: ETT readjustment COMPARISON: Portable chest 05/25/2018 4:40 a.m.. FINDINGS: LUNGS: Endotracheal tube is identified terminating some 14 cm above the lexus. Antegrade advancement is recommended follow-up by confirmation radiography. Dense right middle lobe infiltrate or atelectasis persists with right lower lobe infiltrate or atelectasis not excluded as well. Linear atelectasis seen at the medial left base. Small right pleural effusion is questioned. None is seen at the left. No pneumothorax bilaterally. PLEURA: As above. CARDIOVASCULAR: Cardiomediastinal silhouette stable. No pulmonary vascular congestion. Right center venous line is unchanged in position. OSSEOUS STRUCTURES: No significant abnormalities. VISUALIZED UPPER ABDOMEN: Nasogastric tube is identified entering into the abdomen once again. OTHER FINDINGS: None. IMPRESSION: Endotracheal tube terminates in the mid to inferior neck as discussed above. Advancement antegrade into the lower trachea is strongly advised once again. Normal change in the right middle and possible lower lobe infiltrates with linear atelectasis identified in the medial left base.
--- NOTE | 2018-05-25 10:39 | CP.CCUPN ---
<Gerson Jara - Last Filed: 05/25/18 12:43> CCU Subjective - Physician Review Subjective (Free Text): 05/25/18 10:38 ICU Progress Note 47 y/o M evaluated and examined by bedside. Pt still on mechanical ventilation, non-verbal, non-responsive to verbal or tactile stimulation. Pt had a fever of 100.4 last night ~9pm. CCU Objective - Vital Signs / Intake & Output Vital Signs (Last 4 hours): Vital Signs Temp Pulse Resp BP Pulse Ox 05/25/18 10:29 101 H 123/61 05/25/18 09:57 98 H 27 H 119/59 L 100 05/25/18 09:00 101 H 27 H 128/64 100 05/25/18 08:00 98.0 F 102 H 22 120/59 L 100 05/25/18 06:54 97.5 F L 104 H 28 H 123/59 L 100 Intake and Output (Last 8hrs): Intake & Output 05/24/18 05/25/18 05/25/18 22:59 06:59 14:59 Intake Total 3120 1070 945 Output Total 1000 1500 Balance 2120 -430 945 Weight 92.079 kg Intake: IV 2260 790 375 Intake, Piggyback 300 300 Oral 130 Tube Feeding 130 130 270 Free Water Flush 300 150 Output: Urine 1000 1500 Urethral (Sy) 1000 1500 - Physical Exam Physical Exam Limitations: Positive for: Altered Mental Status Head: Positive for: Atraumatic, Normocephalic Pupils: Positive for: Sluggish Extroacular Muscles: Positive for: Gaze Palsy Conjunctiva: Positive for: Normal Mouth: Positive for: Dry Nose (External): Positive for: Atraumatic Neck: Positive for: Normal Range of Motion Respiratory/Chest: Positive for: Good Air Exchange Cardiovascular: Positive for: Regular Rate and Rhythm, Normal S1, S2 Abdomen: Negative for: Tenderness, Distention Upper Extremity: Positive for: Normal Inspection Lower Extremity: Positive for: Normal Inspection Neurological: Positive for: Other (no response to verbal/tactile stimuli) - Medications Active Medications: Active Medications Generic Name Dose Route Start Last Admin Trade Name Freq PRN Reason Stop Dose Admin Acetaminophen 650 mg 05/16/18 20:17 05/24/18 21:44 Tylenol 650mg/20.3ml Solution Ud PO 650 mg Q4 PRN Administration Temperature Albuterol/Ipratropium 3 ml 05/17/18 13:45 05/25/18 07:46 Duoneb 3 Mg/0.5 Mg (3 Ml) Ud INH 3 ml RQ4 DANNY Administration Amantadine HCl 100 mg 05/21/18 17:00 05/25/18 08:22 Amantadine 100 Mg Cap PEG 100 mg BID DANNY Administration Amlodipine Besylate 5 mg 05/25/18 10:00 05/25/18 10:29 Norvasc PO 5 mg DAILY DANNY Administration Clindamycin Phosphate 600 mg in 50 mls @ 50 mls/hr 05/20/18 16:00 05/25/18 08 :22 Cleocin IVPB 50 mls/hr Q8H DANNY Administration Protocol Vancomycin HCl 1 gm/ Sodium 250 mls @ 166.667 mls/hr 05/20/18 16:00 05/25/18 04:07 Chloride IVPB 166.667 mls/hr Q12H DANNY Administration Protocol Levofloxacin/Dextrose 750 mg in 150 mls @ 100 mls/hr 05/21/18 09:00 05/25/18 08:24 Levaquin 750mg IVPB 100 mls/hr DAILY DANNY Administration Levetiracetam 1,000 mg/ Sodium 110 mls @ 210 mls/hr 05/21/18 09:45 05/25/18 08:23 Chloride IVPB 210 mls/hr Q12 DANNY Administration Nicardipine HCl 40 mg in 200 mls @ 37.5 mls/hr 05/21/18 18:30 05/25/18 10:25 Cardene 40mg/200ml Premixed IV 10.5 mg/hr .Q5H20M DANNY 52.5 mls/hr Protocol Titration 7.5 MG/HR Lactated Ringer's 1,000 mls @ 100 mls/hr 05/24/18 13:45 05/24/18 16:49 Lactated Ringer's IV 100 mls/hr .Q10H DANNY Administration Nicardipine HCl 20 mg in 200 mls @ 150 mls/hr 05/25/18 07:30 Cardene Iv Premix IV 05/25/18 08:49 .Q1H20M ONE Protocol 15 MG/HR Insulin Human Lispro 0 units 05/18/18 18:00 05/25/18 06:52 Humalog SC 2 units 0000,0600,1200,1800 DANNY Administration Protocol Lorazepam 2 mg 05/20/18 19:07 05/25/18 04:05 Ativan IVP 2 mg Q3H PRN Administration Agitation Morphine Sulfate 4 mg 05/23/18 22:00 05/25/18 05:08 Morphine IVP 4 mg Q4 PRN Administration Agitation Pantoprazole Sodium 40 mg 05/24/18 12:30 05/25/18 08:25 Protonix Inj IVP 40 mg DAILY DANNY Administration Sodium Polystyrene Sulfonate 15 gm 05/25/18 15:30 Kayexalate Susp PO Q6 DANNY - Patient Studies Lab Studies: Lab Studies 05/25/18 05/25/18 05/25/18 Range/Units 05:47 05:14 04:30 WBC (4.8-10.8) K/uL RBC (4.40-5.90) Mil/uL Hgb (12.0-18.0) g/dL Hct (35.0-51.0) % MCV (80.0-94.0) fl MCH (27.0-31.0) pg MCHC (33.0-37.0) g/dL RDW (11.5-14.5) % Plt Count (130-400) K/uL pCO2 82 H* (35-45) mm/Hg pO2 86 (80-100) mm/Hg HCO3 32.4 H (21-28) mmol/L ABG pH 7.28 L (7.35-7.45) ABG Total CO2 41.0 H (22-28) mmol/L ABG O2 Saturation 96.5 (95-98) % ABG O2 Content 13.2 L (15-23) ML/dL ABG Base Excess 9.6 H (-2.0-3.0) mmol/L ABG Hemoglobin 9.7 L (11.7-17.4) g/dL ABG Carboxyhemoglobin 0.3 L (0.5-1.5) % POC ABG HHb (Measured) 3.5 (0.0-5.0) % ABG Methemoglobin 0.6 (0.0-3.0) % ABG O2 Capacity 13.7 L (16-24) mL/dL Eagle Test Yes A-a O2 Difference 525.0 mm/Hg Hgb O2 Saturation 95.6 (95.0-98.0) % Vent Mode A/c Mechanical Rate 16 FiO2 100.0 % Tidal Volume 550 PEEP 5 Crit Value Called To Edgardo calvillo md Crit Value Called By 333 Crit Value Read Back Y Blood Gas Notified Time 525 Sodium 156 H (132-148) mmol/l Potassium 5.2 H (3.6-5.0) MMOL/L Chloride 110 H (98-107) mmol/L Carbon Dioxide 38 H (22-30) mmol/L Anion Gap 13 (10-20) BUN 39 H (9-20) mg/dl Creatinine 1.1 (0.8-1.5) mg/dl Est GFR ( Amer) > 60 Est GFR (Non-Af Amer) > 60 POC Glucose (mg/dL) 171 H (65-110) mg/dL Random Glucose 173 H (75-110) mg/dL Calcium 8.6 (8.4-10.2) mg/dL Total Bilirubin 0.4 (0.2-1.3) mg/dl AST 77 H D (17-59) U/L ALT 45 (21-72) U/L Alkaline Phosphatase 54 (38-126) U/L Total Protein 5.9 L (6.3-8.2) G/DL Albumin 2.9 L (3.5-5.0) g/dL Globulin 3.0 (2.2-3.9) gm/dL Albumin/Globulin Ratio 1.0 (1.0-2.1) 05/25/18 05/24/18 05/24/18 Range/Units 04:30 23:05 16:51 WBC 15.3 H (4.8-10.8) K/uL RBC 4.20 L (4.40-5.90) Mil/uL Hgb 9.9 L (12.0-18.0) g/dL Hct 32.8 L (35.0-51.0) % MCV 78.2 L (80.0-94.0) fl MCH 23.6 L (27.0-31.0) pg MCHC 30.1 L (33.0-37.0) g/dL RDW 17.6 H (11.5-14.5) % Plt Count 327 (130-400) K/uL pCO2 (35-45) mm/Hg pO2 (80-100) mm/Hg HCO3 (21-28) mmol/L ABG pH (7.35-7.45) ABG Total CO2 (22-28) mmol/L ABG O2 Saturation (95-98) % ABG O2 Content (15-23) ML/dL ABG Base Excess (-2.0-3.0) mmol/L ABG Hemoglobin (11.7-17.4) g/dL ABG Carboxyhemoglobin (0.5-1.5) % POC ABG HHb (Measured) (0.0-5.0) % ABG Methemoglobin (0.0-3.0) % ABG O2 Capacity (16-24) mL/dL Eagle Test A-a O2 Difference mm/Hg Hgb O2 Saturation (95.0-98.0) % Vent Mode Mechanical Rate FiO2 % Tidal Volume PEEP Crit Value Called To Crit Value Called By Crit Value Read Back Blood Gas Notified Time Sodium (132-148) mmol/l Potassium (3.6-5.0) MMOL/L Chloride (98-107) mmol/L Carbon Dioxide (22-30) mmol/L Anion Gap (10-20) BUN (9-20) mg/dl Creatinine (0.8-1.5) mg/dl Est GFR ( Amer) Est GFR (Non-Af Amer) POC Glucose (mg/dL) 139 H 145 H (65-110) mg/dL Random Glucose (75-110) mg/dL Calcium (8.4-10.2) mg/dL Total Bilirubin (0.2-1.3) mg/dl AST (17-59) U/L ALT (21-72) U/L Alkaline Phosphatase (38-126) U/L Total Protein (6.3-8.2) G/DL Albumin (3.5-5.0) g/dL Globulin (2.2-3.9) gm/dL Albumin/Globulin Ratio (1.0-2.1) 05/24/18 05/24/18 05/24/18 Range/Units 11:17 06:15 00:39 WBC (4.8-10.8) K/uL RBC (4.40-5.90) Mil/uL Hgb (12.0-18.0) g/dL Hct (35.0-51.0) % MCV (80.0-94.0) fl MCH (27.0-31.0) pg MCHC (33.0-37.0) g/dL RDW (11.5-14.5) % Plt Count (130-400) K/uL pCO2 (35-45) mm/Hg pO2 (80-100) mm/Hg HCO3 (21-28) mmol/L ABG pH (7.35-7.45) ABG Total CO2 (22-28) mmol/L ABG O2 Saturation (95-98) % ABG O2 Content (15-23) ML/dL ABG Base Excess (-2.0-3.0) mmol/L ABG Hemoglobin (11.7-17.4) g/dL ABG Carboxyhemoglobin (0.5-1.5) % POC ABG HHb (Measured) (0.0-5.0) % ABG Methemoglobin (0.0-3.0) % ABG O2 Capacity (16-24) mL/dL Eagle Test A-a O2 Difference mm/Hg Hgb O2 Saturation (95.0-98.0) % Vent Mode Mechanical Rate FiO2 % Tidal Volume PEEP Crit Value Called To Crit Value Called By Crit Value Read Back Blood Gas Notified Time Sodium (132-148) mmol/l Potassium (3.6-5.0) MMOL/L Chloride (98-107) mmol/L Carbon Dioxide (22-30) mmol/L Anion Gap (10-20) BUN (9-20) mg/dl Creatinine (0.8-1.5) mg/dl Est GFR ( Amer) Est GFR (Non-Af Amer) POC Glucose (mg/dL) 213 H 179 H 146 H (65-110) mg/dL Random Glucose (75-110) mg/dL Calcium (8.4-10.2) mg/dL Total Bilirubin (0.2-1.3) mg/dl AST (17-59) U/L ALT (21-72) U/L Alkaline Phosphatase (38-126) U/L Total Protein (6.3-8.2) G/DL Albumin (3.5-5.0) g/dL Globulin (2.2-3.9) gm/dL Albumin/Globulin Ratio (1.0-2.1) 05/23/18 05/23/18 05/23/18 Range/Units 21:49 16:04 12:02 WBC (4.8-10.8) K/uL RBC (4.40-5.90) Mil/uL Hgb (12.0-18.0) g/dL Hct (35.0-51.0) % MCV (80.0-94.0) fl MCH (27.0-31.0) pg MCHC (33.0-37.0) g/dL RDW (11.5-14.5) % Plt Count (130-400) K/uL pCO2 (35-45) mm/Hg pO2 (80-100) mm/Hg HCO3 (21-28) mmol/L ABG pH (7.35-7.45) ABG Total CO2 (22-28) mmol/L ABG O2 Saturation (95-98) % ABG O2 Content (15-23) ML/dL ABG Base Excess (-2.0-3.0) mmol/L ABG Hemoglobin (11.7-17.4) g/dL ABG Carboxyhemoglobin (0.5-1.5) % POC ABG HHb (Measured) (0.0-5.0) % ABG Methemoglobin (0.0-3.0) % ABG O2 Capacity (16-24) mL/dL Eagle Test A-a O2 Difference mm/Hg Hgb O2 Saturation (95.0-98.0) % Vent Mode Mechanical Rate FiO2 % Tidal Volume PEEP Crit Value Called To Crit Value Called By Crit Value Read Back Blood Gas Notified Time Sodium (132-148) mmol/l Potassium (3.6-5.0) MMOL/L Chloride (98-107) mmol/L Carbon Dioxide (22-30) mmol/L Anion Gap (10-20) BUN (9-20) mg/dl Creatinine (0.8-1.5) mg/dl Est GFR ( Amer) Est GFR (Non-Af Amer) POC Glucose (mg/dL) 142 H 174 H 225 H (65-110) mg/dL Random Glucose (75-110) mg/dL Calcium (8.4-10.2) mg/dL Total Bilirubin (0.2-1.3) mg/dl AST (17-59) U/L ALT (21-72) U/L Alkaline Phosphatase (38-126) U/L Total Protein (6.3-8.2) G/DL Albumin (3.5-5.0) g/dL Globulin (2.2-3.9) gm/dL Albumin/Globulin Ratio (1.0-2.1) 05/23/18 05/22/18 05/22/18 Range/Units 06:53 22:43 17:19 WBC (4.8-10.8) K/uL RBC (4.40-5.90) Mil/uL Hgb (12.0-18.0) g/dL Hct (35.0-51.0) % MCV (80.0-94.0) fl MCH (27.0-31.0) pg MCHC (33.0-37.0) g/dL RDW (11.5-14.5) % Plt Count (130-400) K/uL pCO2 (35-45) mm/Hg pO2 (80-100) mm/Hg HCO3 (21-28) mmol/L ABG pH (7.35-7.45) ABG Total CO2 (22-28) mmol/L ABG O2 Saturation (95-98) % ABG O2 Content (15-23) ML/dL ABG Base Excess (-2.0-3.0) mmol/L ABG Hemoglobin (11.7-17.4) g/dL ABG Carboxyhemoglobin (0.5-1.5) % POC ABG HHb (Measured) (0.0-5.0) % ABG Methemoglobin (0.0-3.0) % ABG O2 Capacity (16-24) mL/dL Eagle Test A-a O2 Difference mm/Hg Hgb O2 Saturation (95.0-98.0) % Vent Mode Mechanical Rate FiO2 % Tidal Volume PEEP Crit Value Called To Crit Value Called By Crit Value Read Back Blood Gas Notified Time Sodium (132-148) mmol/l Potassium (3.6-5.0) MMOL/L Chloride (98-107) mmol/L Carbon Dioxide (22-30) mmol/L Anion Gap (10-20) BUN (9-20) mg/dl Creatinine (0.8-1.5) mg/dl Est GFR ( Amer) Est GFR (Non-Af Amer) POC Glucose (mg/dL) 209 H 140 H 165 H (65-110) mg/dL Random Glucose (75-110) mg/dL Calcium (8.4-10.2) mg/dL Total Bilirubin (0.2-1.3) mg/dl AST (17-59) U/L ALT (21-72) U/L Alkaline Phosphatase (38-126) U/L Total Protein (6.3-8.2) G/DL Albumin (3.5-5.0) g/dL Globulin (2.2-3.9) gm/dL Albumin/Globulin Ratio (1.0-2.1) 05/22/18 Range/Units 11:38 WBC (4.8-10.8) K/uL RBC (4.40-5.90) Mil/uL Hgb (12.0-18.0) g/dL Hct (35.0-51.0) % MCV (80.0-94.0) fl MCH (27.0-31.0) pg MCHC (33.0-37.0) g/dL RDW (11.5-14.5) % Plt Count (130-400) K/uL pCO2 (35-45) mm/Hg pO2 (80-100) mm/Hg HCO3 (21-28) mmol/L ABG pH (7.35-7.45) ABG Total CO2 (22-28) mmol/L ABG O2 Saturation (95-98) % ABG O2 Content (15-23) ML/dL ABG Base Excess (-2.0-3.0) mmol/L ABG Hemoglobin (11.7-17.4) g/dL ABG Carboxyhemoglobin (0.5-1.5) % POC ABG HHb (Measured) (0.0-5.0) % ABG Methemoglobin (0.0-3.0) % ABG O2 Capacity (16-24) mL/dL Eagle Test A-a O2 Difference mm/Hg Hgb O2 Saturation (95.0-98.0) % Vent Mode Mechanical Rate FiO2 % Tidal Volume PEEP Crit Value Called To Crit Value Called By Crit Value Read Back Blood Gas Notified Time Sodium (132-148) mmol/l Potassium (3.6-5.0) MMOL/L Chloride (98-107) mmol/L Carbon Dioxide (22-30) mmol/L Anion Gap (10-20) BUN (9-20) mg/dl Creatinine (0.8-1.5) mg/dl Est GFR ( Amer) Est GFR (Non-Af Amer) POC Glucose (mg/dL) 204 H (65-110) mg/dL Random Glucose (75-110) mg/dL Calcium (8.4-10.2) mg/dL Total Bilirubin (0.2-1.3) mg/dl AST (17-59) U/L ALT (21-72) U/L Alkaline Phosphatase (38-126) U/L Total Protein (6.3-8.2) G/DL Albumin (3.5-5.0) g/dL Globulin (2.2-3.9) gm/dL Albumin/Globulin Ratio (1.0-2.1) Laboratory Results - last 24 hr 05/22/18 05/22/18 05/22/18 11:38 17:19 22:43 WBC RBC Hgb Hct MCV MCH MCHC RDW Plt Count pCO2 pO2 HCO3 ABG pH ABG Total CO2 ABG O2 Saturation ABG O2 Content ABG Base Excess ABG Hemoglobin ABG Carboxyhemoglobin POC ABG HHb (Measured) ABG Methemoglobin ABG O2 Capacity Eagle Test A-a O2 Difference Hgb O2 Saturation Vent Mode Mechanical Rate FiO2 Tidal Volume PEEP Crit Value Called To Crit Value Called By Crit Value Read Back Blood Gas Notified Time Sodium Potassium Chloride Carbon Dioxide Anion Gap BUN Creatinine Est GFR ( Amer) Est GFR (Non-Af Amer) POC Glucose (mg/dL) 204 H 165 H 140 H Random Glucose Calcium Total Bilirubin AST ALT Alkaline Phosphatase Total Protein Albumin Globulin Albumin/Globulin Ratio 05/23/18 05/23/18 05/23/18 06:53 12:02 16:04 WBC RBC Hgb Hct MCV MCH MCHC RDW Plt Count pCO2 pO2 HCO3 ABG pH ABG Total CO2 ABG O2 Saturation ABG O2 Content ABG Base Excess ABG Hemoglobin ABG Carboxyhemoglobin POC ABG HHb (Measured) ABG Methemoglobin ABG O2 Capacity Eagle Test A-a O2 Difference Hgb O2 Saturation Vent Mode Mechanical Rate FiO2 Tidal Volume PEEP Crit Value Called To Crit Value Called By Crit Value Read Back Blood Gas Notified Time Sodium Potassium Chloride Carbon Dioxide Anion Gap BUN Creatinine Est GFR ( Amer) Est GFR (Non-Af Amer) POC Glucose (mg/dL) 209 H 225 H 174 H Random Glucose Calcium Total Bilirubin AST ALT Alkaline Phosphatase Total Protein Albumin Globulin Albumin/Globulin Ratio 05/23/18 05/24/18 05/24/18 21:49 00:39 06:15 WBC RBC Hgb Hct MCV MCH MCHC RDW Plt Count pCO2 pO2 HCO3 ABG pH ABG Total CO2 ABG O2 Saturation ABG O2 Content ABG Base Excess ABG Hemoglobin ABG Carboxyhemoglobin POC ABG HHb (Measured) ABG Methemoglobin ABG O2 Capacity Eagle Test A-a O2 Difference Hgb O2 Saturation Vent Mode Mechanical Rate FiO2 Tidal Volume PEEP Crit Value Called To Crit Value Called By Crit Value Read Back Blood Gas Notified Time Sodium Potassium Chloride Carbon Dioxide Anion Gap BUN Creatinine Est GFR ( Amer) Est GFR (Non-Af Amer) POC Glucose (mg/dL) 142 H 146 H 179 H Random Glucose Calcium Total Bilirubin AST ALT Alkaline Phosphatase Total Protein Albumin Globulin Albumin/Globulin Ratio 05/24/18 05/24/18 05/24/18 11:17 16:51 23:05 WBC RBC Hgb Hct MCV MCH MCHC RDW Plt Count pCO2 pO2 HCO3 ABG pH ABG Total CO2 ABG O2 Saturation ABG O2 Content ABG Base Excess ABG Hemoglobin ABG Carboxyhemoglobin POC ABG HHb (Measured) ABG Methemoglobin ABG O2 Capacity Eagle Test A-a O2 Difference Hgb O2 Saturation Vent Mode Mechanical Rate FiO2 Tidal Volume PEEP Crit Value Called To Crit Value Called By Crit Value Read Back Blood Gas Notified Time Sodium Potassium Chloride Carbon Dioxide Anion Gap BUN Creatinine Est GFR ( Amer) Est GFR (Non-Af Amer) POC Glucose (mg/dL) 213 H 145 H 139 H Random Glucose Calcium Total Bilirubin AST ALT Alkaline Phosphatase Total Protein Albumin Globulin Albumin/Globulin Ratio 05/25/18 05/25/18 05/25/18 04:30 04:30 05:14 WBC 15.3 H RBC 4.20 L Hgb 9.9 L Hct 32.8 L MCV 78.2 L MCH 23.6 L MCHC 30.1 L RDW 17.6 H Plt Count 327 pCO2 82 H* pO2 86 HCO3 32.4 H ABG pH 7.28 L ABG Total CO2 41.0 H ABG O2 Saturation 96.5 ABG O2 Content 13.2 L ABG Base Excess 9.6 H ABG Hemoglobin 9.7 L ABG Carboxyhemoglobin 0.3 L POC ABG HHb (Measured) 3.5 ABG Methemoglobin 0.6 ABG O2 Capacity 13.7 L Eagle Test Yes A-a O2 Difference 525.0 Hgb O2 Saturation 95.6 Vent Mode A/c Mechanical Rate 16 FiO2 100.0 Tidal Volume 550 PEEP 5 Crit Value Called To Edgardo calvillo md Crit Value Called By 333 Crit Value Read Back Y Blood Gas Notified Time 525 Sodium 156 H Potassium 5.2 H Chloride 110 H Carbon Dioxide 38 H Anion Gap 13 BUN 39 H Creatinine 1.1 Est GFR ( Amer) > 60 Est GFR (Non-Af Amer) > 60 POC Glucose (mg/dL) Random Glucose 173 H Calcium 8.6 Total Bilirubin 0.4 AST 77 H D ALT 45 Alkaline Phosphatase 54 Total Protein 5.9 L Albumin 2.9 L Globulin 3.0 Albumin/Globulin Ratio 1.0 05/25/18 05:47 WBC RBC Hgb Hct MCV MCH MCHC RDW Plt Count pCO2 pO2 HCO3 ABG pH ABG Total CO2 ABG O2 Saturation ABG O2 Content ABG Base Excess ABG Hemoglobin ABG Carboxyhemoglobin POC ABG HHb (Measured) ABG Methemoglobin ABG O2 Capacity Eagle Test A-a O2 Difference Hgb O2 Saturation Vent Mode Mechanical Rate FiO2 Tidal Volume PEEP Crit Value Called To Crit Value Called By Crit Value Read Back Blood Gas Notified Time Sodium Potassium Chloride Carbon Dioxide Anion Gap BUN Creatinine Est GFR ( Amer) Est GFR (Non-Af Amer) POC Glucose (mg/dL) 171 H Random Glucose Calcium Total Bilirubin AST ALT Alkaline Phosphatase Total Protein Albumin Globulin Albumin/Globulin Ratio Fingerstick Blood Sugar Results: 171 Assessment/Plan - Assessment and Plan (Free Text) Plan: 47 y/o M with a PMHx Depression, Anxiety, DM type 2, HTN, HLD, TIA, Asthma, JODY , CABG, CAD with stent (2008), DVT and PE s/p IVC Filter (2008), Gastric Bypass (2013), admitted due to suicidal attempt via overdose of Seroquel/Ambien/ Trazodone/Clonidine. Plan: >Neuroleptic Malignant Syndrome/Hyperthermia -Trazodone and Seroquel as possible causative agents. -Mild fever last night. Continue with temperature control. -Neurology on board, Dr Gonzales -On Amantidine. -EEG results pending >Myoclonic activity/Altered Mental Status -Neurology consult, Dr Gonzales and Dr Meke. -On Keppra 1,000mg Q12H -MRI Brain results were reviewed and unremarkable. -EEG pending >Hyperkalemia -Kayexalate Q6H or until bowel movement. >Hypernatremia/Hyperchloremia -IV fluids change to D5W at 84mL/hr. >Acute Respiratory Failure/RLL Pneumonia -On mechanical ventilator -Blood gas reviewed. Will change ventilator setting properly. -CXR c/w RLL pneumonia. -ID on board, Dr Rogers -C/w Levofloxacin, Vancomycin and Clindamycin -Vancomycin through today. >Hypertension -Nicardipine drip -Norvasc 5mg ordered today -BP monitor. >Fever -Neuroleptic Malignant Syndrome vs Infection vs Medication adverse effect -Mild fever last night -CXR w/ RLL pneumonia. -Blood Cx w/ NO growth. UCx w/ no growth.Sputum Cx w yeast species. -ID on board, Dr Rogers -C/w Levofloxacin, Vancomycin and Clindamycin >DVT Prophylaxis -SCD's - Date & Time Date: 05/25/18 Time: 10:07 <Serge Levin V - Last Filed: 05/25/18 13:41> CCU Subjective - Physician Review Events Since Last Encounter (Free Text): 05/25/18 13:38 patient is seen, examined at bedside. discussed with neurologist. EEG shows no activity. EEG requested for confirmation as suggested by neurology. Famil updated the clinical condition. Agree with plan of care as detailed in resident' s note CCU Objective - Vital Signs / Intake & Output Vital Signs (Last 4 hours): Vital Signs Pulse Resp BP Pulse Ox 05/25/18 11:00 110 H 42 H 141/77 100 05/25/18 10:29 101 H 123/61 05/25/18 09:57 98 H 27 H 119/59 L 100 Intake and Output (Last 8hrs): Intake & Output 05/24/18 05/25/18 05/25/18 22:59 06:59 14:59 Intake Total 3120 1070 955 Output Total 1000 1500 Balance 2120 -430 955 Weight 203 lb Intake: IV 2260 790 385 Intake, Piggyback 300 300 Oral 130 Tube Feeding 130 130 270 Free Water Flush 300 150 Output: Urine 1000 1500 Urethral (Sy) 1000 1500 - Medications Active Medications: Active Medications Generic Name Dose Route Start Last Admin Trade Name Freq PRN Reason Stop Dose Admin Acetaminophen 650 mg 05/16/18 20:17 05/24/18 21:44 Tylenol 650mg/20.3ml Solution Ud PO 650 mg Q4 PRN Administration Temperature Albuterol/Ipratropium 3 ml 05/17/18 13:45 05/25/18 11:41 Duoneb 3 Mg/0.5 Mg (3 Ml) Ud INH 3 ml RQ4 DANNY Administration Amantadine HCl 100 mg 05/21/18 17:00 05/25/18 08:22 Amantadine 100 Mg Cap PEG 100 mg BID DANNY Administration Amlodipine Besylate 5 mg 05/25/18 10:00 05/25/18 10:29 Norvasc PO 5 mg DAILY DANNY Administration Clindamycin Phosphate 600 mg in 50 mls @ 50 mls/hr 05/20/18 16:00 05/25/18 08 :22 Cleocin IVPB 50 mls/hr Q8H DANNY Administration Protocol Vancomycin HCl 1 gm/ Sodium 250 mls @ 166.667 mls/hr 05/20/18 16:00 05/25/18 04:07 Chloride IVPB 166.667 mls/hr Q12H DANNY Administration Protocol Levofloxacin/Dextrose 750 mg in 150 mls @ 100 mls/hr 05/21/18 09:00 05/25/18 08:24 Levaquin 750mg IVPB 100 mls/hr DAILY DANNY Administration Levetiracetam 1,000 mg/ Sodium 110 mls @ 210 mls/hr 05/21/18 09:45 05/25/18 08:23 Chloride IVPB 210 mls/hr Q12 DANNY Administration Nicardipine HCl 40 mg in 200 mls @ 37.5 mls/hr 05/21/18 18:30 05/25/18 10:55 Cardene 40mg/200ml Premixed IV 5 mg/hr .[id number] DANNY 25 mls/hr Protocol Titration 7.5 MG/HR Dextrose 1,000 mls @ 84 mls/hr 05/25/18 12:30 Dextrose 5% In Water 1000 Ml IV 05/26/18 12:23 .[id number] [facility] Insulin Human Lispro 0 units 05/18/18 18:00 05/25/18 06:52 Humalog SC 2 units 0000,0600,1200,1800 DANNY Administration Protocol Lorazepam 2 mg 05/20/18 19:07 05/25/18 12:23 Ativan IVP 2 mg Q3H PRN Administration Agitation Morphine Sulfate 4 mg 05/23/18 22:00 05/25/18 05:08 Morphine IVP 4 mg Q4 PRN Administration Agitation Pantoprazole Sodium 40 mg 05/24/18 12:30 05/25/18 08:25 Protonix Inj IVP 40 mg DAILY DANNY Administration Sodium Polystyrene Sulfonate 15 gm 05/25/18 15:30 Kayexalate Susp PO Q6 [facility] - Patient Studies Lab Studies: Lab Studies 05/25/18 05/25/18 05/25/18 Range/Units 12:24 05:47 05:14 WBC (4.8-10.8) K/uL RBC (4.40-5.90) Mil/uL Hgb (12.0-18.0) g/dL Hct (35.0-51.0) % MCV (80.0-94.0) fl MCH (27.0-31.0) pg MCHC (33.0-37.0) g/dL RDW (11.5-14.5) % Plt Count (130-400) K/uL pCO2 82 H* (35-45) mm/Hg pO2 86 (80-100) mm/Hg HCO3 32.4 H (21-28) mmol/L ABG pH 7.28 L (7.35-7.45) ABG Total CO2 41.0 H (22-28) mmol/L ABG O2 Saturation 96.5 (95-98) % ABG O2 Content 13.2 L (15-23) ML/dL ABG Base Excess 9.6 H (-2.0-3.0) mmol/L ABG Hemoglobin 9.7 L (11.7-17.4) g/dL ABG Carboxyhemoglobin 0.3 L (0.5-1.5) % POC ABG HHb (Measured) 3.5 (0.0-5.0) % ABG Methemoglobin 0.6 (0.0-3.0) % ABG O2 Capacity 13.7 L (16-24) mL/dL Eagle Test Yes A-a O2 Difference 525.0 mm/Hg Hgb O2 Saturation 95.6 (95.0-98.0) % Vent Mode A/c Mechanical Rate 16 FiO2 100.0 % Tidal Volume 550 PEEP 5 Crit Value Called To Edgardo clavillo md Crit Value Called By 333 Crit Value Read Back Y Blood Gas Notified Time 525 Sodium (132-148) mmol/l Potassium (3.6-5.0) MMOL/L Chloride (98-107) mmol/L Carbon Dioxide (22-30) mmol/L Anion Gap (10-20) BUN (9-20) mg/dl Creatinine (0.8-1.5) mg/dl Est GFR ( Amer) Est GFR (Non-Af Amer) POC Glucose (mg/dL) 150 H 171 H (65-110) mg/dL Random Glucose (75-110) mg/dL Calcium (8.4-10.2) mg/dL Total Bilirubin (0.2-1.3) mg/dl AST (17-59) U/L ALT (21-72) U/L Alkaline Phosphatase (38-126) U/L Total Protein (6.3-8.2) G/DL Albumin (3.5-5.0) g/dL Globulin (2.2-3.9) gm/dL Albumin/Globulin Ratio (1.0-2.1) 05/25/18 05/25/18 05/24/18 Range/Units 04:30 04:30 23:05 WBC 15.3 H (4.8-10.8) K/uL RBC 4.20 L (4.40-5.90) Mil/uL Hgb 9.9 L (12.0-18.0) g/dL Hct 32.8 L (35.0-51.0) % MCV 78.2 L (80.0-94.0) fl MCH 23.6 L (27.0-31.0) pg MCHC 30.1 L (33.0-37.0) g/dL RDW 17.6 H (11.5-14.5) % Plt Count 327 (130-400) K/uL pCO2 (35-45) mm/Hg pO2 (80-100) mm/Hg HCO3 (21-28) mmol/L ABG pH (7.35-7.45) ABG Total CO2 (22-28) mmol/L ABG O2 Saturation (95-98) % ABG O2 Content (15-23) ML/dL ABG Base Excess (-2.0-3.0) mmol/L ABG Hemoglobin (11.7-17.4) g/dL ABG Carboxyhemoglobin (0.5-1.5) % POC ABG HHb (Measured) (0.0-5.0) % ABG Methemoglobin (0.0-3.0) % ABG O2 Capacity (16-24) mL/dL Eagle Test A-a O2 Difference mm/Hg Hgb O2 Saturation (95.0-98.0) % Vent Mode Mechanical Rate FiO2 % Tidal Volume PEEP Crit Value Called To Crit Value Called By Crit Value Read Back Blood Gas Notified Time Sodium 156 H (132-148) mmol/l Potassium 5.2 H (3.6-5.0) MMOL/L Chloride 110 H (98-107) mmol/L Carbon Dioxide 38 H (22-30) mmol/L Anion Gap 13 (10-20) BUN 39 H (9-20) mg/dl Creatinine 1.1 (0.8-1.5) mg/dl Est GFR ( Amer) > 60 Est GFR (Non-Af Amer) > 60 POC Glucose (mg/dL) 139 H (65-110) mg/dL Random Glucose 173 H (75-110) mg/dL Calcium 8.6 (8.4-10.2) mg/dL Total Bilirubin 0.4 (0.2-1.3) mg/dl AST 77 H D (17-59) U/L ALT 45 (21-72) U/L Alkaline Phosphatase 54 (38-126) U/L Total Protein 5.9 L (6.3-8.2) G/DL Albumin 2.9 L (3.5-5.0) g/dL Globulin 3.0 (2.2-3.9) gm/dL Albumin/Globulin Ratio 1.0 (1.0-2.1) 05/24/18 Range/Units 16:51 WBC (4.8-10.8) K/uL RBC (4.40-5.90) Mil/uL Hgb (12.0-18.0) g/dL Hct (35.0-51.0) % MCV (80.0-94.0) fl MCH (27.0-31.0) pg MCHC (33.0-37.0) g/dL RDW (11.5-14.5) % Plt Count (130-400) K/uL pCO2 (35-45) mm/Hg pO2 (80-100) mm/Hg HCO3 (21-28) mmol/L ABG pH (7.35-7.45) ABG Total CO2 (22-28) mmol/L ABG O2 Saturation (95-98) % ABG O2 Content (15-23) ML/dL ABG Base Excess (-2.0-3.0) mmol/L ABG Hemoglobin (11.7-17.4) g/dL ABG Carboxyhemoglobin (0.5-1.5) % POC ABG HHb (Measured) (0.0-5.0) % ABG Methemoglobin (0.0-3.0) % ABG O2 Capacity (16-24) mL/dL Eagle Test A-a O2 Difference mm/Hg Hgb O2 Saturation (95.0-98.0) % Vent Mode Mechanical Rate FiO2 % Tidal Volume PEEP Crit Value Called To Crit Value Called By Crit Value Read Back Blood Gas Notified Time Sodium (132-148) mmol/l Potassium (3.6-5.0) MMOL/L Chloride (98-107) mmol/L Carbon Dioxide (22-30) mmol/L Anion Gap (10-20) BUN (9-20) mg/dl Creatinine (0.8-1.5) mg/dl Est GFR ( Amer) Est GFR (Non-Af Amer) POC Glucose (mg/dL) 145 H (65-110) mg/dL Random Glucose (75-110) mg/dL Calcium (8.4-10.2) mg/dL Total Bilirubin (0.2-1.3) mg/dl AST (17-59) U/L ALT (21-72) U/L Alkaline Phosphatase (38-126) U/L Total Protein (6.3-8.2) G/DL Albumin (3.5-5.0) g/dL Globulin (2.2-3.9) gm/dL Albumin/Globulin Ratio (1.0-2.1) Laboratory Results - last 24 hr 05/24/18 05/24/18 05/25/18 16:51 23:05 04:30 WBC 15.3 H RBC 4.20 L Hgb 9.9 L Hct 32.8 L MCV 78.2 L MCH 23.6 L MCHC 30.1 L RDW 17.6 H Plt Count 327 pCO2 pO2 HCO3 ABG pH ABG Total CO2 ABG O2 Saturation ABG O2 Content ABG Base Excess ABG Hemoglobin ABG Carboxyhemoglobin POC ABG HHb (Measured) ABG Methemoglobin ABG O2 Capacity Eagle Test A-a O2 Difference Hgb O2 Saturation Vent Mode Mechanical Rate FiO2 Tidal Volume PEEP Crit Value Called To Crit Value Called By Crit Value Read Back Blood Gas Notified Time Sodium Potassium Chloride Carbon Dioxide Anion Gap BUN Creatinine Est GFR ( Amer) Est GFR (Non-Af Amer) POC Glucose (mg/dL) 145 H 139 H Random Glucose Calcium Total Bilirubin AST ALT Alkaline Phosphatase Total Protein Albumin Globulin Albumin/Globulin Ratio 05/25/18 05/25/18 05/25/18 04:30 05:14 05:47 WBC RBC Hgb Hct MCV MCH MCHC RDW Plt Count pCO2 82 H* pO2 86 HCO3 32.4 H ABG pH 7.28 L ABG Total CO2 41.0 H ABG O2 Saturation 96.5 ABG O2 Content 13.2 L ABG Base Excess 9.6 H ABG Hemoglobin 9.7 L ABG Carboxyhemoglobin 0.3 L POC ABG HHb (Measured) 3.5 ABG Methemoglobin 0.6 ABG O2 Capacity 13.7 L Eagle Test Yes A-a O2 Difference 525.0 Hgb O2 Saturation 95.6 Vent Mode A/c Mechanical Rate 16 FiO2 100.0 Tidal Volume 550 PEEP 5 Crit Value Called To Edgardo calvillo md Crit Value Called By 333 Crit Value Read Back Y Blood Gas Notified Time 525 Sodium 156 H Potassium 5.2 H Chloride 110 H Carbon Dioxide 38 H Anion Gap 13 BUN 39 H Creatinine 1.1 Est GFR ( Amer) > 60 Est GFR (Non-Af Amer) > 60 POC Glucose (mg/dL) 171 H Random Glucose 173 H Calcium 8.6 Total Bilirubin 0.4 AST 77 H D ALT 45 Alkaline Phosphatase 54 Total Protein 5.9 L Albumin 2.9 L Globulin 3.0 Albumin/Globulin Ratio 1.0 05/25/18 12:24 WBC RBC Hgb Hct MCV MCH MCHC RDW Plt Count pCO2 pO2 HCO3 ABG pH ABG Total CO2 ABG O2 Saturation ABG O2 Content ABG Base Excess ABG Hemoglobin ABG Carboxyhemoglobin POC ABG HHb (Measured) ABG Methemoglobin ABG O2 Capacity Eagle Test A-a O2 Difference Hgb O2 Saturation Vent Mode Mechanical Rate FiO2 Tidal Volume PEEP Crit Value Called To Crit Value Called By Crit Value Read Back Blood Gas Notified Time Sodium Potassium Chloride Carbon Dioxide Anion Gap BUN Creatinine Est GFR ( Amer) Est GFR (Non-Af Amer) POC Glucose (mg/dL) 150 H Random Glucose Calcium Total Bilirubin AST ALT Alkaline Phosphatase Total Protein Albumin Globulin Albumin/Globulin Ratio
[2018-05-25] MEDS ORDERED: Dextrose 5%/0.9% NS 1,000 ML IV SCH (12:15)
--- NOTE | 2018-05-25 14:31 | CP.PCM.PN ---
Subjective - Date & Time of Evaluation Date of Evaluation: 05/25/18 Time of Evaluation: 09:25 - Subjective Subjective: F/U Respiratory failure. intubated, unresponsive Objective - Vital Signs/Intake and Output Vital Signs (last 24 hours): Temp Pulse Resp BP Pulse Ox 101.8 F H 120 H 28 H 141/78 100 05/25/18 12:00 05/25/18 12:00 05/25/18 12:00 05/25/18 12:00 05/25/18 12:00 Intake and Output: 05/25/18 05/25/18 06:59 18:59 Intake Total 1998 970 Output Total 1500 Balance 499 970 - Medications Medications: Current Medications Acetaminophen (Tylenol 650mg/20.3ml Solution Ud) 650 mg PO Q4 PRN PRN Reason: Temperature Last Admin: 05/24/18 21:44 Dose: 650 mg Albuterol/Ipratropium (Duoneb 3 Mg/0.5 Mg (3 Ml) Ud) 3 ml INH RQ4 [facility] Last Admin: 05/25/18 11:41 Dose: 3 ml Amantadine HCl (Amantadine 100 Mg Cap) 100 mg PEG BID DANNY Last Admin: 05/25/18 08:22 Dose: 100 mg Amlodipine Besylate (Norvasc) 5 mg PO DAILY [facility]AN[facility] Last Admin: 05/25/18 10:29 Dose: 5 mg Clindamycin Phosphate (Cleocin) 600 mg in 50 mls @ 50 mls/hr IVPB Q8H [facility] PRN Reason: Protocol Last Admin: 05/25/18 08:22 Dose: 50 mls/hr Vancomycin HCl 1 gm/ Sodium (Chloride) 250 mls @ 166.667 mls/hr IVPB Q12H [facility]AN[facility] PRN Reason: Protocol Last Admin: 05/25/18 04:07 Dose: 166.667 mls/hr Levofloxacin/Dextrose (Levaquin 750mg) 750 mg in 150 mls @ 100 mls/hr IVPB DAILY [facility]AN[facility] Last Admin: 05/25/18 08:24 Dose: 100 mls/hr Levetiracetam 1,000 mg/ Sodium (Chloride) 110 mls @ 210 mls/hr IVPB Q12 [facility] Last Admin: 05/25/18 08:23 Dose: 210 mls/hr Dextrose (Dextrose 5% In Water 1000 Ml) 1,000 mls @ 84 mls/hr IV .[id number] [facility] Stop: 05/26/18 12:23 Insulin Human Lispro (Humalog) 0 units SC 0000,0600,1200,1800 DAN[facility] PRN Reason: Protocol Last Admin: 05/25/18 06:52 Dose: 2 units Lorazepam (Ativan) 2 mg IVP Q3H PRN PRN Reason: Agitation Last Admin: 05/25/18 12:23 Dose: 2 mg Morphine Sulfate (Morphine) 4 mg IVP Q4 PRN PRN Reason: Agitation Last Admin: 05/25/18 05:08 Dose: 4 mg Pantoprazole Sodium (Protonix Inj) 40 mg IVP DAILY [facility] Last Admin: 05/25/18 08:25 Dose: 40 mg Sodium Polystyrene Sulfonate (Kayexalate Susp) 15 gm PO Q6 [facility] - Labs Labs: 05/25/18 04:30 05/25/18 04:30 PT 15.8 Seconds (9.8-13.1) H 05/20/18 16:00 INR 1.4 (0.9-1.2) H 05/20/18 16:00 APTT 23.2 Seconds (25.6-37.1) L 05/20/18 16:00 - Constitutional Appears: Chronically Ill - Head Exam Head Exam: NORMAL INSPECTION - Eye Exam Additional comments: No corneal reflex, sluggish reaction to light - ENT Exam Additional comments: Intubated - Neck Exam Neck Exam: Normal Inspection - Respiratory Exam Respiratory Exam: Decreased Breath Sounds (at bases), Rhonchi - Cardiovascular Exam Cardiovascular Exam: REGULAR RHYTHM - GI/Abdominal Exam GI & Abdominal Exam: absent: Distended, Tenderness - Extremities Exam Additional comments: 2+ edema all extremities. - Neurological Exam Additional comments: Intubated, unresponsive - Skin Skin Exam: Warm Assessment and Plan (1) Respiratory failure Status: Acute (2) Neuroleptic malignant syndrome Status: Acute (3) HTN (hypertension) Status: Acute (4) Overdose Status: Acute (5) Aspiration pneumonia Status: Acute (6) Hx of deep venous thrombosis Status: Chronic (7) Hx pulmonary embolism Status: Acute (8) History of obstructive sleep apnea Status: Acute (9) Diabetes Status: Chronic (10) Asthma exacerbation Status: Acute - Assessment and Plan (Free Text) Plan: continue ventilatory support, Levaquin, Clinda, Vanco, and rest of treatment , CXR R PNA, change in ET tube position noted Critical care time: 32 min.
[2018-05-25] MEDS: Sod Polystyrene Sulf 15 gm/60 ml Susp PO SCH ×2 (15:56→23:00)
[2018-05-25] MEDS: Acetaminophen 650mg/20.3ml solution UD PO PRN ×2 (15:57→23:45)
[2018-05-26] MEDS: Albuterol-Ipratrop 3 mg / 0.5 (3 ml) UD INH SCH ×6 (00:12→19:09)
[2018-05-26] MEDS: Insulin Lispro (humaLOG) 100 Units/ml Inj SC SCH ×5 (00:55→23:49)
[2018-05-26] MEDS: Sod Polystyrene Sulf 15 gm/60 ml Susp PO SCH (04:30)
[2018-05-26 05:25] LABS: BASO % 0.2 % (0.0-2.0); EOS % 0.3 % (0.0-4.0); HEMOGLOBIN 8.7 g/dL (12.0-18.0); LYMPH # 0.5 K/uL (1.0-4.3); LYMPH % 3.9 % (20.0-40.0); MEAN CORPUSCULAR HEMOGLOBIN 24.3 pg (27.0-31.0); MEAN CORPUSCULAR HGB CONC 31.9 g/dL (33.0-37.0); MEAN PLATELET VOLUME 9.4 fl (7.2-11.7); MONO # 0.7 K/uL (0.0-0.8); NEUT % 90.6 % (50.0-75.0); PLATELET COUNT 300 K/uL (130-400); RBC 3.57 Mil/uL (4.40-5.90); RED CELL DISTRIBUTION WIDTH 16.7 % (11.5-14.5); WHITE BLOOD COUNT 13.2 K/uL (4.8-10.8)
[2018-05-26 05:29] LABS: ABG ALLEN TEST YES; ARTERIAL BLOOD GAS HCO3 35.2 mmol/L (21-28); ARTERIAL BLOOD GAS HEMOGLOBIN 10.6 g/dL (11.7-17.4); ARTERIAL BLOOD GAS O2 CAPACITY 15.4 mL/dL (16-24); ARTERIAL BLOOD GAS O2 CONTENT 15.1 ML/dL (15-23); ARTERIAL BLOOD GAS PCO2 46 mm/Hg (35-45); ARTERIAL BLOOD GAS PH 7.52 (7.35-7.45); ARTERIAL BLOOD GAS PO2 244 mm/Hg (80-100)
[2018-05-26 06:44] LABS: ALBUMIN 2.6 g/dL (3.5-5.0); ALT/SGPT 41 U/L (21-72); AST/SGOT 56 U/L (17-59); BLOOD UREA NITROGEN 34 mg/dl (9-20); CALCIUM 8.4 mg/dL (8.4-10.2); GFR NON-AFRICAN AMERICAN > 60
[2018-05-26] MEDS: Clindamycin 600mg/50ml D5W 600 MG/50 ML VIAL IVPB SCH ×2 (07:49→16:07)
[2018-05-26] MEDS: levoFLOXacin 750 mg in D5W 750 MG/150 ML BAG IVPB SCH (08:24)
[2018-05-26 09:16] LABS: ANISOCYTOSIS SLIGHT; BANDS 1 % (0-2); HYPERSEGMENTATION PRESENT; HYPOCHROMIC MODERATE; LARGE PLATELETS PRESENT; LYMPHOCYTE 3 % (20-50); MONOCYTE 3 % (0-10); NEUTROPHIL 93 % (42-75); OVALOCYTES SLIGHT; PLATELET ESTIMATE NORMAL (NORMAL); SCHISTOCYTES SLIGHT; TEARDROP CELLS SLIGHT; TOTAL CELLS COUNTED 100
[2018-05-26] MEDS: levETIRAcetam 1,000 MG in Sodium Chloride 0.9% 100 ML IVPB SCH ×2 (10:12→20:14)
--- NOTE | 2018-05-26 11:12 | RAD ---
Date of service: 05/26/2018 PROCEDURE: CHEST RADIOGRAPH, 1 VIEW HISTORY: pt intubated COMPARISON: 05/25/2018. FINDINGS: The endotracheal tube terminates 2.2 cm proximal to the lexus. The nasogastric tube terminates in the stomach. The right IJV line terminates in the SVC. LUNGS: No significant interval change in right lower lobe consolidation. The left lung is clear. PLEURA: No pneumothorax. Suspect small right pleural effusion. CARDIOVASCULAR: Normal. OSSEOUS STRUCTURES: No significant abnormalities. VISUALIZED UPPER ABDOMEN: Normal. OTHER FINDINGS: None. IMPRESSION: No significant interval change in right lower lobe consolidation presumable small right pleural effusion. Stable position of support line and tubes.
--- NOTE | 2018-05-26 12:34 | PQF ---
PROVIDER RESPONSE TEXT: Asthma undetermined. REVIEWER QUERY TEXT: Asthma Specificity and Type Asthma is documented in the Medical Record. Please specify the type and of asthma if known: Such as: -- Mild intermittent -- Mild persistent -- Moderate persistent -- Severe persistent -- Other, please specify 05/17 Pulmonary progress note: Asthma exacerbation Status: Acute Assessment and Plan: SoluMedrol, DuoNeb The patient's Clinical Indicators include: xxx Query created by: Chloe Cool on 05/20/2018 8:27 AM Electronically signed by: Joe Wheeler MD 05/26/2018 12:32 PM
--- NOTE | 2018-05-26 12:34 | CP.CCUPN ---
<Gerson Jara - Last Filed: 05/26/18 18:46> CCU Subjective - Physician Review Subjective (Free Text): 05/26/18 08:37 ICU Progress Note 47 y/o M evaluated and examined by bedside. Pt still on mechanical ventilation, non-verbal, non-responsive to verbal or tactile stimulation. Pt had a fever of 100.8 last night and received Ativan. CCU Objective - Vital Signs / Intake & Output Vital Signs (Last 4 hours): Vital Signs Temp Pulse Resp BP Pulse Ox 05/26/18 12:00 100.4 F H 104 H 36 H 186/91 H 100 05/26/18 11:00 107 H 39 H 182/96 H 100 05/26/18 10:00 105 H 38 H 172/93 H 100 05/26/18 08:43 112 H 173/93 H Intake and Output (Last 8hrs): Intake & Output 05/25/18 05/26/18 05/26/18 22:59 06:59 14:59 Intake Total 1990 1500 769 Output Total 1100 1250 Balance 890 250 769 Weight 99.79 kg Intake: IV 760 840 84 Intake, Piggyback 300 300 200 Oral 60 Tube Feeding 780 235 Free Water Flush 150 300 250 Output: Urine 1100 1250 Urethral (Sy) 1100 1250 - Physical Exam Head: Positive for: Atraumatic, Normocephalic Pupils: Positive for: Sluggish Extroacular Muscles: Positive for: Gaze Palsy Conjunctiva: Positive for: Normal Mouth: Positive for: Dry Nose (External): Positive for: Atraumatic Neck: Positive for: Normal Range of Motion Respiratory/Chest: Positive for: Good Air Exchange Cardiovascular: Positive for: Regular Rate and Rhythm, Normal S1, S2 Abdomen: Negative for: Tenderness, Distention Upper Extremity: Positive for: Normal Inspection Lower Extremity: Positive for: Normal Inspection Neurological: Positive for: Other (no response to verbal/tactile stimuli) - Medications Active Medications: Active Medications Generic Name Dose Route Start Last Admin Trade Name Freq PRN Reason Stop Dose Admin Acetaminophen 650 mg 05/16/18 20:17 05/25/18 23:45 Tylenol 650mg/20.3ml Solution Ud PO 650 mg Q4 PRN Administration Temperature Albuterol/Ipratropium 3 ml 05/17/18 13:45 05/26/18 11:09 Duoneb 3 Mg/0.5 Mg (3 Ml) Ud INH 3 ml RQ4 DANNY Administration Amantadine HCl 100 mg 05/21/18 17:00 05/26/18 08:42 Amantadine 100 Mg Cap PEG 100 mg BID DANNY Administration Amlodipine Besylate 10 mg 05/26/18 07:25 05/26/18 08:43 Norvasc PO 10 mg DAILY DANNY Administration Clindamycin Phosphate 600 mg in 50 mls @ 50 mls/hr 05/20/18 16:00 05/26/18 07 :49 Cleocin IVPB 50 mls/hr Q8H DANNY Administration Protocol Vancomycin HCl 1 gm/ Sodium 250 mls @ 166.667 mls/hr 05/20/18 16:00 05/26/18 04:22 Chloride IVPB 166.667 mls/hr Q12H DANNY Administration Protocol Levofloxacin/Dextrose 750 mg in 150 mls @ 100 mls/hr 05/21/18 09:00 05/26/18 08:24 Levaquin 750mg IVPB 100 mls/hr DAILY DANNY Administration Levetiracetam 1,000 mg/ Sodium 110 mls @ 210 mls/hr 05/21/18 09:45 05/26/18 10:12 Chloride IVPB 210 mls/hr Q12 DANNY Administration Insulin Human Lispro 0 units 05/18/18 18:00 05/26/18 11:35 Humalog SC 2 units 0000,0600,1200,1800 DANNY Administration Protocol Pantoprazole Sodium 40 mg 05/24/18 12:30 05/26/18 08:44 Protonix Inj IVP 40 mg DAILY DANNY Administration - Patient Studies Lab Studies: Lab Studies 05/26/18 05/26/18 05/26/18 Range/Units 11:30 06:16 05:26 WBC (4.8-10.8) K/uL RBC (4.40-5.90) Mil/uL Hgb (12.0-18.0) g/dL Hct (35.0-51.0) % MCV (80.0-94.0) fl MCH (27.0-31.0) pg MCHC (33.0-37.0) g/dL RDW (11.5-14.5) % Plt Count (130-400) K/uL MPV (7.2-11.7) fl Neut % (Auto) (50.0-75.0) % Lymph % (Auto) (20.0-40.0) % [place] % (Auto) (0.0-10.0) % Eos % (Auto) (0.0-4.0) % Baso % (Auto) (0.0-2.0) % Neut # (Auto) (1.8-7.0) K/uL Lymph # (Auto) (1.0-4.3) K/uL [place] # (Auto) (0.0-0.8) K/uL Eos # (Auto) (0.0-0.7) K/uL Baso # (Auto) (0.0-0.2) K/uL Neutrophils % (Manual) (42-75) % Band Neutrophils % (0-2) % Lymphocytes % (Manual) (20-50) % Monocytes % (Manual) (0-10) % Hypersegmented Polys Platelet Estimate (NORMAL) Large Platelets Hypochromasia (manual) Anisocytosis (manual) Tear Drop Cells Ovalocytes Schistocytes pCO2 46 H (35-45) mm/Hg pO2 244 H (80-100) mm/Hg HCO3 35.2 H (21-28) mmol/L ABG pH 7.52 H (7.35-7.45) ABG Total CO2 39.0 H (22-28) mmol/L ABG O2 Saturation 98.0 (95-98) % ABG O2 Content 15.1 (15-23) ML/dL ABG Base Excess 13.2 H (-2.0-3.0) mmol/L ABG Hemoglobin 10.6 L (11.7-17.4) g/dL ABG Carboxyhemoglobin 0 L (0.5-1.5) % POC ABG HHb (Measured) 2.0 (0.0-5.0) % ABG Methemoglobin 0.6 (0.0-3.0) % ABG O2 Capacity 15.4 L (16-24) mL/dL Eagle Test Yes A-a O2 Difference 412.0 mm/Hg Hgb O2 Saturation 97.3 (95.0-98.0) % Vent Mode A/c Mechanical Rate 16 FiO2 100.0 % Tidal Volume 550 PEEP 5 Sodium (132-148) mmol/l Potassium (3.6-5.0) MMOL/L Chloride (98-107) mmol/L Carbon Dioxide (22-30) mmol/L Anion Gap (10-20) BUN (9-20) mg/dl Creatinine (0.8-1.5) mg/dl Est GFR ( Amer) Est GFR (Non-Af Amer) POC Glucose (mg/dL) 157 H 235 H (65-110) mg/dL Random Glucose (75-110) mg/dL Calcium (8.4-10.2) mg/dL Total Bilirubin (0.2-1.3) mg/dl AST (17-59) U/L ALT (21-72) U/L Alkaline Phosphatase (38-126) U/L Total Protein (6.3-8.2) G/DL Albumin (3.5-5.0) g/dL Globulin (2.2-3.9) gm/dL Albumin/Globulin Ratio (1.0-2.1) Vancomycin Trough (5.0-10.0) ug/mL 05/26/18 05/26/18 05/26/18 Range/Units 04:18 04:18 00:43 WBC 13.2 H (4.8-10.8) K/uL RBC 3.57 L (4.40-5.90) Mil/uL Hgb 8.7 L (12.0-18.0) g/dL Hct 27.1 L (35.0-51.0) % MCV 76.0 L D (80.0-94.0) fl MCH 24.3 L (27.0-31.0) pg MCHC 31.9 L (33.0-37.0) g/dL RDW 16.7 H (11.5-14.5) % Plt Count 300 (130-400) K/uL MPV 9.4 (7.2-11.7) fl Neut % (Auto) 90.6 H (50.0-75.0) % Lymph % (Auto) 3.9 L (20.0-40.0) % [place] % (Auto) 5.0 (0.0-10.0) % Eos % (Auto) 0.3 (0.0-4.0) % Baso % (Auto) 0.2 (0.0-2.0) % Neut # (Auto) 12.0 H (1.8-7.0) K/uL Lymph # (Auto) 0.5 L (1.0-4.3) K/uL [place] # (Auto) 0.7 (0.0-0.8) K/uL Eos # (Auto) 0.0 (0.0-0.7) K/uL Baso # (Auto) 0.0 (0.0-0.2) K/uL Neutrophils % (Manual) 93 H (42-75) % Band Neutrophils % 1 (0-2) % Lymphocytes % (Manual) 3 L (20-50) % Monocytes % (Manual) 3 (0-10) % Hypersegmented Polys Present Platelet Estimate Normal (NORMAL) Large Platelets Present Hypochromasia (manual) Moderate Anisocytosis (manual) Slight Tear Drop Cells Slight Ovalocytes Slight Schistocytes Slight pCO2 (35-45) mm/Hg pO2 (80-100) mm/Hg HCO3 (21-28) mmol/L ABG pH (7.35-7.45) ABG Total CO2 (22-28) mmol/L ABG O2 Saturation (95-98) % ABG O2 Content (15-23) ML/dL ABG Base Excess (-2.0-3.0) mmol/L ABG Hemoglobin (11.7-17.4) g/dL ABG Carboxyhemoglobin (0.5-1.5) % POC ABG HHb (Measured) (0.0-5.0) % ABG Methemoglobin (0.0-3.0) % ABG O2 Capacity (16-24) mL/dL Eagle Test A-a O2 Difference mm/Hg Hgb O2 Saturation (95.0-98.0) % Vent Mode Mechanical Rate FiO2 % Tidal Volume PEEP Sodium 154 H (132-148) mmol/l Potassium 3.7 (3.6-5.0) MMOL/L Chloride 110 H (98-107) mmol/L Carbon Dioxide 37 H (22-30) mmol/L Anion Gap 11 (10-20) BUN 34 H (9-20) mg/dl Creatinine 1.2 (0.8-1.5) mg/dl Est GFR ( Amer) > 60 Est GFR (Non-Af Amer) > 60 POC Glucose (mg/dL) 230 H (65-110) mg/dL Random Glucose 209 H (75-110) mg/dL Calcium 8.4 (8.4-10.2) mg/dL Total Bilirubin 0.4 (0.2-1.3) mg/dl AST 56 (17-59) U/L ALT 41 (21-72) U/L Alkaline Phosphatase 51 (38-126) U/L Total Protein 5.3 L (6.3-8.2) G/DL Albumin 2.6 L (3.5-5.0) g/dL Globulin 2.7 (2.2-3.9) gm/dL Albumin/Globulin Ratio 1.0 (1.0-2.1) Vancomycin Trough (5.0-10.0) ug/mL 05/25/18 05/25/18 05/25/18 Range/Units 20:12 17:07 16:26 WBC (4.8-10.8) K/uL RBC (4.40-5.90) Mil/uL Hgb (12.0-18.0) g/dL Hct (35.0-51.0) % MCV (80.0-94.0) fl MCH (27.0-31.0) pg MCHC (33.0-37.0) g/dL RDW (11.5-14.5) % Plt Count (130-400) K/uL MPV (7.2-11.7) fl Neut % (Auto) (50.0-75.0) % Lymph % (Auto) (20.0-40.0) % [place] % (Auto) (0.0-10.0) % Eos % (Auto) (0.0-4.0) % Baso % (Auto) (0.0-2.0) % Neut # (Auto) (1.8-7.0) K/uL Lymph # (Auto) (1.0-4.3) K/uL [place] # (Auto) (0.0-0.8) K/uL Eos # (Auto) (0.0-0.7) K/uL Baso # (Auto) (0.0-0.2) K/uL Neutrophils % (Manual) (42-75) % Band Neutrophils % (0-2) % Lymphocytes % (Manual) (20-50) % Monocytes % (Manual) (0-10) % Hypersegmented Polys Platelet Estimate (NORMAL) Large Platelets Hypochromasia (manual) Anisocytosis (manual) Tear Drop Cells Ovalocytes Schistocytes pCO2 (35-45) mm/Hg pO2 (80-100) mm/Hg HCO3 (21-28) mmol/L ABG pH (7.35-7.45) ABG Total CO2 (22-28) mmol/L ABG O2 Saturation (95-98) % ABG O2 Content (15-23) ML/dL ABG Base Excess (-2.0-3.0) mmol/L ABG Hemoglobin (11.7-17.4) g/dL ABG Carboxyhemoglobin (0.5-1.5) % POC ABG HHb (Measured) (0.0-5.0) % ABG Methemoglobin (0.0-3.0) % ABG O2 Capacity (16-24) mL/dL Eagle Test A-a O2 Difference mm/Hg Hgb O2 Saturation (95.0-98.0) % Vent Mode Mechanical Rate FiO2 % Tidal Volume PEEP Sodium (132-148) mmol/l Potassium (3.6-5.0) MMOL/L Chloride (98-107) mmol/L Carbon Dioxide (22-30) mmol/L Anion Gap (10-20) BUN (9-20) mg/dl Creatinine (0.8-1.5) mg/dl Est GFR ( Amer) Est GFR (Non-Af Amer) POC Glucose (mg/dL) 150 H 130 H (65-110) mg/dL Random Glucose (75-110) mg/dL Calcium (8.4-10.2) mg/dL Total Bilirubin (0.2-1.3) mg/dl AST (17-59) U/L ALT (21-72) U/L Alkaline Phosphatase (38-126) U/L Total Protein (6.3-8.2) G/DL Albumin (3.5-5.0) g/dL Globulin (2.2-3.9) gm/dL Albumin/Globulin Ratio (1.0-2.1) Vancomycin Trough 11.3 H (5.0-10.0) ug/mL 05/25/ Range/Units 12:24 WBC (4.8-10.8) K/uL RBC (4.40-5.90) Mil/uL Hgb (12.0-18.0) g/dL Hct (35.0-51.0) % MCV (80.0-94.0) fl MCH (27.0-31.0) pg MCHC (33.0-37.0) g/dL RDW (11.5-14.5) % Plt Count (130-400) K/uL MPV (7.2-11.7) fl Neut % (Auto) (50.0-75.0) % Lymph % (Auto) (20.0-40.0) % [place] % (Auto) (0.0-10.0) % Eos % (Auto) (0.0-4.0) % Baso % (Auto) (0.0-2.0) % Neut # (Auto) (1.8-7.0) K/uL Lymph # (Auto) (1.0-4.3) K/uL [place] # (Auto) (0.0-0.8) K/uL Eos # (Auto) (0.0-0.7) K/uL Baso # (Auto) (0.0-0.2) K/uL Neutrophils % (Manual) (42-75) % Band Neutrophils % (0-2) % Lymphocytes % (Manual) (20-50) % Monocytes % (Manual) (0-10) % Hypersegmented Polys Platelet Estimate (NORMAL) Large Platelets Hypochromasia (manual) Anisocytosis (manual) Tear Drop Cells Ovalocytes Schistocytes pCO2 (35-45) mm/Hg pO2 (80-100) mm/Hg HCO3 (21-28) mmol/L ABG pH (7.35-7.45) ABG Total CO2 (22-28) mmol/L ABG O2 Saturation (95-98) % ABG O2 Content (15-23) ML/dL ABG Base Excess (-2.0-3.0) mmol/L ABG Hemoglobin (11.7-17.4) g/dL ABG Carboxyhemoglobin (0.5-1.5) % POC ABG HHb (Measured) (0.0-5.0) % ABG Methemoglobin (0.0-3.0) % ABG O2 Capacity (16-24) mL/dL Eagle Test A-a O2 Difference mm/Hg Hgb O2 Saturation (95.0-98.0) % Vent Mode Mechanical Rate FiO2 % Tidal Volume PEEP Sodium (132-148) mmol/l Potassium (3.6-5.0) MMOL/L Chloride (98-107) mmol/L Carbon Dioxide (22-30) mmol/L Anion Gap (10-20) BUN (9-20) mg/dl Creatinine (0.8-1.5) mg/dl Est GFR ( Amer) Est GFR (Non-Af Amer) POC Glucose (mg/dL) 150 H (65-110) mg/dL Random Glucose (75-110) mg/dL Calcium (8.4-10.2) mg/dL Total Bilirubin (0.2-1.3) mg/dl AST (17-59) U/L ALT (21-72) U/L Alkaline Phosphatase (38-126) U/L Total Protein (6.3-8.2) G/DL Albumin (3.5-5.0) g/dL Globulin (2.2-3.9) gm/dL Albumin/Globulin Ratio (1.0-2.1) Vancomycin Trough (5.0-10.0) ug/mL Laboratory Results - last 24 hr 05/25/18 05/25/18 05/25/18 12:24 16:26 17:07 WBC RBC Hgb Hct MCV MCH MCHC RDW Plt Count MPV Neut % (Auto) Lymph % (Auto) [place] % (Auto) Eos % (Auto) Baso % (Auto) Neut # (Auto) Lymph # (Auto) [place] # (Auto) Eos # (Auto) Baso # (Auto) Neutrophils % (Manual) Band Neutrophils % Lymphocytes % (Manual) Monocytes % (Manual) Hypersegmented Polys Platelet Estimate Large Platelets Hypochromasia (manual) Anisocytosis (manual) Tear Drop Cells Ovalocytes Schistocytes pCO2 pO2 HCO3 ABG pH ABG Total CO2 ABG O2 Saturation ABG O2 Content ABG Base Excess ABG Hemoglobin ABG Carboxyhemoglobin POC ABG HHb (Measured) ABG Methemoglobin ABG O2 Capacity Eagle Test A-a O2 Difference Hgb O2 Saturation Vent Mode Mechanical Rate FiO2 Tidal Volume PEEP Sodium Potassium Chloride Carbon Dioxide Anion Gap BUN Creatinine Est GFR ( Amer) Est GFR (Non-Af Amer) POC Glucose (mg/dL) 150 H 130 H Random Glucose Calcium Total Bilirubin AST ALT Alkaline Phosphatase Total Protein Albumin Globulin Albumin/Globulin Ratio Vancomycin Trough 11.3 H 05/25/18 05/26/18 05/26/18 20:12 00:43 04:18 WBC 13.2 H RBC 3.57 L Hgb 8.7 L Hct 27.1 L MCV 76.0 L D MCH 24.3 L MCHC 31.9 L RDW 16.7 H Plt Count 300 MPV 9.4 Neut % (Auto) 90.6 H Lymph % (Auto) 3.9 L [place] % (Auto) 5.0 Eos % (Auto) 0.3 Baso % (Auto) 0.2 Neut # (Auto) 12.0 H Lymph # (Auto) 0.5 L [place] # (Auto) 0.7 Eos # (Auto) 0.0 Baso # (Auto) 0.0 Neutrophils % (Manual) 93 H Band Neutrophils % 1 Lymphocytes % (Manual) 3 L Monocytes % (Manual) 3 Hypersegmented Polys Present Platelet Estimate Normal Large Platelets Present Hypochromasia (manual) Moderate Anisocytosis (manual) Slight Tear Drop Cells Slight Ovalocytes Slight Schistocytes Slight pCO2 pO2 HCO3 ABG pH ABG Total CO2 ABG O2 Saturation ABG O2 Content ABG Base Excess ABG Hemoglobin ABG Carboxyhemoglobin POC ABG HHb (Measured) ABG Methemoglobin ABG O2 Capacity Eagle Test A-a O2 Difference Hgb O2 Saturation Vent Mode Mechanical Rate FiO2 Tidal Volume PEEP Sodium Potassium Chloride Carbon Dioxide Anion Gap BUN Creatinine Est GFR ( Amer) Est GFR (Non-Af Amer) POC Glucose (mg/dL) 150 H 230 H Random Glucose Calcium Total Bilirubin AST ALT Alkaline Phosphatase Total Protein Albumin Globulin Albumin/Globulin Ratio Vancomycin Trough 05/26/18 05/26/18 05/26/18 04:18 05:26 06:16 WBC RBC Hgb Hct MCV MCH MCHC RDW Plt Count MPV Neut % (Auto) Lymph % (Auto) [place] % (Auto) Eos % (Auto) Baso % (Auto) Neut # (Auto) Lymph # (Auto) [place] # (Auto) Eos # (Auto) Baso # (Auto) Neutrophils % (Manual) Band Neutrophils % Lymphocytes % (Manual) Monocytes % (Manual) Hypersegmented Polys Platelet Estimate Large Platelets Hypochromasia (manual) Anisocytosis (manual) Tear Drop Cells Ovalocytes Schistocytes pCO2 46 H pO2 244 H HCO3 35.2 H ABG pH 7.52 H ABG Total CO2 39.0 H ABG O2 Saturation 98.0 ABG O2 Content 15.1 ABG Base Excess 13.2 H ABG Hemoglobin 10.6 L ABG Carboxyhemoglobin 0 L POC ABG HHb (Measured) 2.0 ABG Methemoglobin 0.6 ABG O2 Capacity 15.4 L Eagle Test Yes A-a O2 Difference 412.0 Hgb O2 Saturation 97.3 Vent Mode A/c Mechanical Rate 16 FiO2 100.0 Tidal Volume 550 PEEP 5 Sodium 154 H Potassium 3.7 Chloride 110 H Carbon Dioxide 37 H Anion Gap 11 BUN 34 H Creatinine 1.2 Est GFR ( Amer) > 60 Est GFR (Non-Af Amer) > 60 POC Glucose (mg/dL) 235 H Random Glucose 209 H Calcium 8.4 Total Bilirubin 0.4 AST 56 ALT 41 Alkaline Phosphatase 51 Total Protein 5.3 L Albumin 2.6 L Globulin 2.7 Albumin/Globulin Ratio 1.0 Vancomycin Trough 05/26/18 11:30 WBC RBC Hgb Hct MCV MCH MCHC RDW Plt Count MPV Neut % (Auto) Lymph % (Auto) [place] % (Auto) Eos % (Auto) Baso % (Auto) Neut # (Auto) Lymph # (Auto) [place] # (Auto) Eos # (Auto) Baso # (Auto) Neutrophils % (Manual) Band Neutrophils % Lymphocytes % (Manual) Monocytes % (Manual) Hypersegmented Polys Platelet Estimate Large Platelets Hypochromasia (manual) Anisocytosis (manual) Tear Drop Cells Ovalocytes Schistocytes pCO2 pO2 HCO3 ABG pH ABG Total CO2 ABG O2 Saturation ABG O2 Content ABG Base Excess ABG Hemoglobin ABG Carboxyhemoglobin POC ABG HHb (Measured) ABG Methemoglobin ABG O2 Capacity Eagle Test A-a O2 Difference Hgb O2 Saturation Vent Mode Mechanical Rate FiO2 Tidal Volume PEEP Sodium Potassium Chloride Carbon Dioxide Anion Gap BUN Creatinine Est GFR ( Amer) Est GFR (Non-Af Amer) POC Glucose (mg/dL) 157 H Random Glucose Calcium Total Bilirubin AST ALT Alkaline Phosphatase Total Protein Albumin Globulin Albumin/Globulin Ratio Vancomycin Trough Fingerstick Blood Sugar Results: 157 Assessment/Plan - Assessment and Plan (Free Text) Assessment: 47 y/o M with a PMHx Depression, Anxiety, DM type 2, HTN, HLD, TIA, Asthma, JODY , CABG, CAD with stent (2008), DVT and PE s/p IVC Filter (2008), Gastric Bypass (2013), admitted due to suicidal attempt via overdose of Seroquel/Ambien/ Trazodone/Clonidine. Plan: >Altered Mental Status -Neurology consult, Dr Meek. -On Keppra 1,000mg Q12H -EEG from 05/21/18 interpreted as silent. -Repeat EEG results pending -Considering repeat Head MRI, looking for cerebral edema as caused by hypoxic encephalopathy. >Neuroleptic Malignant Syndrome/Hyperthermia -Trazodone and Seroquel as possible causative agents. -Fever last night. -Ativan administered last night. -Stop all sedatives, as the main goal is for patient to become awake and arousable. -Neurology on board, Dr Meek, f/u recommendations. -On Amantidine. -Repeat EEG results pending >Hyperkalemia -Resolved. >Hypernatremia/Hyperchloremia -IV fluids D5W at 84mL/hr. >Acute Respiratory Failure/RLL Pneumonia -On mechanical ventilator, ventillator setting change. -CXR c/w RLL pneumonia. -ID on board, Dr Rogers -C/w Levofloxacin, Vancomycin and Clindamycin -Stop all sedatives, as the main goal is for patient to become awake and arousable. >Hypertension -Norvasc 10mg daily -BP monitor. >Fever -Neuroleptic Malignant Syndrome vs Infection vs Medication adverse effect -Fever last night -CXR w/ RLL pneumonia. -Blood Cx w/ NO growth. UCx w/ no growth.Sputum Cx w yeast species. -ID on board, Dr Rogers -C/w Levofloxacin, Vancomycin and Clindamycin >DVT Prophylaxis -SCD's - Date & Time Date: 05/26/18 Time: 10:44 <Joaquin Jose - Last Filed: 05/26/18 23:44> CCU Subjective - Physician Review Subjective (Free Text): Attestation: Patient seen and examined at the bedside with Resident Dr. Jerome Jara; and I agree with his outline of plans and management documented below as discussed on AM rounds reflecting my review of all applicable clinical data, and participation in the care of the patient throughout the day in ICU; today, May 26, 2018. All narcotics and sedatives have been discontinued from further usage. Repeated EEG today. Initial EEG shows essentially no significant brainwave activity as discussed with Neurology. Findings of 2nd EEG results not dissimilar from 1st EEG study; and discussed with Mother via interpreter translator using Resident Physician Dr. Jerome Jara. Mother contemplating terminal withdrawal from MV support pending the arrival of more family members.
--- NOTE | 2018-05-26 17:04 | CP.PCM.PN ---
Subjective - Date & Time of Evaluation Date of Evaluation: 05/26/18 Time of Evaluation: 12:00 - Subjective Subjective: F/U Acute Respiratory failure Intubated, unresponsive to verbal or tactile stimuli. Objective - Vital Signs/Intake and Output Vital Signs (last 24 hours): Temp Pulse Resp BP Pulse Ox 100.3 F H 111 H 38 H 179/98 H 100 05/26/18 16:00 05/26/18 16:00 05/26/18 16:00 05/26/18 16:00 05/26/18 16:00 Intake and Output: 05/26/18 05/26/18 06:59 18:59 Intake Total 1500 2233 Output Total 1250 Balance 250 2233 - Medications Medications: Current Medications Acetaminophen (Tylenol 650mg/20.3ml Solution Ud) 650 mg PO Q4 PRN PRN Reason: Temperature Last Admin: 05/25/18 23:45 Dose: 650 mg Albuterol/Ipratropium (Duoneb 3 Mg/0.5 Mg (3 Ml) Ud) 3 ml INH RQ4 DANNY Last Admin: 05/26/18 15:16 Dose: 3 ml Amantadine HCl (Amantadine 100 Mg Cap) 100 mg PEG BID DANNY Last Admin: 05/26/18 16:07 Dose: 100 mg Amlodipine Besylate (Norvasc) 10 mg PO DAILY DANNY Last Admin: 05/26/18 08:43 Dose: 10 mg Clindamycin Phosphate (Cleocin) 600 mg in 50 mls @ 50 mls/hr IVPB Q8H DANNY PRN Reason: Protocol Last Admin: 05/26/18 16:07 Dose: 50 mls/hr Vancomycin HCl 1 gm/ Sodium (Chloride) 250 mls @ 166.667 mls/hr IVPB Q12H DANNY PRN Reason: Protocol Last Admin: 05/26/18 15:25 Dose: 166.667 mls/hr Levofloxacin/Dextrose (Levaquin 750mg) 750 mg in 150 mls @ 100 mls/hr IVPB DAILY DANNY Last Admin: 05/26/18 08:24 Dose: 100 mls/hr Levetiracetam 1,000 mg/ Sodium (Chloride) 110 mls @ 210 mls/hr IVPB Q12 DANNY Last Admin: 05/26/18 10:12 Dose: 210 mls/hr Insulin Human Lispro (Humalog) 0 units SC 0000,0600,1200,1800 [facility] PRN Reason: Protocol Last Admin: 05/26/18 11:35 Dose: 2 units Pantoprazole Sodium (Protonix Inj) 40 mg IVP DAILY [facility] Last Admin: 05/26/18 08:44 Dose: 40 mg - Labs Labs: 05/26/18 04:18 05/26/18 04:18 PT 15.8 Seconds (9.8-13.1) H 05/20/18 16:00 INR 1.4 (0.9-1.2) H 05/20/18 16:00 APTT 23.2 Seconds (25.6-37.1) L 05/20/18 16:00 - Constitutional Appears: Chronically Ill - Head Exam Head Exam: NORMAL INSPECTION - Eye Exam Additional comments: No corneal reflex, 3mm, sluggish reaction to light - ENT Exam Additional comments: Intubated - Neck Exam Neck Exam: Normal Inspection - Respiratory Exam Respiratory Exam: Decreased Breath Sounds (at bases), Rhonchi - Cardiovascular Exam Cardiovascular Exam: REGULAR RHYTHM - GI/Abdominal Exam GI & Abdominal Exam: Soft - Extremities Exam Additional comments: 1+ edema all extremities. - Neurological Exam Additional comments: Intubated, non verbal, no response to tactil stimuli , non sedated - Skin Skin Exam: Warm Assessment and Plan (1) Respiratory failure Status: Acute (2) Neuroleptic malignant syndrome Status: Acute (3) HTN (hypertension) Status: Acute (4) Overdose Status: Acute (5) Aspiration pneumonia Status: Acute (6) Hx of deep venous thrombosis Status: Chronic (7) Hx pulmonary embolism Status: Acute (8) History of obstructive sleep apnea Status: Acute (9) Diabetes Status: Chronic (10) Asthma exacerbation Status: Acute - Assessment and Plan (Free Text) Plan: unresponsive, non sedated, T 100's . AC FIO2 100%, EEG silent , 2nd EEG be done at Patient's family request, information was given to [facility], Patient's family is considering terminal extubation if 2nd EEG is silent Critical care time: 30 min.
--- NOTE | 2018-05-26 22:50 | CP.PCM.PN ---
Subjective - Date & Time of Evaluation Date of Evaluation: 05/26/18 Time of Evaluation: 11:00 - Subjective Subjective: Patient is intubated, not sedated. on exam: NO dolls eyes, no corneals, no gag. no purposeful movement. Decreased reflexes at +1 dtr ul and ll bl. Toes downgoing no clonus Second eeg completed. Objective - Vital Signs/Intake and Output Vital Signs (last 24 hours): Temp Pulse Resp BP Pulse Ox 99.5 F 105 H 33 H 177/98 H 100 05/26/18 20:00 05/26/18 20:00 05/26/18 20:00 05/26/18 20:00 05/26/18 20:00 Intake and Output: 05/26/18 05/27/18 18:59 06:59 Intake Total 2531 149 Output Total 1800 Balance 731 149 - Medications Medications: Current Medications Acetaminophen (Tylenol 650mg/20.3ml Solution Ud) 650 mg PO Q4 PRN PRN Reason: Temperature Last Admin: 05/25/18 23:45 Dose: 650 mg Albuterol/Ipratropium (Duoneb 3 Mg/0.5 Mg (3 Ml) Ud) 3 ml INH RQ4 DANNY Last Admin: 05/26/18 19:09 Dose: 3 ml Amantadine HCl (Amantadine 100 Mg Cap) 100 mg PEG BID DANNY Last Admin: 05/26/18 16:07 Dose: 100 mg Amlodipine Besylate (Norvasc) 10 mg PO DAILY DANNY Last Admin: 05/26/18 08:43 Dose: 10 mg Clindamycin Phosphate (Cleocin) 600 mg in 50 mls @ 50 mls/hr IVPB Q8H DANNY PRN Reason: Protocol Last Admin: 05/26/18 16:07 Dose: 50 mls/hr Vancomycin HCl 1 gm/ Sodium (Chloride) 250 mls @ 166.667 mls/hr IVPB Q12H DANNY PRN Reason: Protocol Last Admin: 05/26/18 15:25 Dose: 166.667 mls/hr Levofloxacin/Dextrose (Levaquin 750mg) 750 mg in 150 mls @ 100 mls/hr IVPB DAILY DANNY Last Admin: 05/26/18 08:24 Dose: 100 mls/hr Levetiracetam 1,000 mg/ Sodium (Chloride) 110 mls @ 210 mls/hr IVPB Q12 DANNY Last Admin: 05/26/18 20:14 Dose: 210 mls/hr Insulin Human Lispro (Humalog) 0 units SC 0000,0600,1200,1800 DANNY PRN Reason: Protocol Last Admin: 05/26/18 17:31 Dose: Not Given Pantoprazole Sodium (Protonix Inj) 40 mg IVP DAILY DANNY Last Admin: 05/26/18 08:44 Dose: 40 mg - Labs Labs: 05/26/18 04:18 05/26/18 04:18 PT 15.8 Seconds (9.8-13.1) H 05/20/18 16:00 INR 1.4 (0.9-1.2) H 05/20/18 16:00 APTT 23.2 Seconds (25.6-37.1) L 05/20/18 16:00 Assessment and Plan - Assessment and Plan (Free Text) Assessment: EEG: shows no normal brain activity. A/P: 47 yr old male in chronic vegetative state. Second EEG is confirmatory for cerebral silence, however, patient is breathing over the vent. Results communicated to the family and ICU staff. Decision to be made on a team basis as to further intervention, with family input. PLan; 1. Consider brain flow. 2. APnea test 3. Cold calorics. DR berg
[2018-05-27] MEDS: Albuterol-Ipratrop 3 mg / 0.5 (3 ml) UD INH SCH ×7 (00:02→23:55)
[2018-05-27] MEDS: Labetalol 5 mg/ml Inj 20ML IVP SCH ×6 (00:05→21:18)
[2018-05-27] MEDS: Clindamycin 600mg/50ml D5W 600 MG/50 ML VIAL IVPB SCH ×3 (00:07→15:37)
--- NOTE | 2018-05-27 03:52 | CP.PCM.PN ---
Subjective - Date & Time of Evaluation Date of Evaluation: 05/27/18 Time of Evaluation: 03:49 - Subjective Subjective: Called to evaluate patient around 0300, hypotensive and heart rate appx 70s to 80s from prior sustained 90s to 120s. Met with family - patient's mother and two children, as well as the eldest daughter from his prior marriage - discussed current condition of patient, as he has fixed and dilated pupils and declining hemodynamic status. Patient mother, next of kin, in agreement with his children, would like to make patient DNR at this time and withhold vasopressors if necessary. Discussed at length, and all questions answered. Objective - Vital Signs/Intake and Output Vital Signs (last 24 hours): Temp Pulse Resp BP Pulse Ox 97.2 F L 80 16 90/43 L 100 05/27/18 03:00 05/27/18 03:00 05/27/18 03:00 05/27/18 03:00 05/27/18 03:00 Intake and Output: 05/26/18 05/27/18 18:59 06:59 Intake Total 2531 1525 Output Total 1800 Balance 731 1525 - Medications Medications: Current Medications Acetaminophen (Tylenol 650mg/20.3ml Solution Ud) 650 mg PO Q4 PRN PRN Reason: Temperature Last Admin: 05/25/18 23:45 Dose: 650 mg Albuterol/Ipratropium (Duoneb 3 Mg/0.5 Mg (3 Ml) Ud) 3 ml INH RQ4 DANNY Last Admin: 05/27/18 00:02 Dose: 3 ml Amantadine HCl (Amantadine 100 Mg Cap) 100 mg PEG BID DANNY Last Admin: 05/26/18 16:07 Dose: 100 mg Amlodipine Besylate (Norvasc) 10 mg PO DAILY DANNY Last Admin: 05/26/18 08:43 Dose: 10 mg Clindamycin Phosphate (Cleocin) 600 mg in 50 mls @ 50 mls/hr IVPB Q8H DANNY PRN Reason: Protocol Last Admin: 05/27/18 00:07 Dose: 50 mls/hr Vancomycin HCl 1 gm/ Sodium (Chloride) 250 mls @ 166.667 mls/hr IVPB Q12H DANNY PRN Reason: Protocol Last Admin: 05/27/18 03:03 Dose: 166.667 mls/hr Levofloxacin/Dextrose (Levaquin 750mg) 750 mg in 150 mls @ 100 mls/hr IVPB DAILY DANNY Last Admin: 05/26/18 08:24 Dose: 100 mls/hr Levetiracetam 1,000 mg/ Sodium (Chloride) 110 mls @ 210 mls/hr IVPB Q12 DANNY Last Admin: 05/26/18 20:14 Dose: 210 mls/hr Insulin Human Lispro (Humalog) 0 units SC 0000,0600,1200,1800 [facility] PRN Reason: Protocol Last Admin: 05/26/18 23:49 Dose: Not Given Labetalol HCl (Trandate) 20 mg IVP Q4 [facility] Last Admin: 05/27/18 00:05 Dose: 20 mg Pantoprazole Sodium (Protonix Inj) 40 mg IVP DAILY [facility] Last Admin: 05/26/18 08:44 Dose: 40 mg - Labs Labs: 05/26/18 04:18 05/26/18 04:18 PT 15.8 Seconds (9.8-13.1) H 05/20/18 16:00 INR 1.4 (0.9-1.2) H 05/20/18 16:00 APTT 23.2 Seconds (25.6-37.1) L 05/20/18 16:00
[2018-05-27 05:29] LABS: HEMOGLOBIN 7.8 g/dL (12.0-18.0); MEAN CELL VOLUME 76.7 fl (80.0-94.0); MEAN CORPUSCULAR HEMOGLOBIN 24.4 pg (27.0-31.0); MEAN CORPUSCULAR HGB CONC 31.8 g/dL (33.0-37.0); RBC 3.19 Mil/uL (4.40-5.90); RED CELL DISTRIBUTION WIDTH 16.9 % (11.5-14.5); WHITE BLOOD COUNT 11.8 K/uL (4.8-10.8)
[2018-05-27 05:40] LABS: ABG ALLEN TEST YES; ARTERIAL BLOOD GAS HEMOGLOBIN 7.9 g/dL (11.7-17.4); ARTERIAL BLOOD GAS O2 CAPACITY 11.2 mL/dL (16-24); ARTERIAL BLOOD GAS O2 CONTENT 11.1 ML/dL (15-23); ARTERIAL BLOOD GAS O2 SAT 98.7 % (95-98); ARTERIAL BLOOD GAS PCO2 71 mm/Hg (35-45); ARTERIAL BLOOD GAS PH 7.36 (7.35-7.45); ARTERIAL BLOOD GAS PO2 104 mm/Hg (80-100); ARTERIAL BLOOD GAS TCO2 42.3 mmol/L (22-28)
[2018-05-27 05:41] LABS: ALB/GLOB RATIO 0.9 (1.0-2.1); ALBUMIN 2.2 g/dL (3.5-5.0); ALT/SGPT 45 U/L (21-72); AST/SGOT 50 U/L (17-59); BLOOD UREA NITROGEN 32 mg/dl (9-20); GFR NON-AFRICAN AMERICAN > 60
[2018-05-27] MEDS: Insulin Lispro (humaLOG) 100 Units/ml Inj SC SCH ×4 (07:09→22:00)
--- NOTE | 2018-05-27 07:57 | RAD ---
Date of service: 05/27/2018 HISTORY: vented COMPARISON: Portable chest 05/26/2018 4:20 a.m.. FINDINGS: LUNGS: Endotracheal tube terminates in the neck segment of the upper trachea approximately 13.5 cm of the lexus. Adjustment antegrade into the trachea is recommended. There is no interval change in right basilar consolidation with small right pleural effusion not excluded. Trace left basilar atelectasis identified. No left pleural effusion. No pneumothorax bilaterally. PLEURA: As above. CARDIOVASCULAR: Cardiac silhouette appears stable. No pulmonary vascular congestion. Right center venous line unchanged. OSSEOUS STRUCTURES: No significant abnormalities. VISUALIZED UPPER ABDOMEN: Nasogastric tube terminates in the left upper quadrant abdomen. OTHER FINDINGS: None. IMPRESSION: The nasogastric tube terminates in the upper trachea in the neck. Advancement antegrade into the lower trachea is recommended follow-up by confirmation radiography. No interval change in right basilar consolidation with underlying right pleural effusion not completely excluded. Findings discussed with Dr. Jara with written down and read back verification 05/27/2018 7:45 a.m..
[2018-05-27] MEDS: levETIRAcetam 1,000 MG in Sodium Chloride 0.9% 100 ML IVPB SCH ×2 (08:35→21:15)
[2018-05-27] MEDS: levoFLOXacin 750 mg in D5W 750 MG/150 ML BAG IVPB SCH (08:45)
--- NOTE | 2018-05-27 11:30 | CP.CCUPN ---
<Gerson Jara - Last Filed: 05/27/18 18:11> CCU Subjective - Physician Review Subjective (Free Text): 05/27/18 11:30 ICU Progress Note 47 y/o M evaluated and examined by bedside. Pt is unresponsive to verbal, tactile and painful stimulation. Pt afebrile with NO acute events overnight. Blood pressure has progressively decreased, hence, hypertenssive meds are not given. Pt is not longer triggering ventilator anymore, breathing at a rate of 18 on a set ventilation rate of 18. CCU Objective - Vital Signs / Intake & Output Vital Signs (Last 4 hours): Vital Signs Temp Pulse Resp BP Pulse Ox 05/27/18 08:16 77 80/50 L 05/27/18 08:00 98.1 F 77 19 85/50 L 100 Intake and Output (Last 8hrs): Intake & Output 05/26/18 05/27/18 05/27/18 22:59 06:59 14:59 Intake Total 1809 1824 Output Total 1800 1800 Balance 9 24 Weight 99.564 kg Intake: IV 504 504 Intake, Piggyback 400 300 Tube Feeding 455 520 Free Water Flush 450 500 Output: Urine 1800 1800 Urethral (Sy) 1800 1800 - Physical Exam Physical Exam Limitations: Positive for: Altered Mental Status Head: Positive for: Atraumatic, Normocephalic Extroacular Muscles: Positive for: Gaze Palsy Mouth: Positive for: Dry Nose (External): Positive for: Atraumatic Neck: Positive for: Normal Range of Motion Respiratory/Chest: Positive for: Good Air Exchange Cardiovascular: Positive for: Regular Rate and Rhythm, Normal S1, S2 Abdomen: Negative for: Tenderness, Distention Upper Extremity: Positive for: Normal Inspection Lower Extremity: Positive for: Normal Inspection Neurological: Positive for: Other (no response to verbal/tactile/pain stimuli) - Medications Active Medications: Active Medications Generic Name Dose Route Start Last Admin Trade Name Freq PRN Reason Stop Dose Admin Acetaminophen 650 mg 05/16/18 20:17 05/25/18 23:45 Tylenol 650mg/20.3ml Solution Ud PO 650 mg Q4 PRN Administration Temperature Albuterol/Ipratropium 3 ml 05/17/18 13:45 05/27/18 07:40 Duoneb 3 Mg/0.5 Mg (3 Ml) Ud INH 3 ml RQ4 DANNY Administration Amlodipine Besylate 10 mg 05/26/18 07:25 05/27/18 08:16 Norvasc PO Not Given DAILY DANNY Clindamycin Phosphate 600 mg in 50 mls @ 50 mls/hr 05/20/18 16:00 05/27/18 08 :14 Cleocin IVPB 50 mls/hr Q8H DANNY Administration Protocol Vancomycin HCl 1 gm/ Sodium 250 mls @ 166.667 mls/hr 05/20/18 16:00 05/27/18 03:03 Chloride IVPB 166.667 mls/hr Q12H DANNY Administration Protocol Levofloxacin/Dextrose 750 mg in 150 mls @ 100 mls/hr 05/21/18 09:00 05/27/18 08:45 Levaquin 750mg IVPB 100 mls/hr DAILY DANNY Administration Levetiracetam 1,000 mg/ Sodium 110 mls @ 210 mls/hr 05/21/18 09:45 05/27/18 08:35 Chloride IVPB 210 mls/hr Q12 DANNY Administration Insulin Human Lispro 0 units 05/18/18 18:00 05/27/18 07:09 Humalog SC 2 units 0000,0600,1200,1800 DANNY Administration Protocol Labetalol HCl 20 mg 05/27/18 01:00 05/27/18 08:15 Trandate IVP Not Given Q4 DANNY Pantoprazole Sodium 40 mg 05/24/18 12:30 05/27/18 08:49 Protonix Inj IVP 40 mg DAILY DANNY Administration - Patient Studies Lab Studies: Lab Studies 05/27/18 05/27/18 05/27/18 Range/Units 05:12 04:29 04:29 WBC 11.8 H (4.8-10.8) K/uL RBC 3.19 L (4.40-5.90) Mil/uL Hgb 7.8 L (12.0-18.0) g/dL Hct 24.4 L (35.0-51.0) % MCV 76.7 L (80.0-94.0) fl MCH 24.4 L (27.0-31.0) pg MCHC 31.8 L (33.0-37.0) g/dL RDW 16.9 H (11.5-14.5) % Plt Count 235 (130-400) K/uL pCO2 71 H* (35-45) mm/Hg pO2 104 H (80-100) mm/Hg HCO3 35.0 H (21-28) mmol/L ABG pH 7.36 (7.35-7.45) ABG Total CO2 42.3 H (22-28) mmol/L ABG O2 Saturation 98.7 H (95-98) % ABG O2 Content 11.1 L (15-23) ML/dL ABG Base Excess 12.9 H (-2.0-3.0) mmol/L ABG Hemoglobin 7.9 L (11.7-17.4) g/dL ABG Carboxyhemoglobin 0.8 (0.5-1.5) % POC ABG HHb (Measured) 1.3 (0.0-5.0) % ABG Methemoglobin 0.2 (0.0-3.0) % ABG O2 Capacity 11.2 L (16-24) mL/dL Eagle Test Yes A-a O2 Difference 306.0 mm/Hg Hgb O2 Saturation 97.7 (95.0-98.0) % Vent Mode A/c Mechanical Rate 16 FiO2 70.0 % Tidal Volume 550 PEEP 8 Crit Value Called To Basia henderson rn Crit Value Called By 333 Crit Value Read Back Y Blood Gas Notified Time 540 Sodium 154 H (132-148) mmol/l Potassium 3.6 (3.6-5.0) MMOL/L Chloride 106 (98-107) mmol/L Carbon Dioxide 39 H (22-30) mmol/L Anion Gap 13 (10-20) BUN 32 H (9-20) mg/dl Creatinine 1.2 (0.8-1.5) mg/dl Est GFR ( Amer) > 60 Est GFR (Non-Af Amer) > 60 POC Glucose (mg/dL) (65-110) mg/dL Random Glucose 177 H (75-110) mg/dL Calcium 8.0 L (8.4-10.2) mg/dL Total Bilirubin 0.3 (0.2-1.3) mg/dl AST 50 (17-59) U/L ALT 45 (21-72) U/L Alkaline Phosphatase 45 (38-126) U/L Total Protein 4.7 L (6.3-8.2) G/DL Albumin 2.2 L (3.5-5.0) g/dL Globulin 2.4 (2.2-3.9) gm/dL Albumin/Globulin Ratio 0.9 L (1.0-2.1) 05/27/18 05/26/18 05/26/18 Range/Units 04:17 22:57 17:00 WBC (4.8-10.8) K/uL RBC (4.40-5.90) Mil/uL Hgb (12.0-18.0) g/dL Hct (35.0-51.0) % MCV (80.0-94.0) fl MCH (27.0-31.0) pg MCHC (33.0-37.0) g/dL RDW (11.5-14.5) % Plt Count (130-400) K/uL pCO2 (35-45) mm/Hg pO2 (80-100) mm/Hg HCO3 (21-28) mmol/L ABG pH (7.35-7.45) ABG Total CO2 (22-28) mmol/L ABG O2 Saturation (95-98) % ABG O2 Content (15-23) ML/dL ABG Base Excess (-2.0-3.0) mmol/L ABG Hemoglobin (11.7-17.4) g/dL ABG Carboxyhemoglobin (0.5-1.5) % POC ABG HHb (Measured) (0.0-5.0) % ABG Methemoglobin (0.0-3.0) % ABG O2 Capacity (16-24) mL/dL Eagle Test A-a O2 Difference mm/Hg Hgb O2 Saturation (95.0-98.0) % Vent Mode Mechanical Rate FiO2 % Tidal Volume PEEP Crit Value Called To Crit Value Called By Crit Value Read Back Blood Gas Notified Time Sodium (132-148) mmol/l Potassium (3.6-5.0) MMOL/L Chloride (98-107) mmol/L Carbon Dioxide (22-30) mmol/L Anion Gap (10-20) BUN (9-20) mg/dl Creatinine (0.8-1.5) mg/dl Est GFR ( Amer) Est GFR (Non-Af Amer) POC Glucose (mg/dL) 194 H 188 H 147 H (65-110) mg/dL Random Glucose (75-110) mg/dL Calcium (8.4-10.2) mg/dL Total Bilirubin (0.2-1.3) mg/dl AST (17-59) U/L ALT (21-72) U/L Alkaline Phosphatase (38-126) U/L Total Protein (6.3-8.2) G/DL Albumin (3.5-5.0) g/dL Globulin (2.2-3.9) gm/dL Albumin/Globulin Ratio (1.0-2.1) // Range/Units 11:30 WBC (4.8-10.8) K/uL RBC (4.40-5.90) Mil/uL Hgb (12.0-18.0) g/dL Hct (35.0-51.0) % MCV (80.0-94.0) fl MCH (27.0-31.0) pg MCHC (33.0-37.0) g/dL RDW (11.5-14.5) % Plt Count (130-400) K/uL pCO2 (35-45) mm/Hg pO2 (80-100) mm/Hg HCO3 (21-28) mmol/L ABG pH (7.35-7.45) ABG Total CO2 (22-28) mmol/L ABG O2 Saturation (95-98) % ABG O2 Content (15-23) ML/dL ABG Base Excess (-2.0-3.0) mmol/L ABG Hemoglobin (11.7-17.4) g/dL ABG Carboxyhemoglobin (0.5-1.5) % POC ABG HHb (Measured) (0.0-5.0) % ABG Methemoglobin (0.0-3.0) % ABG O2 Capacity (16-24) mL/dL Eagle Test A-a O2 Difference mm/Hg Hgb O2 Saturation (95.0-98.0) % Vent Mode Mechanical Rate FiO2 % Tidal Volume PEEP Crit Value Called To Crit Value Called By Crit Value Read Back Blood Gas Notified Time Sodium (132-148) mmol/l Potassium (3.6-5.0) MMOL/L Chloride (98-107) mmol/L Carbon Dioxide (22-30) mmol/L Anion Gap (10-20) BUN (9-20) mg/dl Creatinine (0.8-1.5) mg/dl Est GFR ( Amer) Est GFR (Non-Af Amer) POC Glucose (mg/dL) 157 H (65-110) mg/dL Random Glucose (75-110) mg/dL Calcium (8.4-10.2) mg/dL Total Bilirubin (0.2-1.3) mg/dl AST (17-59) U/L ALT (21-72) U/L Alkaline Phosphatase (38-126) U/L Total Protein (6.3-8.2) G/DL Albumin (3.5-5.0) g/dL Globulin (2.2-3.9) gm/dL Albumin/Globulin Ratio (1.0-2.1) Laboratory Results - last 24 hr 05/26/18 05/26/18 05/26/18 11:30 17:00 22:57 WBC RBC Hgb Hct MCV MCH MCHC RDW Plt Count pCO2 pO2 HCO3 ABG pH ABG Total CO2 ABG O2 Saturation ABG O2 Content ABG Base Excess ABG Hemoglobin ABG Carboxyhemoglobin POC ABG HHb (Measured) ABG Methemoglobin ABG O2 Capacity Eagle Test A-a O2 Difference Hgb O2 Saturation Vent Mode Mechanical Rate FiO2 Tidal Volume PEEP Crit Value Called To Crit Value Called By Crit Value Read Back Blood Gas Notified Time Sodium Potassium Chloride Carbon Dioxide Anion Gap BUN Creatinine Est GFR ( Amer) Est GFR (Non-Af Amer) POC Glucose (mg/dL) 157 H 147 H 188 H Random Glucose Calcium Total Bilirubin AST ALT Alkaline Phosphatase Total Protein Albumin Globulin Albumin/Globulin Ratio 05/27/18 05/27/18 05/27/18 04:17 04:29 04:29 WBC 11.8 H RBC 3.19 L Hgb 7.8 L Hct 24.4 L MCV 76.7 L MCH 24.4 L MCHC 31.8 L RDW 16.9 H Plt Count 235 pCO2 pO2 HCO3 ABG pH ABG Total CO2 ABG O2 Saturation ABG O2 Content ABG Base Excess ABG Hemoglobin ABG Carboxyhemoglobin POC ABG HHb (Measured) ABG Methemoglobin ABG O2 Capacity Eagle Test A-a O2 Difference Hgb O2 Saturation Vent Mode Mechanical Rate FiO2 Tidal Volume PEEP Crit Value Called To Crit Value Called By Crit Value Read Back Blood Gas Notified Time Sodium 154 H Potassium 3.6 Chloride 106 Carbon Dioxide 39 H Anion Gap 13 BUN 32 H Creatinine 1.2 Est GFR ( Amer) > 60 Est GFR (Non-Af Amer) > 60 POC Glucose (mg/dL) 194 H Random Glucose 177 H Calcium 8.0 L Total Bilirubin 0.3 AST 50 ALT 45 Alkaline Phosphatase 45 Total Protein 4.7 L Albumin 2.2 L Globulin 2.4 Albumin/Globulin Ratio 0.9 L 05/27/18 05:12 WBC RBC Hgb Hct MCV MCH MCHC RDW Plt Count pCO2 71 H* pO2 104 H HCO3 35.0 H ABG pH 7.36 ABG Total CO2 42.3 H ABG O2 Saturation 98.7 H ABG O2 Content 11.1 L ABG Base Excess 12.9 H ABG Hemoglobin 7.9 L ABG Carboxyhemoglobin 0.8 POC ABG HHb (Measured) 1.3 ABG Methemoglobin 0.2 ABG O2 Capacity 11.2 L Eagle Test Yes A-a O2 Difference 306.0 Hgb O2 Saturation 97.7 Vent Mode A/c Mechanical Rate 16 FiO2 70.0 Tidal Volume 550 PEEP 8 Crit Value Called To Basia henderson rn Crit Value Called By 333 Crit Value Read Back Y Blood Gas Notified Time 540 Sodium Potassium Chloride Carbon Dioxide Anion Gap BUN Creatinine Est GFR ( Amer) Est GFR (Non-Af Amer) POC Glucose (mg/dL) Random Glucose Calcium Total Bilirubin AST ALT Alkaline Phosphatase Total Protein Albumin Globulin Albumin/Globulin Ratio Fingerstick Blood Sugar Results: 194 Review of Systems - Review of Systems Systems not reviewed;Unavailable: Altered Mental Status Assessment/Plan - Assessment and Plan (Free Text) Assessment: 47 y/o M with a PMHx Depression, Anxiety, DM type 2, HTN, HLD, TIA, Asthma, JODY , CABG, CAD with stent (2008), DVT and PE s/p IVC Filter (2008), Gastric Bypass (2013), admitted due to suicidal attempt via overdose of Seroquel/Ambien/ Trazodone/Clonidine. Intubated, EEG showed no brain activity, repeated EEG confirmed preseding EEG results. BP progressively decreasing. Lab results and patient's status were discussed with mother and family yesterday. Mother aware of NO BRAIN ACTIVITY awaiting further decision making. Plan: >Altered Mental Status -Neurology consult, Dr Meek. -On Keppra 1,000mg Q12H -EEG from 05/21/18 and 05/26/18 showed NO brain activity. >Neuroleptic Malignant Syndrome/Hyperthermia -Neurology on board, Dr Meek, f/u recommendations. -On Amantidine. -EEG from 05/21/18 and 05/26/18 showed NO brain activity. >Acute Respiratory Failure/RLL Pneumonia -On mechanical ventilator, ventillator setting change. -CXR c/w RLL pneumonia. -ID on board, Dr Rogers -C/w Levofloxacin, Vancomycin and Clindamycin -Stop all sedatives, as the main goal is for patient to become awake and arousable. >Hypertension -Norvasc / Labetalol not being given due to progressive hypotension. -BP monitor. >DVT Prophylaxis -SCD's --->No brain activity. Today, clinical exam is consistent with loss of brainstem activity. At 12:00 pm, Dr Jose and Dr Jara discussed with 2 daughters, that were present in the patient's room, about current clinical status of patient and were informed of patient's rate of clinical deterioration and declining vital signs. As per daughters, the whole family is aware of patient's neurological findings and that patient may today. However, family is awaiting the passage of brother's birthday in order to proceed with terminal extubation. <Joaquin Jose - Last Filed: 05/28/18 06:21> CCU Subjective - Physician Review Subjective (Free Text): Attestation: Patient seen and examined at the bedside with Resident Dr. Jerome Jara; and I agree with his outline of plans and management documented below as discussed on AM rounds reflecting my review of all applicable clinical data, and participation in the care of the patient throughout the day in ICU, May 27, 2018. CCU Objective - Vital Signs / Intake & Output Intake and Output (Last 8hrs): Intake & Output 05/27/18 05/27/18 05/28/18 14:59 22:59 06:59 Intake Total 1507 1859 0 Output Total 850 Balance 1507 1009 0 Intake: IV 252 504 0 Intake, Piggyback 300 400 Tube Feeding 455 455 Free Water Flush 500 500 Output: Urine 850 Urethral (Sy) 850 - Patient Studies Lab Studies: Lab Studies 05/27/18 05/27/18 05/27/18 Range/Units 21:27 16:16 11:10 POC Glucose (mg/dL) 90 117 H 154 H (65-110) mg/dL Laboratory Results - last 24 hr 05/27/18 05/27/18 05/27/18 11:10 16:16 21:27 POC Glucose (mg/dL) 154 H 117 H 90
--- NOTE | 2018-05-27 16:00 | CP.PCM.PN ---
Subjective - Date & Time of Evaluation Date of Evaluation: 05/27/18 Time of Evaluation: 10:00 - Subjective Subjective: F/U Respiratory Failure Objective - Vital Signs/Intake and Output Vital Signs (last 24 hours): Temp Pulse Resp BP Pulse Ox 100.1 F H 82 18 53/26 L 100 05/27/18 15:35 05/27/18 15:35 05/27/18 15:35 05/27/18 15:35 05/27/18 15:35 Intake and Output: 05/27/18 05/27/18 06:59 18:59 Intake Total 2537 1507 Output Total 1800 Balance 737 1507 - Medications Medications: Current Medications Acetaminophen (Tylenol 650mg/20.3ml Solution Ud) 650 mg PO Q4 PRN PRN Reason: Temperature Last Admin: 05/25/18 23:45 Dose: 650 mg Albuterol/Ipratropium (Duoneb 3 Mg/0.5 Mg (3 Ml) Ud) 3 ml INH RQ4 DANNY Last Admin: 05/27/18 15:08 Dose: 3 ml Amlodipine Besylate (Norvasc) 10 mg PO DAILY DANNY Last Admin: 05/27/18 08:16 Dose: Not Given Clindamycin Phosphate (Cleocin) 600 mg in 50 mls @ 50 mls/hr IVPB Q8H DANNY PRN Reason: Protocol Last Admin: 05/27/18 15:37 Dose: 50 mls/hr Vancomycin HCl 1 gm/ Sodium (Chloride) 250 mls @ 166.667 mls/hr IVPB Q12H DANNY PRN Reason: Protocol Last Admin: 05/27/18 15:44 Dose: 166.667 mls/hr Levofloxacin/Dextrose (Levaquin 750mg) 750 mg in 150 mls @ 100 mls/hr IVPB DAILY DANNY Last Admin: 05/27/18 08:45 Dose: 100 mls/hr Levetiracetam 1,000 mg/ Sodium (Chloride) 110 mls @ 210 mls/hr IVPB Q12 DANNY Last Admin: 05/27/18 08:35 Dose: 210 mls/hr Insulin Human Lispro (Humalog) 0 units SC 0000,0600,1200,1800 DANNY PRN Reason: Protocol Last Admin: 05/27/18 11:40 Dose: 2 units Labetalol HCl (Trandate) 20 mg IVP Q4 [facility] Last Admin: 05/27/18 08:15 Dose: Not Given Pantoprazole Sodium (Protonix Inj) 40 mg IVP DAILY [facility] Last Admin: 05/27/18 08:49 Dose: 40 mg - Labs Labs: 05/27/18 04:29 05/27/18 04:29 PT 15.8 Seconds (9.8-13.1) H 05/20/18 16:00 INR 1.4 (0.9-1.2) H 05/20/18 16:00 APTT 23.2 Seconds (25.6-37.1) L 05/20/18 16:00 - Constitutional Appears: Chronically Ill - Head Exam Head Exam: NORMAL INSPECTION - Eye Exam Additional comments: Noconeal reklex, sluggish reaction to light - ENT Exam Additional comments: Intubated - Neck Exam Neck Exam: Normal Inspection - Respiratory Exam Respiratory Exam: Decreased Breath Sounds (at bases), Rhonchi - Cardiovascular Exam Cardiovascular Exam: REGULAR RHYTHM - GI/Abdominal Exam GI & Abdominal Exam: Soft, Normal Bowel Sounds - Extremities Exam Additional comments: Edema all extremities. - Neurological Exam Additional comments: Intubated, non verbal, comatose. - Skin Skin Exam: Warm Assessment and Plan (1) Respiratory failure Status: Acute (2) Neuroleptic malignant syndrome Status: Acute (3) HTN (hypertension) Status: Acute (4) Overdose Status: Acute (5) Aspiration pneumonia Status: Acute (6) Hx of deep venous thrombosis Status: Chronic (7) Hx pulmonary embolism Status: Acute (8) History of obstructive sleep apnea Status: Acute (9) Diabetes Status: Chronic (10) Asthma exacerbation Status: Acute - Assessment and Plan (Free Text) Plan: Critical care time: 30 min.
[2018-05-27 20:12] VITALS: RESP 18; O2SAT 100
--- NOTE | 2018-05-27 22:09 | CP.PCM.PN ---
Subjective - Date & Time of Evaluation Date of Evaluation: 05/27/18 Time of Evaluation: 22:02 - Subjective Subjective: Called to meet with family. Eldest daughter stated she was the legal next of kin and requested immediate terminal extubation. Approximately 15 members were met in waiting room for a family meeting. There is a high level of disagreement among family members regarding terminal extubation. After extensive questioning , it was found the patient's eldest child is Mr. Garrick Shah. He is unable to be reached at this time due to incarceration. According to skilled nursing contact, Mr. Garrick Shah will be available via social work tomorrow AM. Until this time, patient's family including mother and children (no wives) have been in agreement regarding goals of care including DNR status and no further life sustaining measures, including but not limited to vasopressors. Terminal extubation was discussed in the last week, however no agreement reached. Administration and case management emergently contacted. Emergency Ethics Committee meeting planned for tomorrow AM. Patient's current BP 45/23, HR 70s. Pupils fixed and dilated. TOTAL CARE TIME: 130 MINUTES Objective - Vital Signs/Intake and Output Vital Signs (last 24 hours): Temp Pulse Resp BP Pulse Ox 101.3 F H 83 18 40/23 L 100 05/27/18 20:10 05/27/18 20:10 05/27/18 20:10 05/27/18 20:10 05/27/18 20:10 Intake and Output: 05/27/18 05/28/18 18:59 06:59 Intake Total 2653 399 Output Total 850 Balance 1803 399 - Medications Medications: Current Medications Acetaminophen (Tylenol 650mg/20.3ml Solution Ud) 650 mg PO Q4 PRN PRN Reason: Temperature Last Admin: 05/25/18 23:45 Dose: 650 mg Albuterol/Ipratropium (Duoneb 3 Mg/0.5 Mg (3 Ml) Ud) 3 ml INH RQ4 DANNY Last Admin: 05/27/18 19:23 Dose: 3 ml Amlodipine Besylate (Norvasc) 10 mg PO DAILY [facility]ANNY Last Admin: 05/27/18 08:16 Dose: Not Given Clindamycin Phosphate (Cleocin) 600 mg in 50 mls @ 50 mls/hr IVPB Q8H DANNY PRN Reason: Protocol Last Admin: 05/27/18 15:37 Dose: 50 mls/hr Vancomycin HCl 1 gm/ Sodium (Chloride) 250 mls @ 166.667 mls/hr IVPB Q12H DANNY PRN Reason: Protocol Last Admin: 05/27/18 15:44 Dose: 166.667 mls/hr Levofloxacin/Dextrose (Levaquin 750mg) 750 mg in 150 mls @ 100 mls/hr IVPB DAILY DANNY Last Admin: 05/27/18 08:45 Dose: 100 mls/hr Levetiracetam 1,000 mg/ Sodium (Chloride) 110 mls @ 210 mls/hr IVPB Q12 DANNY Last Admin: 05/27/18 21:15 Dose: 210 mls/hr Insulin Human Lispro (Humalog) 0 units SC 0000,0600,1200,1800 DANNY PRN Reason: Protocol Last Admin: 05/27/18 17:11 Dose: Not Given Labetalol HCl (Trandate) 20 mg IVP Q4 [facility] Last Admin: 05/27/18 21:18 Dose: Not Given Pantoprazole Sodium (Protonix Inj) 40 mg IVP DAILY [facility] Last Admin: 05/27/18 08:49 Dose: 40 mg - Labs Labs: 05/27/18 04:29 05/27/18 04:29 PT 15.8 Seconds (9.8-13.1) H 05/20/18 16:00 INR 1.4 (0.9-1.2) H 05/20/18 16:00 APTT 23.2 Seconds (25.6-37.1) L 05/20/18 16:00
[2018-05-27 23:27] VITALS: PULSE 73
[2018-05-28] MEDS: Clindamycin 600mg/50ml D5W 600 MG/50 ML VIAL IVPB SCH
[2018-05-28 00:07] VITALS: BP 36/24
[2018-05-28 00:09] VITALS: TEMP 98.1
[2018-05-28] MEDS: Labetalol 5 mg/ml Inj 20ML IVP SCH (01:00)
--- NOTE | 2018-05-28 01:38 | CP.PCM.PRO ---
Pronouncement of Note - Clinical Findings Physical Exam: No Response Verbal/Painful Stimuli, Absent Peripheral Pulses{ Carotid & Femoral}, Absent Heart & Breath Sounds, No Pupillary Light Reflex, No Corneal Reflex, Pupils Fixed & Dilated, Absence of Vital Signs - Pronouncement Time Time of Pronouncement of : 01:24 - Notifications Pronouncement Notifications: Family Notified Internal Medicine Physician Assistant Notified: No - Autopsy Autopsy Requested: No - [place] [id number]
--- NOTE | 2018-05-28 06:33 | CP.PCM.PN ---
Subjective - Date & Time of Evaluation Date of Evaluation: 05/25/18 Time of Evaluation: 10:15 - Subjective Subjective: Continue to be GCS 3T and EEG with No Brain activity. Continue to Trigger the vent. will Repeat EEG, and evaluate for Brain . Objective - Vital Signs/Intake and Output Vital Signs (last 24 hours): Temp Pulse Resp BP Pulse Ox 98.1 F 73 18 36/24 L 100 05/28/18 00:08 05/28/18 00:00 05/28/18 00:00 05/28/18 00:00 05/28/18 00:00 Intake and Output: 05/27/18 05/28/18 18:59 06:59 Intake Total 2653 713 Output Total 850 Balance 1803 713 - Labs Labs: 05/27/18 04:29 05/27/18 04:29 PT 15.8 Seconds (9.8-13.1) H 05/20/18 16:00 INR 1.4 (0.9-1.2) H 05/20/18 16:00 APTT 23.2 Seconds (25.6-37.1) L 05/20/18 16:00 Assessment and Plan (1) Acute respiratory failure with hypercapnia Assessment & Plan: S/P Reintubated Mixed Respiratory and Metabolic acidosis with Lactate Level >10 Aspiration Pneumonia Vs Neuroleptic/Serotonine Syndrome Vs Drug Fever Fever IVF ABG Daily Morning Labs Status: Acute (2) Cardiac Arrest Today S/P Successful Resuscitation Assessment and Plan: Multiple Drug Overdose Neuroleptic Syndrome/Serotonine Syndrome Supportive Care Danrolene PRN regidity Status: Acute (3) Suicide attempt by drug ingestion Assessment and Plan: Major Depression Supportive Care Psych onboard Status: Acute Priority: High (4) Microcytic Anemia (5) Hypernatremia/Hyperchloremia D5 0.225 @125cc/hr (d) DVT prophylaxis Assessment and Plan: Lovenox 40mg SQ Daily Status: Chronic
--- NOTE | 2018-05-28 06:34 | CP.PCM.PN ---
Subjective - Date & Time of Evaluation Date of Evaluation: 05/26/18 Time of Evaluation: 10:15 - Subjective Subjective: Patient remains GCS 3T with Repeat EEG with no brain activity. Clinically, patient triggering the vent. Family aware of the poor prognosis and being discussed about Terminal extubation. Family not in agreement yet. Objective - Vital Signs/Intake and Output Vital Signs (last 24 hours): Temp Pulse Resp BP Pulse Ox 98.1 F 73 18 36/24 L 100 05/28/18 00:08 05/28/18 00:00 05/28/18 00:00 05/28/18 00:00 05/28/18 00:00 Intake and Output: 05/27/18 05/28/18 18:59 06:59 Intake Total 2653 713 Output Total 850 Balance 1803 713 - Labs Labs: 05/27/18 04:29 05/27/18 04:29 PT 15.8 Seconds (9.8-13.1) H 05/20/18 16:00 INR 1.4 (0.9-1.2) H 05/20/18 16:00 APTT 23.2 Seconds (25.6-37.1) L 05/20/18 16:00 Assessment and Plan (1) Acute respiratory failure with hypercapnia Assessment & Plan: S/P Reintubated Aspiration Pneumonia Vs Neuroleptic/Serotonine Syndrome Vs Drug Fever Fever IVF Neurologist, ID, and Pulmonary input appreciated (2) Altered mental status, Assessment and Plan: Multiple Drug Overdose Neuroleptic Syndrome/Serotonine Syndrome Supportive Care Danrolene PRN regidity Status: Acute (3) Suicide attempt by drug ingestion Assessment and Plan: Major Depression Supportive Care Psych onboard Status: Acute Priority: High (4) Microcytic Anemia (5) Hypernatremia/Hyperchloremia D5 0.225 @125cc/hr (d) DVT prophylaxis Assessment and Plan: Lovenox 40mg SQ Daily Status: Chronic
--- NOTE | 2018-05-28 06:35 | CP.PCM.PN ---
Subjective - Date & Time of Evaluation Date of Evaluation: 05/27/18 Time of Evaluation: 13:45 - Subjective Subjective: Hemodynamically unstable. Hypotensive despite Pressors. Patient not triggering the Vent any more. Next of Kin decided DNR and requesting terminal extubation tomorrow. Two EEG have shown no Brain activity. Objective - Vital Signs/Intake and Output Vital Signs (last 24 hours): Temp Pulse Resp BP Pulse Ox 98.1 F 73 18 36/24 L 100 05/28/18 00:08 05/28/18 00:00 05/28/18 00:00 05/28/18 00:00 05/28/18 00:00 Intake and Output: 05/27/18 05/28/18 18:59 06:59 Intake Total 2653 713 Output Total 850 Balance 1803 713 - Labs Labs: 05/27/18 04:29 05/27/18 04:29 PT 15.8 Seconds (9.8-13.1) H 05/20/18 16:00 INR 1.4 (0.9-1.2) H 05/20/18 16:00 APTT 23.2 Seconds (25.6-37.1) L 05/20/18 16:00 Assessment and Plan (1) Acute respiratory failure with hypercapnia Assessment & Plan: S/P Re-intubated Respiratory Acidosis Aspiration Pneumonia Vs Neuroleptic/Serotonine Syndrome Vs Drug Fever Fever IVF Neurology, ID, and Pulmonary on board (2) Altered mental status,Deep Coma Assessment and Plan: Multiple Drug Overdose Neuroleptic Syndrome/Serotonine Syndrome Supportive Care Status: Acute (3) Suicide attempt by drug ingestion Assessment and Plan: Major Depression Supportive Care Psych onboard Status: Acute Priority: High (4) Microcytic Anemia (5) Hypernatremia/Hyperchloremia D5 0.225 @125cc/hr (6) DVT prophylaxis Assessment and Plan: Lovenox 40mg SQ Daily Disposition: Family Agreed Terminal Extubation on 05/28/2018. Status: Chronic
--- NOTE | 2018-05-28 06:36 | CP.PCM.DIS ---
Provider - Provider Date of Admission: 05/14/18 20:50 Attending physician: Leigh Ann Uriarte MD Time Spent in preparation of Discharge (in minutes): 25 Diagnosis - Discharge Diagnosis (1) Acute respiratory failure with hypercapnia Status: Chronic Hospital Course - Lab Results Lab Results: Micro Results 05/18/18 16:49 Blood-Venous Blood Culture - Final NO GROWTH AFTER 5 DAYS 05/18/18 16:49 Blood-Venous Gram Stain - Final TEST NOT PERFORMED 05/20/18 16:00 Sputum Gram Stain - Final 05/20/18 16:00 Sputum Sputum Culture - Final NORMAL ORAL MAKAYLA 05/17/18 16:08 Blood-Venous Blood Culture - Final NO GROWTH AFTER 5 DAYS 05/17/18 16:08 Blood-Venous Gram Stain - Final TEST NOT PERFORMED 05/17/18 15:58 Blood-Venous Blood Culture - Final NO GROWTH AFTER 5 DAYS 05/17/18 15:58 Blood-Venous Gram Stain - Final TEST NOT PERFORMED 05/19/18 07:58 Trachasp Gram Stain - Final 05/19/18 07:58 Trachasp Sputum Culture - Final Yeast Species 05/17/18 16:59 Urine,Sy Urine Culture - Final No Growth (<1,000 CFU/ML) 05/14/18 10:00 Naris MRSA Culture (Admit) - Final MRSA NOT DETECTED Most Recent Lab Values WBC 11.8 K/uL (4.8-10.8) H 05/27/18 04:29 RBC 3.19 Mil/uL (4.40-5.90) L 05/27/18 04:29 Hgb 7.8 g/dL (12.0-18.0) L 05/27/18 04:29 Hct 24.4 % (35.0-51.0) L 05/27/18 04:29 MCV 76.7 fl (80.0-94.0) L 05/27/18 04:29 MCH 24.4 pg (27.0-31.0) L 05/27/18 04:29 MCHC 31.8 g/dL (33.0-37.0) L 05/27/18 04:29 RDW 16.9 % (11.5-14.5) H 05/27/18 04:29 Plt Count 235 K/uL (130-400) 05/27/18 04:29 MPV 9.4 fl (7.2-11.7) 05/26/18 04:18 Neut % (Auto) 90.6 % (50.0-75.0) H 05/26/18 04:18 Lymph % (Auto) 3.9 % (20.0-40.0) L 05/26/18 04:18 [place] % (Auto) 5.0 % (0.0-10.0) 05/26/18 04:18 Eos % (Auto) 0.3 % (0.0-4.0) 05/26/18 04:18 Baso % (Auto) 0.2 % (0.0-2.0) 05/26/18 04:18 Neut # (Auto) 12.0 K/uL (1.8-7.0) H 05/26/18 04:18 Lymph # (Auto) 0.5 K/uL (1.0-4.3) L 05/26/18 04:18 [place] # (Auto) 0.7 K/uL (0.0-0.8) 05/26/18 04:18 Eos # (Auto) 0.0 K/uL (0.0-0.7) 05/26/18 04:18 Baso # (Auto) 0.0 K/uL (0.0-0.2) 05/26/18 04:18 Total Counted Cancelled 05/20/18 16:00 Neutrophils % (Manual) 93 % (42-75) H 05/26/18 04:18 Band Neutrophils % 1 % (0-2) 05/26/18 04:18 Lymphocytes % (Manual) 3 % (20-50) L 05/26/18 04:18 Reactive Lymphs % 1 % (0-0) H 05/20/18 04:40 Monocytes % (Manual) 3 % (0-10) 05/26/18 04:18 Eosinophils % (Manual) Cancelled 05/20/18 16:00 Basophils % (Manual) Cancelled 05/20/18 16:00 Metamyelocytes % Cancelled 05/20/18 16:00 Myelocytes % Cancelled 05/20/18 16:00 Promyelocytes % Cancelled 05/20/18 16:00 Blast Cells % Cancelled 05/20/18 16:00 Plasma Cell % (Manual) Cancelled 05/20/18 16:00 Nucleated RBC % Cancelled 05/20/18 16:00 Hypersegmented Polys Present 05/26/18 04:18 Smudge Cells Cancelled 05/20/18 16:00 Toxic Granulation Present 05/20/18 04:40 Dohle Bodies Cancelled 05/20/18 16:00 Ping Rods Cancelled 05/20/18 16:00 Platelet Estimate Normal (NORMAL) 05/26/18 04:18 Plt Clumps, EDTA Cancelled 05/20/18 16:00 Large Platelets Present 05/26/18 04:18 Giant Platelets Cancelled 05/20/18 16:00 RBC Morphology Cancelled 05/20/18 16:00 Polychromasia Cancelled 05/20/18 16:00 Hypochromasia (manual) Moderate 05/26/18 04:18 Poikilocytosis (manual Slight 05/16/18 05:30 Basophilic Stippling Cancelled 05/20/18 16:00 Anisocytosis (manual) Slight 05/26/18 04:18 Microcytosis (manual) Slight 05/15/18 05:30 Macrocytosis (manual) Cancelled 05/20/18 16:00 Spherocytes Cancelled 05/20/18 16:00 Sickle Cells Cancelled 05/20/18 16:00 Target Cells Cancelled 05/20/18 16:00 Tear Drop Cells Slight 05/26/18 04:18 Ovalocytes Slight 05/26/18 04:18 Stomatocytes Cancelled 05/20/18 16:00 Helmet Cells Cancelled 05/20/18 16:00 [place] Bodies Cancelled 05/20/18 16:00 Shreyas Cells Cancelled 05/20/18 16:00 Acanthocytes (Spur) Cancelled 05/20/18 16:00 Rouleaux Cancelled 05/20/18 16:00 Schistocytes Slight 05/26/18 04:18 PT 15.8 Seconds (9.8-13.1) H 05/20/18 16:00 INR 1.4 (0.9-1.2) H 05/20/18 16:00 APTT 23.2 Seconds (25.6-37.1) L 05/20/18 16:00 pCO2 71 mm/Hg (35-45) H* 05/27/18 05:12 pO2 104 mm/Hg (80-100) H 05/27/18 05:12 HCO3 35.0 mmol/L (21-28) H 05/27/18 05:12 ABG pH 7.36 (7.35-7.45) 05/27/18 05:12 ABG Total CO2 42.3 mmol/L (22-28) H 05/27/18 05:12 ABG O2 Saturation 98.7 % (95-98) H 05/27/18 05:12 ABG O2 Content 11.1 ML/dL (15-23) L 05/27/18 05:12 ABG Base Excess 12.9 mmol/L (-2.0-3.0) H 05/27/18 05:12 ABG Hemoglobin 7.9 g/dL (11.7-17.4) L 05/27/18 05:12 ABG Carboxyhemoglobin 0.8 % (0.5-1.5) 05/27/18 05:12 POC ABG HHb (Measured) 1.3 % (0.0-5.0) 05/27/18 05:12 ABG Methemoglobin 0.2 % (0.0-3.0) 05/27/18 05:12 ABG O2 Capacity 11.2 mL/dL (16-24) L 05/27/18 05:12 [place] Test Yes 05/27/18 05:12 ABG Potassium 4.1 mmol/L (3.6-5.2) 05/21/18 05:04 A-a O2 Difference 306.0 mm/Hg 05/27/18 05:12 Hgb O2 Saturation 97.7 % (95.0-98.0) 05/27/18 05:12 Sodium 141.0 mmol/L (132-148) 05/21/18 05:04 Chloride 108.0 mmol/L (98-107) H 05/21/18 05:04 Glucose 161 mg/dL (75-110) H 05/21/18 05:04 Lactate 1.3 mmol/L (0.7-2.1) 05/21/18 05:04 Vent Mode A/c 05/27/18 05:12 Mechanical Rate 16 05/27/18 05:12 FiO2 70.0 % 05/27/18 05:12 Tidal Volume 550 05/27/18 05:12 PEEP 8 05/27/18 05:12 Crit Value Called To Basia henderson rn 05/27/18 05:12 Crit Value Called By Facundo 05/27/18 05:12 Crit Value Read Back Y 05/27/18 05:12 Blood Gas Notified Time 540 05/27/18 05:12 Sodium 154 mmol/l (132-148) H 05/27/18 04:29 Potassium 3.6 MMOL/L (3.6-5.0) 05/27/18 04:29 Chloride 106 mmol/L (98-107) 05/27/18 04:29 Carbon Dioxide 39 mmol/L (22-30) H 05/27/18 04:29 Anion Gap 13 (10-20) 05/27/18 04:29 BUN 32 mg/dl (9-20) H 05/27/18 04:29 Creatinine 1.2 mg/dl (0.8-1.5) 05/27/18 04:29 Est GFR ( Amer) > 60 05/27/18 04:29 Est GFR (Non-Af Amer) > 60 05/27/18 04:29 POC Glucose (mg/dL) 90 mg/dL (65-110) 05/27/18 21:27 Random Glucose 177 mg/dL (75-110) H 05/27/18 04:29 Hemoglobin A1c 5.9 % (4.2-6.5) 05/15/18 05:30 Lactic Acid 1.2 MMOL/L (0.7-2.1) 05/18/18 16:49 Calcium 8.0 mg/dL (8.4-10.2) L 05/27/18 04:29 Phosphorus 5.4 mg/dl (2.5-4.5) H 05/21/18 05:00 Magnesium 1.8 MG/DL (1.6-2.3) 05/21/18 05:00 Iron 80 ug/dL (49-181) 05/15/18 05:30 TIBC 429 ug/dL (250-450) 05/15/18 05:30 % Saturation 19 % (20-55) L 05/15/18 05:30 Total Bilirubin 0.3 mg/dl (0.2-1.3) 05/27/18 04:29 AST 50 U/L (17-59) 05/27/18 04:29 ALT 45 U/L (21-72) 05/27/18 04:29 Alkaline Phosphatase 45 U/L (38-126) 05/27/18 04:29 Lactate Dehydrogenase 1413 U/L (313-618) H 05/21/18 05:00 Total Creatine Kinase 826 U/L (55-170) H 05/21/18 05:00 Troponin I < 0.0120 ng/mL (0.00-0.120) 05/14/18 20:25 Total Protein 4.7 G/DL (6.3-8.2) L 05/27/18 04:29 Albumin 2.2 g/dL (3.5-5.0) L 05/27/18 04:29 Globulin 2.4 gm/dL (2.2-3.9) 05/27/18 04:29 Albumin/Globulin Ratio 0.9 (1.0-2.1) L 05/27/18 04:29 Procalcitonin 0.35 NG/ML (0.19-0.49) 05/20/18 16:00 Prolactin 31.2 ng/mL (3.7-17.9) H 05/20/18 16:00 Arterial Blood Potassium 4.1 mmol/L (3.6-5.2) 05/21/18 05:04 Urine Color Yellow (YELLOW) 05/14/18 21:42 Urine Clarity Slighty-cloudy (Clear) 05/14/18 21:42 Urine pH 5.0 (5.0-8.0) 05/14/18 21:42 Ur Specific [place] 1.028 (1.003-1.030) 05/14/18 21:42 Urine Protein 30 mg/dL (NEGATIVE) 05/14/18 21:42 Urine Glucose (UA) Neg mg/dL (Normal) 05/14/18 21:42 Urine Ketones Negative mg/dL (NEGATIVE) 05/14/18 21:42 Urine Blood Negative (NEGATIVE) 05/14/18 21:42 Urine Nitrate Negative (NEGATIVE) 05/14/18 21:42 Urine Bilirubin Negative (NEGATIVE) 05/14/18 21:42 Urine Urobilinogen 2.0 mg/dL (0.2-1.0) 05/14/18 21:42 Ur Leukocyte Esterase Neg [place]/uL (Negative) 05/14/18 21:42 Urine RBC (Auto) 3 /hpf (0-3) 05/14/18 21:42 Urine Microscopic WBC 1 /hpf (0-5) 05/14/18 21:42 Urine Bacteria Rare (<OCC) 05/14/18 21:42 Vancomycin Trough 11.3 ug/mL (5.0-10.0) H 05/25/18 16:26 Salicylates < 1.0 mg/dl 05/14/18 20:25 Urine Opiates Screen Negative (NEGATIVE) 05/14/18 21:42 Urine Methadone Screen Negative (NEGATIVE) 05/14/18 21:42 Acetaminophen < 10.0 ug/ml (10.0-30.0) L 05/14/18 20:25 Ur Barbiturates Screen Negative (NEGATIVE) 05/14/18 21:42 Ur Phencyclidine Scrn Negative (NEGATIVE) 05/14/18 21:42 Ur Amphetamines Screen Negative (NEGATIVE) 05/14/18 21:42 U Benzodiazepines Scrn Negative (NEGATIVE) 05/14/18 21:42 U Oth Cocaine Metabols Negative (NEGATIVE) 05/14/18 21:42 U Cannabinoids Screen Negative (NEGATIVE) 05/14/18 21:42 Alcohol, Quantitative < 10 mg/dl (0-10) 05/14/18 20:25 Blood Type A POSITIVE 05/14/18 20:25 Antibody Screen Negative 05/14/18 20:25 BBK History Checked Patient has bt 05/14/18 20:25 - Hospital Course Hospital Course: A 47 y/o M with a PMHx Depression, Anxiety, DM type 2, HTN, HLD, TIA, Asthma, JODY, CABG, CAD with stent (2008), DVT and PE s/p IVC Filter (2008), Gastric Bypass (2013), admitted due to suicidal attempt via overdose of Seroquel/Ambien/ Trazodone/Clonidine, and the Mental Status not improving and continue to spike fever despite IV antibiotics and Supportive care, and Highly likely Reason Includes Neuroleptic Syndrome or Serotonin Syndrome. Pateint was treated with MV , IVF, IV antibiotics and all supportive care. Despite patient's conddition progressively worsened to no brain activity and hemodynamically unstable, and the patient wa sto be Terminally extubated as per family agreement, and Patient has today before the Scheduled Terminal Extubation. Discharge Exam - Head Exam Head Exam: NORMAL INSPECTION Discharge Plan - Follow Up Plan Condition: CRITICAL Disposition: WITH WITHOUT AUTOPSY
== END 2018-05-28 03:35 | DRG 917 ==
LOC: H.ER 20:04 → H.ERHOLD 20:50 → H.ICU/CCU 23:09
PROVIDERS: ADMIT Internal Medicine; ATTEND Internal Medicine
PROC: 0BH17EZ Insertion of Endotracheal Airway into Trachea, Via Natural or Artificial Opening (ICD-10-PCS; 2018-05-14)
PROC: 5A1955Z Respiratory Ventilation, Greater than 96 Consecutive Hours (ICD-10-PCS; 2018-05-14)
PROC: 0BH17EZ Insertion of Endotracheal Airway into Trachea, Via Natural or Artificial Opening (ICD-10-PCS; 2018-05-16)
PROC: 3E0234Z Introduction of Serum, Toxoid and Vaccine into Muscle, Percutaneous Approach (ICD-10-PCS; principal; 2018-05-17)
PROC: 0BH17EZ Insertion of Endotracheal Airway into Trachea, Via Natural or Artificial Opening (ICD-10-PCS; 2018-05-20)
PROC: 04HK33Z Insertion of Infusion Device into Right Femoral Artery, Percutaneous Approach (ICD-10-PCS; 2018-05-20)
PROC: 05HM33Z Insertion of Infusion Device into Right Internal Jugular Vein, Percutaneous Approach (ICD-10-PCS; 2018-05-20)
PROC: 5A2204Z Restoration of Cardiac Rhythm, Single (ICD-10-PCS; 2018-05-20)
DX: T43.592A Poisoning by other antipsychotics and neuroleptics, intentional self-harm, initial encounter (principal); J96.02 Acute respiratory failure with hypercapnia; J69.0 Pneumonitis due to inhalation of food and vomit; G21.0 Malignant neuroleptic syndrome; N17.0 Acute kidney failure with tubular necrosis; E87.0 Hyperosmolality and hypernatremia; J45.901 Unspecified asthma with (acute) exacerbation; I47.1 Supraventricular tachycardia; E87.4 Mixed disorder of acid-base balance; R40.3 Persistent vegetative state; T43.212A Poisoning by selective serotonin and norepinephrine reuptake inhibitors, intentional self-harm, initial encounter; Z88.0 Allergy status to penicillin; Z23 Encounter for immunization; Z86.711 Personal history of pulmonary embolism; Z86.718 Personal history of other venous thrombosis and embolism; Z86.73 Personal history of transient ischemic attack (TIA), and cerebral infarction without residual deficits; Z95.1 Presence of aortocoronary bypass graft; Z95.5 Presence of coronary angioplasty implant and graft; Z98.84 Bariatric surgery status; I25.10 Atherosclerotic heart disease of native coronary artery without angina pectoris; Z87.891 Personal history of nicotine dependence; T42.6X2A Poisoning by other antiepileptic and sedative-hypnotic drugs, intentional self-harm, initial encounter; T46.5X2A Poisoning by other antihypertensive drugs, intentional self-harm, initial encounter; I10 Essential (primary) hypertension; E78.5 Hyperlipidemia, unspecified; E78.00 Pure hypercholesterolemia, unspecified; F32.9 Major depressive disorder, single episode, unspecified; E11.65 Type 2 diabetes mellitus with hyperglycemia; G47.33 Obstructive sleep apnea (adult) (pediatric); D50.9 Iron deficiency anemia, unspecified; E87.8 Other disorders of electrolyte and fluid balance, not elsewhere classified; G25.3 Myoclonus; I46.9 Cardiac arrest, cause unspecified; E87.5 Hyperkalemia; Z66 Do not resuscitate; F41.9 Anxiety disorder, unspecified; Z51.5 Encounter for palliative care; Z78.1 Physical restraint status